=== PATIENT | female | born 1995 | race Caucasian/White ===

== ENCOUNTER 2023-04-27 21:26 | Emergency (ER) | payer SELFPAY ==
[2023-04-27] VITALS (17 sets, daily range): BP systolic 101–122; BP diastolic 47–63; PULSE 78–106; RESP 11–38; TEMP 36.4; O2SAT 96–100
--- NOTE | 2023-04-27 21:15 | RT.EKG_ITS ---
APPROVED REPORT Exam: Resting ECG Reason for Exam: dizziness Patient Location: E HR:94 bpm ECG Measurements Heart Rate 94 AXIS RI 171 P 71 QRSd 78 QRS 83 QT 354 T 69 QTc 443 Conclusion Sinus rhythm...normal P axis, V-rate 60- 99 NSR, normal axis, normal intervals, no STEMI. No previous available for comparison
[2023-04-27 22:00] LABS: Abs Immature Grans 0.08 10^3/uL (0.0-0.06); Absolute Basophil Count 0.03 10^3/uL (0.0-0.2); Absolute Eosinophil Count 0.07 10^3/uL (0.0-0.7); Absolute Lymphocyte Count 2.44 10^3/uL (1.2-3.4); Absolute Monocyte Count 1.08 10^3/uL (0.1-0.8); Absolute Neutrophil Count 7.24 10^3/uL (1.2-6.7); Basophils % 0.3; Eosinophils % 0.6; HCT 36.1 % (36.0-46.0); HGB 12.6 g/dL (11.2-15.7); Immature Grans % 0.7; Lymphocytes % 22.3; MCH 32.1 pg (27.0-33.0); MCHC 34.9 % (32.0-36.0); MCV 92 fL (80-95); MPV 10.3 fL (8.0-11.0); Monocytes % 9.9; Neutrophils % 66.2; Platelet Count 315 10^3/uL (130-400); RBC 3.93 10^6/uL (3.93-5.22); RDW 11.8 % (11.7-14.6); WBC 10.94 10^3/uL (4.4-10.8)
[2023-04-27] MEDS: Normal Saline 1,000 ML 1000 ML IV (22:05)
[2023-04-27 22:12] LABS: Bilirubin Negative (Negative); Blood Negative (Negative); Clarity Sl Cloudy (Clear); Glucose Negative (Negative); Ketones 15 mg/dL (Negative); Leukocyte Esterase Negative (Negative); Nitrite Negative (Negative); Urobilinogen 0.2 mg/dL (Up to 0.2); pH 7.5 (5-8)
[2023-04-27 22:20] LABS: ALT 13 U/L (14-59); AST 13 U/L (15-37); Albumin 4.3 g/dL (3.4-5.0); Alkaline Phosphatase 61 U/L (46-116); Anion Gap 14.2 mmol/L (3-11); BUN 11 mg/dL (7-18); Bilirubin, Total 0.4 mg/dL (0.2-1.0); CO2 23.8 mmol/L (21.0-32.0); CREATININE 0.8 mg/dL (0.55-1.02); Chloride 101 mmol/L (98-107); Glucose 132 mg/dL (74-106); Lipase 19 U/L (16-77); Magnesium 1.7 mg/dL (1.8-2.4); Sodium 139 mmol/L (136-145); Total Protein 7.5 g/dL (6.4-8.2)
[2023-04-27 22:22] LABS: Bacteria Rare HPF (Negative); C & S Indicated? No; Casts Negative LPF (Negative); Crystals Moderate Amorphous HPF (Negative); Epithelial Cells Rare HPF (Negative); Mucus Trace (Negative); RBC 0-2 HPF (0-2); WBC 0-2 HPF (0-5)
[2023-04-27 22:22] LABS: Potassium 2.7 mmol/L (3.5-5.1)
[2023-04-27] MEDS: POTASSIUM CHLORIDE 20 MEQ/100 ML BAG 50 MEQ IVPB (22:51)
[2023-04-27] MEDS: Potassium Chloride 20 MEQ TABCR 40 MEQ PO (22:52)
[2023-04-27] MEDS: Magnesium Oxide 400 MG TAB PO (22:52)
[2023-04-27] MEDS: Ondansetron 4 MG/2 ML VIAL IVP (22:52)
--- NOTE | 2023-04-27 23:06 | ED.GENADUL_ITS ---
Discharge Plan Disposition Patient Disposition: Home Discharge Details Clinical Impression: Panic attack, Anxiety about health, Acute hypokalemia, Nausea & vomiting ED Provider: Emir Zurita Home Meds and New Rx's Prescriptions: New potassium chloride 20 mEq tablet extended release 20 meq PO DAILY Qty: 3 0RF No Action uxaopeqc-vva-Qt-FA 1 mg Tablet 1 tab PO DAILY Discharge Instructions Instructions: Hypokalemia (ED), Acute Nausea and Vomiting (ED), Panic Attack (ED) Additional Instructions: Please return to the emergency department for any new or significant worsening of symptoms otherwise eat a balanced diet. You have been prescribed 3 days of additional potassium tablets given that you have low potassium here in the emergency department. Please just take 1 tablet daily. Follow-up with primary care provider if you are not seeing any signs of improvement or have any further concerns Referrals: Primary Care Provider [Outside] Discharge Data Discharge Date/Time-TO BE ENTERED AT DEPARTURE: 04/28/23 01:02 Medical Decision Making Patient presenting to the emergency department via EMS for chief complaint of vomiting with episode of syncope. Patient reports that she started feeling ill, and then vomited. When she vomited she started becoming severely anxious and concerned. Significant other states that she started breathing rapidly complaining of tingling to hands and around her mouth and then had syncopal episode. Due to this EMS was contacted and brought patient to emergency department. Patient denies fever chills, difficulty breathing swallowing, chest pain or respiratory symptoms, or focal neurological deficits. Patient denies any past medical history or allergies. Physical exam is unremarkable and I cannot appreciate any abdominal respiratory cardiac or focal neurological findi ngs. We will plan on checking patient's labs but I do not feel that CT imaging is needed at this time. Pending results we will give patient IV fluids. I have high suspicion of anxiety/panic reaction that caused syncopal episode with possible underlying medical condition. EKG performed by nursing staff. Please see physician interpretation for full interpretation of EKG but upon my review patient is in sinus rhythm with no worrisome acute findings noted. Labs reviewed and show just barely elevated WBC at 10.94 with neutrophils and monocytes also slightly elevated, CMP reviewed and shows hypokalemia with potassium of 2.7, anion gap of 14.2, glucose of 132, magnesium of 1.7 low AST ALT. Lipase is normal within range. Urinalysis does show protein and ketones but otherwise is negative. We will plan on giving patient IV 20 mEq of potassium and p.o. potassium along with p.o. magnesium. We will also further p.o. challenge patient with plan to discharge patient once infusions are complete with p.o. potassium for 2 additional days. After discussion of diagnosis and plan of care patient has no further needs, questions, or concerns and states clear understanding to return to the emergency department for any worsening symptoms. This documentation was generated using [employer] system, please disregard any oddities of phrase or misspellings. Lab Data Lab results reviewed: Yes I reviewed the patient's lab results. HPI General Mode of arrival: EMS . Date/Time Provider Initiated Documentation: 04/27/23 21:34 . Limitations to Documentation: no limitations . Information obtained by: patient, family, EMS and RN notes reviewed . History of Present Illness 28 year old F presents to the emergency department with the chief complaint of Nausea vomiting syncope, described as moderate, Patient started experiencing this hour(s) (2) and it has been constant. No relieving factors improve symptom(s), No exacerbating factors reported . Patient did receive the following treatments prior to arrival, other (Zofran per EMS) Related Data Home Medications Medication Instructions Recorded Confirmed potassium chloride 20 mEq 20 meq PO DAILY #3 tabs 04/28/23 tablet,extended release zxqkikvk-xuw-Ms-FA 1 mg 1 tab PO DAILY 05/01/23 05/01/23 tablet Previous Rx's Medication Instructions Recorded potassium chloride 20 mEq 20 meq PO DAILY #3 tabs 04/28/23 tablet,extended release Allergies Allergy/AdvReac Type Severity Reaction Status Date / Time No Known Allergies Allergy Unverified 05/01/23 19:41 General Stated Complaint: Abd Prob KAPIL: 3 Review of Systems Constitutional Constitutional: Denies chills, Denies fever(s) and Denies headache(s) ENT Ears, Nose, Mouth, and Throat: Denies dizziness and Denies headache(s) Cardiovascular Cardiovascular: Reports syncope, Denies irregular heart rhythm, Denies lightheadedness and Denies dyspnea Respiratory Respiratory: Denies cough and Denies dyspnea Gastrointestinal Gastrointestinal: Reports as per HPI, Reports diarrhea, Reports nausea and Reports vomiting Genitourinary Genitourinary: Denies hematuria, Denies dysuria and Denies pelvic pain Musculoskeletal Musculoskeletal: Reports myalgias, Reports numbness and Reports tingling Integumentary/Breasts Skin/Breast: Denies rash Neurologic Neurologic: Denies dizziness, Reports syncope, Denies headache(s), Reports numbness and Reports tingling Psychiatric Psychiatric: Reports anxiety PFSH All Active Problems (Updated 05/01/23 @ 21:38 by Johana Melton NP) Anxiety (Chronic) Hypokalemia (Acute) Social History Smoking/Tobacco Use Status: Never Smoking risk assessment performed?: Yes Alcohol Intake: never Substance use type: does not use Do you feel safe at home: Yes Do you feel safe in your relationship?: Yes Exam Const General: cooperative Orientation: alert, awake and oriented x3 Resp Effort & Inspection: normal respiratory effort and able to speak in complete sentences Auscultation: clear to auscultation bilaterally Cardio Rate: regular rate Rhythm: regular rhythm Heart Sounds: S1 normal and S2 normal GI Palpation: soft, not firm, no guarding, no masses, no pulsatile masses, not rigid, no splenomegaly and nontender Auscultation: normal bowel sounds Back/Spine/Pelvis Back: no CVA tenderness Neuro General: patient alert, patient awake, patient oriented x3, gait normal, moves all extremities, no meningeal signs, CN's II-XI intact bilaterally, not confused and not obtunded Course Vital Signs Vital signs: Vital Signs Temperature 36.4 C L 04/27/23 21:26 Pulse 97 H 04/27/23 21:26 Respiratory Rate 18 04/27/23 21:26 Blood Pressure 122/51 L 04/27/23 21:26 Pulse Oximetry 100 04/27/23 21:26 Temperature 36.4 C L 04/27/23 21:26 Pulse 97 H 04/27/23 21:26 Respiratory Rate 18 04/27/23 21:26 Respiratory Effort Normal, Non-Labored 04/27/23 21:35 Blood Pressure 122/51 L 04/27/23 21:26 Pulse Oximetry 100 04/27/23 21:26 Oxygen Delivery Method Room Air 04/27/23 21:26 Oxygen Flow Rate 0 04/27/23 21:26 Pain Level 2 04/27/23 21:26 Lab/Test Results Lab/Test Results: Laboratory Tests Range/Units 04/27/23 04/27/23 04/27/23 21:40 21:40 22:02 WBC (4.4-10.8) 10^3/uL 10.94 H RBC (3.93-5.22) 10^6/uL 3.93 Hgb (11.2-15.7) g/dL 12.6 Hct (36.0-46.0) % 36.1 MCV (80-95) fL 92 MCH (27.0-33.0) pg 32.1 MCHC (32.0-36.0) % 34.9 RDW (11.7-14.6) % 11.8 Plt Count (130-400) 10^3/uL 315 MPV (8.0-11.0) fL 10.3 Immature Gran % 0.7 Neutrophils % 66.2 Lymphocytes % 22.3 Monocytes % 9.9 Eosinophils % 0.6 Basophils % 0.3 Nucleated RBC % (0.0-0.3) % 0.0 Absolute Neutrophils (1.2-6.7) 10^3/uL 7.24 H Absolute Lymphocytes (1.2-3.4) 10^3/uL 2.44 Absolute Monocytes (0.1-0.8) 10^3/uL 1.08 H Absolute Eosinophils (0.0-0.7) 10^3/uL 0.07 Absolute Basophils (0.0-0.2) 10^3/uL 0.03 Sodium (136-145) mmol/L 139 Potassium (3.5-5.1) mmol/L 2.7 L* Chloride (98-107) mmol/L 101 Carbon Dioxide (21.0-32.0) mmol/L 23.8 Anion Gap (3-11) mmol/L 14.2 H BUN (7-18) mg/dL 11 Creatinine (0.55-1.02) mg/dL 0.8 Est GFR (CKD-EPI 2020) (mL/min/1.73m2) 103.50 Glucose (74-106) mg/dL 132 H Calcium (8.5-10.1) mg/dL 9.0 Magnesium (1.8-2.4) mg/dL 1.7 L Total Bilirubin (0.2-1.0) mg/dL 0.4 AST (15-37) U/L 13 L ALT (14-59) U/L 13 L Alkaline Phosphatase (46-116) U/L 61 Total Protein (6.4-8.2) g/dL 7.5 Albumin (3.4-5.0) g/dL 4.3 Lipase (16-77) U/L 19 Urine Color (Yellow) Yellow Urine Clarity (Clear) Sl Cloudy Urine pH (5-8) 7.5 Ur Specific [place] (1.005-1.025) 1.020 Urine Protein (Negative) mg/dL 30 H Urine Ketones (Negative) mg/dL 15 H Urine Blood (Negative) Negative Urine Nitrite (Negative) Negative Urine Bilirubin (Negative) Negative Urine Urobilinogen (Up to 0.2) mg/dL 0.2 Ur Leukocyte Esterase (Negative) Negative Urine RBC (0-2) HPF 0-2 Urine WBC (0-5) HPF 0-2 Ur Epithelial Cells (Negative) HPF Rare Urine Crystals (Negative) HPF Moderate Amorphous Urine Bacteria (Negative) HPF Rare Urine Casts (Negative) LPF Negative Urine Mucus (Negative) Trace Ur Culture Indicated? No Urine Glucose (Negative) mg/dL Negative POC- Test(urine) Negative
[2023-04-28] VITALS (7 sets, daily range): BP systolic 102–106; BP diastolic 50–64; PULSE 77–91; RESP 14–21; O2SAT 96–99
--- NOTE | 2023-04-29 13:29 | NUR.NOTE ---
Accessed chart to determine orders for EKG and to determine whether or not one needs to be cancelled. Nursing Note:
== END 2023-04-28 01:02 | disposition home or self-care (01) ==
LOC: ER 04-28 01:48
PROVIDERS: Emergency Provider Nurse Practitioner Family
DX: R55 Syncope and collapse (principal); F41.9 Anxiety disorder, unspecified; E87.6 Hypokalemia; R11.2 Nausea with vomiting, unspecified; R42 Dizziness and giddiness
CPT/HCPCS: 36415; 80053; 81025; 83690; 93005; 96361; 96365; 96366; 96375; 99284; 81003; 81015; 83735; 85025; 93010; J2405; J3480

== ENCOUNTER 2023-05-01 19:29 | Emergency (ER) | payer SELFPAY ==
[2023-05-01] VITALS (10 sets, daily range): BP systolic 139; BP diastolic 88; PULSE 87–127; RESP 19–20; TEMP 37.7; O2SAT 100
[2023-05-01] MEDS: Ondansetron 4 MG/2 ML VIAL IVP (20:32)
[2023-05-01] MEDS: Normal Saline 1,000 ML 1000 ML IV (20:32)
[2023-05-01 20:34] LABS: Abs Immature Grans 0.02 10^3/uL (0.0-0.06); Absolute Basophil Count 0.03 10^3/uL (0.0-0.2); Absolute Eosinophil Count 0.04 10^3/uL (0.0-0.7); Absolute Lymphocyte Count 2.28 10^3/uL (1.2-3.4); Absolute Monocyte Count 0.82 10^3/uL (0.1-0.8); Absolute Neutrophil Count 3.71 10^3/uL (1.2-6.7); Basophils % 0.4; Eosinophils % 0.6; HCT 41.9 % (36.0-46.0); HGB 14.5 g/dL (11.2-15.7); Immature Grans % 0.3; MCH 31.9 pg (27.0-33.0); MCHC 34.6 % (32.0-36.0); MCV 92 fL (80-95); MPV 9.6 fL (8.0-11.0); Monocytes % 11.9; Neutrophils % 53.8; Platelet Count 332 10^3/uL (130-400); RBC 4.54 10^6/uL (3.93-5.22); RDW 11.7 % (11.7-14.6); RDW-SD 39.7 fL
[2023-05-01 20:44] LABS: Anion Gap 11.6 mmol/L (3-11); BUN 11 mg/dL (7-18); CO2 27.4 mmol/L (21.0-32.0); CREATININE 0.7 mg/dL (0.55-1.02); Calcium 9.7 mg/dL (8.5-10.1); Chloride 102 mmol/L (98-107); Estimated GFR 121.49 (mL/min/1.73m2); Glucose 112 mg/dL (74-106); Potassium 3.4 mmol/L (3.5-5.1); Sodium 141 mmol/L (136-145)
--- NOTE | 2023-05-01 21:36 | ED.GENADUL_ITS ---
Discharge Plan Disposition Patient Disposition: Home Condition: Stable Discharge Details Clinical Impression: Anxiety, Hypokalemia Primary Care Provider: Michelle Clark ED Provider: Johana Melton Home Meds and New Rx's Prescriptions: Continued potassium chloride 20 mEq tablet extended release 20 meq PO DAILY Qty: 3 0RF gdfwrbmh-wvb-Nx-FA 1 mg Tablet 1 tab PO DAILY Discharge Instructions Instructions: Hypokalemia (ED), Anxiety (ED) Additional Instructions: your potassium was rechecked and is 3.4 which is just below normal, continue eating foods high in potassium and continue multivitamin. clear liquids advance as tolerated. use ondansetron if needed for nausea. Referrals: Michelle Clark [Primary Care Provider] - (follow up if needed.) Discharge Data Discharge Date/Time-TO BE ENTERED AT DEPARTURE: 05/01/23 22:23 Medical Decision Making given 1 liter of NS and zofran 4 mg IVP. labs check including bmp and cbc. patient is given ativan 0.5 mg and apap 1000 mg po for headache and persistent anxiety which she attributes to worrying about her low potassium and thinking she was dehydrated. reassurance given and she acknowledges improvement in her symptoms since receiving IV fluids. Hemodynamically she has remained stable and is agreeable to discharged home. Medical Records Medical records reviewed: Yes I reviewed the patient's medical records. Lab Data Lab results reviewed: Yes I reviewed the patient's lab results. Lab results narrative: Laboratory Tests Range/Units 05/01/23 05/01/23 20:27 20:27 WBC (4.4-10.8) 10^3/uL 6.90 RBC (3.93-5.22) 10^6/uL 4.54 Hgb (11.2-15.7) g/dL 14.5 Hct (36.0-46.0) % 41.9 MCV (80-95) fL 92 MCH (27.0-33.0) pg 31.9 MCHC (32.0-36.0) % 34.6 RDW (11.7-14.6) % 11.7 Plt Count (130-400) 10^3/uL 332 MPV (8.0-11.0) fL 9.6 Immature Gran % 0.3 Neutrophils % 53.8 Lymphocytes % 33.0 Monocytes % 11.9 Eosinophils % 0.6 Basophils % 0.4 Nucleated RBC % (0.0-0.3) % 0.0 Absolute Neutrophils (1.2-6.7) 10^3/uL 3.71 Absolute Lymphocytes (1.2-3.4) 10^3/uL 2.28 Absolute Monocytes (0.1-0.8) 10^3/uL 0.82 H Absolute Eosinophils (0.0-0.7) 10^3/uL 0.04 Absolute Basophils (0.0-0.2) 10^3/uL 0.03 Sodium (136-145) mmol/L 141 Potassium (3.5-5.1) mmol/L 3.4 L Chloride (98-107) mmol/L 102 Carbon Dioxide (21.0-32.0) mmol/L 27.4 Anion Gap (3-11) mmol/L 11.6 H BUN (7-18) mg/dL 11 Creatinine (0.55-1.02) mg/dL 0.7 Est GFR (CKD-EPI 2020) (mL/min/1.73m2) 121.49 Glucose (74-106) mg/dL 112 H Calcium (8.5-10.1) mg/dL 9.7 HPI General Mode of arrival: ambulatory . Date/Time Provider Initiated Documentation: 05/01/23 19:51 . Limitations to Documentation: other (behavioral) . Information obtained by: patient . HPI Narrative: presents for complaints of feeling dehydrated. She is worried about her potassium being low stating that she was seen for that and has not been able to take the potassium today. She states she was on a long car ride did not take much oral fluids presents very anxious about her potassium level possibly being low. Said no fever no chills no chest pain no dizziness no other complaints Related Data Home Medications Medication Instructions Recorded Confirmed potassium chloride 20 mEq 20 meq PO DAILY #3 tabs 04/28/23 tablet,extended release imqfuhhp-aec-Vn-FA 1 mg 1 tab PO DAILY 05/01/23 05/01/23 tablet Previous Rx's Medication Instructions Recorded potassium chloride 20 mEq 20 meq PO DAILY #3 tabs 04/28/23 tablet,extended release Allergies Allergy/AdvReac Type Severity Reaction Status Date / Time No Known Allergies Allergy Unverified 05/01/23 19:41 General Stated Complaint: GenMedical KAPIL: 4 Review of Systems All systems reviewed & are unremarkable except as noted in HPI and below PFSH All Active Problems (Updated 05/01/23 @ 21:38 by Johana Melton NP) Anxiety (Chronic) Hypokalemia (Acute) Social History Smoking/Tobacco Use Status: Never Smoking risk assessment performed?: Yes Alcohol Intake: never Substance use type: does not use Do you feel safe at home: Yes Do you feel safe in your relationship?: Yes Exam Const General: disheveled Nutritional Appearance: average body habitus Orientation: alert, awake, oriented to person, oriented to place and oriented to time Other: Extremely anxious HENMT Head: normal to inspection, normocephalic and atraumatic Mouth: oral mucosae normal Chest Chest: normal inspection of the chest Resp Effort & Inspection: normal respiratory effort Auscultation: clear to auscultation bilaterally Cardio Rate: regular rate Rhythm: regular rhythm GI Inspection: normal to inspection Palpation: soft and nontender Skin General skin exam: no rashes or lesions noted Neuro General: patient alert, patient awake and patient oriented x3 Extrem General: normal to inspection, full ROM and no pedal edema Psych Appearance: disheveled Mood: anxious mood Affect: anxious affect Attitude: cooperative Thought Process: perseverating Insight: limited Judgment: limited Course Vital Signs Vital signs: Vital Signs Temperature 37.7 C H 05/01/23 19:41 Pulse 107 H 05/01/23 19:41 Respiratory Rate 19 05/01/23 19:41 Blood Pressure 139/88 05/01/23 19:41 Pulse Oximetry 100 05/01/23 19:41 Temperature 37.7 C H 05/01/23 19:41 Temperature Source Temporal Artery Scan 05/01/23 19:41 Pulse 107 H 05/01/23 19:41 Respiratory Rate 19 05/01/23 19:41 Blood Pressure 139/88 05/01/23 19:41 Blood Pressure Position Sitting 05/01/23 19:41 Pulse Oximetry 100 05/01/23 19:41 Oxygen Delivery Method Room Air 05/01/23 19:41 Oxygen Flow Rate 0 05/01/23 19:41 Pain Level 3 05/01/23 19:41 Lab/Test Results Lab/Test Results: Laboratory Tests Range/Units 05/01/23 05/01/23 20:27 20:27 WBC (4.4-10.8) 10^3/uL 6.90 RBC (3.93-5.22) 10^6/uL 4.54 Hgb (11.2-15.7) g/dL 14.5 Hct (36.0-46.0) % 41.9 MCV (80-95) fL 92 MCH (27.0-33.0) pg 31.9 MCHC (32.0-36.0) % 34.6 RDW (11.7-14.6) % 11.7 Plt Count (130-400) 10^3/uL 332 MPV (8.0-11.0) fL 9.6 Immature Gran % 0.3 Neutrophils % 53.8 Lymphocytes % 33.0 Monocytes % 11.9 Eosinophils % 0.6 Basophils % 0.4 Nucleated RBC % (0.0-0.3) % 0.0 Absolute Neutrophils (1.2-6.7) 10^3/uL 3.71 Absolute Lymphocytes (1.2-3.4) 10^3/uL 2.28 Absolute Monocytes (0.1-0.8) 10^3/uL 0.82 H Absolute Eosinophils (0.0-0.7) 10^3/uL 0.04 Absolute Basophils (0.0-0.2) 10^3/uL 0.03 Sodium (136-145) mmol/L 141 Potassium (3.5-5.1) mmol/L 3.4 L Chloride (98-107) mmol/L 102 Carbon Dioxide (21.0-32.0) mmol/L 27.4 Anion Gap (3-11) mmol/L 11.6 H BUN (7-18) mg/dL 11 Creatinine (0.55-1.02) mg/dL 0.7 Est GFR (CKD-EPI 2020) (mL/min/1.73m2) 121.49 Glucose (74-106) mg/dL 112 H Calcium (8.5-10.1) mg/dL 9.7
[2023-05-01] MEDS: Acetaminophen 500 MG TAB 1000 MG PO (21:40)
[2023-05-01] MEDS: LORazepam 0.5 MG TAB PO (21:40)
== END 2023-05-01 22:23 | disposition home or self-care (01) ==
PROVIDERS: Emergency Provider Nurse Practitioner Acute Care
DX: F41.9 Anxiety disorder, unspecified (principal); E87.6 Hypokalemia
CPT/HCPCS: 80048; 96361; 96374; 99284; 85025; J2405

== ENCOUNTER 2023-05-27 18:56 | Emergency (ER) | payer OTHER, SELFPAY ==
[2023-05-27 19:03] VITALS: BP 122/77; PULSE 95; RESP 18; TEMP 37.1; O2SAT 100
[2023-05-27] MEDS: Acetaminophen 500 MG TAB PO (20:45)
[2023-05-27] MEDS: Ibuprofen 400 MG TAB PO (20:45)
[2023-05-27] MEDS: Benzocaine 20% Gel 30 GM JAR MM (20:45)
--- NOTE | 2023-05-27 21:21 | ED.GENADUL_ITS ---
Discharge Plan Disposition Patient Disposition: Home Condition: Stable Discharge Details Clinical Impression: Pain, dental, Fractured tooth Primary Care Provider: Unknown,Unknown ED Provider: Alejo Grace Home Meds and New Rx's Prescriptions: Continued progesterone 50 mg/mL Oil 100 mg IM 1XD amoxicillin 250 mg Capsule potassium chloride 20 mEq tablet extended release 20 meq PO DAILY Qty: 3 0RF Patient Comments: not taking dqhtcbka-uzg-Et-FA 1 mg Tablet 1 tab PO DAILY Discharge Instructions Instructions: Toothache (ED) Additional Instructions: Please follow-up with your dentist regarding dental extraction. Please continue antibiotic as prescribed. Please take ibuprofen over the counter. Take 400mg by mouth every 6 hours as needed for pain. Please contact your primary care physician to arrange follow-up. Return to the ER immediately for any worsening or new concerning symptoms. Medical Decision Making 28-year-old female here with dental decay left upper wisdom tooth with recent fracture during dental appointment 2 days ago, planning for dental extraction, having persistent pain in this tooth. No associated swelling or fluctuance. Patient is on amoxicillin and taking as prescribed. Patient was given ibuprofen and acetaminophen for discomfort. Patient provided informed consent verbally for periapical dental block which was performed without complication. Patient had significant reduction in pain. Plan for discharge with outpatient follow-up with her dentist. She was encouraged to continue antibiotic as prescribed. Usual customary discharge instructions were reviewed. HPI General Mode of arrival: ambulatory . Date/Time Provider Initiated Documentation: 05/27/23 20:17 . Limitations to Documentation: no limitations . Information obtained by: patient . HPI Narrative: 28-year-old female with chronic dental decay left upper wisdom tooth, seen by her dentist 2 days ago where she notes small fracture of the left upper wisdom tooth occurred during exam. Patient has had increased pain since the exam. Pain localized to the tooth. He has no associated fever. No associated swelling. She is taking amoxicillin as prescribed by dentist. There is plan for dental extraction. Related Data Home Medications Medication Instructions Recorded Confirmed potassium chloride 20 mEq 20 meq PO DAILY #3 tabs 04/28/23 tablet,extended release qnimpvkf-anj-Cn-FA 1 mg 1 tab PO DAILY 05/01/23 05/27/23 tablet amoxicillin 250 mg capsule mg 05/27/23 progesterone 50 mg/mL 100 mg IM 1XD 09/20/23 09/20/23 intramuscular oil Previous Rx's Medication Instructions Recorded potassium chloride 20 mEq 20 meq PO DAILY #3 tabs 04/28/23 tablet,extended release Allergies Allergy/AdvReac Type Severity Reaction Status Date / Time No Known Allergies Allergy Unverified 05/27/23 21:24 General Stated Complaint: DentalOral KAPIL: 3 Review of Systems Constitutional Constitutional: Denies fever(s) ENT Ears, Nose, Mouth, and Throat: Reports as per HPI PFSH All Active Problems Anxiety (Chronic) Hypokalemia (Acute) Pain, dental (Acute) Fractured tooth (Acute) Social History Smoking/Tobacco Use Status: Never Smoking risk assessment performed?: Yes Alcohol Intake: never Drug use: Occasionally Substance use type: marijuana Details: Not on in at the moment, trying to get Do you feel safe at home: Yes Do you feel safe in your relationship?: Yes Exam Const General: cooperative and anxious Orientation: alert and awake HENMT Face and sinus: normal facial exam, face symmetric, no edema and no fluctuance Mouth: oral mucosae normal and oropharynx normal Teeth and gingiva: other (Left upper wisdom tooth with decay and chronic appearing fracture) Throat: posterior oropharynx normal Other: No trismus Neck Neck: no lymphadenopathy Course Vital Signs Vital signs: Vital Signs Temperature 37.1 C 05/27/23 19:03 Pulse 95 H 05/27/23 19:03 Respiratory Rate 18 05/27/23 19:03 Blood Pressure 122/77 05/27/23 19:03 Pulse Oximetry 100 05/27/23 19:03 Temperature 37.1 C 05/27/23 19:03 Temperature Source Skin 05/27/23 19:03 Pulse 95 H 05/27/23 19:03 Respiratory Rate 18 05/27/23 19:03 Respiratory Effort Normal 05/27/23 19:07 Blood Pressure 122/77 05/27/23 19:03 Pulse Oximetry 100 05/27/23 19:03 Oxygen Delivery Method Room Air 05/27/23 19:03 Oxygen Flow Rate 0 05/27/23 19:03 Pain Level 10 05/27/23 19:03 Procedures Nerve Block Nerve Block 1: Time out performed: Yes Local Anesthetic: Bupivicaine 0.5% Amount of anesthesia used (mL): 1 Side: left Intraoral Nerve Block: other (Periapical) Procedure Successful: Yes Patient Tolerated Procedure: well Complications: none
== END 2023-05-27 21:58 | disposition home or self-care (01) ==
PROVIDERS: Emergency Provider Student in an Organized Health Care Education/Training Program
DX: K02.9 Dental caries, unspecified (principal); S02.5XXA Fracture of tooth (traumatic), initial encounter for closed fracture; X58.XXXA Exposure to other specified factors, initial encounter
CPT/HCPCS: 64400; 99283; 99282

== ENCOUNTER 2023-05-28 14:21 | Emergency (ER) | payer OTHER, SELFPAY ==
[2023-05-28 14:29] VITALS: BP 132/83; PULSE 64; RESP 20; TEMP 37; O2SAT 99
--- NOTE | 2023-05-28 15:49 | W.ED.GENAD ---
Discharge Plan Disposition Patient Disposition: Home Condition: Improving Discharge Details Clinical Impression: Fractured tooth Primary Care Provider: Unknown,Unknown ED Provider: Mercy Lewis Home Meds and New Rx's Prescriptions: New Relafen DS 1,000 mg tablet 1,000 mg PO BID PRN (Reason: pain) Qty: 14 0RF Continued progesterone 50 mg/mL Oil 100 mg IM 1XD amoxicillin 250 mg Capsule potassium chloride 20 mEq tablet extended release 20 meq PO DAILY Qty: 3 0RF Patient Comments: not taking xwtkalcr-bxj-Mi-FA 1 mg Tablet 1 tab PO DAILY Discharge Instructions Instructions: Toothache (ED) Additional Instructions: Call dentists and oral surgeons of your choice. You can google the [facility] as they may be able to see you as well. Stop the ibuprofen and try the Relafen for pain. Continue the amoxicillin. Return to ED for fever of 100.4 or above, swollen face, any other concerns. Medical Decision Making Patient was advised to call dentists and oral surgeons here and in [place]. She may also try the [facility] she should return for fever of 100.4 or above, swollen face, any other concerns. I will also try Relafen instead of ibuprofen. Medical Records Medical records reviewed: Yes I reviewed the patient's medical records. HPI General Date/Time Provider Initiated Documentation: 05/28/23 15:48. HPI Narrative: This 28-year-old female patient presents for the second day in a row with a chief complaint of left upper wisdom tooth pain due to a fractured tooth. The patient has been [place]rbg-dtw-wrxzi between [place] and [place] and now here and is having difficulty finding a dentist to pull her tooth. She does have an appointment in [place] to be evaluated for this. She was seen yesterday and given an apical dental block. She returns today requesting the same. She understands that she can keep coming here for dental blocks. There is no fever, gum redness, facial swelling. Related Data Home Medications Medication Instructions Recorded Confirmed potassium chloride 20 mEq 20 meq PO DAILY #3 tabs 04/28/23 tablet,extended release tjkjlqlx-lud-Ek-FA 1 mg 1 tab PO DAILY 05/01/23 05/27/23 tablet amoxicillin 250 mg capsule mg 05/27/23 progesterone 50 mg/mL 100 mg IM 1XD 05/27/23 05/27/23 intramuscular oil nabumetone 1,000 mg tablet 1,000 mg PO BID PRN pain #14 tabs 05/28/23 (Relafen DS) Previous Rx's Medication Instructions Recorded potassium chloride 20 mEq 20 meq PO DAILY #3 tabs 04/28/23 tablet,extended release nabumetone 1,000 mg tablet 1,000 mg PO BID PRN pain #14 tabs 05/28/23 (Relafen DS) Allergies Allergy/AdvReac Type Severity Reaction Status Date / Time No Known Allergies Allergy Unverified 05/28/23 14:32 General Stated Complaint: DentalOral KAPIL: 4 Review of Systems ENT Ears, Nose, Mouth, and Throat: Denies otalgia and Reports other (Has left upper dental pain) Integumentary/Breasts Skin/Breast: Reports other (No facial redness or swelling) PFSH All Active Problems (Updated 05/28/23 @ 16:15 by Mercy Lewis MD) Anxiety (Chronic) Hypokalemia (Acute) Pain, dental (Acute) Fractured tooth (Acute) Social History Smoking/Tobacco Use Status: Never Smoking risk assessment performed?: Yes Alcohol Intake: never Drug use: Occasionally Substance use type: marijuana Details: Not on in at the moment, trying to get Do you feel safe at home: Yes Do you feel safe in your relationship?: Yes Exam Const General: healthy appearing and no acute distress Nutritional Appearance: well nourished Orientation: alert, awake and oriented x3 HENMT Head: normocephalic and atraumatic Teeth and gingiva: gingiva normal, caries and other (Fractured posterior molar/wisdom tooth upper left side tender to percussion) Neck Neck: full ROM, lymphadenopathy noted and supple Resp Effort & Inspection: normal respiratory effort and able to speak in complete sentences Skin General skin exam: other (No facial redness, skin is pink warm dry) Course Vital Signs Vital signs: Vital Signs Temperature 37.0 C 05/28/23 14:29 Pulse 64 05/28/23 14:29 Respiratory Rate 20 05/28/23 14:29 Blood Pressure 132/83 05/28/23 14:29 Pulse Oximetry 99 05/28/23 14:29 Temperature 37.0 C 05/28/23 14:29 Temperature Source Oral 05/28/23 14:29 Pulse 64 05/28/23 14:29 Respiratory Rate 20 05/28/23 14:29 Respiratory Effort Normal 05/28/23 14:34 Blood Pressure 132/83 05/28/23 14:29 Blood Pressure Position Sitting 05/28/23 14:29 Pulse Oximetry 99 05/28/23 14:29 Oxygen Delivery Method Room Air 05/28/23 14:29 Oxygen Flow Rate 0 05/28/23 14:29 Pain Level 9 05/28/23 14:29 Procedures Nerve Block Nerve Block 1: Local Anesthetic: Lidocaine 1%, Bupivicaine 0.5% and with Epi Amount of anesthesia used (mL): 1 (ml) Side: left Nerve Blocks: other (Apical nerve block posterior molar/wisdom ) Procedure Successful: Yes Patient Tolerated Procedure: well Complications: none
[2023-05-28 16:03] VITALS: BP 124/76; PULSE 114; TEMP 37.1; O2SAT 98
== END 2023-05-28 16:29 | disposition home or self-care (01) ==
PROVIDERS: Emergency Provider Emergency Medicine
DX: S02.5XXD Fracture of tooth (traumatic), subsequent encounter for fracture with routine healing (principal); K08.89 Other specified disorders of teeth and supporting structures; X58.XXXD Exposure to other specified factors, subsequent encounter
CPT/HCPCS: 64400; 99283; 99282

== ENCOUNTER 2023-11-18 16:20 | Emergency (ER) | payer OTHER, SELFPAY ==
[2023-11-18 16:26] VITALS: BP 141/95; PULSE 110; RESP 18; TEMP 36.7; O2SAT 98
--- NOTE | 2023-11-18 17:02 | ED.GENADUL_ITS ---
Discharge Plan Disposition Patient Disposition: Home Condition: Stable Discharge Details Clinical Impression: Acute urinary retention Primary Care Provider: Unknown,Unknown ED Provider: Natalya Loco Home Meds and New Rx's Prescriptions: No Action progesterone 50 mg/mL Oil 100 mg IM 1XD amoxicillin 250 mg Capsule Relafen DS 1,000 mg tablet 1,000 mg PO BID PRN (Reason: pain) Qty: 14 0RF potassium chloride 20 mEq tablet extended release 20 meq PO DAILY Qty: 3 0RF Patient Comments: not taking bosfllqw-zpo-Ql-FA 1 mg Tablet 1 tab PO DAILY Discharge Instructions Instructions: Garcia Catheter Placement and Care (ED), Acute Urinary Retention in Women (ED) Additional Instructions: Keep the Garcia in place until you follow-up with your [facility] [employer]. Please discuss this with them. Follow up with primary care provider in 3-5 days. Return to ED sooner if any worsening or concerns. Increase oral fluids. Please take Tylenol or Ibuprofen with food every 4-6 hours as needed for pain and swelling. Discharge Data Discharge Date/Time-TO BE ENTERED AT DEPARTURE: 11/18/23 19:12 HPI General Mode of arrival: ambulatory . Date/Time Provider Initiated Documentation: 11/18/23 16:39 . Limitations to Documentation: no limitations . Information obtained by: patient, RN notes reviewed and old records reviewed . HPI Narrative: 28 year old female presents to the ED with a chief complaint of difficulty urinating. Recently had a right ovarian cyst surgery 2 days ago and reports the the Garcia catheter fell out at 0900 this am. Has not urinated since. Upon arrival 500 ml urine in bladder with bladder scan, patient unable to urinate here. Denies any N/V/D or fever or any other associated symptoms. Related Data Home Medications Medication Instructions Recorded Confirmed potassium chloride 20 mEq 20 meq PO DAILY #3 tabs 04/28/23 tablet,extended release zkvvdqjh-paz-Bc-FA 1 mg 1 tab PO DAILY 05/01/23 05/27/23 tablet amoxicillin 250 mg capsule mg 05/27/23 progesterone 50 mg/mL 100 mg IM 1XD 05/27/23 05/27/23 intramuscular oil nabumetone 1,000 mg tablet 1,000 mg PO BID PRN pain #14 tabs 05/28/23 (Relafen DS) Previous Rx's Medication Instructions Recorded potassium chloride 20 mEq 20 meq PO DAILY #3 tabs 04/28/23 tablet,extended release nabumetone 1,000 mg tablet 1,000 mg PO BID PRN pain #14 tabs 05/28/23 (Relafen DS) Allergies Allergy/AdvReac Type Severity Reaction Status Date / Time No Known Allergies Allergy Unverified 05/28/23 14:32 General Stated Complaint: Urinary KAPIL: 3 Review of Systems All systems reviewed & are unremarkable except as noted in HPI and below Genitourinary Genitourinary: Reports difficulty voiding Exam Narrative Exam Narrative: Constitutional: Alert and oriented x3. Appears stated age. Normal body habitus. Head: Normocephalic, no trauma. Eyes: Pupils PERRL, Red reflex noted, EOM's intact. Eyelids symmetrical without lesions, discharge, or swelling. ENT: Bilateral TM's WNL, External ear normal to inspection, no mastoid TTP, swelling, or erythema, Nasal turbinates WNL, no nasal discharge. Normal dentition, Posterior pharynx WNL, no exudate. Chest: RRR, Normal S1, S2, distal pulses intact. Resp: Lungs clear to auscultation bilaterally, no wheezes, rales, or rhonchi. Abdomen: Soft, non-distended, Normoactive bowel sounds all 4 quads. Musculoskeletal: Normal gait, 5/5 strength to all four extremities. Skin: No suspicious rashes or lesions. Capillary refill less than 2 sec. Neurologic: Cranial nerves II-XII intact. Alert and oriented x 3. Motor: No deficits noted. Sensory: Intact bilaterally all 4 extremities. Reflexes: DTR's intact bilaterally.. Hematologic/Lymphatic: No ecchymosis, no lymphadenopathy. Course Vital Signs Vital signs: Vital Signs Temperature 36.7 C 11/18/23 16:26 Pulse 110 H 11/18/23 16:26 Respiratory Rate 18 11/18/23 16:26 Blood Pressure 141/95 H 11/18/23 16:26 Pulse Oximetry 98 11/18/23 16:26 Temperature 36.7 C 11/18/23 16:26 Temperature Source Oral 11/18/23 16:26 Pulse 110 H 11/18/23 16:26 Respiratory Rate 18 11/18/23 16:26 Blood Pressure 141/95 H 11/18/23 16:26 Pulse Oximetry 98 11/18/23 16:26 Pain Level 8 11/18/23 16:26 Medical Decision Making 28 year old female presents to the ED with a chief complaint of difficulty urinating. Recently had a right ovarian cyst surgery 2 days ago and reports the the Garcia catheter fell out at 0900 this am. Has not urinated since. Upon arrival 500 ml urine in bladder with bladder scan, patient unable to urinate here. Denies any N/V/D or fever or any other associated symptoms. Urinalysis, bladder scan and garcia catheter ordered to see if this alleviates discomfort. Garcia catheter placed by staff development nurse, 1000ml urine output. UA sent and is pending, UA shows small blood and ketones, no evidence of UTI. Henrry send patient home with garcia in place and a leg bag. On re-evaluation, patient reports she feels better. This text was generated using [employer] system, please disregard any oddities of phrase or misspellings. Lab Data Lab results reviewed: Yes I reviewed the patient's lab results. Labs: Laboratory Tests Range/Units 11/18/23 18:12 Urine Color (Yellow) Yellow Urine Clarity (Clear) Clear Urine pH (5-8) 6.0 Ur Specific Benton (1.005-1.025) 1.015 Urine Protein (Neg-Trace) mg/dL Negative Urine Ketones (Negative) mg/dL 80 H Urine Blood (Negative) Small H Urine Nitrite (Negative) Negative Urine Bilirubin (Negative) Negative Urine Urobilinogen (Up to 0.2) mg/dL 0.2 Ur Leukocyte Esterase (Negative) Negative Urine RBC (0-2) HPF 5-10 H Urine WBC (0-5) HPF Negative Ur Epithelial Cells (Negative) HPF Negative Urine Crystals (Negative) HPF Negative Urine Bacteria (Negative) HPF Negative Urine Casts (Negative) LPF Negative Urine Mucus (Negative) Negative Ur Culture Indicated? No Urine Glucose (Negative) mg/dL Negative Quality:SDOH Health Related Social Needs: No Data to Display PFSH All Active Problems (Updated 11/18/23 @ 18:38 by Natalya Loco NP) Acute urinary retention (Acute) Social History Smoking/Tobacco Use Status: Never Smoking risk assessment performed?: Yes Alcohol Intake: never Drug use: Occasionally Substance use type: marijuana Details: Not on in at the moment, trying to get Housing: apartment Do you feel safe at home: Yes Do you feel safe in your relationship?: Yes
[2023-11-18 18:20] LABS: Bilirubin Negative (Negative); Blood Small (Negative); Clarity Clear (Clear); Glucose Negative (Negative); Ketones 80 mg/dL (Negative); Leukocyte Esterase Negative (Negative); Nitrite Negative (Negative); Specific Gravity 1.015 (1.005-1.025); Urobilinogen 0.2 mg/dL (Up to 0.2)
[2023-11-18 18:34] LABS: Bacteria Negative HPF (Negative); C & S Indicated? No; Casts Negative LPF (Negative); Crystals Negative HPF (Negative); Epithelial Cells Negative HPF (Negative); Mucus Negative (Negative); WBC Negative HPF (0-5)
[2023-11-18 19:03] VITALS: PULSE 74; RESP 16; TEMP 36.2; O2SAT 100
== END 2023-11-18 19:12 | disposition home or self-care (01) ==
PROVIDERS: Emergency Provider Registered Nurse Emergency
DX: R39.198 Other difficulties with micturition (principal); Z98.890 Other specified postprocedural states; R33.8 Other retention of urine
CPT/HCPCS: 51702; 51798; 99283; 81003; 81015

== ENCOUNTER → 2024-04-03 20:24 | Emergency (ER) | payer OTHER, SELFPAY ==
--- OUTSIDE RECORDS SUMMARY | 2024-04-03 20:35 | XMS_ITS | Continuity of Care Document ---
Author Organization [facility] Ambulatory Clinics Address [address] [place] [address] Encounter [facility] FIN NBR [id number] Date(s): 07/26/23 - 07/26/23 [facility] Ambulatory Clinics [address] [place] [address] [place] Encounter Diagnosis Bladder pain(Discharge Diagnosis) - 07/26/23 Pain, dental(Discharge Diagnosis) - 07/26/23 Pelvic pain(Discharge Diagnosis) - 07/26/23 Discharge Disposition: Home or Self Care Attending Physician: Margarita Cummings PA-C Admitting Physician: Margarita Cummings PA-C Allergies, Adverse Reactions, Alerts No Known Allergies Assessment and Plan Future Scheduled Tests Radiology* US Transvaginal Non-OB 07/26/23 Functional Status 07/26/23 Other exposure to Infectious Disease Non e Medications amoxicillin-clavulanate 875 mg-125 mg oral tablet 1 tab, Oral, every 12 hr, # 20 tab, 0 Refill(s), Pharmacy: [facility] #[id number] Start Date: 05/16/23 Stop Date: 05/26/23 Status: Ordered Classic oral tablet 0 Refill(s) Start Date: 03/07/23 Status: Ordered clindamycin 300 mg oral capsule 300 mg = 1 cap, Oral, every 8 hr, # 24 cap, 0 Refill(s), Pharmacy: [facility] #[id number], 154.94, cm, 05/28/23 20:02:00 EDT, Height/Length Dosing, 46.72, kg, 05/28/23 20:02:00 EDT, Weight Dosing Start Date: 07/26/23 Status: Ordered ondansetron 4 mg oral tablet, disintegrating 4 mg = 1 tab, Oral, every 8 hr, PRN as needed for nausea/vomiting, # 9 tab, 0 Refill(s), Pharmacy: [facility] #[id number] Start Date: 05/18/23 Stop Date: 05/21/23 Status: Ordered progesterone 100 mg oral capsule 400 mg = 4 cap, Oral, Daily, 0 Refill(s) Start Date: 05/28/23 Status: Ordered Results Laboratory List Name Date .Urinalysis POCT 07/26/23 Most recent to oldest [Reference Range]: 1 Method of Collect POC cc *NA* (07/26/23 1:45 PM) Specific Reading, Ur POC 1.015 *NA* (07/26/23 1:45 PM) Specimen Color POC [Yellow] Light Yellow (07/26/23 1:45 PM) Glucose, Urine POC Negative mg/dL *NA* (07/26/23 1:45 PM) Bilirubin, Urine POC [Negative] Negative (07/26/23 1:45 PM) Ketones, Urine POC [Negative mg/dL] Nega tive mg/dL (07/26/23 1:45 PM) Blood, Urine POC [Negative] Negative (07/26/23 1:45 PM) pH, Urine POC 7.00 *NA* (07/26/23 1:45 PM) Protein, Urine POC [Negative mg/dL] Nega tive mg/dL (07/26/23 1:45 PM) Urobilinogen, Urine POC [0.2] 0.2 (07/26/23 1:45 PM) Nitrite, Urine POC [Negative] Negative (07/26/23 1:45 PM) Leuk Esterase, Urine POC [Negative] Nega tive (07/26/23 1:45 PM) Clarity, Urine POC [Clear] Clear (07/26/23 1:45 PM) Vital Signs Most recent to oldest [Reference Range]: 1 Temperature Tympanic [36.6-38.1 Deg C] 3 6.4 Deg C *LOW* (07/26/23 1:20 PM) Peripheral Pulse Rate [60-100 bpm] 112 b pm *HI* (07/26/23 1:20 PM) Respiratory Rate [12-24 br/min] 18 br/mi n (07/26/23 1:20 PM) Blood Pressure [90-140/60-90 mmHg] 151/5 7mmHg *HI* (07/26/23 1:20 PM) Mean Arterial Pressure, Cuff [70-110 mmH g] 88 mmHg (07/26/23 1:20 PM) Social History Social History Type Response Tobacco Never tobacco user T obacco Use:. Sex Physician Outpatient Note * Margarita Cummings PA-C: PERFORM Event Display: Office Clinic Note Physician Authored Date: [id number] EUGENIO REGALADOEDWIN GALVIN :1995 Age:28 years Sex:Female Visit Date:07/26/2023 Chief Complaint Pt states needing ABX for broken wisdom teeth to bilateral sides of jaw History of Present Illness This is a 28-year-old female who presents for evaluation. ??Patient reports that she is currently experiencing??a dental infection on the right back molar and top upper molar.?? She has broken teeth in this area as well as incoming wisdom teeth.?? She is planning to see her dentist this week. ??Over the past couple of days she has developed severe pain in both of these areas.?? It is radiating int o her gums and jaw.?? She denies any difficulty opening her mouth. ??She is eating soft foods and tolerating water well.?? She also reports that??over the past year she has been struggling??with??intermittent pelvic pains in the sense that something is pulling within her pelvis.?? She does have a 2-year-old daughter. ??She is hoping to get again but has had difficulty doing so. ??She is set to have a transvaginal ultrasound in a couple weeks down in [place] but is wondering if shecan get one sooner.?? She denies any vaginal discharge or atypical bleeding. ??She is in a monogamous??relationship Physical Exam Vitals & Measurements T:??36.4?C ??(Tympanic)?? HR:??112??(Peripheral)?? RR:??18?? BP:??151/57?? SpO2:??97%?? Pain Score:??7?? General: Alert and oriented x3, no acute distress, well-nourished and hydrated Oral:??Tooth #32 and 16 are??broken with surrounding erythema, edema??and the gingiva. ??There is diffuse tenderness to palpation but no abscess or area of fluctuance appreciated. ??No trismus.?? Airway patent. Heart: S1-S2 normal, regular rate and rhythm, no murmurs, rubs, gallops Lungs: Clear to auscultation without wheezes, rales, rhonchi Abdomen: Soft, nondistended, bowel sounds normoactive, no tenderness, rebound, guarding, rigidity. ??No suprapubic tenderness Assessment/Plan 1.??Pain, dental??K08.89 Patient presenting with recurrent??dental infection. ??She is set to see the dentist this week. ??She has been on multiple rounds of amoxicillin over the past several months. ??We will send in a prescription for??clindamycin.?? Stressed the importance of good dental hygiene.?? Patient is to follow-up for any worsening pain, swelling, difficulty tolerating food or fluids by mouth Ordered: clindamycin 300 mg oral capsule, 300 mg = 1 cap, Oral, every 8 hr, # 24 cap, 0 Refill(s), Pharmacy:[facility] #[id number], 154.94, cm, 05/28/23 20:02:00 EDT, Height/Length Dosing, 46.72, kg, 05/28/23 20:02:00 EDT, Weight Dosing US Transvaginal Non-OB, 07/26/23, Routine, Reason: pelvic pain, ongoing, Transport Mode: Ambulatory, Pain, dental ?? 2.??Pelvic pain??R10.2 Ongoing for several months. ??Urine dip negative for UTI.?? Patient is not??currently .?? She is scheduled to have an ultrasound in a couple of weeks but??is hoping to avoid a trip down to [place]??and would like to reestablish her care here. ??I did agree to place an order for transvaginal ultrasound but explained that she needs to??establish with gynecology here to review??the results and discuss ongoing management of her symptoms.?? She understands to recheck for any severely??worsening pelvic pain??or symptoms of concern ?? Bladder pain??R39.89 ?? Future Orders US Transvaginal Non-OB, 07/26/23, Routine, Reason: pelvic pain, ongoing, Transport Mode: Ambulatory, Pain, dental Problem List/Past Medical History Ongoing No qualifying data Historical No qualifying data Medications amoxicillin-clavulanate 875 mg-125 mg oral tablet, 1 tab, Oral, every 12 hr Classic oral tablet clindamycin 300 mg oral capsule, 300 mg= 1 cap, Oral, every 8 hr ondansetron 4 mg oral tablet, disintegrating, 4 mg= 1 tab, Oral, every 8 hr, PRN progesterone 100 mg oral capsule, 400 mg= 4 cap, Oral, Daily Allergies No Known Allergies Social History Electronic Cigarette/Vaping Electronic Cigarette Use: Never. Substance Use Marijuana, Daily Tobacco Never tobacco user Tobacco Use:. Lab Results Test Name Test Result Date/Time Method of Collect POC cc 07/26/2023 13:45 EST Specimen Color POC Light Yellow 07/26/2023 13:45 EST Clarity, Urine POC Clear 07/26/2023 13:45 EST Glucose, Urine POC Negative 07/26/2023 13:45 EST Bilirubin, Urine POC Negative 07/26/2023 13:45 EST Ketones, Urine POC Negative 07/26/2023 13:45 EST Specific Reading, Ur POC 1.015 07/26/2023 13:45 EST pH, Urine POC 7.00 07/26/2023 13:45 EST Protein, Urine POC Negative 07/26/2023 13:45 EST Urobilinogen, Urine POC 0.2 07/26/2023 13:45 EST Nitrite, Urine POC Negative 07/26/2023 13:45 EST Blood, Urine POC Negative 07/26/2023 13:45 EST Leuk Esterase, Urine POC Negative 07/26/2023 13:45 EST Electronically Signed on 07/26/23 05:21 PM Margarita Cummings PA-C
--- OUTSIDE RECORDS SUMMARY | 2024-04-03 20:35 | XMS_ITS | Continuity of Care Document ---
Author Organization [facility] Ambulatory Clinics Address [address] [place] [address] Encounter [facility] NBR [id number] Date(s): 03/07/23 - 03/07/23 [facility] [address], [place] [address] Encounter Diagnosis Pain due to dental caries(Discharge Diagnosis) - 03/07/23 Discharge Disposition: Home or Self Care Attending Physician: Guille Monsivais. PA Functional Status 03/07/23 Recent Travel History No recent travel Other exposure to Infectious Disease Non e Medications ALPRAZolam 0.5 mg oral tablet 0 Refill(s) Start Date: 03/07/23 Status: Ordered amoxicillin 875 mg oral tablet 875 mg = 1 tab, Oral, BID, # 20 tab, 0 Refill(s) Start Date: 03/07/23 Stop Date: 03/17/23 Status: Ordered amoxicillin-clavulanate 875 mg-125 mg oral tablet 1 tab, Oral, every 12 hr, # 14 tab, 0 Refill(s) Start Date: 03/07/23 Stop Date: 03/14/23 Status: Ordered Classic oral tablet 0 Refill(s) Start Date: 03/07/23 Status: Ordered Vital Signs Most recent to oldest [Reference Range]: 1 Temperature Tympanic [36.6-37.9 Deg C] 3 6.7 Deg C (03/07/23 2:29 PM) Respiratory Rate [12-24 br/min] 20 br/mi n (03/07/23 2:29 PM) Blood Pressure [90-140/60-90 mmHg] 112/7 1mmHg (03/07/23 2:29 PM) Weight 47.63 kg (03/07/23 2:29 PM) Weight Measured (lbs) 105.006 lb (03/07/23 2:29 PM) Height 154.94 cm (03/07/23 2:29 PM) Height/Length Measured (inches) 61 inch (03/07/23 2:29 PM) BSA Measured 1.43 m2 (03/07/23 2:29 PM) Body Mass Index 19.84 kg/m2 (03/07/23 2:29 PM) Hospital Discharge Instructions Patient Education 03/07/2023 13:37:38 Dental Pain, Desq-mv-Mexa Dental Pain Dental pain is often a sign that something is wrong with your teeth or gums. You can also have painafter a dental treatment. If you have dental pain, it is important to contact your dentist, especially if the cause of the pain is not known. Dental pain may hurt a lot or a little and can be caused by many things, including: ??? Tooth decay (cavities or caries). ??? Infection. ??? The inner part of the tooth being filled with pus (an abscess). ??? Injury. ??? A crack in the tooth. ??? Gums that move back and expose the root of a tooth. ??? Gum disease. ??? Abnormal grinding or clenching of teeth. ??? Not taking good care of your teeth. Sometimes the cause of pain is not known. You may have pain all the time, or it may happen only when you are: ??? Chewing. ??? Exposed to hot or cold temperatures. ??? Eating or drinking foods or drinks that have a lot of sugar in them, such as soda or candy. Follow these instructions at home: Medicines ??? Take awss-pat-jfpdkvi and prescription medicines only as told by your dentist. ??? If you were prescribed an antibiotic medicine, take it as told by your dentist. Do not stop taking it even if you start to feel better. Eating and drinking Do not eat foods or drinks that cause you pain. These include: ??? Very hot or very cold foods or drinks. ??? Sweet or sugary foods or drinks. Managing pain and swelling ??? If told, put ice on the painful area of your face. To do this: ??? Put ice in a plastic bag. ??? Place a towel between your skin and the bag. ??? Leave the ice on for 20 minutes, 2???3 times a day. ??? Take off the ice if your skin turns bright red. This is very important. If you cannot feel pain, heat, or cold, you have a greater risk of damage to the area. Brushing your teeth ??? [place] your teeth twice a day using a fluoride toothpaste. ??? Use a toothpaste made for sensitive teeth as told by your dentist. ??? Use a soft toothbrush. General instructions ??? Floss your teeth at least once a day. ??? Do not put heat on the outside of your face. ??? Rinse your mouth often with salt water. To make salt water, dissolve ?1 tsp (3???6 g) of salt in 1 cup (237 mL) of warm water. ??? Watch your dental pain. Let your dentist know if there are any changes. ??? Keep all follow-up visits. Contact a dentist if: ??? You have dental pain and you do not know why. ??? Medicine does not help your pain. ??? Your symptoms get worse. ??? You have new symptoms. Get help right away if: ??? You cannot open your mouth. ??? You are having trouble breathing or swallowing. ??? You have a fever. ??? Your face, neck, or jaw is swollen. These symptoms may be an emergency. Get help right away. Call your local emergency services (911 int [place] ??? Do not wait to see if the symptoms will go away. ??? Do not drive yourself to the hospital. Summary ??? Dental pain may be caused by many things, including tooth decay, injury, or infection. In some cases, the cause is not known. ??? Dental pain may hurt a lot or very little. You may have pain all the time, or you may have it only when you eat or drink. ??? Take fnqd-ahq-lkdsaxg and prescription medicines only as told by your dentist. ??? Watch your dental pain for any changes. Let your dentist know if symptoms get worse. This information is not intended to replace advice given to you by your health care provider. Make sure you discuss any questions you have with your health care provider. Document Revised: 05/29/2021 Document Reviewed: 05/29/2021 [employer] Patient Education ?? 2021 [employer]. Physician Outpatient Note * Guille Monsivais. ISABELLA: PERFORM Event Display: Office Clinic Note Physician Authored Date: [id number] RIAZ REGALADO :1995 Age:27 years Sex:Female Visit Date:03/07/2023 Chief Complaint Right lower dental pain History of Present Illness Patient presents complaining of??left upper dental pain third molar. ??Has had issues before.?This tooth is fractured no other piece came off??several days ago.?? She denies any fever, chills. ??She is currently trying to become .?? Had a home test with??faint line and her period was due yesterday.?? She denies any abdominal pain, vaginal bleeding, discharge. ??Otherwise well. Physical Exam Vitals & Measurements T:??36.7?C ??(Tympanic)?? RR:??20?? BP:??112/71?? SpO2:??100%?? HT:??154.94??cm?? WT:??47.63??kg?? BMI:??19.84?? BSA:??1.43?? Left upper third molar fractured off with some gingival redness no abscess no drainage. ??Patient is well-appearing airway widely patent. Assessment/Plan 1.??Pain due to dental caries??K02.9 Urine here is negative.?? Recommend starting Augmentin. ??I reviewed up-to-date. ??Generally regarded is safe in .?? Follow-up as needed.?? Follow-up with dentistry next week. Ordered: amoxicillin 875 mg oral tablet, 875 mg = 1 tab, Oral, BID, # 20 tab, 0 Refill(s) amoxicillin-clavulanate 875 mg-125 mg oral tablet, 1 tab, Oral, every 12 hr, # 14 tab, 0 Refill(s) ?? Patient Instructions Finish all antibiotics. ??Recheck with dentistry. Patient Education Dental Pain, Vswa-xk-Gswl Problem List/Past Medical History Ongoing No qualifying data Historical No qualifying data Medications ALPRAZolam 0.5 mg oral tablet amoxicillin 875 mg oral tablet, 875 mg= 1 tab, Oral, BID amoxicillin-clavulanate 875 mg-125 mg oral tablet, 1 tab, Oral, every 12 hr Classic oral tablet Allergies No active allergies Electronically Signed on 03/07/23 02:41 PM Guille MASON Outpatient Summary note * Guille Monsivais. PA: PERFORM Event Display: Ambulatory Patient Summary Authored Date: [id number] MIGUEL REGALADOLLBrissa GALVIN :1995 Age:27 years Sex:Female Visit Date:03/07/2023 Ambulatory Visit Instructions We would like to thank you for allowing us to assist you with your healthcare needs. The following includes patient education materials and information regarding your injury/illness. Your Next Steps Instructions From Your Care Team Finish all antibiotics. ??Recheck with dentistry. Medications What How Much When Why Instructions New amoxicillin (amoxicillin 875 mg oral tablet) 1 tab Oral (given by mouth) 2 times a day Pain due to dental caries Duration: 10 Days Printed Prescription New amoxicillin-clavulanate (amoxicillin-clavulanate 875 mg-125 mg oral tablet) 1 tab Oral (given by mouth) Every 12 hours Pain due to dental caries Duration: 7 Days Printed Prescription Unchanged ALPRAZolam (ALPRAZolam 0.5 mg oral tablet) Unchanged multivitamin, (Classic oral tablet) Your Summary Your Diagnosis Pain due to dental caries Your Care Team Attending Physician - Guille Monsivais. ISABELLA Discharge Vitals Temperature??(Tympanic) 98.1 ??F (36.7 ??C) Respiratory Rate?? 20 Blood Pressure?? 112/71?? Height?? 61.00 in (154.94 cm) Weight?? 105.02 lb (47.63 kg) BMI?? 19.84 Allergies No active allergies Education Materials Dental Pain Dental pain is often a sign that something is wrong with your teeth or gums. You can also have painafter a dental treatment. If you have dental pain, it is important to contact your dentist, especially if the cause of the pain is not known. Dental pain may hurt a lot or a little and can be caused by many things, including: ? Tooth decay (cavities or caries). ? Infection. ? The inner part of the tooth being filled with pus (an abscess). ? Injury. ? A crack in the tooth. ? Gums that move back and expose the root of a tooth. ? Gum disease. ? Abnormal grinding or clenching of teeth. ? Not taking good care of your teeth. Sometimes the cause of pain is not known. You may have pain all the time, or it may happen only when you are: ? Chewing. ? Exposed to hot or cold temperatures. ? Eating or drinking foods or drinks that have a lot of sugar in them, such as soda or candy. Follow these instructions at home: Medicines ? Take zwga-njx-fqgiiaz and prescription medicines only as told by your dentist. ? If you were prescribed an antibiotic medicine, take it as told by your dentist. Do not stop taking it even if you start to feel better. Eating and drinking Do not eat foods or drinks that cause you pain. These include: ? Very hot or very cold foods or drinks. ? Sweet or sugary foods or drinks. Managing pain and swelling ? If told, put ice on the painful area of your face. To do this: ? Put ice in a plastic bag. ? Place a towel between your skin and the bag. ? Leave the ice on for 20 minutes, 2???3 times a day. ? Take off the ice if your skin turns bright red. This is very important. If you cannot feel pain, heat, or cold, you have a greater risk of damage to the area. Brushing your teeth ? [place] your teeth twice a day using a fluoride toothpaste. ? Use a toothpaste made for sensitive teeth as told by your dentist. ? Use a soft toothbrush. General instructions ? Floss your teeth at least once a day. ? Do not put heat on the outside of your face. ? Rinse your mouth often with salt water. To make salt water, dissolve ?1 tsp (3???6 g) of salt in 1 cup (237 mL) of warm water. ? Watch your dental pain. Let your dentist know if there are any changes. ? Keep all follow-up visits. Contact a dentist if: ? You have dental pain and you do not know why. ? Medicine does not help your pain. ? Your symptoms get worse. ? You have new symptoms. Get help right away if: ? You cannot open your mouth. ? You are having trouble breathing or swallowing. ? You have a fever. ? Your face, neck, or jaw is swollen. These symptoms may be an emergency. Get help right away. Call your local emergency services ([facility] [place] ? Do not wait to see if the symptoms will go away. ? Do not drive yourself to the hospital. Summary ? Dental pain may be caused by many things, including tooth decay, injury, or infection. In some cases, the cause is not known. ? Dental pain may hurt a lot or very little. You may have pain all the time, or you may have it only when you eat or drink. ? Take megh-pva-swpewax and prescription medicines only as told by your dentist. ? Watch your dental pain for any changes. Let your dentist know if symptoms get worse. This information is not intended to replace advice given to you by your health care provider. Make sure you discuss any questions you have with your health care provider. Document Revised: 05/29/2021 Document Reviewed: 05/29/2021 [employer] Patient Education ?? 2021 [employer] Electronically Signed on: 03/07/2023 14:40 EDTSigned by:[email or web address]
--- OUTSIDE RECORDS SUMMARY | 2024-04-03 20:35 | XMS_ITS | Continuity of Care Document ---
Author Organization [facility] Address [address] [place] [id number] Encounter [facility] NBR [id number] Date(s): 05/28/23 - 05/28/23 [facility] [address] [place] [address] us Encounter Diagnosis Dental caries extending into pulp(Discharge Diagnosis) - 05/28/23 TMJ syndrome(Discharge Diagnosis) - 05/28/23 Dental caries, unspecified(Final) - Arthralgia of temporomandibular joint, unspecified side(Final) - Discharge Disposition: Home f/u External Provider Attending Physician: Shay Holland MD Admitting Physician: Shay Holland MD Allergies, Adverse Reactions, Alerts No Known Allergies Medications amoxicillin-clavulanate 875 mg-125 mg oral tablet 1 tab, Oral, every 12 hr, # 20 tab, 0 Refill(s), Pharmacy: [facility] #[id number] Start Date: 05/16/23 Stop Date: 05/26/23 Status: Ordered Classic oral tablet 0 Refill(s) Start Date: 03/07/23 Status: Ordered ondansetron 4 mg oral tablet, disintegrating 4 mg = 1 tab, Oral, every 8 hr, PRN as needed for nausea/vomiting, # 9 tab, 0 Refill(s), Pharmacy: [facility] #[id number] Start Date: 05/18/23 Stop Date: 05/21/23 Status: Ordered progesterone 100 mg oral capsule 400 mg = 4 cap, Oral, Daily, 0 Refill(s) Start Date: 05/28/23 Status: Ordered Mental Status 05/28/23 Eye Opening Response Sydnee Spontaneous ly Best Verbal Response Sydnee Oriented Best Motor Response Sidney Obeys comman ds Sydnee Coma Score 15 Vital Signs Most recent to oldest [Reference Range]: 1 Temperature Temporal Artery [36-38 Deg C ] 36.8 Deg C (05/28/23 7:54 PM) Peripheral Pulse Rate [60-100 bpm] 102 b pm *HI* (05/28/23 7:54 PM) Respiratory Rate [12-24 br/min] 16 br/mi n (05/28/23 7:54 PM) Blood Pressure [90-140/60-90 mmHg] 135/7 7mmHg (05/28/23 7:54 PM) Weight Dosing 46.72 kg (05/28/23 8:02 PM) Weight Estimated 46.72 kg (05/28/23 7:54 PM) Height/Length Dosing 154.940 cm (05/28/23 8:02 PM) Height/Length Estimated 154.940 cm (05/28/23 7:54 PM) Social History Social History Type Response Tobacco Never tobacco user T obacco Use:. Sex Hospital Discharge Instructions Patient Education 05/28/2023 19:27:46 Temporomandibular Joint Syndrome Temporomandibular Joint Syndrome Temporomandibular joint syndrome (TMJ syndrome) is a condition that causes pain in the temporomandibular joints. These joints are located near your ears and allow your jaw to open and close. For people with TMJ syndrome, chewing, biting, or other movements of the jaw can be difficult or painful. TMJ syndrome is often mild and goes away within a few weeks. However, sometimes the condition becomes a long-term (chronic) problem. What are the causes? This condition may be caused by: ??? Grinding your teeth or clenching your jaw. Some people do this when they are stressed. ??? Arthritis. ??? An injury to the jaw. ??? A head or neck injury. ??? Teeth or dentures that are not aligned well. In some cases, the cause of TMJ syndrome may not be known. What are the signs or symptoms? The most common symptom of this condition is aching pain on the side of the head in the area of theTMJ. Other symptoms may include: ??? Pain when moving your jaw, such as when chewing or biting. ??? Not being able to open your jaw all the way. ??? Making a clicking sound when you open your mouth. ??? Headache. ??? Earache. ??? Neck or shoulder pain. How is this diagnosed? This condition may be diagnosed based on: ??? Your symptoms and medical history. ??? A physical exam. Your health care provider may check the range of motion of your jaw. ??? Imaging tests, such as X-rays or an MRI. You may also need to see your dentist, who will check if your teeth and jaw are lined up correctly. How is this treated? TMJ syndrome often goes away on its own. If treatment is needed, it may include: ??? Eating soft foods and applying ice or heat. ??? Medicines to relieve pain or inflammation. ??? Medicines or massage to relax the muscles. ??? A splint, bite plate, or mouthpiece to prevent teeth grinding or jaw clenching. ??? Relaxation techniques or counseling to help reduce stress. ??? A therapy for pain in which an electrical current is applied to the nerves through the skin (transcutaneous electrical nerve stimulation). ??? Acupuncture. This may help to relieve pain. ??? Jaw surgery. This is rarely needed. Follow these instructions at home: Eating and drinking ??? Eat a soft diet if you are having trouble chewing. ??? Avoid foods that require a lot of chewing. Do not chew gum. General instructions ??? Take zqvk-jzp-mvtwbhk and prescription medicines only as told by your health care provider. ??? If directed, put ice on the painful area. To do this: ??? Put ice in a plastic bag. ??? Place a towel between your skin and the bag. ??? Leave the ice on for 20 minutes, 2???3 times a day. ??? Remove the ice if your skin turns bright red. This is very important. If you cannot feel pain, heat, or cold, you have a greater risk of damage to the area. ??? Apply a warm, wet cloth (warm compress) to the painful area as told. ??? Massage your jaw area and do any jaw stretching exercises as told by your health care provider. ??? If you were given a splint, bite plate, or mouthpiece, wear it as told by your health care provider. ??? Keep all follow-up visits. This is important. Where to find more information ??? [employer] [place] [employer]io[employer] Research: www.nidcr.nih.gov Contact a health care provider if: ??? You have trouble eating. ??? You have new or worsening symptoms. Get help right away if: ??? Your jaw locks. Summary ??? Temporomandibular joint syndrome (TMJ syndrome) is a condition that causes pain in the temporomandibular joints. These joints are located near your ears and allow your jaw to open and close. ??? TMJ syndrome is often mild and goes away within a few weeks. However, sometimes the condition becomes a long-term (chronic) problem. ??? Symptoms include an aching pain on the side of the head in the area of the TMJ, pain when chewing or biting, and being unable to open your jaw all the way. You may also make a clicking sound whenyou open your mouth. ??? TMJ syndrome often goes away on its own. If treatment is needed, it may include medicines to relieve pain, reduce inflammation, or relax the muscles. A splint, bite plate, or mouthpiece may also be used to prevent teeth grinding or jaw clenching. This information is not intended to replace advice given to you by your health care provider. Make sure you discuss any questions you have with your health care provider. Document Revised: 04/06/2022 Document Reviewed: 04/06/2022 [employer] Patient Education ?? 2022 [employer]. 05/28/2023 19:27:43 Dental Pain Dental Pain Dental pain is often a sign that something is wrong with your teeth or gums. It is also something that can occur following dental treatment. If you have dental pain, it is important to contact your dental care provider, especially if the cause of the pain has not been determined. Dental pain may beof varying intensity and can be caused by many things, including: ??? Tooth decay (cavities or caries). Cavities are caused by bacteria that produce acids that irritate the nerve of your tooth, making it sensitive to air and hot or cold temperatures. This eventually causes discomfort or pain. ??? Abscess or infection. Once the bacteria reach the inner part of the tooth (pulp), a bacterial infection (dental abscess) can occur. Pus typically collects at the end of the root of a tooth. ??? Injury. ??? A crack in the tooth. ??? Gum recession exposing the root, and possibly the nerves, of a tooth. ??? Gum (periodontal)disease. ??? Abnormal grinding or clenching. ??? Poor or improper home care. ??? An unknown reason (idiopathic). Your pain may be mild or severe. It may occur when you are: ??? Chewing. ??? Exposed to hot or cold temperatures. ??? Eating or drinking sugary foods or beverages, such as soda or candy. Your pain may be constant, or it may come and go without cause. Follow these instructions at home: The following actions may help to lessen any discomfort that you are feeling before or after getting dental care. Medicines ??? Take lplz-iyb-vgodhdo and prescription medicines only as told by your dental care provider. ??? If you were prescribed an antibiotic medicine, take it as told by your dental care provider. Donot stop taking the antibiotic even if you start to feel better. Eating and drinking Avoid foods or drinks that cause you pain, such as: ??? Very hot or very cold foods or drinks. ??? Sweet or sugary foods or drinks. Managing pain and swelling ??? Ice can sometimes be used to reduce pain and swelling, especially if the pain is following dental treatment. ??? If directed, put ice on the painful area of your face. To do this: ??? Put ice in a plastic bag. ??? Place a towel between your skin and the bag. ??? Leave the ice on for 20 minutes, 2???3 times a day. ??? Remove the ice if your skin turns bright red. This is very important. If you cannot feel pain, heat, or cold, you have a greater risk of damage to the area. Brushing your teeth ??? To keep your mouth and gums healthy, brush your teeth twice a day using a fluoride toothpaste. ??? Use a toothpaste made for sensitive teeth as directed by your dental care provider, especially if the root is exposed. ??? Always brush your teeth with a soft-bristled toothbrush. This will help prevent irritation to your gums. General instructions ??? Floss at least once a day. ??? Do not apply heat to the outside of the face. ??? Gargle with a mixture of salt and water 3???4 times a day or as needed. To make salt water, completely dissolve ?1 tsp (3???6 g) of salt in 1 cup (237 mL) of warm water. ??? Keep all follow-up visits. This is important. Contact a dental care provider if: ??? You have any unexplained dental pain. ??? Your pain is not controlled with medicines. ??? Your symptoms get worse. ??? You have new symptoms. Get help right away if: ??? You are unable to open your mouth. ??? You are having trouble breathing or swallowing. ??? You have a fever. ??? You notice that your face, neck, or jaw is swollen. These symptoms may represent a serious problem that is an emergency. Do not wait to see if the symptoms will go away. Get medical help right away. Call your local emergency services (911 in the [place] Do not drive yourself to the hospital. Summary ??? Dental pain may be caused by many things, including tooth decay and infection. ??? Your pain may be mild or severe. ??? Take mdcq-fmq-afgvbcg and prescription medicines only as told by your dental care provider. ??? Watch your dental pain for any changes. Let your dental care provider know if your symptoms getworse. This information is not intended to replace advice given to you by your health care provider. Make sure you discuss any questions you have with your health care provider. Document Revised: 05/29/2021 Document Reviewed: 05/29/2021 [employer] Patient Education ?? 2022 [employer]. 05/28/2023 19:27:41 Dental Caries, Adult Dental Caries, Adult Dental caries or cavities are areas of decay in the outer layers (enamel and dentin) of your tooth.When you eat or drink sugary foods and liquids, the natural bacteria in your mouth break down thosesugars and produce a lot of acids. The acids destroy the protective layer of your tooth, leading totooth decay. It is important to treat your tooth decay as soon as possible. Untreated dental caries can spread decay and may lead to a painful infection. Keeping your mouth clean (good oral hygiene) by brushing regularly with fluoride toothpaste, flossing, and getting regular dental checkups can help reduce thebacteria and prevent dental caries. What are the causes? Dental caries are caused by the acid that is produced when bacteria in your mouth break down sugaryfoods and liquids. What increases the risk? This condition is more likely to develop in people who: ??? Drink a lot of sugary liquids, including alcoholic drinks, such as champagne. ??? Eat a lot of sweets and carbohydrates. ??? Drink water that is not treated with fluoride. ??? Have poor oral hygiene. ??? Have deep grooves in their teeth. ??? Take certain medicines that decrease saliva. What are the signs or symptoms? Symptoms of dental caries include: ??? White, brown, or black spots on the teeth. ??? Pain as the decay progresses. ??? Swelling or bleeding in the gums. How is this diagnosed? This condition may be diagnosed based on: ??? Your signs and symptoms. ??? Oral exams. This includes probing the hardness of the tooth with an instrument called a dental explorer. ??? Dental X-rays to look for dental caries between teeth. This is also used to confirm the diagnosis. Sometimes special lights, dyes, or probes, which use electrical conductivity or laser reflection, can assist in finding dental caries. How is this treated? Treatment for dental caries usually involves a procedure to remove the decay and restore the tooth.Restoring the tooth using a filling can be done in the dentist's office. More complex restorations can be created in a lab. Follow these instructions at home: ??? Practice good oral hygiene. This keeps your mouth and gums healthy. ??? Use a fluoride-containing toothpaste to brush your teeth twice a day. Floss once a day. ??? If your dental caries have caused an infection, you may be given an antibiotic medicine. Take it as told by your dentist. Do not stop taking the antibiotic even if you start to feel better. ??? Keep all follow-up visits as told by your dentist. This is important. ??? Follow-up visits include regular cleanings. You will be told how often this needs to be done. How is this prevented? To prevent dental caries: ??? [place] your teeth every morning and night with fluoride toothpaste. ??? Floss your teeth once a day. ??? Get regular dental cleanings. ??? If told by your dentist, wash your mouth with prescription mouthwash (chlorhexidine) and apply topical fluoride to your teeth. ??? Drink water that has fluoride added to it. ??? Drink water instead of sugary drinks. ??? Eat healthy meals and snacks. ??? If prescribed by your dentist, have additional in-office fluoride treatments and sealants placed on your teeth. Contact a health care provider if: ??? You have symptoms of tooth decay. Summary ??? Dental caries or cavities are areas of decay in the outer layers of your tooth. It is importantto treat your tooth decay as soon as possible. ??? This condition is caused by the acid that is produced when bacteria in your mouth break down sugary foods and liquids. ??? To prevent this condition, practice good oral hygiene. This keeps your mouth and gums healthy by brushing and flossing. Use fluoride toothpaste. ??? Take an antibiotic to treat an infection, if told by your dentist. Do not stop taking the antibiotic even if your condition gets better. ??? Have regular dental cleanings and keep all follow-up visits. This information is not intended to replace advice given to you by your health care provider. Make sure you discuss any questions you have with your health care provider. Document Revised: 08/10/2020 Document Reviewed: 08/10/2020 [employer] Patient Education ?? 2022 [employer] Discharge instructions * Event Display: Discharge Instructions Physician Emergency department Note * Shay Holland MD: PERFORM Event Display: ED Note Physician Authored Date: [id number] RIAZ REGALADO :1995 Age:28 years Sex:Female Visit Date:05/28/2023 Basic Information Time Seen: Shay Holland MD / 05/28/2023 20:07 Chief Complaint Patient reports a cracked upper left wisdom tooth with pain x 1 week. Patient was seen by a dentist, was rx Amoxicillin History Of Present Illness: 28-year-old female with dental caries in her left??posterior molar??tooth #16??presents with dentalpain and TMJ. 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 ??The pain in her tooth is overwhelming. ??She had a prior injection by the dentist which helped??reset and did have it controlled for a whileand acetaminophen. ??She is also on amoxicillin's. ??She has had no fever, discharge or signs of abscess.?? She has follow-up with her dentist next week. Review of Systems: No fever, no discharge,??no trauma. History of??breaking her tooth from grinding. Trying to get . Physical Exam Vitals & Measurements T:??36.8?C ??(Temporal Artery)?? HR:??102??(Peripheral)?? RR:??16?? BP:??135/77?? SpO2:??100%?? HT:??154.940??cm?? WT:??46.72??kg??(Estimated)?? Pain Score:??9?? O2 Therapy:??Room air?? Physical exam reveals a thin alert interactive female who is uncomfortable. ??Her vital signs are unremarkable.?? Her heart rate is 102. Examination of her TMs reveals clicking and pain at the temporomandibular joints left over right. ??The left tooth #16??is??necrotic with caries??and markedly tender to manipulation. ??The other teeth are in relatively good condition.?? She has full mouth opening. ??There is no signs of any swelling, discharge, or erythema. Medical Decision Making: This patient has dental caries with dental pain??and possible infection already on amoxicillin per her dentist.?? She has dental follow-up next week. ??She is here just because of the severity of pain. ??She wishes an injection. ?? After informed consent??and cleaning and numbing of the area with topical??Q- tip,??a total of??2.5 cc of bupivacaine was??injected??around the tooth with??marked improvement in pain. Procedure No Qualifying Data Assessment/Plan 1.??Dental caries extending into pulp??K02.9 Continue amoxicillin. ??Follow-up with dentist. 2.??TMJ syndrome??M26.718 We discussed this in some depth. ??Recommended a mouthguard??custom made by the dentist.?? Recommended follow-up with primary care as well. Orders: Discharge Patient, 05/28/23 20:30:00 EDT Patient Education Temporomandibular Joint Syndrome Dental Pain Dental Caries, Adult Medication Reconciliation Unchanged amoxicillin-clavulanate (amoxicillin-clavulanate 875 mg-125 mg oral tablet)1 tab Oral (given by mouth) every 12 hours for 10 Days. Refills: 0. ?? multivitamin, (Classic oral tablet) ?? ondansetron (ondansetron 4 mg oral tablet, disintegrating)1 tab Oral (given by mouth) every 8 hoursas needed as needed for nausea/vomiting for 3 Days. Refills: 0. ?? progesterone (progesterone 100 mg oral capsule)4 Capsules Oral (given by mouth) every day. Problem List/Past Medical History Ongoing No qualifying data Historical No qualifying data Allergies No Known Allergies Social History Electronic Cigarette/Vaping Electronic Cigarette Use: Never. Substance Use Marijuana, Daily Tobacco Never tobacco user Tobacco Use:. Electronically Signed on 05/28/23 08:33 PM Shay Holland MD Emergency department Discharge instructions * Shay Holland MD: PERFORM Event Display: ED Discharge Information Authored Date: [id number] RIAZ REGALADO :1995 Age:28 years Sex:Female Visit Date:05/28/2023 Discharge Instructions We would like to thank you for allowing us to assist you with your healthcare needs. The following includes patient education materials and information regarding your injury/illness. Diagnosis from Today's Visit Dental caries extending into pulp TMJ syndrome Discharge Vitals Temperature??(Temporal Artery) 98.2 ??F (36.8 ??C) Heart Rate??(Peripheral) 102 Respiratory Rate?? 16 Blood Pressure?? 135/77?? Height?? 61.00 in (154.940 cm) Weight??(Estimated) 103.02 lb (46.72 kg) Allergies No Known Allergies What to Do Next Instructions from Your Care Team Riaz:??You have both temporomandibular joint??pain as well as tooth pain. ??We have injected the tooth to give you about 6 to 8 hours of relief. ??It make sense to take??2-3 ibuprofen or 2 Aleve??within the next 6 hours/before bed.?? It is okay to use acetaminophen??as needed.?? You should likely not take??the Aleve or ibuprofen if there is a chance you are .?? Follow-up with your dentist as planned and finish the antibiotic.?? Follow-up in the emergency department for progressive swelling or signs of abscess. You were treated today on an emergency basis; it may be scales to contact your primary care provider to notify them of your visit today. You may have been referred to your regular doctor or a specialist, please follow up as instructed. If your condition worsens or you can't get in to see the doctor, contact the Emergency Department. Medications What How Much When Why Instructions Next Dose Unchanged amoxicillin-clavulanate (amoxicillin-clavulanate 875 mg-125 mg oral tablet) 1 tab Oral (given by mouth) Every 12 hours Pain due to dental caries Duration: 10 Days Unchanged multivitamin, (Classic oral tablet) Unchanged ondansetron (ondansetron 4 mg oral tablet, disintegrating) 1 tab Oral (given by mouth) Every 8 hours as needed for as needed for nausea/vomiting Pain due to dental caries Duration: 3 Days Unchanged progesterone (progesterone 100 mg oral capsule) 4 Capsules Oral (given by mouth) Every day Education Materials Temporomandibular Joint Syndrome Temporomandibular joint syndrome (TMJ syndrome) is a condition that causes pain in the temporomandibular joints. These joints are located near your ears and allow your jaw to open and close. For people with TMJ syndrome, chewing, biting, or other movements of the jaw can be difficult or painful. TMJ syndrome is often mild and goes away within a few weeks. However, sometimes the condition becomes a long-term (chronic) problem. What are the causes? This condition may be caused by: ? Grinding your teeth or clenching your jaw. Some people do this when they are stressed. ? Arthritis. ? An injury to the jaw. ? A head or neck injury. ? Teeth or dentures that are not aligned well. In some cases, the cause of TMJ syndrome may not be known. What are the signs or symptoms? The most common symptom of this condition is aching pain on the side of the head in the area of theTMJ. Other symptoms may include: ? Pain when moving your jaw, such as when chewing or biting. ? Not being able to open your jaw all the way. ? Making a clicking sound when you open your mouth. ? Headache. ? Earache. ? Neck or shoulder pain. How is this diagnosed? This condition may be diagnosed based on: ? Your symptoms and medical history. ? A physical exam. Your health care provider may check the range of motion of your jaw. ? Imaging tests, such as X-rays or an MRI. You may also need to see your dentist, who will check if your teeth and jaw are lined up correctly. How is this treated? TMJ syndrome often goes away on its own. If treatment is needed, it may include: ? Eating soft foods and applying ice or heat. ? Medicines to relieve pain or inflammation. ? Medicines or massage to relax the muscles. ? A splint, bite plate, or mouthpiece to prevent teeth grinding or jaw clenching. ? Relaxation techniques or counseling to help reduce stress. ? A therapy for pain in which an electrical current is applied to the nerves through the skin (transcutaneous electrical nerve stimulation). ? Acupuncture. This may help to relieve pain. ? Jaw surgery. This is rarely needed. Follow these instructions at home: Eating and drinking ? Eat a soft diet if you are having trouble chewing. ? Avoid foods that require a lot of chewing. Do not chew gum. General instructions ? Take aehn-ict-cfkxine and prescription medicines only as told by your health care provider. ? If directed, put ice on the painful area. To do this: ? Put ice in a plastic bag. ? Place a towel between your skin and the bag. ? Leave the ice on for 20 minutes, 2???3 times a day. ? Remove the ice if your skin turns bright red. This is very important. If you cannot feel pain, heat, or cold, you have a greater risk of damage to the area. ? Apply a warm, wet cloth (warm compress) to the painful area as told. ? Massage your jaw area and do any jaw stretching exercises as told by your health care provider. ? If you were given a splint, bite plate, or mouthpiece, wear it as told by your health care provider. ? Keep all follow-up visits. This is important. Where to find more information ? National [place] [employer]io[employer] Research: www.nidcr.nih.gov Contact a health care provider if: ? You have trouble eating. ? You have new or worsening symptoms. Get help right away if: ? Your jaw locks. Summary ? Temporomandibular joint syndrome (TMJ syndrome) is a condition that causes pain in the temporomandibular joints. These joints are located near your ears and allow your jaw to open and close. ? TMJ syndrome is often mild and goes away within a few weeks. However, sometimes the condition becomes a long-term (chronic) problem. ? Symptoms include an aching pain on the side of the head in the area of the TMJ, pain when chewing or biting, and being unable to open your jaw all the way. You may also make a clicking sound when youopen your mouth. ? TMJ syndrome often goes away on its own. If treatment is needed, it may include medicines to relieve pain, reduce inflammation, or relax the muscles. A splint, bite plate, or mouthpiece may also be used to prevent teeth grinding or jaw clenching. This information is not intended to replace advice given to you by your health care provider. Make sure you discuss any questions you have with your health care provider. Document Revised: 04/06/2022 Document Reviewed: 04/06/2022 [employer] Patient Education ?? 2022 [employer] Dental Pain Dental pain is often a sign that something is wrong with your teeth or gums. It is also something that can occur following dental treatment. If you have dental pain, it is important to contact your dental care provider, especially if the cause of the pain has not been determined. Dental pain may beof varying intensity and can be caused by many things, including: ? Tooth decay (cavities or caries). Cavities are caused by bacteria that produce acids that irritate the nerve of your tooth, making it sensitive to air and hot or cold temperatures. This eventually causes discomfort or pain. ? Abscess or infection. Once the bacteria reach the inner part of the tooth (pulp), a bacterial infection (dental abscess) can occur. Pus typically collects at the end of the root of a tooth. ? Injury. ? A crack in the tooth. ? Gum recession exposing the root, and possibly the nerves, of a tooth. ? Gum (periodontal)disease. ? Abnormal grinding or clenching. ? Poor or improper home care. ? An unknown reason (idiopathic). Your pain may be mild or severe. It may occur when you are: ? Chewing. ? Exposed to hot or cold temperatures. ? Eating or drinking sugary foods or beverages, such as soda or candy. Your pain may be constant, or it may come and go without cause. Follow these instructions at home: The following actions may help to lessen any discomfort that you are feeling before or after getting dental care. Medicines ? Take lccq-xwd-tepfice and prescription medicines only as told by your dental care provider. ? If you were prescribed an antibiotic medicine, take it as told by your dental care provider. Do notstop taking the antibiotic even if you start to feel better. Eating and drinking Avoid foods or drinks that cause you pain, such as: ? Very hot or very cold foods or drinks. ? Sweet or sugary foods or drinks. Managing pain and swelling ? Ice can sometimes be used to reduce pain and swelling, especially if the pain is following dental treatment. ? If directed, put ice on the painful area of your face. To do this: ? Put ice in a plastic bag. ? Place a towel between your skin and the bag. ? Leave the ice on for 20 minutes, 2???3 times a day. ? Remove the ice if your skin turns bright red. This is very important. If you cannot feel pain, heat, or cold, you have a greater risk of damage to the area. Brushing your teeth ? To keep your mouth and gums healthy, brush your teeth twice a day using a fluoride toothpaste. ? Use a toothpaste made for sensitive teeth as directed by your dental care provider, especially if the root is exposed. ? Always brush your teeth with a soft-bristled toothbrush. This will help prevent irritation to your gums. General instructions ? Floss at least once a day. ? Do not apply heat to the outside of the face. ? Gargle with a mixture of salt and water 3???4 times a day or as needed. To make salt water, completely dissolve ?1 tsp (3???6 g) of salt in 1 cup (237 mL) of warm water. ? Keep all follow-up visits. This is important. Contact a dental care provider if: ? You have any unexplained dental pain. ? Your pain is not controlled with medicines. ? Your symptoms get worse. ? You have new symptoms. Get help right away if: ? You are unable to open your mouth. ? You are having trouble breathing or swallowing. ? You have a fever. ? You notice that your face, neck, or jaw is swollen. These symptoms may represent a serious problem that is an emergency. Do not wait to see if the symptoms will go away. Get medical help right away. Call your local emergency services (911 in the [place] Do not drive yourself to the hospital. Summary ? Dental pain may be caused by many things, including tooth decay and infection. ? Your pain may be mild or severe. ? Take qpwx-hil-fbzwvcz and prescription medicines only as told by your dental care provider. ? Watch your dental pain for any changes. Let your dental care provider know if your symptoms get worse. This information is not intended to replace advice given to you by your health care provider. Make sure you discuss any questions you have with your health care provider. Document Revised: 05/29/2021 Document Reviewed: 05/29/2021 [employer] Patient Education ?? 2022 [employer] Dental Caries, Adult Dental caries or cavities are areas of decay in the outer layers (enamel and dentin) of your tooth.When you eat or drink sugary foods and liquids, the natural bacteria in your mouth break down thosesugars and produce a lot of acids. The acids destroy the protective layer of your tooth, leading totooth decay. It is important to treat your tooth decay as soon as possible. Untreated dental caries can spread decay and may lead to a painful infection. Keeping your mouth clean (good oral hygiene) by brushing regularly with fluoride toothpaste, flossing, and getting regular dental checkups can help reduce thebacteria and prevent dental caries. What are the causes? Dental caries are caused by the acid that is produced when bacteria in your mouth break down sugaryfoods and liquids. What increases the risk? This condition is more likely to develop in people who: ? Drink a lot of sugary liquids, including alcoholic drinks, such as champagne. ? Eat a lot of sweets and carbohydrates. ? Drink water that is not treated with fluoride. ? Have poor oral hygiene. ? Have deep grooves in their teeth. ? Take certain medicines that decrease saliva. What are the signs or symptoms? Symptoms of dental caries include: ? White, brown, or black spots on the teeth. ? Pain as the decay progresses. ? Swelling or bleeding in the gums. How is this diagnosed? This condition may be diagnosed based on: ? Your signs and symptoms. ? Oral exams. This includes probing the hardness of the tooth with an instrument called a dental explorer. ? Dental X-rays to look for dental caries between teeth. This is also used to confirm the diagnosis. Sometimes special lights, dyes, or probes, which use electrical conductivity or laser reflection, can assist in finding dental caries. How is this treated? Treatment for dental caries usually involves a procedure to remove the decay and restore the tooth.Restoring the tooth using a filling can be done in the dentist's office. More complex restorations can be created in a lab. Follow these instructions at home: ? Practice good oral hygiene. This keeps your mouth and gums healthy. ? Use a fluoride-containing toothpaste to brush your teeth twice a day. Floss once a day. ? If your dental caries have caused an infection, you may be given an antibiotic medicine. Take it astold by your dentist. Do not stop taking the antibiotic even if you start to feel better. ? Keep all follow-up visits as told by your dentist. This is important. ? Follow-up visits include regular cleanings. You will be told how often this needs to be done. How is this prevented? To prevent dental caries: ? [place] your teeth every morning and night with fluoride toothpaste. ? Floss your teeth once a day. ? Get regular dental cleanings. ? If told by your dentist, wash your mouth with prescription mouthwash (chlorhexidine) and apply topical fluoride to your teeth. ? Drink water that has fluoride added to it. ? Drink water instead of sugary drinks. ? Eat healthy meals and snacks. ? If prescribed by your dentist, have additional in-office fluoride treatments and sealants placed onyour teeth. Contact a health care provider if: ? You have symptoms of tooth decay. Summary ? Dental caries or cavities are areas of decay in the outer layers of your tooth. It is important to treat your tooth decay as soon as possible. ? This condition is caused by the acid that is produced when bacteria in your mouth break down sugaryfoods and liquids. ? To prevent this condition, practice good oral hygiene. This keeps your mouth and gums healthy by brushing and flossing. Use fluoride toothpaste. ? Take an antibiotic to treat an infection, if told by your dentist. Do not stop taking the antibiotic even if your condition gets better. ? Have regular dental cleanings and keep all follow-up visits. This information is not intended to replace advice given to you by your health care provider. Make sure you discuss any questions you have with your health care provider. Document Revised: 08/10/2020 Document Reviewed: 08/10/2020 Elsevier Patient Education ?? 2022 [employer] Patient/Forming Machine Operator Signature Patient Name:RIAZ REGALADO I have received this information and my questions have been answered. Patient/Forming Machine Operator Name: Patient/Forming Machine Operator Signature: Relationship to Patient: Witness Name/Signature: Date: Electronically Signed on: 05/28/2023 20:30 EDTSigned by:JACQUI Patient Care team information Care Team Personnel Name: Jake Alonso Position: Nurse Member Role: ED Nurse Name: Shay Holland MD Position: Physician Member Role: ED Physician Address: Address: [address] [place] [phone]
--- OUTSIDE RECORDS SUMMARY | 2024-04-03 20:35 | XMS_ITS | Continuity of Care Document ---
Author Organization [facility] Address [address] [place] [id number] Encounter LTTL_KS FIN NBR [id number] Date(s): 07/29/23 - 07/30/[address] [id number]- [id number] Encounter Diagnosis Pain, dental(Discharge Diagnosis) - 07/29/23 Nonspecific abdominal pain(Discharge Diagnosis) - 07/29/23 Urinary retention(Discharge Diagnosis) - 07/29/23 Discharge Disposition: Home or Self Care Attending Physician: Donald Chery MD Admitting Physician: Donald Chery MD Allergies, Adverse Reactions, Alerts No Known Allergies Assessment and Plan Extracted from: Title:Clinical Document Author:Donald Chery MD Date:07/30/23 Patient originally seen by Mor Carranza. The blood work comes back unrevealing for any acute process. Urinalysis also negative and negative. Patient had a bladder scan that showed greater than 600 cc of urine. A Leger catheter was inserted and the patient felt less pressure afterwards. CT abdomen pelvis according to radiology is negative for any acute process other than what looks like small possible cysts in the adnexa. Patient be discharged with nonspecific abdominal pain urinary retention and also dental infection. Patient will continue antibiotics that she is already taking she will return Thursday to have the Leger catheter removed and this way she will have several days of bladder rest which she appreciates. She does state that for months she has been having chronic difficulty with urination. She already has a outpatient ultrasound scheduled for this coming Thursday. She will return sooner for other problems. She was prescribed Pyridium for the urinary/bladder discomfort Future Appointments Future Scheduled Tests Radiology* US Transvaginal Non-OB 08/03/23 Medications amoxicillin-clavulanate 875 mg-125 mg oral tablet 1 tab, Oral, every 12 hr, # 20 tab, 0 Refill(s), Pharmacy: [facility][id number] Start Date: 05/16/23 Stop Date: 05/26/23 Status: Ordered Classic oral tablet 0 Refill(s) Start Date: 03/07/23 Status: Ordered clindamycin 300 mg oral capsule 300 mg = 1 cap, Oral, every 8 hr, # 24 cap, 0 Refill(s), Pharmacy: [facility] #[id number], 154.94, cm, 05/28/23 20:02:00 EDT, Height/Length Dosing, 46.72, kg, 05/28/23 20:02:00 EDT, Weight Dosing Start Date: 07/26/23 Status: Ordered ondansetron 4 mg oral tablet, disintegrating 4 mg = 1 tab, Oral, every 8 hr, PRN as needed for nausea/vomiting, # 9 tab, 0 Refill(s), Pharmacy: [facility] #[id number] Start Date: 05/18/23 Stop Date: 05/21/23 Status: Ordered progesterone 100 mg oral capsule 400 mg = 4 cap, Oral, Daily, 0 Refill(s) Start Date: 05/28/23 Status: Ordered Pyridium 200 mg oral tablet 200 mg = 1 tab, Oral, TID(PC), PRN pain, # 16 tab, 0 Refill(s), Pharmacy: [facility] #[id number], 154.94, cm, 07/29/23 20:53:00 EST, Height, 46.72, kg, 07/29/23 20:53:00 EST, Weight Dosing Start Date: 07/30/23 Status: Ordered Results Laboratory List Name Date Test Urine Qual 07/29/23 Urinalysis Microscopic 07/29/23 Urinalysis with Micro if Indicated and C ulture if Indicated 07/29/23 CBC w/ Diff 07/29/23 Comprehensive Metabolic Panel (CMP) 07/09 10/30 Automated Diff 07/29/23 Most recent to oldest [Reference Range]: 1 WBC [4.8-10.8 K/mcL] 7.1 K/mcL (07/29/23 9:24 PM) RBC [4.20-5.40 Million/mcL] 3.76 Million /mcL *LOW* (07/29/23:24 PM) Neutro Auto [42.2-75.2 %] 52.6 % (07/29/23:24 PM) Lymph Auto [20.5-51.1 %] 33.6 % (07/29/23: PM) Lee Auto [1.7-9.3 %] 11.8 % *HI* (07/29/23: PM) Basophil Auto [0.0-0.8 %] 0.6 % (07/29/23:24 PM) BUN [8-26 mg/dL] 14 mg/dL (07/29/23:24 PM) UA Color [Yellow] Yellow (07/29/23: PM) UA WBC [0-3] 0-3 (07/29/23: PM) Glucose Level [74-106 mg/dL] 104 mg/dL (07/29/23: PM) Potassium Level [3.5-5.1 mmol/L] 3.3 mmo l/L *LOW* (07/29/23: PM) Baso Absolute [0.0-0.2 K/mcL] 0.0 K/mcL (07/29/23: PM) MCV [81.0-99.0 fL] 96.0 fL (07/29/23: PM) UA Urobilinogen [0.2] 0.2 (07/29/23 11:40 PM) UA Bili [Negative] Negative (07/29/23 11:40 PM) UA Ketones [Negative] Negative (07/29/23 11:40 PM) AST [15-41 IntlUnit/L] 18 IntlUnit/L (07/29/23 9:24 PM) ALT [14-54 IntlUnit/L] 10 IntlUnit/L *LOW* (07/29/23 PM) MCHC [32.0-37.0 g/dL] 33.5 g/dL (07/29/23:24 PM) Osmolality [275-295 mOsm/kg] 273 mOsm/kg *LOW* (07/29/23 PM) Sodium Level [134-143 mmol/L] 136 mmol/L (07/29/23 9:24 PM) UA RBC [0-3] 0-3 (07/29/23 11:40 PM) UA Leuk Est [Negative] Negative (07/29/23 11:40 PM) Lymph Absolute [1.2-3.4 K/mcL] 2.4 K/mcL (07/29/23 9:24 PM) UA Nitrite [Negative] Negative (07/29/23 11:40 PM) UA Glucose [Negative] Negative (07/29/23 11:40 PM) Hct [37.0-47.0 %] 36.1 % *LOW* (07/29/23:24 PM) Calcium Level [8.9-10.3 mg/dL] 8.9 mg/dL (07/29/23 9:24 PM) Lee Absolute [0.1-0.6 K/mcL] 0.8 K/mcL *HI* (07/29/23:24 PM) Albumin Level [3.5-5.0 g/dL] 4.5 g/dL (07/29/23 9:24 PM) Protein Total [6.5-8.1 g/dL] 7.8 g/dL (07/29/23 9:24 PM) UA Protein [Negative] Negative (07/29/23 11:40 PM) MCH [27.0-31.0 pg] 32.2 pg *HI* (07/29/23 9:24 PM) Neutro Absolute [1.4-6.5 K/mcL] 3.7 K/mc L (07/29/23:24 PM) Bilirubin Total [0.2-1.2 mg/dL] 0.7 mg/d L (07/29/23 9:24 PM) Hgb [12.0-16.0 g/dL] 12.1 g/dL (07/29/23 9:24 PM) Alk Phos [38-130 IntlUnit/L] 50 IntlUnit /L (07/29/23 9:24 PM) UA Blood [Negative] Trace *ABN* (07/29/23 11:40 PM) MPV [7.4-10.4 fL] 9.9 fL (07/29/23 9:24 PM) UA Spec Grav [1.001-1.030] <=1.005 *NA* (07/29/23 11:40 PM) Platelets [130-400 K/mcL] 321 K/mcL (07/29/23 9:24 PM) CO2 [22-32 mmol/L] 26 mmol/L (07/29/23 9:24 PM) Eos Absolute [0.0-0.2 K/mcL] 0.1 K/mcL (07/29/23 9:24 PM) UA Squam Epithelial [0-3] 0-3 (07/29/23 11:40 PM) UA pH [5.00-9.00] 7.00 (07/29/23 11:40 PM) UA Appear [Clear] Clear (07/29/23 11:40 PM) Chloride Level [98-111 mmol/L] 105 mmol/ L (07/29/23 9:24 PM) RDW-CV [11.5-14.5 %] 12.0 % (07/29/23 9:24 PM) A/G Ratio [1.0-2.5 g/dL] 1.4 g/dL (07/29/23 9:24 PM) BUN/Creat Ratio [8.0-20.0] 21.5 *HI* (07/29/23 9:24 PM) Globulin [2.3-3.5 g/dL] 3.3 g/dL (07/29/23 9:24 PM) Imm Gran Absolute [0.00-0.02 K/mcL] 0.02 K/mcL (07/29/23 9:24 PM) Imm Gran Auto [0.0-0.5 %] 0.3 % (07/29/23 9:24 PM) UA Culture Ind?. [No] No (07/29/23 11:40 PM) Urine Srce Clean Catch (07/29/23 11:40 PM) Creatinine Level [0.44-1.00 mg/dL] 0.65 mg/dL (07/29/23 9:24 PM) Anion Gap [3.0-12.0] 5.0 (07/29/23 9:24 PM) Eos, Auto [0.00-3.00 %] 1.10 % (07/29/23 9:24 PM) U hCG Ql [Negative] Negative (07/29/23 11:40 PM) eGFR CKD-EPI [>=60 mL/min/1.73 m2] 124 m L/min/1.73 m2 (07/29/23 9:24 PM) Radiology Reports * Exam Date Time Procedure Performing Provider Status 07/29/23 10:[address] Abdomen and Pelvi s w/ Contrast Carlos Rodriguez (Verified) Notes: (CT Abdomen and Pelvis w/ Contrast) Reason For Exam: abd pain CT Abdomen and Pelvis w/ Contrast PROCEDURE INFORMATION: Exam: CT Abdomen And Pelvis With Contrast Exam date and time: 07/29/2023 10:09 PM Age: 28 years old Clinical indication: Abdominal pain; Additional info: Abd pain TECHNIQUE: Imaging protocol: Computed tomography of the abdomen and pelvis with contrast. Radiation optimization: All CT scans at this facility use at least one of these dose optimization techniques: automated exposure control; mA and/or kV adjustment per patient size (includes targeted exams where dose is matched to clinical indication); or iterative reconstruction. Contrast material: ISOVUE 300; Contrast volume: 100 ml; Contrast route: INTRAVENOUS (IV); REPORTING DATA: Count of CT and Cardiac NM exams in prior 12 months: This patient has received 0 known CTs and 0 known cardiac nuclear medicine studies in the 12 months prior to the current study. COMPARISON: No relevant prior studies available. FINDINGS: Lungs: No consolidation, lung nodules, or pleural effusions. Liver: No mass. No evidence of fat deposition. No surrounding fluid. Gallbladder and bile ducts: No calcified stones or wall thickening. No ductal dilation. Pancreas: No masses. No ductal dilation. Spleen: No splenomegaly. No masses or surrounding fluid. Adrenal glands: No mass. Kidneys and ureters: No hydronephrosis, calcified stones, or masses. Stomach and bowel: No intestinal masses, bowel wall thickening, or abnormal dilatation. Appendix: No evidence of appendicitis. Intraperitoneal space: No free air. No masses or significant fluid collection. Vasculature: No abdominal aortic aneurysm. No other significant abnormalities. Lymph nodes: No enlarged lymph nodes. Urinary bladder: No masses or asymmetric wall thickening. Reproductive: No abnormalities as visualized. Both ovaries have low-density follicles and right ovary has a 2 cm cyst. Bones/joints: No acute fracture or bone lesions. Bilateral spondylolysis at L5 and Grade 2 anterolisthesis at L5-S1 measures 8 mm and has moderate disc space narrowing. Soft tissues: No masses or other abnormalities. IMPRESSION: No acute findings in the abdomen and pelvis. No evidence of appendicitis. THIS DOCUMENT HAS BEEN ELECTRONICALLY SIGNED BY VONNIE BERNABE MD on 07/29/2023 11:04 PM Final Signed by: Vonnie Bernabe MD Signed (Electronic Signature): 07/29/2023 11:04 pm Vital Signs Most recent to oldest [Reference Range]: 1 2 Temperature Temporal Artery [36-38 Deg C ] 36.9 Deg C (07/29/23 8:40 PM) Peripheral Pulse Rate [60-100 bpm] 122 b pm *HI* (07/29/23 8:40 PM) Respiratory Rate [12-24 br/min] 16 br/mi n (07/29/23 8:40 PM) Blood Pressure [90-140/60-90 mmHg] 139/9 1mmHg (07/29/23 8:40 PM) Mean Arterial Pressure, Cuff [70-110 mmH g] 107 mmHg (07/29/23 8:40 PM) Weight 46.72 kg (07/29/23 8:40 PM) Weight Dosing 46.72 kg (07/29/23 8:53 PM) Height 154.940 cm (07/29/23 8:53 PM) 154.940 cm (07/29/23 8:40 PM) Body Mass Index 19.000 kg/m2 (07/29/23 8:40 PM) Social History Social History Type Response Tobacco Never tobacco user T obacco Use:. Sex Hospital Discharge Instructions Patient Education 07/29/2023 23:26:48 Dental Pain Dental Pain Dental pain is [...] after getting dental care. Medicines ??? Take tnjj-tjn-adrvoas and prescription medicines only as told by [...] may be mild or severe. ??? Take qmsw-trx-pqemfvb and prescription medicines only as told by [...] provider. Document Revised: 05/29/2021 Document Reviewed: 05/29/2021 [employer] Patient Education ?? 2022 [employer]. 07/29/2023 23:26:42 Acute Urinary Retention, Female Acute Urinary Retention, Female Acute urinary retention is a condition in which a person is unable to pass urine or can only pass alittle urine. This condition can happen suddenly and last for a short time. If left untreated, it can become long-term (chronic) and result in kidney damage or other serious complications. What are the causes? This condition may be caused by: ??? Obstruction or narrowing of the tube that drains the bladder (urethra). This may be caused by surgery, problems with nearby organs, or injury to the bladder or urethra. ??? Problems with the nerves in the bladder. ??? Pelvic organ prolapse. ??? Tumors in the area of the pelvis, bladder, or urethra. ??? Vaginal childbirth. ??? Bladder or urinary tract infection. ??? Constipation. ??? Certain medicines. What increases the risk? This condition is more likely to develop in women over age 50. Other chronic health conditions can increase the risk of acute urinary retention. These include: ??? Diseases such as multiple sclerosis. ??? Spinal cord injuries. ??? Diabetes. ??? Degenerative cognitive conditions, such as delirium or dementia. ??? Psychological conditions. A woman may hold her urine due to trauma or because she does not wantto use the bathroom. ??? History of preexisting urinary retention. ??? History of prior pelvic surgery, incontinence surgery, or radical pelvic surgery. What are the signs or symptoms? Symptoms of this condition include: ??? Trouble urinating. ??? Pain in the lower abdomen. How is this diagnosed? This condition is diagnosed based on a physical exam and your medical history. You may also have other tests, including: ??? An ultrasound of the bladder or kidneys or both. ??? Blood tests. ??? A urine analysis. ??? Additional tests may be needed, such as a CT scan, MRI, and kidney or bladder function tests. How is this treated? Treatment for this condition may include: ??? Medicines. ??? Placing a thin, sterile tube (catheter) into the bladder to drain urine out of the body. This is called an indwelling urinary catheter. After it is inserted, the catheter is held in place with a small balloon that is filled with sterile water. Urine drains from the catheter into a collection bag outside of the body. ??? Behavioral therapy. ??? Treatment for other conditions. If needed, you may be treated in the hospital for kidney function problems or to manage other complications. Follow these instructions at home: Medicines ??? Take xpxc-xlt-hmogzjk and prescription medicines only as told by your health care provider. Avoid certain medicines, such as decongestants, antihistamines, and some prescription medicines. Do nottake any medicine unless your health care provider approves. ??? If you were prescribed an antibiotic medicine, take it as told by your health care provider. Donot stop using the antibiotic even if you start to feel better. General instructions ??? Do not use any products that contain nicotine or tobacco. These products include cigarettes, chewing tobacco, and vaping devices, such as e-cigarettes. If you need help quitting, ask your health care provider. ??? Drink enough fluid to keep your urine pale yellow. ??? If you have an indwelling urinary catheter, follow the instructions from your health care provider. ??? Monitor any changes in your symptoms. Tell your health care provider about any changes. ??? If instructed, monitor your blood pressure at home. Report changes as told by your health care provider. ??? Keep all follow-up visits. This is important. Contact a health care provider if: ??? You have uncomfortable bladder contractions that you cannot control (spasms). ??? You leak urine with the spasms. Get help right away if: ??? You have chills or a fever. ??? You have blood in your urine. ??? You have a catheter and the following happens: ??? Your catheter stops draining urine. ??? Your catheter falls out. Summary ??? Acute urinary retention is a condition in which a person is unable to pass urine or can only pass a little urine. If left untreated, this can result in kidney damage or other serious complications. ??? One cause of this condition may be obstruction or narrowing of the tube that drains the bladder(urethra). This may be caused by surgery, problems with nearby organs, or injury to the bladder or urethra. ??? Treatment may include medicines and placement of an indwelling urinary catheter. ??? Monitor any changes in your symptoms. Tell your health care provider about any changes. This information is not intended to replace advice given to you by your health care provider. Make sure you discuss any questions you have with your health care provider. Document Revised: 05/15/2021 Document Reviewed: 05/15/2021 [employer] Patient Education ?? 2022 [employer]. 07/29/2023 23:26:36 Abdominal Pain, Adult Abdominal Pain, Adult Pain in the abdomen (abdominal pain) can be caused by many things. Often, abdominal pain is not serious and it gets better with no treatment or by being treated at home. However, sometimes abdominal pain is serious. Your health care provider will ask questions about your medical history and do a physical exam to try to determine the cause of your abdominal pain. Follow these instructions at home: Medicines ??? Take rjib-evx-fwwwxtn and prescription medicines only as told by your health care provider. ??? Do not take a laxative unless told by your health care provider. General instructions ??? Watch your condition for any changes. ??? Drink enough fluid to keep your urine pale yellow. ??? Keep all follow-up visits as told by your health care provider. This is important. Contact a health care provider if: ??? Your abdominal pain changes or gets worse. ??? You are not hungry or you lose weight without trying. ??? You are constipated or have diarrhea for more than 2???3 days. ??? You have pain when you urinate or have a bowel movement. ??? Your abdominal pain wakes you up at night. ??? Your pain gets worse with meals, after eating, or with certain foods. ??? You are vomiting and cannot keep anything down. ??? You have a fever. ??? You have blood in your urine. Get help right away if: ??? Your pain does not go away as soon as your health care provider told you to expect. ??? You cannot stop vomiting. ??? Your pain is only in areas of the abdomen, such as the right side or the left lower portion of the abdomen. Pain on the right side could be caused by appendicitis. ??? You have bloody or black stools, or stools that look like tar. ??? You have severe pain, cramping, or bloating in your abdomen. ??? You have signs of dehydration, such as: ??? Dark urine, very little urine, or no urine. ??? Cracked lips. ??? Dry mouth. ??? Sunken eyes. ??? Sleepiness. ??? Weakness. ??? You have trouble breathing or chest pain. Summary ??? Often, abdominal pain is not serious and it gets better with no treatment or by being treated at home. However, sometimes abdominal pain is serious. ??? Watch your condition for any changes. ??? Take qgif-fzt-vfhohuh and prescription medicines only as told by your health care provider. ??? Contact a health care provider if your abdominal pain changes or gets worse. ??? Get help right away if you have severe pain, cramping, or bloating in your abdomen. This information is not intended to replace advice given to you by your health care provider. Make sure you discuss any questions you have with your health care provider. Document Revised: 10/12/2020 Document Reviewed: 01/02/2020 [employer] Patient Education ?? 2022 [employer]. Follow Up Care 07/29/2023 20:40:03 With:Follow up with primary care provider Address:Unknown When:1 month Physician Emergency department Note * Donald Chery MD: PERFORM Event Display: ED Note Physician Authored Date: [id number] Patient originally seen by Dakotah Carranza. The blood work comes back unrevealing for any acute process. Urinalysis also negative and negative. Patient had a bladder scan that showed greater than 600 cc of urine. A Leger catheter was inserted and the patient felt less pressure afterwards. CT abdomen pelvis according to radiology is negative for any acute process other than what looks likesmall possible cysts in the adnexa. Patient be discharged with nonspecific abdominal pain urinary retention and also dental infection. Patient will continue antibiotics that she is already taking shewill return Thursday to have the Leger catheter removed and this way she will have several days of bladder rest which she appreciates. She does state that for months she has been having chronic difficulty with urination. She already has a outpatient ultrasound scheduled for this coming Thursday. She will return sooner for other problems. She was prescribed Pyridium for the urinary/bladder discomfort Electronically Signed on 07/30/23 07:21 AM Donald Chery MD * ISABELLA Pillai: PERFORM Event Display: ED Note Physician Authored Date: [id number] RIAZ REGALADO :1995 Age:28 years Sex:Female Visit Date:07/29/2023 Basic Information Time Seen: ISABELLA Pillai / 07/29/2023 20:44 Chief Complaint reports known dental infection on clinda for 3 days still having pain requesting dental block, alsoreports pelvic pain lower abd pain, sent by [facility] for ultrasound History Of Present Illness: Is a 28-year-old??female here for 2 concerns. ??First is a dental infection??has been treated by [facility] with clindamycin she is on the second day of??clindamycin??however she is still experiencing pain in the??left upper molar where it was fractured.?? She explains that she has had??dental blocks in the past with significant relief of the pain and??would like 1 today as well.?? She has been afebrile without chest pain. The other concern she is having is lower abdominal pain. ??She describes it as a??pulling sensationin the??pelvic region and has also been experiencing spotting for the past month. ??She has been experiencing some on and off spotting as well and??1 day did produce a clot the size of a quarter. ??She did talk to her air analysis engineering technician??who??recommended an ultrasound done??however??her office is??in [place] and the patient is not able to??go there. ??Explains that the pain is worse when standing or walking as a pulling worsens.?? She denies any urinary symptoms changes in bowel movements nauseaor vomiting.?? She has had 2??pregnancies with vaginal deliveries and??multiple miscarriages.?? States that her menstrual cycle began yesterday. Review of Systems: See HPI Physical Exam Vitals & Measurements T:??36.9?C ??(Temporal Artery)?? HR:??122??(Peripheral)?? RR:??16?? BP:??139/91?? SpO2:??100%?? HT:??154.940??cm?? WT:??46.72??kg?? BMI:??19.000?? O2 Therapy:??Room air?? General: Patient is alert and engaging, appears well. Is in no acute distress. Speaking comfortablyin full sentences.?? Constitutional: No fevers, chills or diaphoresis.?? HEENT: Head normocephalic and atraumatic. Neck supple with FROM w/o lymphadenopathy or JVD.?? Multiple dental caries. ??Fracture of tooth #17 with localized tenderness. Respiratory: ??No obvious work of breathing, regular rate. BS equal b/l, clear to auscultation. Cardiovascular: Heart regular rate and rhythm w/o murmurs, rubs or gallops. No peripheral edema present.?? GI: normoactive BS. Abdomen soft, nondistended without guarding, rebound or rigidity. TTP over RLQ and suprapubic region.??No HSM Extremities: No obvious deformities. FROM.?? Integumentary: Skin warm and pink. No rashes or ecchymosis present.?? Neuro: CN III-XII grossly intact.?? Psychiatric: acting appropriate for age and circumstance. Normal mood without obvious ??affect.?? Medical Decision Making: Is a pleasant 28-year-old female here for 2 concerns??1 of dental pain??in the left lower abdominalpain.?? She??appears anxious and uncomfortable however no acute distress.?? Vitals obtained and reviewed she is tachycardic at 122 bmp. On dental exam there is poor dentition multiple caries and a fracture of tooth??#17.?? She is already being treated with an antibiotic however is requesting a dental block as this is been??helpful for pain relief in the past.?? This was performed and patient tolerated well.? On abdominal exam she is experiencing tenderness in the suprapubic and right lower quadrant.?? CBC and CMP obtained along with CT??of the abdomen with contrast. ??She does have an ultrasound??orderedand scheduled for this Thursday at 7 AM. ??Unfortunately there is no ultrasound available??today??until then due to the . Procedure After cleaning the area numbing with??bupivacaine,??2 cc of??Marcaine??was injected in??into the gumline after aspiration. ??Patient tolerated procedure well. No Qualifying Data Assessment/Plan Ordered: Sodium Chloride 0.9% 1,000 mL, Total Volume (mL): 1,000, 1,000 mL, Soln-IV, Hydration Bolus, 999 mL/hr, Order Duration: 1 times, Start Date: 07/29/23 21:14:00 EST, Stop Date: 07/29/23 22:13:00 EST, 46.72 kg, Populate Charting Weight From Order, 1.42, m2 CT Abdomen and Pelvis w/ Contrast, 07/29/23 21:11:00 EST, Stat, Reason: abd pain, Transport Mode: Stretcher Test Urine Qual, Urine, Stat Collect, 07/29/23 20:56:00 EST, Once, Nurse collect, Print Label Urinalysis with Micro if Indicated and Culture if Indicated, Urine, Stat Collect, 07/29/23 20:56:00EST, Once, Nurse collect, Print Label Patient care was transferred to ??Miri at the end of shift. Follow Up With When Contact Information Follow up with primary care provider Within 1 month Additional Instructions: Medication Reconciliation Unchanged amoxicillin-clavulanate (amoxicillin-clavulanate 875 mg-125 mg oral tablet)1 tab Oral (given by mouth) every 12 hours for 10 Days. Refills: 0. ?? clindamycin (clindamycin 300 mg oral capsule)1 Capsules Oral (given by mouth) every 8 hours. Refills: 0. ?? multivitamin, (Classic oral tablet) ?? ondansetron (ondansetron 4 mg oral tablet, disintegrating)1 tab Oral (given by mouth) every 8 hoursas needed as needed for nausea/vomiting for 3 Days. Refills: 0. ?? progesterone (progesterone 100 mg oral capsule)4 Capsules Oral (given by mouth) every day. Problem List/Past Medical History Ongoing No qualifying data Historical No qualifying data Medication Administration Given Sodium Chloride 0.9%, 1000 mL, Hydration Bolus acetaminophen, 500 mg, IV Piggyback Allergies No Known Allergies Social History Electronic Cigarette/Vaping Electronic Cigarette Use: Never. Substance Use Marijuana, Daily Tobacco Never tobacco user Tobacco Use:. Lab Results CBC and Differential?? LATEST RESULTS?? WBC?? 07/29/23 21:24?? 7.1?? RBC?? 07/29/23 21:24?? 3.76 ??Low?? Hgb?? 07/29/23 21:24?? 12.1?? Hct?? 07/29/23 21:24?? 36.1 ??Low?? MCV?? 07/29/23 21:24?? 96.0?? MCH?? 07/29/23 21:24?? 32.2 ??High?? MCHC?? 07/29/23 21:24?? 33.5?? RDW-CV?? 07/29/23 21:24?? 12.0?? Platelets?? 07/29/23 21:24?? 321?? MPV?? 07/29/23 21:24?? 9.9?? Neutro Auto?? 07/29/23 21:24?? 52.6?? Lymph Auto?? 07/29/23 21:24?? 33.6?? Lee Auto?? 07/29/23 21:24?? 11.8 ??High?? Eos, Auto?? 07/29/23 21:24?? 1.10?? Basophil Auto?? 07/29/23 21:24?? 0.6?? Imm Gran Auto?? 07/29/23 21:24?? 0.3?? Neutro Absolute?? 07/29/23 21:24?? 3.7?? Lymph Absolute?? 07/29/23 21:24?? 2.4?? Lee Absolute?? 07/29/23 21:24?? 0.8 ??High?? Eos Absolute?? 07/29/23 21:24?? 0.1?? Baso Absolute?? 07/29/23 21:24?? 0.0?? Imm Gran Absolute?? 07/29/23 21:24?? 0.02? Routine Chemistry?? LATEST RESULTS?? Sodium Level?? 07/29/23 21:24?? 136?? Potassium Level?? 07/29/23 21:24?? 3.3 ??Low?? Chloride Level?? 07/29/23 21:24?? 105?? CO2?? 07/29/23 21:24?? 26?? Alk Phos?? 07/29/23 21:24?? 50?? AST?? 07/29/23 21:24?? 18?? ALT?? 07/29/23 21:24?? 10 ??Low?? BUN?? 07/29/23 21:24?? 14?? Glucose Level?? 07/29/23 21:24?? 104?? Creatinine Level?? 07/29/23 21:24?? 0.65?? BUN/Creat Ratio?? 07/29/23 21:24?? 21.5 ??High?? eGFR CKD-EPI?? 07/29/23 21:24?? 124?? Calcium Level?? 07/29/23 21:24?? 8.9?? Protein Total?? 07/29/23 21:24?? 7.8?? Albumin Level?? 07/29/23 21:24?? 4.5?? Globulin?? 07/29/23 21:24?? 3.3?? A/G Ratio?? 07/29/23 21:24?? 1.4?? Bilirubin Total?? 07/29/23 21:24?? 0.7?? Anion Gap?? 07/29/23 21:24?? 5.0?? Osmolality?? 07/29/23 21:24?? 273 ??Low? Electronically Signed on 07/29/23 10:15 PM ISABELLA Pillai Emergency department Discharge instructions * Donald Chery MD: PERFORM Event Display: ED Discharge Information Authored Date: [id number] RIAZ REGALADO :1995 Age:28 years Sex:Female Visit Date:07/29/2023 Discharge Instructions We would like to thank you for allowing us to assist you with your healthcare needs. The following includes patient education materials and information regarding your injury/illness. Diagnosis from Today's Visit Pain, dental Nonspecific abdominal pain Urinary retention Discharge Vitals Temperature??(Temporal Artery) 98.4 ??F (36.9 ??C) Heart Rate??(Peripheral) 122 Respiratory Rate?? 16 Blood Pressure?? 139/91?? Height?? 61.00 in (154.940 cm) Weight?? 103.02 lb (46.72 kg) BMI?? 19.000 Allergies No Known Allergies What to Do Next Instructions from Your Care Team Pyridium for??bladder/urinary discomfort.?? Return to ED Thursday for??catheter removal.?? Continue antibiotics??for dental pain as previously prescribed.?? Follow-up with ultrasound as previously arranged for Thursday. ??Return to ED sooner for worsening symptoms You Need to Schedule the Following Appointments Follow Up with??Follow up with primary care provider When:??Within 1 month Upcoming Scheduled Appointments Thursday 7:00 AM EST ?? Where: [facility] Diagnostic Imaging Status: Confirmed You were treated today on an emergency [...] How Much When Why Instructions Next Dose New phenazopyridine (Pyridium 200 mg oral tablet) 1 tab Oral (given by mouth) 3 times a day after meals as needed for pain [id number] Unchanged amoxicillin-clavulanate (amoxicillin-clavulanate 875 mg-125 mg oral tablet) 1 tab Oral (given by mouth) Every 12 hours Pain due to dental caries Duration: 10 Days Unchanged clindamycin (clindamycin 300 mg oral capsule) 1 Capsules Oral (given by mouth) Every 8 hours Pain, dental Unchanged multivitamin, (Classic oral tablet) Unchanged ondansetron (ondansetron 4 mg oral tablet, disintegrating) 1 tab Oral (given by mouth) Every 8 hours as needed for as needed for nausea/vomiting Pain due to dental caries Duration: 3 Days Unchanged progesterone (progesterone 100 mg oral capsule) 4 Capsules Oral (given by mouth) Every day Pharmacy Information [facility] #[id number]: [address] [place], [place] [phone] Education Materials Dental Pain Dental pain is [...] after getting dental care. Medicines ? Take iusu-prw-clxfzim and prescription medicines only as told by [...] may be mild or severe. ? Take bgon-ayb-ckxcvzw and prescription medicines only as told by [...] provider. Document Revised: 05/29/2021 Document Reviewed: 05/29/2021 ElseACE Portal Patient Education ?? 2022 [employer] Acute Urinary Retention, Female Acute urinary retention is a condition in which a person is unable to pass urine or can only pass alittle urine. This condition can happen suddenly and last for a short time. If left untreated, it can become long-term (chronic) and result in kidney damage or other serious complications. What are the causes? This condition may be caused by: ? Obstruction or narrowing of the tube that drains the bladder (urethra). This may be caused by surgery, problems with nearby organs, or injury to the bladder or urethra. ? Problems with the nerves in the bladder. ? Pelvic organ prolapse. ? Tumors in the area of the pelvis, bladder, or urethra. ? Vaginal childbirth. ? Bladder or urinary tract infection. ? Constipation. ? Certain medicines. What increases the risk? This condition is more likely to develop in women over age 50. Other chronic health conditions can increase the risk of acute urinary retention. These include: ? Diseases such as multiple sclerosis. ? Spinal cord injuries. ? Diabetes. ? Degenerative cognitive conditions, such as delirium or dementia. ? Psychological conditions. A woman may hold her urine due to trauma or because she does not want to use the bathroom. ? History of preexisting urinary retention. ? History of prior pelvic surgery, incontinence surgery, or radical pelvic surgery. What are the signs or symptoms? Symptoms of this condition include: ? Trouble urinating. ? Pain in the lower abdomen. How is this diagnosed? This condition is diagnosed based on a physical exam and your medical history. You may also have other tests, including: ? An ultrasound of the bladder or kidneys or both. ? Blood tests. ? A urine analysis. ? Additional tests may be needed, such as a CT scan, MRI, and kidney or bladder function tests. How is this treated? Treatment for this condition may include: ? Medicines. ? Placing a thin, sterile tube (catheter) into the bladder to drain urine out of the body. This is called an indwelling urinary catheter. After it is inserted, the catheter is held in place with a small balloon that is filled with sterile water. Urine drains from the catheter into a collection bag outside of the body. ? Behavioral therapy. ? Treatment for other conditions. If needed, you may be treated in the hospital for kidney function problems or to manage other complications. Follow these instructions at home: Medicines ? Take tulh-ptt-zxfdhef and prescription medicines only as told by your health care provider. Avoid certain medicines, such as decongestants, antihistamines, and some prescription medicines. Do not take any medicine unless your health care provider approves. ? If you were prescribed an antibiotic medicine, take it as told by your health care provider. Do notstop using the antibiotic even if you start to feel better. General instructions ? Do not use any products that contain nicotine or tobacco. These products include cigarettes, chewing tobacco, and vaping devices, such as e-cigarettes. If you need help quitting, ask your health careprovider. ? Drink enough fluid to keep your urine pale yellow. ? If you have an indwelling urinary catheter, follow the instructions from your health care provider. ? Monitor any changes in your symptoms. Tell your health care provider about any changes. ? If instructed, monitor your blood pressure at home. Report changes as told by your health care provider. ? Keep all follow-up visits. This is important. Contact a health care provider if: ? You have uncomfortable bladder contractions that you cannot control (spasms). ? You leak urine with the spasms. Get help right away if: ? You have chills or a fever. ? You have blood in your urine. ? You have a catheter and the following happens: ? Your catheter stops draining urine. ? Your catheter falls out. Summary ? Acute urinary retention is a condition in which a person is unable to pass urine or can only pass alittle urine. If left untreated, this can result in kidney damage or other serious complications. ? One cause of this condition may be obstruction or narrowing of the tube that drains the bladder (urethra). This may be caused by surgery, problems with nearby organs, or injury to the bladder or urethra. ? Treatment may include medicines and placement of an indwelling urinary catheter. ? Monitor any changes in your symptoms. Tell your health care provider about any changes. This information is not intended to replace advice given to you by your health care provider. Make sure you discuss any questions you have with your health care provider. Document Revised: 05/15/2021 Document Reviewed: 05/15/2021 ElseACE Portal Patient Education ?? 2022 [employer] Abdominal Pain, Adult Pain in the abdomen (abdominal pain) can be caused by many things. Often, abdominal pain is not serious and it gets better with no treatment or by being treated at home. However, sometimes abdominal pain is serious. Your health care provider will ask questions about your medical history and do a physical exam to try to determine the cause of your abdominal pain. Follow these instructions at home: Medicines ? Take iaqa-ncm-erxrcqk and prescription medicines only as told by your health care provider. ? Do not take a laxative unless told by your health care provider. General instructions ? Watch your condition for any changes. ? Drink enough fluid to keep your urine pale yellow. ? Keep all follow-up visits as told by your health care provider. This is important. Contact a health care provider if: ? Your abdominal pain changes or gets worse. ? You are not hungry or you lose weight without trying. ? You are constipated or have diarrhea for more than 2???3 days. ? You have pain when you urinate or have a bowel movement. ? Your abdominal pain wakes you up at night. ? Your pain gets worse with meals, after eating, or with certain foods. ? You are vomiting and cannot keep anything down. ? You have a fever. ? You have blood in your urine. Get help right away if: ? Your pain does not go away as soon as your health care provider told you to expect. ? You cannot stop vomiting. ? Your pain is only in areas of the abdomen, such as the right side or the left lower portion of the abdomen. Pain on the right side could be caused by appendicitis. ? You have bloody or black stools, or stools that look like tar. ? You have severe pain, cramping, or bloating in your abdomen. ? You have signs of dehydration, such as: ? Dark urine, very little urine, or no urine. ? Cracked lips. ? Dry mouth. ? Sunken eyes. ? Sleepiness. ? Weakness. ? You have trouble breathing or chest pain. Summary ? Often, abdominal pain is not serious and it gets better with no treatment or by being treated at home. However, sometimes abdominal pain is serious. ? Watch your condition for any changes. ? Take kagr-tzy-sqxoigd and prescription medicines only as told by your health care provider. ? Contact a health care provider if your abdominal pain changes or gets worse. ? Get help right away if you have severe pain, cramping, or bloating in your abdomen. This information is not intended to replace advice given to you by your health care provider. Make sure you discuss any questions you have with your health care provider. Document Revised: 10/12/2020 Document Reviewed: 01/02/2020 MedPageToday Patient Education ?? 2022 [employer]. Tests Performed Radiology CT Abdomen and Pelvis w/ Contrast 07/29/2023 23:04 EST Medications and Immunizations Administered Given Sodium Chloride 0.9%, 1000 mL, Hydration Bolus acetaminophen, 500 mg, IV Piggyback Lab Test Name Test Result Date/Time WBC 7.1 K/mcL 07/29/2023 21:24 EST RBC 3.76 Million/mcL 07/29/2023 21:24 EST Hgb 12.1 g/dL 07/29/2023 21:24 EST Hct 36.1 % 07/29/2023 21:24 EST MCV 96.0 fL 07/29/2023 21:24 EST MCH 32.2 pg 07/29/2023 21:24 EST MCHC 33.5 g/dL 07/29/2023 21:24 EST RDW-CV 12.0 % 07/29/2023 21:24 EST Platelets 321 K/mcL 07/29/2023 21:24 EST MPV 9.9 fL 07/29/2023 21:24 EST Neutro Auto 52.6 % 07/29/2023 21:24 EST Lymph Auto 33.6 % 07/29/2023 21:24 EST Lee Auto 11.8 % 07/29/2023 21:24 EST Eos, Auto 1.10 % 07/29/2023 21:24 EST Basophil Auto 0.6 % 07/29/2023 21:24 EST Imm Gran Auto 0.3 % 07/29/2023 21:24 EST Neutro Absolute 3.7 K/mcL 07/29/2023 21:24 EST Lymph Absolute 2.4 K/mcL 07/29/2023 21:24 EST Lee Absolute 0.8 K/mcL 07/29/2023 21:24 EST Eos Absolute 0.1 K/mcL 07/29/2023 21:24 EST Baso Absolute 0.0 K/mcL 07/29/2023 21:24 EST Imm Gran Absolute 0.02 K/mcL 07/29/2023 21:24 EST Sodium Level 136 mmol/L 07/29/2023 21:24 EST Potassium Level 3.3 mmol/L 07/29/2023 21:24 EST Chloride Level 105 mmol/L 07/29/2023 21:24 EST CO2 26 mmol/L 07/29/2023 21:24 EST Alk Phos 50 IntlUnit/L 07/29/2023 21:24 EST AST 18 IntlUnit/L 07/29/2023 21:24 EST ALT 10 IntlUnit/L 07/29/2023 21:24 EST BUN 14 mg/dL 07/29/2023 21:24 EST Glucose Level 104 mg/dL 07/29/2023 21:24 EST Creatinine Level 0.65 mg/dL 07/29/2023 21:24 EST BUN/Creat Ratio 21.5 07/29/2023 21:24 EST eGFR CKD-EPI 124 mL/min/1.73 m2 07/29/2023 21:24 EST Calcium Level 8.9 mg/dL 07/29/2023 21:24 EST Protein Total 7.8 g/dL 07/29/2023 21:24 EST Albumin Level 4.5 g/dL 07/29/2023 21:24 EST Globulin 3.3 g/dL 07/29/2023 21:24 EST A/G Ratio 1.4 g/dL 07/29/2023 21:24 EST Bilirubin Total 0.7 mg/dL 07/29/2023 21:24 EST Anion Gap 5.0 07/29/2023 21:24 EST Osmolality 273 mOsm/kg 07/29/2023 21:24 EST U hCG Ql Negative 07/29/2023 23:40 EST Urine Srce Clean Catch 07/29/2023 23:40 EST UA Color YELLOW. 07/29/2023 23:40 EST UA Appear CLEAR. 07/29/2023 23:40 EST UA Glucose NEGATIVE 07/29/2023 23:40 EST UA Bili NEGATIVE 07/29/2023 23:40 EST UA Ketones NEGATIVE 07/29/2023 23:40 EST UA Spec Grav <=1.005 07/29/2023 23:40 EST UA Blood TRACE 07/29/2023 23:40 EST UA pH 7.00 07/29/2023 23:40 EST UA Protein NEGATIVE 07/29/2023 23:40 EST UA Urobilinogen 0.2 07/29/2023 23:40 EST UA Nitrite NEGATIVE 07/29/2023 23:40 EST UA Leuk Est NEGATIVE 07/29/2023 23:40 EST UA Culture Ind?. No 07/29/2023 23:40 EST UA WBC 0-3 07/29/2023 23:40 EST UA RBC 0-3 07/29/2023 23:40 EST UA Squam Epithelial 0-3 07/29/2023 23:40 EST Patient/Chipper Feeder Signature Patient Name:RIAZ REGALADO I have received this information and my questions have been answered. Patient/Chipper Feeder Name: Patient/Chipper Feeder Signature: Relationship to Patient: Witness Name/Signature: Date: Electronically Signed on: 07/30/2023 00:27 ESTSigned by:SERGE Patient Care team information Care Team Personnel Name: Denton Morales RN Position: Nurse Member Role: Registered Nurse Name: ISABELLA Pillai Position: Physician Member Role: Physician Address: Address: [address] [place] [address] [place] Name: Liv Chopra Position: Nurse Member Role: ED Nurse
--- OUTSIDE RECORDS SUMMARY | 2024-04-03 20:35 | XMS_ITS | Continuity of Care Document ---
Author Organization [facility] Ambulatory Clinics Address [address] [place] [address] Encounter [facility] NBR [id number] Date(s): 05/16/23 - 05/16/23 [facility] Ambulatory Clinics [address] [place] [address]- Encounter Diagnosis Pain due to dental caries(Discharge Diagnosis) - 05/16/23 Discharge Disposition: Home or Self Care Attending Physician: Guille Monsivais. ISABELLA Admitting Physician: Guille Monsivais. PA Allergies, Adverse Reactions, Alerts No Known Allergies Medications amoxicillin-clavulanate 875 mg-125 mg oral tablet 1 tab, Oral, every 12 hr, # 20 tab, 0 Refill(s) Start Date: 04/16/23 Stop Date: 04/26/23 Status: Ordered amoxicillin-clavulanate 875 mg-125 mg oral tablet 1 tab, Oral, every 12 hr, # 20 tab, 0 Refill(s), Pharmacy: [facility] #[id number] Start Date: 05/16/23 Stop Date: 05/26/23 Status: Ordered Classic oral tablet 0 Refill(s) Start Date: 03/07/23 Status: Ordered Vital Signs Most recent to oldest [Reference Range]: 1 Peripheral Pulse Rate [60-100 bpm] 111 b pm *HI* (05/16/23 7:18 PM) Respiratory Rate [12-24 br/min] 20 br/mi n (05/16/23 7:18 PM) Blood Pressure [90-140/60-90 mmHg] 105/7 3mmHg (05/16/23 7:18 PM) Weight 46.72 kg (05/16/23 7:18 PM) Weight Measured (lbs) 103 lb (05/16/23 7:18 PM) Height 154.94 cm (05/16/23 7:18 PM) Height/Length Measured (inches) 61 inch (05/16/23 7:18 PM) BSA Measured 1.42 m2 (05/16/23 7:18 PM) Body Mass Index 19.46 kg/m2 (05/16/23 7:18 PM) Social History Social History Type Response Tobacco Never tobacco user T obacco Use:. Sex Hospital Discharge Instructions Patient Education 05/16/2023 18:21:44 Dental Pain, Tgft-ov-Chry Dental Pain Dental pain is often a [...] these instructions at home: Medicines ??? Take yiqm-sci-decqmkf and prescription medicines only as told by [...] to the area. Brushing your teeth ??? Zearing your teeth twice a day using a [...] away. Call your local emergency services ([address] [facility] [place] ??? Do not wait to see [...] when you eat or drink. ??? Take bpsp-hfj-rwqzhei and prescription medicines only as told by your dentist. ??? Watch your dental pain for any changes. Let your dentist know if symptoms get worse. This information is not intended to replace advice given to you by your health care provider. Make sure you discuss any questions you have with your health care provider. Document Revised: 05/29/2021 Document Reviewed: 05/29/2021 ElseTVSmiles Patient Education ?? 2022 [employer]. Physician Outpatient Note * Guille Monsivais. ISABELLA: PERFORM Event Display: Office Clinic Note Physician Authored Date: [id number] RIAZ REGALADO :1995 Age:28 years Sex:Female Visit Date:05/16/2023 Chief Complaint Cracked wisdom teeth - requesting ABX History of Present Illness Patient presents complaining of return of her dental pain. ??This is left lower third molar.?This is her third visit in the past 6 months for similar problem.?? She has been trying to get in with a local dentist. ??She denies any fever, chills. ??No difficulty swallowing.?? No submandibular tenderness. ??No neck tenderness. Physical Exam Vitals & Measurements HR:??111??(Peripheral)?? RR:??20?? BP:??105/73?? SpO2:??95%?? HT:??154.94??cm?? WT:??46.72??kg?? BMI:??19.46?? Pain Score:??6?? BSA:??1.42?? Well-appearing no acute distress examination the oral cavity shows pain??left lower molar. ??This reproduces her symptoms.?? There is no abscess. ??No drainage. ??Airway widely patent. ??No submandibular or anterior neck tenderness. Assessment/Plan 1.??Pain due to dental caries??K02.9 Recommend patient follow-up with dentistry. ??She is working on getting into [facility]. 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 Ordered: amoxicillin-clavulanate 875 mg-125 mg oral tablet, 1 tab, Oral, every 12 hr, # 20 tab, 0 Refill(s),Pharmacy: [facility] #[id number] ?? Patient Instructions Would recommend you have dental appointment in the next 2 to 3 weeks. ??Contact [facility]. Patient Education Dental Pain, Rhjq-jm-Khzi Problem List/Past Medical History Ongoing No qualifying data Historical No qualifying data Medications amoxicillin-clavulanate 875 mg-125 mg oral tablet, 1 tab, Oral, every 12 hr amoxicillin-clavulanate 875 mg-125 mg oral tablet, 1 tab, Oral, every 12 hr Classic oral tablet Allergies No Known Allergies Social History Electronic Cigarette/Vaping Electronic Cigarette Use: Never. Substance Use Marijuana, Daily Tobacco Never tobacco user Tobacco Use:. Electronically Signed on 05/16/23 07:24 PM Guille MASON Outpatient Summary note * Guille Monsivais. ISABELLA: PERFORM Event Display: Ambulatory Patient Summary Authored Date: [id number] MIGUEL REGALADOLLBrissa GALVIN :1995 Age:28 years Sex:Female Visit Date:05/16/2023 Ambulatory Visit Instructions We would like to thank you for allowing us to assist you with your healthcare needs. The following includes patient education materials and information regarding your injury/illness. Your Next Steps Instructions From Your Care Team Would recommend you have dental appointment in the next 2 to 3 weeks. ??Contact [facility]. Medications What How Much When Why Instructions Changed amoxicillin-clavulanate (amoxicillin-clavulanate 875 mg-125 mg oral tablet) 1 tab Oral (given by mouth) Every 12 hours Pain due to dental caries Duration: 10 Days Pickup at [facility] #[id number] Changed amoxicillin-clavulanate (amoxicillin-clavulanate 875 mg-125 mg oral tablet) 1 tab Oral (given by mouth) Every 12 hours Pain due to dental caries Duration: 10 Days Unchanged multivitamin, (Classic oral tablet) Pharmacy Information [facility] #[id number]: [address] [place] [phone] Your Summary Your Diagnosis Pain due to dental caries Your Care Team Admitting Physician - Guille Monsivais. PA Attending Physician - Guille Monsivais. PA Discharge Vitals Heart Rate??(Peripheral) 111 Respiratory Rate?? 20 Blood Pressure?? 105/73?? Height?? 61.00 in (154.94 cm) Weight?? 103.02 lb (46.72 kg) BMI?? 19.46 Allergies No Known Allergies Education Materials Dental Pain Dental pain is [...] these instructions at home: Medicines ? Take bgag-lhf-sewoxae and prescription medicines only as told by [...] to the area. Brushing your teeth ? Zearing your teeth twice a day using a [...] your local emergency services ([address] [place] ? Do not wait to see [...] when you eat or drink. ? Take fcdb-xjj-sfohkoa and prescription medicines only as told by [...] Document Reviewed: 05/29/2021 Elsevier Patient Education ?? 2022 [employer] Inc. Electronically Signed on: 05/16/2023 19:23 EDTSigned by:JAYE
--- OUTSIDE RECORDS SUMMARY | 2024-04-03 20:35 | XMS_ITS | Continuity of Care Document ---
Author Organization [facility] Address [address] [place] [id number] Encounter [facility] NBR [id number] Date(s): 03/04/24 - 03/04/[address] [address]- Discharge Disposition: Home or Self Care Attending Physician: Unavailable, Physician Admitting Physician: Unavailable, Physician Referring Physician: Unavailable, Physician Allergies, Adverse Reactions, Alerts Substance Reaction Severity Status clindamycin Rash Moderate Active Medications amoxicillin-clavulanate 875 mg-125 mg oral tablet 1 tab, Oral, every 12 hr, # 14 tab, 0 Refill(s), Pharmacy: [facility] #[id number], 154, cm, 08/02/23 22:36:00 EST, Height, 46, kg, 08/02/23 22:36:00 EST, Weight Dosing Start Date: 08/07/23 Stop Date: 08/14/23 Status: Ordered amoxicillin-clavulanate 875 mg-125 mg oral tablet 1 tab, Oral, every 12 hr, # 20 tab, 0 Refill(s), Pharmacy: [facility] #[id number] Start Date: 05/16/23 Stop Date: 05/26/23 Status: Ordered chlorhexidine 0.12% mucous membrane liquid 0.018 g 15 mL, Oral, BID, # 473 mL, 0 Refill(s), Pharmacy: [facility] #[id number], 154, cm, 08/02/23 22:36:00 EST, Height, 46, kg, 08/02/23 22:36:00 EST, Weight Dosing Start Date: 08/09/23 Status: Ordered Classic oral tablet 0 Refill(s) Start Date: 03/07/23 Status: Ordered clindamycin 300 mg oral capsule 300 mg = 1 cap, Oral, every 8 hr, # 24 cap, 0 Refill(s), Pharmacy: [facility] #[id number], 154.94, cm, 05/28/23 20:02:00 EDT, Height/Length Dosing, 46.72, kg, 05/28/23 20:02:00 EDT, Weight Dosing Start Date: 07/26/23 Status: Ordered ondansetron 4 mg oral tablet, disintegrating 4 mg = 1 tab, Oral, every 8 hr, PRN as needed for nausea/vomiting, # 9 tab, 0 Refill(s), Pharmacy: [facility] #[id number] Start Date: 05/18/23 Stop Date: 05/21/23 Status: Ordered progesterone 100 mg oral capsule 400 mg = 4 cap, Oral, Daily, 0 Refill(s) Start Date: 05/28/23 Status: Ordered Pyridium 200 mg oral tablet 200 mg = 1 tab, Oral, TID(PC), PRN pain, # 16 tab, 0 Refill(s), Pharmacy: [facility] #[id number], 154.94, cm, 07/29/23 20:53:00 EST, Height, 46.72, kg, 07/29/23 20:53:00 EST, Weight Dosing Start Date: 07/30/23 Status: Ordered Problem List Condition Confirmation Course Effective Dates Status Health St [facility] Informant Urinary retention Confirmed Active Results Laboratory List Name Date Beta hCG Quantitative 03/04/24 Most recent to oldest [Reference Range]: 1 Beta hCG Qnt [<=5.0 mIntlUnit/mL] <0.6 m IntlUnit/mL 1 (03/04/24 5:54 PM) 1Interpretive Data: WEEKS POST LMP: APPROXIMATE HCG (mIU/mL) 3-4 Weeks 9-130 4-5 Weeks 75-2600 5-6 Weeks 850-20,800 6-7 Weeks 4,000-100,200 7-12 Weeks 11,500-289,000 12-16 Weeks 18,300-137,000 16-29 Weeks 1,400-53,000 29-41 Weeks 940-60,000 Social History Social History Type Response Tobacco Never tobacco user T obacco Use:. Sex Patient Care team information Care Team Related Persons Name: CRISTIANA KEARNS
--- OUTSIDE RECORDS SUMMARY | 2024-04-03 20:35 | XMS_ITS | Continuity of Care Document ---
Author Organization [facility] Address [address] [place] [id number] Encounter LTTL_PA FIN NBR [id number] Date(s): 03/21/24 - 03/22/[address] [phone] [id number] Encounter Diagnosis Urinary tract infection(Discharge Diagnosis) - 03/21/24 Leger catheter problem(Discharge Diagnosis) - 03/21/24 Discharge Disposition: Home f/u Internal Provider Attending Physician: Donovan Matamoros MD Admitting Physician: Donovan Matamoros MD Allergies, Adverse Reactions, Alerts Substance Reaction Severity Status clindamycin Rash Moderate Active Assessment and Plan Extracted from: Title:ED Provider Note Author:Donovan Matamoros MD D ate:03/21/24 Assessment/Plan 1.??Urinary tract infection??N39.0 2.??Leger catheter problem??T83.198A Orders: Cipro, 500 mg = 1 tab, Oral, Tab, Once, Antibiotic Indication Urinary Tract Infection, First Dose: 03/22/24 1:00:00 EDT, Stop Date: 03/22/24 1:00:00 EDT, Physician Stop, Routine Cipro 500 mg oral tablet, 500 mg = 1 tab, Oral, every 12 hr, X 10 days, # 20 tab, 0 Refill(s), 04/01/24 0:44:00 EDT, Pharmacy: [facility] #[id number], 154.94, cm, 03/21/24 23:29:00 EDT, Height, 44.45, kg, 03/21/24 23:41:00 EDT, Weight Dosing ibuprofen, 600 mg = 1 tab, Oral, Tab, Once, First Dose: 03/22/24 1:00:00 EDT, Stop Date: 03/22/24 1:00:00 EDT, Physician Stop, Routine Ativan, 1 mg = 1 tab, Oral, Tab, Once, First Dose: 03/22/24 1:00:00 EDT, Stop Date: 03/22/24 1:00:00 EDT, Physician Stop, Routine Pyridium, 200 mg = 2 tab, Oral, Tab, Once, First Dose: 03/22/24 1:00:00 EDT, Stop Date: 03/22/24 1:00:00 EDT, Physician Stop, Routine Pyridium 100 mg oral tablet, 100 mg = 1 tab, Oral, TID(PC), # 12 tab, 0 Refill(s), Pharmacy: [facility] #[id number], 154.94, cm, 03/21/24 23:29:00 EDT, Height, 44.45, kg, 03/21/24 23:41:00 EDT, Weight Dosing Discharge Patient, 03/22/24 0:47:00 EDT, Home Independently Urinalysis with Micro if Indicated and Culture if Indicated, Urine, Stat Collect, 03/22/24 0:41:00 EDT, Once, Nurse collect, Print Label Patient Education Indwelling Urinary Catheter Care, Adult Urinary Tract Infection, Adult Follow Up With When Contact Information Your urologist Within 1 week Additional Instructions: Yessi Farah MD Within [address] [place] [phone] ?? Additional Instructions: Diagnostic Tests Pending * Urine Culture 03/22/24 Medications Cipro 500 mg oral tablet 500 mg = 1 tab, Oral, every 12 hr, X 10 days, # 20 tab, 0 Refill(s), 03/31/24 11:44:00 PM CDT, Pharmacy: [facility] #[id number], 154.94, cm, 03/21/24 23:29:00 EDT, Height, 44.45, kg, 03/21/24 23:41:00 EDT, Weight Dosing Start Date: 03/22/24 Stop Date: 04/01/24 Status: Ordered Pyridium 100 mg oral tablet 100 mg = 1 tab, Oral, TID(PC), # 12 tab, 0 Refill(s), Pharmacy: [facility] #[id number], 154.94, cm, 03/21/24 23:29:00 EDT, Height, 44.45, kg, 03/21/24 23:41:00 EDT, Weight Dosing Start Date: 03/22/24 Status: Ordered Mental Status 03/21/24 Eye Opening Response [place] Spontaneous ly Best Verbal Response Sydnee Oriented Best Motor Response Sydnee Obeys comman ds Sydnee Coma Score 15 Problem List Condition Confirmation Course Effective Dates Status Health St atus Informant Urinary retention Confirmed Active Results Laboratory List Name Date Urinalysis Microscopic 03/22/24 Urinalysis with Micro if Indicated and C ulture if Indicated 03/22/24 Most recent to oldest [Reference Range]: 1 UA Color [Yellow] Yellow (03/22/24 1:01 AM) UA WBC [0-3] 6-10 (03/22/24 1:01 AM) UA Urobilinogen [0.2] 0.2 *NA* (03/22/24 1:01 AM) UA Bili [Negative] Negative *NA* (03/22/24 1:01 AM) UA Ketones [Negative] Negative *NA* (03/22/24 1:01 AM) UA RBC [0-3] 4-6 (03/22/24 1:01 AM) UA Leuk Est [Negative] Negative (03/22/24 1:01 AM) UA Nitrite [Negative] Negative *NA* (03/22/24 1:01 AM) UA Glucose [Negative] Negative *NA* (03/22/24 1:01 AM) UA Bacteria [None Seen] None Seen (03/22/24 1:01 AM) UA Protein [Negative] Trace *NA* (03/22/24 1:01 AM) UA Blood [Negative] Large *ABN* (03/22/24 1:01 AM) UA Spec Grav [1.001-1.030] >=1.030 *NA* (03/22/24 1:01 AM) UA pH [5.00-9.00] 5.50 (03/22/24 1:01 AM) UA Renal Epithelial [None Seen] 0-3 (03/22/24 1:01 AM) UA Appear [Clear] Clear (03/22/24 1:01 AM) UA Culture Ind?. [No] Yes (03/22/24 1:01 AM) Urine Srce Clean Catch (03/22/24 1:01 AM) Vital Signs Most recent to oldest [Reference Range]: 1 Temperature Temporal Artery [36-38 Deg C ] 36.8 Deg C (03/21/24 11:29 PM) Peripheral Pulse Rate [60-100 bpm] 97 bp m (03/21/24 11:29 PM) Respiratory Rate [12-24 br/min] 16 br/mi n (03/21/24: PM) Blood Pressure [90-140/60-90 mmHg] 130/7 9mmHg (03/21/24 11:29 PM) Mean Arterial Pressure, Cuff [65-140 mmH g] 96 mmHg (03/21/24: PM) Weight 44.45 kg (03/21/24: PM) Weight Dosing 44.450 kg (03/21/24: PM) Height 154.94 cm (03/21/24 11: PM) Body Mass Index 18.52 kg/m2 (03/21/24 11: PM) Social History Social History Type Response Tobacco Never tobacco user T obacco Use:. Sex Hospital Discharge Instructions Patient Education 03/21/2024 23:47:19 Indwelling Urinary Catheter Care, Adult Indwelling Urinary Catheter Care, Adult An indwelling urinary catheter is a thin, flexible tube that is placed into the bladder to help drain urine out of the body. The catheter is inserted into the urethra. The urethra is the part of the body that drains urine from the bladder. Urine drains from the catheter into a drainage bag outside of the body. Taking good care of your catheter will keep it working properly and help to prevent problems from developing. What are the risks? Bacteria may get into your bladder and cause a urinary tract infection. ??? Urine flow can become blocked. This can happen if the catheter is not working correctly, or if you have sediment or a blood clot in your bladder or catheter. ??? Tissue near the catheter may become irritated and may bleed. How to wear your catheter and your drainage bag Supplies needed ??? Adhesive tape or a leg strap. ??? Alcohol wipe or soap and water (if you use tape). ??? A clean towel (if you use tape). ??? Overnight drainage bag. ??? Smaller drainage bag (leg bag). Wearing your catheter and bag Use adhesive tape or a leg strap to attach your catheter to your leg. ??? Make sure the catheter is not pulled tight. ??? If a leg strap gets wet, replace it with a dry one. ??? If you use adhesive tape: 1. Use an alcohol wipe or soap and water to wash off any stickiness on your skin where you had tapebefore. 2. Use a clean towel to pat-dry the area. 3. Apply the new tape. You should have received a large overnight drainage bag and a smaller leg bag that fits underneath clothing. ??? You may wear the overnight bag at any time, but you should not wear the leg bag at night. ??? Make sure the overnight drainage bag is always lower than the level of your bladder, but do notlet it touch the floor. Before you go to sleep, hang the bag inside a wastebasket that is covered by a clean plastic bag. ??? Secure the leg bag according to post acute care registered nurse's instructions. This may be above or below the knee, depending on the length of the tubing. Make sure that: ??? The leg bag is below the bladder. ??? The tubing does not have loops or too much tension. How to care for the skin around the catheter Supplies needed ??? A clean washcloth. ??? Water and mild soap. ??? A clean towel. Caring for your skin and catheter ??? Every day, use a clean washcloth and soapy water to clean the skin around your catheter. 1. Wash your hands with soap and water. 2. Wet a washcloth in warm water and mild soap. 3. Clean the skin around your urethra. ??? If you are female: ??? Use one hand to gently spread the folds of skin around your vagina (labia). ??? With the washcloth in your other hand, wipe the inner side of your labia on each side. Do this in a cwnrm-yn-rvqd direction. ??? If you are male: ??? Use one hand to pull back any skin that covers the end of your penis (foreskin). ??? With the washcloth in your other hand, wipe your penis in small circles. Start wiping at the tip of your penis, then move outward from the catheter. ??? Move the foreskin back in place, if needed. 4. With your free hand, hold the catheter close to where it enters your body. Keep holding the catheter during cleaning so it does not get pulled out. 5. Use your other hand to clean the catheter with the washcloth. ??? Only wipe downward on the catheter, toward the bag. ??? Do not wipe upward toward your body, because that may push bacteria into your urethra and causeinfection. 6. Use a clean towel to pat-dry the catheter and the skin around it. Make sure to wipe off all soap. 7. Wash your hands with soap and water. ??? Shower every day. Do not take baths. ??? Do not use cream, ointment, or lotion on the area where the catheter enters your body, unless your health care provider tells you to do that. ??? Do not use powders, sprays, or lotions on your genital area. ??? Check your skin around the catheter every day for signs of infection. Check for: ??? Redness, swelling, or pain. ??? Fluid or blood. ??? Warmth. ??? Pus or a bad smell. How to empty the drainage bag Supplies needed ??? Rubbing alcohol. ??? Gauze pad or cotton ball. ??? Adhesive tape or a leg strap. Emptying the bag Empty your drainage bag (your overnight drainage bag or your leg bag) when it is ? full, or at least 2???3 times a day. Clean the drainage bag according to the post acute care registered nurse's instructions or as told by your health care provider. 1. Wash your hands with soap and water. 2. Detach the drainage bag from your leg. 3. Hold the drainage bag over the toilet or a clean container. Make sure the drainage bag is lower than your hips and bladder. This stops urine from going back into the tubing and into your bladder. 4. Open the pour spout at the bottom of the bag. 5. Empty the urine into the toilet or container. Do not let the pour spout touch any surface. This precaution is important to prevent bacteria from getting in the bag and causing infection. 6. Apply rubbing alcohol to a gauze pad or cotton ball. 7. Use the gauze pad or cotton ball to clean the pour spout. 8. Close the pour spout. 9. Attach the bag to your leg with adhesive tape or a leg strap. 10. Wash your hands with soap and water. How to change the drainage bag Supplies needed: ??? Alcohol wipes. ??? A clean drainage bag. ??? Adhesive tape or a leg strap. Changing the bag Replace your drainage bag with a clean bag if it leaks, starts to smell bad, or looks dirty. 1. Wash your hands with soap and water. 2. Detach the dirty drainage bag from your leg. 3. Pinch the catheter with your fingers so that urine does not spill out. 4. Disconnect the catheter tube from the drainage tube at the connection valve. Do not let the tubes touch any surface. 5. Clean the end of the catheter tube with an alcohol wipe. Use a different alcohol wipe to clean the end of the drainage tube. 6. Connect the catheter tube to the drainage tube of the clean bag. 7. Attach the clean bag to your leg with adhesive tape or a leg strap. Avoid attaching the new bag too tightly. 8. Wash your hands with soap and water. General instructions ??? Never pull on your catheter or try to remove it. Pulling can damage your internal tissues. ??? Always wash your hands before and after you handle your catheter or drainage bag. Use a mild, fragrance-free soap. If soap and water are not available, use hand sewer line repairer. ??? Always make sure there are no twists, bends, or kinks in the catheter tube. ??? Always make sure there are no leaks in the catheter or drainage bag. ??? Drink enough fluid to keep your urine pale yellow. ??? Do not take baths, swim, or use a hot tub. ??? If you are female, wipe from front to back after having a bowel movement. Contact a health care provider if: ??? Your catheter gets clogged. ??? Your catheter starts to leak. ??? You have signs of infection at the catheter site, such as: ??? Redness, swelling, or pain where the catheter enters your body. ??? Fluid, blood, pus, or a bad smell coming from the area where the catheter enters your body. ??? The area where the catheter enters your body feels warm to the touch. ??? You have signs of a urinary tract infection, such as: ??? Fever or chills. ??? Urine smells unusually bad. ??? Cloudy urine. ??? Pain in your abdomen, legs, lower back, or bladder. ??? Nausea or vomiting. Get help right away if: ??? You see blood in the catheter. ??? Your urine is pink or red. ??? Your bladder feels full. ??? Your urine is not draining into the bag. ??? Your catheter gets pulled out. Summary ??? An indwelling urinary catheter is a thin, flexible tube that is placed into the bladder to helpdrain urine out of the body. ??? The catheter is inserted into the part of the body that drains urine from the bladder (urethra). ??? Take good care of your catheter to keep it working properly and help prevent problems from developing. ??? Always wash your hands before and after you handle your catheter or drainage bag. ??? Never pull on your catheter or try to remove it. This information is not intended to replace advice given to you by your health care provider. Make sure you discuss any questions you have with your health care provider. Document Revised: 04/24/2022 Document Reviewed: 04/24/2022 [employer] Patient Education ?? 2022 [employer]. 03/21/2024 23:47:08 Urinary Tract Infection, Adult Urinary Tract Infection, Adult A urinary tract infection (UTI) is an infection of any part of the urinary tract. The urinary tractincludes the kidneys, ureters, bladder, and urethra. These organs make, store, and get rid of urinein the body. An upper UTI affects the ureters and kidneys. A lower UTI affects the bladder and urethra. What are the causes? Most urinary tract infections are caused by bacteria in your genital area around your urethra, where urine leaves your body. These bacteria grow and cause inflammation of your urinary tract. What increases the risk? You are more likely to develop this condition if: ??? You have a urinary catheter that stays in place. ??? You are not able to control when you urinate or have a bowel movement (incontinence). ??? You are female and you: ??? Use a spermicide or diaphragm for control. ??? Have low estrogen levels. ??? Are . ??? You have certain genes that increase your risk. ??? You are sexually active. ??? You take antibiotic medicines. ??? You have a condition that causes your flow of urine to slow down, such as: ??? An enlarged prostate, if you are male. ??? Blockage in your urethra. ??? A kidney stone. ??? A nerve condition that affects your bladder control (neurogenic bladder). ??? Not getting enough to drink, or not urinating often. ??? You have certain medical conditions, such as: ??? Diabetes. ??? A weak disease-fighting system (immunesystem). ??? Sickle cell disease. ??? Gout. ??? Spinal cord injury. What are the signs or symptoms? Symptoms of this condition include: ??? Needing to urinate right away (urgency). ??? Frequent urination. This may include small amounts of urine each time you urinate. ??? Pain or burning with urination. ??? Blood in the urine. ??? Urine that smells bad or unusual. ??? Trouble urinating. ??? Cloudy urine. ??? Vaginal discharge, if you are female. ??? Pain in the abdomen or the lower back. You may also have: ??? Vomiting or a decreased appetite. ??? Confusion. ??? Irritability or tiredness. ??? A fever or chills. ??? Diarrhea. The first symptom in older adults may be confusion. In some cases, they may not have any symptoms until the infection has worsened. How is this diagnosed? This condition is diagnosed based on your medical history and a physical exam. You may also have other tests, including: ??? Urine tests. ??? Blood tests. ??? Tests for STIs (sexually transmitted infections). If you have had more than one UTI, a cystoscopy or imaging studies may be done to determine the cause of the infections. How is this treated? Treatment for this condition includes: ??? Antibiotic medicine. ??? Fukw-xwo-spgkzxa medicines to treat discomfort. ??? Drinking enough water to stay hydrated. If you have frequent infections or have other conditions such as a kidney stone, you may need to see a health care provider who specializes in the urinary tract (urologist). In rare cases, urinary tract infections can cause sepsis. Sepsis is a life- threatening condition that occurs when the body responds to an infection. Sepsis is treated in the hospital with IV antibiotics, fluids, and other medicines. Follow these instructions at home: Medicines ??? Take yrja-pzt-enfbqqt and prescription medicines only as told by your health care provider. ??? If you were prescribed an antibiotic medicine, take it as told by your health care provider. Donot stop using the antibiotic even if you start to feel better. General instructions ??? Make sure you: ??? Empty your bladder often and completely. Do not hold urine for long periods of time. ??? Empty your bladder after sex. ??? Wipe from front to back after urinating or having a bowel movement if you are female. Use each tissue only one time when you wipe. ??? Drink enough fluid to keep your urine pale yellow. ??? Keep all follow-up visits. This is important. Contact a health care provider if: ??? Your symptoms do not get better after 1???2 days. ??? Your symptoms go away and then return. Get help right away if: ??? You have severe pain in your back or your lower abdomen. ??? You have a fever or chills. ??? You have nausea or vomiting. Summary ??? A urinary tract infection (UTI) is an infection of any part of the urinary tract, which includes the kidneys, ureters, bladder, and urethra. ??? Most urinary tract infections are caused by bacteria in your genital area. ??? Treatment for this condition often includes antibiotic medicines. ??? If you were prescribed an antibiotic medicine, take it as told by your health care provider. Donot stop using the antibiotic even if you start to feel better. ??? Keep all follow-up visits. This is important. This information is not intended to replace advice given to you by your health care provider. Make sure you discuss any questions you have with your health care provider. Document Revised: 04/05/2021 Document Reviewed: 04/05/2021 [employer] Link Patient Education ?? 2022 [employer]. Follow Up Care 03/21/2024 23:11:52 With:Your urologist Address: When:1 week With:Yessi Farah MD Address: [address] [place] [address] When:1 week Physician Emergency department Note * Donovan Matamoros MD: PERFORM Event Display: ED Note Physician Authored Date: [id number] RIAZ REGALADO :1995 Age:28 years Sex:Female Visit Date:03/21/2024 Basic Information Time Seen: Donovan Matamoros MD / 03/22/2024 00:14 Chief Complaint Patient thinks her catheter is not in quite right due discomfort. Having difficulty walking. History Of Present Illness: 28-year-old female presents the ER complaining of bladder pain and??Leger catheter problem. ??The patient states she had a recent miscarriage and a Leger catheter was placed??for her bladder not working correctly which sounds like urinary retention. ??This was all done in [place].?? She saysshe was started on antibiotic but then??it was recommended that??her antibiotic be changed. ??She has not picked this up. ??She is now traveling in [place] with her .?? She says the catheter feels uncomfortable and she has pain over her bladder.?? She is not sure if the catheter is draining correctly or if there is??kink in it. ??It hurts her when she is walking and she feels uncomfor table where is inserted. ??Denies any fevers or chills. ??No nausea or vomiting.?? She is not goingback to [place] for 9 days. Review of Systems: CONSTITUTIONAL:??No fevers or chills. EYES:??No change in vision. ENT:??No sore throat. ??No headache. ??No neck pain. CARDIOVASCULAR:??No chest pain, palpitations or passing out episodes. RESPIRATORY:??No cough, shortness of breath or hemoptysis. GI:?No nausea, vomiting or diarrhea. SKIN:??No rash. NEUROLOGIC:??No focal numbness or weakness. PSYCHIATRIC:??No suicidal ideation. LYMPH:??No swelling. ?? Review of systems otherwise as stated in HPI Physical Exam Vitals & Measurements T:??36.8?C ??(Temporal Artery)?? HR:??97??(Peripheral)?? RR:??16?? BP:??130/79?? SpO2:??100%?? HT:??154.94??cm?? WT:??44.45??kg?? BMI:??18.52?? Pain Score:??6?? O2 Therapy:??Room air?? GENERAL:??Awake and alert. ??No acute distress. HEENT:??Normocephalic, atraumatic. ??Mucous membranes are moist. HEART:??Regular rate and rhythm. ??S1 and S2. LUNGS:??Clear to auscultation bilaterally. ??No respiratory distress. ABDOMEN:??Soft, mild suprapubic tenderness. ??No guarding or rebound. BACK:??No CVA tenderness. EXTREMITIES:??Nontender and without edema. NEUROLOGIC:??Awake, alert, and oriented x3. ??Motor and sensory grossly intact. SKIN:??Warm and dry. Medical Decision Making: Dysuria with Leger catheter??discomfort.?? The catheter was flushed and adjusted by the RN and appears to be draining properly. ??No evidence for obstruction??or malfunction.?? She says she was recently??changed to a new antibiotic which she does not know the name of but has not started it or picked it up.?? Here she is afebrile nontoxic-appearing.?? No clinical evidence of pyelonephritis.?? Will initiate Cipro for antibiotic coverage for??possible urinary tract infection.?? I will also treat her with Pyridium and ibuprofen for symptomatic treatment.?? Urine culture has been sent and is pending.?? 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 If for some reason she is not??able to go back I have given her follow-up with urology here locally??if needed. ??She should keep hydrated,??take??medications as prescribed, return for new or worsening symptoms that were discussed with her. Procedure No Qualifying Data Assessment/Plan 1.??Urinary tract infection??N39.0 2.??Leger catheter problem??T83.198A Orders: Cipro, 500 mg = 1 tab, Oral, Tab, Once, Antibiotic Indication Urinary Tract Infection, First Dose: 03/22/24 1:00:00 EDT, Stop Date: 03/22/24 1:00:00 EDT, Physician Stop, Routine Cipro 500 mg oral tablet, 500 mg = 1 tab, Oral, every 12 hr, X 10 days, # 20 tab, 0 Refill(s), 04/01/24 0:44:00 EDT, Pharmacy: [facility] #[id number], 154.94, cm, 03/21/24 23:29:00 EDT, Height, 44.45, kg, 03/21/24 23:41:00 EDT, Weight Dosing ibuprofen, 600 mg = 1 tab, Oral, Tab, Once, First Dose: 03/22/24 1:00:00 EDT, Stop Date: 03/22/24 1:00:00 EDT, Physician Stop, Routine Ativan, 1 mg = 1 tab, Oral, Tab, Once, First Dose: 03/22/24 1:00:00 EDT, Stop Date: 03/22/24 1:00:00 EDT, Physician Stop, Routine Pyridium, 200 mg = 2 tab, Oral, Tab, Once, First Dose: 03/22/24 1:00:00 EDT, Stop Date: 03/22/24 1:00:00 EDT, Physician Stop, Routine Pyridium 100 mg oral tablet, 100 mg = 1 tab, Oral, TID(PC), # 12 tab, 0 Refill(s), Pharmacy: [facility] #[id number], 154.94, cm, 03/21/24 23:29:00 EDT, Height, 44.45, kg, 03/21/24 23:41:00 EDT, Weight Dosing Discharge Patient, 03/22/24 0:47:00 EDT, Home Independently Urinalysis with Micro if Indicated and Culture if Indicated, Urine, Stat Collect, 03/22/24 0:41:00 EDT, Once, Nurse collect, Print Label Patient Education Indwelling Urinary Catheter Care, Adult Urinary Tract Infection, Adult Follow Up With When Contact Information Your urologist Within 1 week Additional Instructions: Yessi Farah MD Within 1 week [address] [place] [address] Additional Instructions: Medication Reconciliation New Prescription ciprofloxacin (Cipro 500 mg oral tablet)1 tab Oral (given by mouth) every 12 hours for 10 Days. Refills: 0. ?? phenazopyridine (Pyridium 100 mg oral tablet)1 tab Oral (given by mouth) 3 times a day after meals.Refills: 0. Problem List/Past Medical History Ongoing Urinary retention Historical No qualifying data Allergies clindamycin??(Rash) Social History Electronic Cigarette/Vaping Electronic Cigarette Use: Never. Substance Use Marijuana, Daily Tobacco Never tobacco user Tobacco Use:. Electronically Signed on 03/22/2024 00:51 EDT Donovan Matamoros MD Emergency department Discharge instructions * Donovan Matamoros MD: PERFORM Event Display: ED Discharge Information Authored Date: [id number] RIAZ REGALADO :1995 Age:28 years Sex:Female Visit Date:03/21/2024 Discharge Instructions We would like to thank you for allowing us to assist you with your healthcare needs. The following includes patient education materials and information regarding your injury/illness. Diagnosis from Today's Visit Urinary tract infection Leger catheter problem Discharge Vitals Temperature??(Temporal Artery) 98.2 ??F (36.8 ??C) Heart Rate??(Peripheral) 97 Respiratory Rate?? 16 Blood Pressure?? 130/79?? SpO2?? 100% Height?? 61.00 in (154.94 cm) Weight?? 98.01 lb (44.45 kg) BMI?? 18.52 Allergies clindamycin??(Rash) What to Do Next You Need to Schedule the Following Appointments Follow Up with??Your urologist When:??Within 1 week Follow Up with??Yessi Farah MD When:??Within 1 week Where: [address] [place] [address] You were treated today on an emergency [...] Emergency Department. Medications What How Much When Instructions Next Dose New ciprofloxacin (Cipro 500 mg oral tablet) 1 tab Oral (given by mouth) Every 12 hours Duration: 10 Days Pickup at [facility] #[id number] New phenazopyridine (Pyridium 100 mg oral tablet) 1 tab Oral (given by mouth) 3 times a day after meals Pickup at [facility] #86577 Pharmacy Information [facility] #[id number]: [address] [place], [place] [id number] [phone] Education [employer] Indwelling Urinary Catheter Care, Adult An indwelling urinary catheter is a thin, flexible tube that is placed into the bladder to help drain urine out of the body. The catheter is inserted into the urethra. The urethra is the part of the body that drains urine from the bladder. Urine drains from the catheter into a drainage bag outside of the body. Taking good care of your catheter will keep it working properly and help to prevent problems from developing. What are the risks? Bacteria may get into your bladder and cause a urinary tract infection. ? Urine flow can become blocked. This can happen if the catheter is not working correctly, or if you have sediment or a blood clot in your bladder or catheter. ? Tissue near the catheter may become irritated and may bleed. How to wear your catheter and your drainage bag Supplies needed ? Adhesive tape or a leg strap. ? Alcohol wipe or soap and water (if you use tape). ? A clean towel (if you use tape). ? Overnight drainage bag. ? Smaller drainage bag (leg bag). Wearing your catheter and bag Use adhesive tape or a leg strap to attach your catheter to your leg. ? Make sure the catheter is not pulled tight. ? If a leg strap gets wet, replace it with a dry one. ? If you use adhesive tape: 1.?? Use an alcohol wipe or soap and water to wash off any stickiness on your skin where you had tape before. 2.?? Use a clean towel to pat-dry the area. 3.?? Apply the new tape. You should have received a large overnight drainage bag and a smaller leg bag that fits underneath clothing. ? You may wear the overnight bag at any time, but you should not wear the leg bag at night. ? Make sure the overnight drainage bag is always lower than the level of your bladder, but do not letit touch the floor. Before you go to sleep, hang the bag inside a wastebasket that is covered by a clean plastic bag. ? Secure the leg bag according to post acute care registered nurse's instructions. This may be above or below the knee, depending on the length of the tubing. Make sure that: ? The leg bag is below the bladder. ? The tubing does not have loops or too much tension. How to care for the skin around the catheter Supplies needed ? A clean washcloth. ? Water and mild soap. ? A clean towel. Caring for your skin and catheter ? Every day, use a clean washcloth and soapy water to clean the skin around your catheter. 1.?? Wash your hands with soap and water. 2.?? Wet a washcloth in warm water and mild soap. 3.?? Clean the skin around your urethra. ? If you are female: ? Use one hand to gently spread the folds of skin around your vagina (labia). ? With the washcloth in your other hand, wipe the inner side of your labia on each side. Do this in [id number] direction. ? If you are male: ? Use one hand to pull back any skin that covers the end of your penis (foreskin). ? With the washcloth in your other hand, wipe your penis in small circles. Start wiping at the tip ofyour penis, then move outward from the catheter. ? Move the foreskin back in place, if needed. 4.?? With your free hand, hold the catheter close to where it enters your body. Keep holding the catheter during cleaning so it does not get pulled out. 5.?? Use your other hand to clean the catheter with the washcloth. ? Only wipe downward on the catheter, toward the bag. ? Do not wipe upward toward your body, because that may push bacteria into your urethra and cause infection. 6.?? Use a clean towel to pat-dry the catheter and the skin around it. Make sure to wipe off all soap. 7.?? Wash your hands with soap and water. ? Shower every day. Do not take baths. ? Do not use cream, ointment, or lotion on the area where the catheter enters your body, unless your health care provider tells you to do that. ? Do not use powders, sprays, or lotions on your genital area. ? Check your skin around the catheter every day for signs of infection. Check for: ? Redness, swelling, or pain. ? Fluid or blood. ? Warmth. ? Pus or a bad smell. How to empty the drainage bag Supplies needed ? Rubbing alcohol. ? Gauze pad or cotton ball. ? Adhesive tape or a leg strap. Emptying the bag Empty your drainage bag (your overnight drainage bag or your leg bag) when it is ? full, or at least 2???3 times a day. Clean the drainage bag according to the post acute care registered nurse's instructions or as told by your health care provider. 1.?? Wash your hands with soap and water. 2.?? Detach the drainage bag from your leg. 3.?? Hold the drainage bag over the toilet or a clean container. Make sure the drainage bag is lower than your hips and bladder. This stops urine from going back into the tubing and into your bladder. 4.?? Open the pour spout at the bottom of the bag. 5.?? Empty the urine into the toilet or container. Do not let the pour spout touch any surface. This precaution is important to prevent bacteria from getting in the bag and causing infection. 6.?? Apply rubbing alcohol to a gauze pad or cotton ball. 7.?? Use the gauze pad or cotton ball to clean the pour spout. 8.?? Close the pour spout. 9.?? Attach the bag to your leg with adhesive tape or a leg strap. 10.?? Wash your hands with soap and water. How to change the drainage bag Supplies needed: ? Alcohol wipes. ? A clean drainage bag. ? Adhesive tape or a leg strap. Changing the bag Replace your drainage bag with a clean bag if it leaks, starts to smell bad, or looks dirty. 1.?? Wash your hands with soap and water. 2.?? Detach the dirty drainage bag from your leg. 3.?? Pinch the catheter with your fingers so that urine does not spill out. 4.?? Disconnect the catheter tube from the drainage tube at the connection valve. Do not let the tubes touch any surface. 5.?? Clean the end of the catheter tube with an alcohol wipe. Use a different alcohol wipe to clean the end of the drainage tube. 6.?? Connect the catheter tube to the drainage tube of the clean bag. 7.?? Attach the clean bag to your leg with adhesive tape or a leg strap. Avoid attaching the new bag tootightly. 8.?? Wash your hands with soap and water. General instructions ? Never pull on your catheter or try to remove it. Pulling can damage your internal tissues. ? Always wash your hands before and after you handle your catheter or drainage bag. Use a mild, fragrance-free soap. If soap and water are not available, use hand sewer line repairer. ? Always make sure there are no twists, bends, or kinks in the catheter tube. ? Always make sure there are no leaks in the catheter or drainage bag. ? Drink enough fluid to keep your urine pale yellow. ? Do not take baths, swim, or use a hot tub. ? If you are female, wipe from front to back after having a bowel movement. Contact a health care provider if: ? Your catheter gets clogged. ? Your catheter starts to leak. ? You have signs of infection at the catheter site, such as: ? Redness, swelling, or pain where the catheter enters your body. ? Fluid, blood, pus, or a bad smell coming from the area where the catheter enters your body. ? The area where the catheter enters your body feels warm to the touch. ? You have signs of a urinary tract infection, such as: ? Fever or chills. ? Urine smells unusually bad. ? Cloudy urine. ? Pain in your abdomen, legs, lower back, or bladder. ? Nausea or vomiting. Get help right away if: ? You see blood in the catheter. ? Your urine is pink or red. ? Your bladder feels full. ? Your urine is not draining into the bag. ? Your catheter gets pulled out. Summary ? An indwelling urinary catheter is a thin, flexible tube that is placed into the bladder to help drain urine out of the body. ? The catheter is inserted into the part of the body that drains urine from the bladder (urethra). ? Take good care of your catheter to keep it working properly and help prevent problems from developing. ? Always wash your hands before and after you handle your catheter or drainage bag. ? Never pull on your catheter or try to remove it. This information is not intended to replace advice given to you by your health care provider. Make sure you discuss any questions you have with your health care provider. Document Revised: 04/24/2022 Document Reviewed: 04/24/2022 [employer] Patient Education ?? 2022 [employer] Urinary Tract Infection, Adult A urinary tract infection (UTI) is an infection of any part of the urinary tract. The urinary tractincludes the kidneys, ureters, bladder, and urethra. These organs make, store, and get rid of urinein the body. An upper UTI affects the ureters and kidneys. A lower UTI affects the bladder and urethra. What are the causes? Most urinary tract infections are caused by bacteria in your genital area around your urethra, where urine leaves your body. These bacteria grow and cause inflammation of your urinary tract. What increases the risk? You are more likely to develop this condition if: ? You have a urinary catheter that stays in place. ? You are not able to control when you urinate or have a bowel movement (incontinence). ? You are female and you: ? Use a spermicide or diaphragm for control. ? Have low estrogen levels. ? Are . ? You have certain genes that increase your risk. ? You are sexually active. ? You take antibiotic medicines. ? You have a condition that causes your flow of urine to slow down, such as: ? An enlarged prostate, if you are male. ? Blockage in your urethra. ? A kidney stone. ? A nerve condition that affects your bladder control (neurogenic bladder). ? Not getting enough to drink, or not urinating often. ? You have certain medical conditions, such as: ? Diabetes. ? A weak disease-fighting system (immunesystem). ? Sickle cell disease. ? Gout. ? Spinal cord injury. What are the signs or symptoms? Symptoms of this condition include: ? Needing to urinate right away (urgency). ? Frequent urination. This may include small amounts of urine each time you urinate. ? Pain or burning with urination. ? Blood in the urine. ? Urine that smells bad or unusual. ? Trouble urinating. ? Cloudy urine. ? Vaginal discharge, if you are female. ? Pain in the abdomen or the lower back. You may also have: ? Vomiting or a decreased appetite. ? Confusion. ? Irritability or tiredness. ? A fever or chills. ? Diarrhea. The first symptom in older adults may be confusion. In some cases, they may not have any symptoms until the infection has worsened. How is this diagnosed? This condition is diagnosed based on your medical history and a physical exam. You may also have other tests, including: ? Urine tests. ? Blood tests. ? Tests for STIs (sexually transmitted infections). If you have had more than one UTI, a cystoscopy or imaging studies may be done to determine the cause of the infections. How is this treated? Treatment for this condition includes: ? Antibiotic medicine. ? Ciol-bvo-vndyjks medicines to treat discomfort. ? Drinking enough water to stay hydrated. If you have frequent infections or have other conditions such as a kidney stone, you may need to see a health care provider who specializes in the urinary tract (urologist). In rare cases, urinary tract infections can cause sepsis. Sepsis is a life- threatening condition that occurs when the body responds to an infection. Sepsis is treated in the hospital with IV antibiotics, fluids, and other medicines. Follow these instructions at home: Medicines ? Take wwft-gnv-ildasll and prescription medicines only as told by your health care provider. ? If you were prescribed an antibiotic medicine, take it as told by your health care provider. Do notstop using the antibiotic even if you start to feel better. General instructions ? Make sure you: ? Empty your bladder often and completely. Do not hold urine for long periods of time. ? Empty your bladder after sex. ? Wipe from front to back after urinating or having a bowel movement if you are female. Use each tissue only one time when you wipe. ? Drink enough fluid to keep your urine pale yellow. ? Keep all follow-up visits. This is important. Contact a health care provider if: ? Your symptoms do not get better after 1???2 days. ? Your symptoms go away and then return. Get help right away if: ? You have severe pain in your back or your lower abdomen. ? You have a fever or chills. ? You have nausea or vomiting. Summary ? A urinary tract infection (UTI) is an infection of any part of the urinary tract, which includes the kidneys, ureters, bladder, and urethra. ? Most urinary tract infections are caused by bacteria in your genital area. ? Treatment for this condition often includes antibiotic medicines. ? If you were prescribed an antibiotic medicine, take it as told by your health care provider. Do notstop using the antibiotic even if you start to feel better. ? Keep all follow-up visits. This is important. This information is not intended to replace advice given to you by your health care provider. Make sure you discuss any questions you have with your health care provider. Document Revised: 04/05/2021 Document Reviewed: 04/05/2021 [employer] Patient Education ?? 2022 [employer] Patient/Yacht Master Signature Patient Name:EUGENIO REGALADOEDWIN GALVIN I have received this information and my questions have been answered. 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
--- OUTSIDE RECORDS SUMMARY | 2024-04-03 20:35 | XMS_ITS | Continuity of Care Document ---
Author Organization [facility] Address [address] [place] [id number] Encounter [facility] FIN NBR [id number] Date(s): 03/25/24 - 03/25/[address] [id number] Encounter Diagnosis Encounter for removal of urinary catheter(Discharge Diagnosis) - 03/25/24 Discharge Disposition: Home or Self Care Attending Physician: Reese Goldman DO Admitting Physician: Reese Goldman DO Allergies, Adverse Reactions, Alerts Substance Reaction Severity Status clindamycin Rash Moderate Active Assessment and Plan Extracted from: Title:ED Provider Note Author:ISABELLA Pillai Date:03/25/24 1.??Encounter for removal of urinary catheter??Z46.6 ??Patient discharged home. ??Plans to follow-up with urology and??be seen at her??nearest ED??with any??concerns for obstruction as we discussed. Ordered: Discharge Patient, 03/25/24 20:55:00 EDT, Home Independently ?? Orders: Urinalysis Microscopic, Urine, Stat Collect, Collected, 03/25/24 21:11:00 EDT, Once, Nurse collect Urinalysis with Micro if Indicated and Culture if Indicated, Urine, Stat Collect, 03/25/24 20:20:00 EDT, Once, Nurse collect, Print Label Medications amoxicillin-clavulanate 875 mg-125 mg oral tablet 0 Refill(s) Start Date: 03/25/24 Status: Ordered Cipro 500 mg oral tablet 500 mg = 1 tab, Oral, every 12 hr, X 10 days, # 20 tab, 0 Refill(s), 03/31/24 11:44:00 PM CDT, Pharmacy: [facility] #[id number], 154.94, cm, 03/21/24 23:29:00 EDT, Height, 44.45, kg, 03/21/24 23:41:00 EDT, Weight Dosing Start Date: 03/22/24 Stop Date: 04/01/24 Status: Ordered LORazepam 0.5 mg oral tablet 0.5 mg = 1 tab, Oral, BID, PRN as needed for anxiety, 0 Refill(s) Start Date: 03/25/24 Status: Ordered ondansetron 8 mg oral tablet TAKE 1 TABLET BY MOUTH EVERY 8 HOURS NEEDED FOR NAUSEA OR VOMITING FOR UP TO 10 DAYS Start Date: 03/25/24 Status: Ordered Pyridium 100 mg oral tablet 100 mg = 1 tab, Oral, TID(PC), # 12 tab, 0 Refill(s), Pharmacy: [facility] #[id number], 154.94, cm, 03/21/24 23:29:00 EDT, Height, 44.45, kg, 03/21/24 23:41:00 EDT, Weight Dosing Start Date: 03/22/24 Status: Ordered sulfamethoxazole-trimethoprim 800 mg-160 mg oral tablet TAKE 1 TABLET BY MOUTH TWICE A DAY FOR 7 DAYS Start Date: 03/25/24 Status: Ordered Mental Status 03/25/24 Eye Opening Response [place] Spontaneous ly Best Verbal Response [place] Oriented Best Motor Response Sydnee Obeys comman ds [place] Coma Score 15 Problem List Condition Confirmation Course Effective Dates Status [facility] Urinary retention Confirmed Active Results Laboratory List Name Date Urinalysis Microscopic 03/25/24 Urinalysis with Micro if Indicated and C ulture if Indicated 03/25/24 Most recent to oldest [Reference Range]: 1 UA Color [Yellow] Yellow (03/25/24 9:11 PM) UA WBC [0-3] 4-6 (03/25/24 9:11 PM) UA Urobilinogen [0.2] 0.2 *NA* (03/25/24 9:11 PM) UA Bili [Negative] Negative *NA* (03/25/24 9:11 PM) UA Ketones [Negative] Negative *NA* (03/25/24 9:11 PM) UA Ca Ox Crystal [None Seen] Few *ABN* (03/25/24 9:11 PM) UA RBC [0-3] 6-10 (03/25/24 9:11 PM) UA Leuk Est [Negative] Negative (03/25/24 9:11 PM) UA Nitrite [Negative] Negative *NA* (03/25/24 9:11 PM) UA Glucose [Negative] Negative *NA* (03/25/24 9:11 PM) UA Bacteria [None Seen] None Seen (03/25/24 9:11 PM) UA Protein [Negative] Negative *NA* (03/25/24 9:11 PM) UA Blood [Negative] Large *ABN* (03/25/24 9:11 PM) UA Spec Grav [1.001-1.030] <=1.005 *NA* (03/25/24 9:11 PM) UA pH [5.00-9.00] 7.00 (03/25/24 9:11 PM) UA Appear [Clear] Clear (03/25/24 9:11 PM) UA Culture Ind?. [No] No (03/25/24 9:11 PM) Vital Signs Most recent to oldest [Reference Range]: 1 Temperature Temporal Artery [36-38 Deg C ] 36.9 Deg C (03/25/24 7:59 PM) Heart Rate Monitored [60-100 bpm] 111 bp m *HI* (03/25/24 7:59 PM) Respiratory Rate [12-24 br/min] 22 br/mi n (03/25/24 7:59 PM) Blood Pressure [90-140/60-90 mmHg] 139/8 2mmHg (03/25/24 7:59 PM) Mean Arterial Pressure, Cuff [65-140 mmH g] 101 mmHg (03/25/24 7:59 PM) Weight 44 kg (03/25/24 7:59 PM) Weight Dosing 44.000 kg (03/25/24 7:59 PM) Height 154 cm (03/25/24 7:59 PM) Body Mass Index 18.55 kg/m2 (03/25/24 7:59 PM) Social History Social History Type Response Tobacco Never tobacco user T obacco Use:. Sex Physician Emergency department Note * ISABELLA Pillai: PERFORM Event Display: ED Note Physician Authored Date: [id number] RIAZ REGALADO :1995 Age:28 years Sex:Female Visit Date:03/25/2024 Basic Information Time Seen: ISABELLA Pillai / 03/25/2024 19:53 Chief Complaint UTI issues x 1 week, patient states various ABX tried, but has difficulty taking them due to pill form, Primary care was supposed to put in for liquid abx. Pt. also requests catheter removal, but hasfailed removal recently History Of Present Illness: This is a 28-year-old female here for concerns of pain??due to a Leger catheter. ??She states that this catheter was placed 6 days ago??at an??ED in [place] for??obstruction secondary to a urinary tract infection.?? She??has been started on 3 different antibiotics since that time however??states that she has only taken a few doses that she has trouble taking pills and is waiting for her prima care to send her in a liquid form of Augmentin.?? She explains that the tape has come off the Leger catheter and it is pulling causing her pain and discomfort. ??Otherwise is not experiencing any abdominal pain.?? She is also concerned because she is seeing some blood flakes in the??urine.?? She was seen at this ED 2 days ago??and had a UA obtained with a urine culture which did not show??bacterial??growth??distant with an infection.?? At that time she explained that the catheter was in place secondary to a miscarriage.?? Is also had Leger catheters in place??for urinary obstruction??postsurgical. Review of Systems: See HPI Physical Exam Vitals & Measurements T:??36.9?C ??(Temporal Artery)?? HR:??111??(Monitored)?? RR:??22?? BP:??139/82?? SpO2:??100%?? HT:??154??cm?? WT:??44??kg?? BMI:??18.55?? O2 Therapy:??Room air?? General: Patient is alert and engaging, appears well. Is in no acute distress. Speaking comfortablyin full sentences.?? Constitutional: No fevers, chills or diaphoresis.?? HEENT: Head normocephalic and atraumatic. Neck supple. Respiratory: ??No obvious work of breathing, regular rate. BS equal b/l, clear to auscultation.?? Cardiovascular: Heart regular rate and rhythm w/o murmurs, rubs or gallops. No peripheral edema present.?? GI: normoactive BS. Abdomen soft non tender, nondistended without guarding, rebound or rigidity. NoHSM Extremities: No obvious deformities. FROM.?? Integumentary: Skin warm and pink. No rashes or ecchymosis present.?? Neuro: CN III-XII grossly intact.?? Psychiatric: acting appropriate for age and circumstance. Normal mood without obvious ??affect.?? Medical Decision Making: This is a 28-year-old female here??asking to have a Leger catheter removed as it is uncomfortable.?? She is in no acute distress. ??Vitals obtained and reviewed.?? Discussed the concerns with removing the Leger catheter??however patient is adamant that she would like it removed. ??As there is no evidence of infection on the??most recent cultures and??the catheter was placed??because of a UTI I dofeel that it would be appropriate to remove it at this time. ??She does have a urologist but this is down [place] and she has an appointment with them this coming week??but does not want to waitthat long to have it removed due to this discomfort.?? UA was obtained. ??Nursing staff did remove c atheter??however apparently patient was not ready to have it removed and did not feel fully supported??during the removal.?? She??tells me afterwards that the catheter was removed too quickly and??she was expecting??me to be in the room before the removal of the Leger catheter and I apologize that I was not??there to provide??support for her during this time.?? The catheter??was removed so successfully without any??complications. Procedure No Qualifying Data Assessment/Plan 1.??Encounter for removal of urinary catheter??Z46.6 ??Patient discharged home. ??Plans to follow-up with urology and??be seen at her??nearest ED??with any??concerns for obstruction as we discussed. Ordered: Discharge Patient, 03/25/24 20:55:00 EDT, Home Independently ?? Orders: Urinalysis Microscopic, Urine, Stat Collect, Collected, 03/25/24 21:11:00 EDT, Once, Nurse collect Urinalysis with Micro if Indicated and Culture if Indicated, Urine, Stat Collect, 03/25/24 20:20:00EDT, Once, Nurse collect, Print Label Medication Reconciliation Unchanged amoxicillin-clavulanate (amoxicillin-clavulanate 875 mg-125 mg oral tablet) ?? ciprofloxacin (Cipro 500 mg oral tablet)1 tab Oral (given by mouth) every 12 hours for 10 Days. Refills: 0. ?? LORazepam (LORazepam 0.5 mg oral tablet)1 tab Oral (given by mouth) 2 times a day as needed as needed for anxiety. ?? ondansetron (ondansetron 8 mg oral tablet)TAKE 1 TABLET BY MOUTH EVERY 8 HOURS NEEDED FOR NAUSEAOR VOMITING FOR UP TO 10 DAYS. ?? phenazopyridine (Pyridium 100 mg oral tablet)1 tab Oral (given by mouth) 3 times a day after meals.Refills: 0. ?? sulfamethoxazole-trimethoprim (sulfamethoxazole-trimethoprim 800 mg-160 mg oral tablet)TAKE 1 TABLET BY MOUTH TWICE A DAY FOR 7 DAYS. Problem List/Past Medical History Ongoing Urinary retention Historical No qualifying data Allergies clindamycin??(Rash) Social History Electronic Cigarette/Vaping Electronic Cigarette Use: Never. Substance Use Marijuana, Daily Tobacco Never tobacco user Tobacco Use:. Lab Results UA Macroscopic?? LATEST RESULTS?? HISTORICAL RESULTS?? UA Color?? 03/25/24 21:11?? Yellow?? 03/22/24?? Yellow?? UA Appear?? 03/25/24 21:11?? Clear?? 03/22/24?? Clear?? UA Glucose?? 03/25/24 21:11?? Negative?? 03/22/24?? Negative?? UA Bili?? 03/25/24 21:11?? Negative?? 03/22/24?? Negative?? UA Ketones?? 03/25/24 21:11?? Negative?? 03/22/24?? Negative?? UA Spec Grav?? 03/25/24 21:11?? <=1.005?? 03/22/24?? >=1.030?? UA Blood?? 03/25/24 21:11?? Large Abnormal?? 03/22/24?? Large Abnormal?? UA pH?? 03/25/24 21:11?? 7.00?? 03/22/24?? 5.50?? UA Protein?? 03/25/24 21:11?? Negative?? 03/22/24?? Trace?? UA Urobilinogen?? 03/25/24 21:11?? 0.2?? 03/22/24?? 0.2?? UA Nitrite?? 03/25/24 21:11?? Negative?? 03/22/24?? Negative?? UA Leuk Est?? 03/25/24 21:11?? Negative?? 03/22/24?? Negative?? UA Culture Ind?.?? 03/25/24 21:11?? No?? 03/22/24?? Yes? UA Microscopic?? LATEST RESULTS?? HISTORICAL RESULTS?? UA WBC?? 03/25/24 21:11?? 4-6?? 03/22/24?? 6-10?? UA RBC?? 03/25/24 21:11?? 6-10?? 03/22/24?? 4-6?? UA Bacteria?? 03/25/24 21:11?? None Seen?? 03/22/24?? None Seen?? UA Ca Ox Crystal?? 03/25/24 21:11?? Few Abnormal? Electronically Signed on 03/25/2024 21:33 EDT ISABELLA Pillai Emergency department Discharge instructions * ISABELLA Pillai: PERFORM Event Display: ED Discharge Information Authored Date: [id number] RIAZ REGALADO :1995 Age:28 years Sex:Female Visit Date:03/25/2024 Discharge Instructions We would like to thank you for allowing us to assist you with your healthcare needs. The following includes patient education materials and information regarding your injury/illness. Diagnosis from Today's Visit Encounter for removal of urinary catheter Discharge Vitals Temperature??(Temporal Artery) 98.4 ??F (36.9 ??C) Heart Rate??(Monitored) 111 Respiratory Rate?? 22 Blood Pressure?? 139/82?? SpO2?? 100% Height?? 60.63 in (154 cm) Weight?? 97.02 lb (44 kg) BMI?? 18.55 Allergies clindamycin??(Rash) What to Do Next Instructions from Your Care Team Continue with??antibiotic prescribed by primary care. ??Will repeat urinalysis and Leger catheter was removed today.?? Be seen at your nearest emergency department or by your urologist with any concerns for obstruction in the future including??distended and painful abdomen??and??inability to urinate. You were treated today on an emergency [...] What How Much When Instructions Next Dose Unchanged amoxicillin-clavulanate (amoxicillin-clavulanate 875 mg-125 mg oral tablet) Unchanged ciprofloxacin (Cipro 500 mg oral tablet) 1 tab Oral (given by mouth) Every 12 hours Duration: 10 Days Unchanged LORazepam (LORazepam 0.5 mg oral tablet) 1 tab Oral (given by mouth) 2 times a day as needed for as needed for anxiety Unchanged ondansetron (ondansetron 8 mg oral tablet) TAKE 1 TABLET BY MOUTH EVERY 8 HOURS NEEDED FOR NAUSEA OR VOMITING FOR UP TO 10 DAYS ?? Unchanged phenazopyridine (Pyridium 100 mg oral tablet) 1 tab Oral (given by mouth) 3 times a day after meals Unchanged sulfamethoxazole-trimethoprim (sulfamethoxazole-trimethoprim 800 mg- 160 mg oral tablet) TAKE 1 TABLET BY MOUTH TWICE A DAY FOR 7 DAYS ?? Patient/[employer]ather [employer] Supervisor Signature Patient Name:MIGUEL REGALADOLLA GLENIS I have received this information and my questions have been answered. Patient/[employer] Supervisor Name: Patient/[employer] Supervisor Signature: Relationship to Patient: Witness Name/Signature: Date: Electronically Signed on: 03/25/2024 20:56 EDTSigned by:DILSHAD Patient Care team information Care Team Related Persons Name: CRISTIANA KEARNS
--- OUTSIDE RECORDS SUMMARY | 2024-04-03 20:35 | XMS_ITS | Continuity of Care Document ---
Author Organization [facility] Address [address] [place] [address] Encounter [facility] FIN NBR [id number] Date(s): 04/16/23 - 04/16/23 [facility] [address] [place], [place] [address] Encounter Diagnosis Pain due to dental caries(Discharge Diagnosis) - 04/16/23 Discharge Disposition: Home or Self Care Attending Physician: Guille Monsivais. ISABELLA Admitting Physician: Guille Monsivais. ISABELLA Allergies, Adverse Reactions, Alerts No Known Allergies Functional Status 04/16/23 Family Member Travel History No recent t ravel Recent Travel History No recent travel Other exposure to Infectious Disease Non e Medications amoxicillin-clavulanate 875 mg-125 mg oral tablet 1 tab, Oral, every 12 hr, # 20 tab, 0 Refill(s) Start Date: 04/16/23 Stop Date: 04/26/23 Status: Ordered Classic oral tablet 0 Refill(s) Start Date: 03/07/23 Status: Ordered Vital Signs Most recent to oldest [Reference Range]: 1 Temperature Tympanic [36.6-37.9 Deg C] 3 7.4 Deg C (04/16/23 6:24 PM) Peripheral Pulse Rate [60-100 bpm] 70 bp m (04/16/23 6:24 PM) Respiratory Rate [12-24 br/min] 16 br/mi n (04/16/23 6:24 PM) Blood Pressure [90-140/60-90 mmHg] 118/5 3mmHg (04/16/23 6:24 PM) Weight 48.44 kg (04/16/23 6:24 PM) Weight Measured (lbs) 106.792 lb (04/16/23 6:24 PM) Hospital Discharge Instructions Patient Education 04/16/2023 17:37:14 Dental Pain, Ntcg-[id number]-Zkej Dental Pain Dental pain is often a [...] these instructions at home: Medicines ??? Take dalv-bnm-sfznpnf and prescription medicines only as told by [...] to the area. Brushing your teeth ??? [place] your teeth twice a day using a [...] when you eat or drink. ??? Take zjzl-nfs-gdluqvl and prescription medicines only as told by [...] Reviewed: 05/29/2021 Else[employer] Patient Education ?? 2022 [employer] Physician Outpatient Note * Guille Monsivais. ISABELLA: PERFORM Event Display: Office Clinic Note Physician Authored Date: [id number] RIAZ REGALADO :1995 Age:28 years Sex:Female Visit Date:04/16/2023 Chief Complaint Two broken teeth and states that her gums burn and she thinks she needs Amoxicillan. History of Present Illness This is a 28-year-old female who presents for evaluation of dental pain. ??Patient has had recurrent trouble with broken teeth in the past. ??She currently has 2 teeth that have been causing issue for her.?? She??is experiencing pain and burning gums on the bilateral sides of her mouth. ??No oozingor drainage. ??No fevers or chills.?? In the past??the symptoms have responded to antibiotics.?? She is trying to establish with a dentist. Physical Exam Vitals & Measurements T:??37.4?C ??(Tympanic)?? HR:??70??(Peripheral)?? RR:??16?? BP:??118/53?? SpO2:??100%?? WT:??48.44??kg?? Pain Score:??6?? General: Alert and oriented, well-nourished and hydrated, no acute distress Oral: Right and left lower??back molars with evidence of fracture, no fluctuance or evidence of abcess Neck: no submandibular swelling or crepitus Assessment/Plan 1.??Pain due to dental caries??K02.9 Patient with evidence of??fractured??molars bilaterally. ??No evidence of abscess. she will be treated with Augmentin today as she was recently on amoxicillin.?? I encouraged that she follow-up with a dentist for definitive treatment.?? She will follow-up with us sooner for any acute concerns or wor sening symptoms Ordered: amoxicillin-clavulanate 875 mg-125 mg oral tablet, 1 tab, Oral, every 12 hr, # 20 tab, 0 Refill(s) ?? Patient Instructions Take entire course of antibiotics as prescribed.?? I encourage you follow-up with a dentist for definitive treatment??to prevent recurrence in the future Patient Education Dental Pain, Gspl-ud-Bvqd Problem List/Past Medical History Ongoing No qualifying data Historical No qualifying data Medications amoxicillin-clavulanate 875 mg-125 mg oral tablet, 1 tab, Oral, every 12 hr Classic oral tablet Allergies No Known Allergies Electronically Signed on 04/16/23 06:54 PM Guille MASON Outpatient Summary note * Guille MASON: PERFORM Event Display: Ambulatory Patient Summary Authored Date: [id number] RIAZ REGALADO :1995 Age:28 years Sex:Female Visit Date:04/16/2023 Ambulatory Visit Instructions We would like to thank you for allowing us to assist you with your healthcare needs. The following includes patient education materials and information regarding your injury/illness. Your Next Steps Instructions From Your Care Team Take entire course of antibiotics as prescribed.?? I encourage you follow-up with a dentist for definitive treatment??to prevent recurrence in the future Medications What When Instructions Unchanged multivitamin, (Classic oral tablet) Your Summary Your Diagnosis Pain due to dental caries Your Care Team Admitting Physician - Guille Monsivais. ISABELLA Attending Physician - Guille MASON Discharge Vitals Temperature??(Tympanic) 99.3 ??F (37.4 ??C) Heart Rate??(Peripheral) 70 Respiratory Rate?? 16 Blood Pressure?? 118/53?? Weight?? 106.81 lb (48.44 kg) Allergies No Known Allergies Education Materials Dental [...] these instructions at home: Medicines ? Take gnhw-ojh-lnwdrko and prescription medicines only as told by [...] to the area. Brushing your teeth ? [place] your teeth twice a day using a [...] when you eat or drink. ? Take hgyr-dvv-stqynby and prescription medicines only as told by [...] ?? 2022 [employer] Electronically Signed on: 04/16/2023 18:37 EDTSigned by:JAYE
--- OUTSIDE RECORDS SUMMARY | 2024-04-03 20:35 | XMS_ITS | Continuity of Care Document ---
Author Organization [facility] Address [address] [place] [address] Encounter [facility] NBR [id number] Date(s): 08/07/23 - 08/07/23 [facility] [address] [place] [address]- Encounter Diagnosis Drug reaction(Discharge Diagnosis) - 08/07/23 Discharge Disposition: Home or Self Care Attending Physician: ISABELLA Miner Allergies, Adverse Reactions, Alerts Substance Reaction Severity Status clindamycin Rash Moderate Active Assessment and Plan Future Appointments Medications amoxicillin-clavulanate 875 mg-125 mg oral tablet 1 tab, Oral, every 12 hr, # 14 tab, 0 Refill(s), Pharmacy: [facility] #[id number], 154, cm, 08/02/23 22:36:00 EST, Height, 46, kg, 08/02/23 22:36:00 EST, Weight Dosing Start Date: 08/07/23 Stop Date: 08/14/23 Status: Ordered amoxicillin-clavulanate 875 mg-125 mg oral tablet 1 tab, Oral, every 12 hr, # 20 tab, 0 Refill(s), Pharmacy: [facility] #[id number] Start Date: 05/16/23 Stop Date: 05/26/23 Status: Ordered Classic oral tablet 0 Refill(s) Start Date: 03/07/23 Status: Ordered clindamycin 300 mg oral capsule 300 mg = 1 cap, Oral, every 8 hr, # 24 cap, 0 Refill(s), Pharmacy: [facility] #[id number], 154.94, cm, 05/28/23 20:02:00 EDT, Height/Length Dosing, 46.72, kg, 05/28/23 20:02:00 EDT, Weight Dosing Start Date: 07/26/23 Status: Ordered ondansetron 4 mg oral tablet, disintegrating 4 mg = 1 tab, Oral, every 8 hr, PRN as needed for nausea/vomiting, # 9 tab, 0 Refill(s), [id number] Start Date: 05/18/23 Stop Date: 05/21/23 Status: Ordered progesterone 100 mg oral capsule 400 mg = 4 cap, Oral, Daily, 0 Refill(s) Start Date: 05/28/23 Status: Ordered Pyridium 200 mg oral tablet 200 mg = 1 tab, Oral, TID(PC), PRN pain, # 16 tab, 0 Refill(s), Pharmacy: [facility] #[id number], 154.94, cm, 07/29/23 20:53:00 EST, Height, 46.72, kg, 07/29/23 20:53:00 EST, Weight Dosing Start Date: 07/30/23 Status: Ordered Vital Signs Most recent to oldest [Reference Range]: 1 Temperature Tympanic [36.6-38.1 Deg C] 3 7.2 Deg C (08/07/23 3:35 PM) Peripheral Pulse Rate [60-100 bpm] 100 b pm (08/07/23 3:35 PM) Blood Pressure [90-140/60-90 mmHg] 125/6 6mmHg (08/07/23 3:35 PM) Mean Arterial Pressure, Cuff [70-110 mmH g] 86 mmHg (08/07/23 3:35 PM) Social History Social History Type Response Tobacco Never tobacco user T obacco Use:. Sex Hospital Discharge Instructions Patient Education 08/07/2023 14:59:49 Drug Allergy, Krxf-jc-Sfkl Drug Allergy A drug allergy is when your body reacts in a bad way to a medicine. The reaction may be mild or very bad. In some cases, it can be life-threatening. If you have an allergic reaction, get help right away. You should get help even if the reaction seems mild. What are the causes? This condition is caused by a reaction in your body's defense system. The system sees a medicine asbeing harmful when it is not. What are the signs or symptoms? Symptoms of a mild reaction ??? A stuffy nose. ??? Tingling in your mouth. ??? An itchy, red rash. Symptoms of a very bad reaction ??? Swelling of your eyes, lips, face, tongue, mouth or back of your throat. ??? Itchy, red, swollen areas of skin. ??? Feeling dizzy or light-headed. ??? Feeling mixed up. ??? Pain in your belly. ??? Trouble with breathing, talking, or swallowing. ??? A tight feeling in your chest. ??? Fast heartbeat. ??? Vomiting or watery poop (diarrhea). How is this treated? There is no cure for allergies. An allergic reaction can be treated with: ??? Medicines to help your symptoms. ??? Medicines that you breathe into your lungs (respiratory inhalers). ??? A shot for a very bad allergic reaction (epinephrine). For a very bad reaction, you may need to stay in the hospital. Your doctor may teach you how to usean allergy kit and how to give yourself an allergy shot. You can give yourself an allergy shot withwhat is called an auto-injector pen. Follow these instructions at home: If you have a very bad allergy: ??? Always keep an allergy pen or your kit with you. This could save your life. Use it as told by your doctor. ??? Make sure that you, the people who live with you, and your employer know how to use your allergy pen or kit. ??? If you used your allergy pen or kit: ??? Get more medicine for it right away. This is important in case you have another reaction. ??? Get help right away. ??? Wear a medical alert bracelet or necklace that says you have an allergy, if your doctor tells you to do this. General instructions ??? Avoid medicines that you are allergic to. ??? Take ovyk-fou-lqitqgo and prescription medicines only as told by your doctor. ??? If you were given allergy medicines, do not drive until your health care provider tells you it is safe. ??? If you have hives or a rash: ??? Use dujb-wio-eykxmyf medicines as told by your doctor. ??? Put cold, wet cloths on your skin. ??? Take baths or showers in cool water. Avoid hot water. ??? It is up to you to get your test results. Ask how to get your results when they are ready. ??? Tell all your doctors that you have a medicine allergy. ??? Keep all follow-up visits. Contact a doctor if: ??? You think that you are having a mild allergic reaction. ??? You have symptoms that last more than 2 days after your reaction. ??? You get new symptoms. Get help right away if: ??? You had to use your allergy pen or kit. You must go to the emergency room, even if the medicineseems to be working. ??? Your symptoms get worse. ??? You have symptoms of a very bad allergic reaction. These symptoms may be an emergency. Use your allergy pen or kit as you have been told. Get medical help right away. Call your local emergency services (911 in the [place] ??? Do not wait to see if the symptoms will go away. ??? Do not drive yourself to the hospital. Summary ??? A drug allergy is when your body reacts in a bad way to a medicine. ??? Take medicines only as told by your doctor. ??? Tell all your doctors that you have a medicine allergy. ??? Always keep an allergy pen or kit with you if you have a very bad allergy. This information is not intended to replace advice given to you by your health care provider. Make sure you discuss any questions you have with your health care provider. Document Revised: 02/03/2022 Document Reviewed: 02/03/2022 [employer] Patient Education ?? 2022 [employer] Physician Outpatient Note * ISABELLA Miner: PERFORM Event Display: Office Clinic Note Physician Authored Date: [id number] FABRICIO RIAZTARYN GALVIN :1995 Age:28 years Sex:Female Visit Date:08/07/2023 Chief Complaint Patient started clindamycin for wisdom teeth (about 10 days ago). Has not taken benadryl History of Present Illness Patient has been on multiple rounds of antibiotics over the past several months for dental abscess.??Recently started on clindamycin??1 week ago. ??She notes rash started yesterday red itchy rash throughout her body. ??She has been on clindamycin in the past without reactions.?? She continues to complain of right upper dental pain. ??Has pending appointment with dentistry next week.?? No fever, chills. ??No difficulty swallowing. ??No lip swelling or facial swelling. Physical Exam Vitals & Measurements T:??37.2?C ??(Tympanic)?? HR:??100??(Peripheral)?? BP:??125/66?? SpO2:??96%?? Pain Score:??7?? Well-appearing no acute distress there is a diffuse red rash throughout the upper and lower extremities and face. ??There is no lip swelling no respiratory complaints no wheezing.?? Unlabored respirations. ??This is consistent with a drug reaction. ??Teeth in disrepair. ??Tender right upper molar. Assessment/Plan 1.??Drug reaction??T50.905A Suspect drug reaction to clindamycin. ??This been marked as an allergy in her chart. ??Recommend she change to Augmentin??as she feels she still needs antibiotics for her tooth. ??She is aware of theneed for follow-up next week with dentistry to have this tooth extracted to prevent recurrence and further need for antibiotics.?? Follow-up with OB and other providers as scheduled. ??Recheck sooneras needed. Ordered: amoxicillin-clavulanate 875 mg-125 mg oral tablet, 1 tab, Oral, every 12 hr, # 14 tab, 0 Refill(s),[id number], 154, cm, 08/02/23 22:36:00 EST, Height, 46, kg, 08/02/23 22:36:00 EST, Weight Dosing ?? Patient Instructions Stop taking the clindamycin and start on the Augmentin for your tooth infection. ??Be sure to follow-up with dentistry next week.?? Would recommend you take Zyrtec or Annie??for itching and rash.??Emergency department for any breathing difficulty, shortness of breath, worsening symptoms. Patient Education Drug Allergy, Qkjx-qw-Zpmm Problem List/Past Medical History Ongoing No qualifying [...] capsule, 400 mg= 4 cap, Oral, Daily Pyridium 200 mg oral tablet, 200 mg= 1 tab, Oral, TID(PC), PRN Allergies clindamycin??(Rash) Social History Electronic Cigarette/Vaping Electronic Cigarette Use: Never. Substance Use Marijuana, Daily Tobacco Never tobacco user Tobacco Use:. Electronically Signed on 08/07/23 04:02 PM ISABELLA Miner * ISABELLA Miner: PERFORM Event Display: Office Clinic Note Physician Authored Date: [id number] Prior to discharge patient also stated to me that her doctor whom she is no longer seeing in [place] also wanted to have a breast ultrasound of her left side. ??She does not have local primary care. ??I have assisted her with established with local primary care which can help??coordinate her multiple complaints at this time she is set up her appointment next week August 13 to establish withher primary care office to discuss her breast concern only. ??She will need to establish further with primary care after that. ??Patient was agreeable with this treatment plan. ??She is aware she hasan appointment next week August 13 2??start the process of establishing primary care. Electronically Signed on 08/07/23 04:22 PM ISABELLA Miner Outpatient Summary note * ISABELLA Miner: PERFORM Event Display: Ambulatory Patient Summary Authored Date: [id number] RIAZ REGALADO :1995 Age:28 years Sex:Female Visit Date:08/07/2023 Ambulatory Visit Instructions We would like to thank you for allowing us to assist you with your healthcare needs. The following includes patient education materials and information regarding your injury/illness. Your Next Steps Instructions From Your Care Team Stop taking the clindamycin and start on the Augmentin for your tooth infection. ??Be sure to follow-up with dentistry next week.?? Would recommend you take Zyrtec or Annie??for itching and rash.??Emergency department for any breathing difficulty, shortness of breath, worsening symptoms. Medications What How Much When Why Instructions Changed amoxicillin-clavulanate (amoxicillin-clavulanate 875 mg-125 mg oral tablet) 1 tab Oral (given by mouth) Every 12 hours Pain due to dental caries Duration: 10 Days Changed amoxicillin-clavulanate (amoxicillin-clavulanate 875 mg-125 mg oral tablet) 1 tab Oral (given by mouth) Every 12 hours Drug reaction Duration: 7 Days Pickup at [facility] #[id number] Unchanged clindamycin (clindamycin 300 mg oral capsule) 1 Capsules Oral (given by mouth) Every 8 hours Pain, dental Unchanged multivitamin, (Classic oral tablet) Unchanged ondansetron (ondansetron 4 mg oral tablet, disintegrating) 1 tab Oral (given by mouth) Every 8 hours as needed for as needed for nausea/vomiting Pain due to dental caries Duration: 3 Days Unchanged phenazopyridine (Pyridium 200 mg oral tablet) 1 tab Oral (given by mouth) 3 times a day after meals as needed for pain Unchanged progesterone (progesterone 100 mg oral capsule) 4 Capsules Oral (given by mouth) Every day Pharmacy Information [facility] #[id number]: [address], [place] [id number] [phone] Your Summary Your Diagnosis Drug reaction Your Care Team Attending Physician - ISABELLA Miner Discharge Vitals Temperature??(Tympanic) 99.0 ??F (37.2 ??C) Heart Rate??(Peripheral) 100 Blood Pressure?? 125/66?? Allergies clindamycin??(Rash) Education Materials Drug Allergy A drug allergy is when your body reacts in a bad way to a medicine. The reaction may be mild or very bad. In some cases, it can be life-threatening. If you have an allergic reaction, get help right away. You should get help even if the reaction seems mild. What are the causes? This condition is caused by a reaction in your body's defense system. The system sees a medicine asbeing harmful when it is not. What are the signs or symptoms? Symptoms of a mild reaction ? A stuffy nose. ? Tingling in your mouth. ? An itchy, red rash. Symptoms of a very bad reaction ? Swelling of your eyes, lips, face, tongue, mouth or back of your throat. ? Itchy, red, swollen areas of skin. ? Feeling dizzy or light-headed. ? Feeling mixed up. ? Pain in your belly. ? Trouble with breathing, talking, or swallowing. ? A tight feeling in your chest. ? Fast heartbeat. ? Vomiting or watery poop (diarrhea). How is this treated? There is no cure for allergies. An allergic reaction can be treated with: ? Medicines to help your symptoms. ? Medicines that you breathe into your lungs (respiratory inhalers). ? A shot for a very bad allergic reaction (epinephrine). For a very bad reaction, you may need to stay in the hospital. Your doctor may teach you how to usean allergy kit and how to give yourself an allergy shot. You can give yourself an allergy shot withwhat is called an auto-injector pen. Follow these instructions at home: If you have a very bad allergy: ? Always keep an allergy pen or your kit with you. This could save your life. Use it as told by your doctor. ? Make sure that you, the people who live with you, and your employer know how to use your allergy pen or kit. ? If you used your allergy pen or kit: ? Get more medicine for it right away. This is important in case you have another reaction. ? Get help right away. ? Wear a medical alert bracelet or necklace that says you have an allergy, if your doctor tells you to do this. General instructions ? Avoid medicines that you are allergic to. ? Take xsmu-hrm-trtaanr and prescription medicines only as told by your doctor. ? If you were given allergy medicines, do not drive until your health care provider tells you it is safe. ? If you have hives or a rash: ? Use ahez-psj-apocujm medicines as told by your doctor. ? Put cold, wet cloths on your skin. ? Take baths or showers in cool water. Avoid hot water. ? It is up to you to get your test results. Ask how to get your results when they are ready. ? Tell all your doctors that you have a medicine allergy. ? Keep all follow-up visits. Contact a doctor if: ? You think that you are having a mild allergic reaction. ? You have symptoms that last more than 2 days after your reaction. ? You get new symptoms. Get help right away if: ? You had to use your allergy pen or kit. You must go to the emergency room, even if the medicine seems to be working. ? Your symptoms get worse. ? You have symptoms of a very bad allergic reaction. These symptoms may be an emergency. Use your allergy pen or kit as you have been told. Get medical help right away. Call your local emergency services (911 in the [place] ? Do not wait to see if the symptoms will go away. ? Do not drive yourself to the hospital. Summary ? A drug allergy is when your body reacts in a bad way to a medicine. ? Take medicines only as told by your doctor. ? Tell all your doctors that you have a medicine allergy. ? Always keep an allergy pen or kit with you if you have a very bad allergy. This information is not intended to replace advice given to you by your health care provider. Make sure you discuss any questions you have with your health care provider. Document Revised: 02/03/2022 Document Reviewed: 02/03/2022 [employer] Patient Education ?? 2022 [employer] Electronically Signed on: 08/07/2023 16:01 ESTSigned by:JAYE Patient Care team information Care Team Related Persons Name: CRISTIANA KEARNS
--- OUTSIDE RECORDS SUMMARY | 2024-04-03 20:35 | XMS_ITS | Continuity of Care Document ---
Author Organization [facility] Address [address] [place] [id number] Encounter [facility]_AR FIN NBR [id number] Date(s): 08/02/23 - 08/02/[address] [id number] Encounter Diagnosis Urinary catheter insertion/adjustment/removal(Discharge Diagnosis) - 08/02/23 Discharge Disposition: Home f/u Internal Provider Attending Physician: Donovan Matamoros MD Admitting Physician: Donovan Matamoros MD Allergies, Adverse Reactions, Alerts No Known Allergies Assessment and Plan Future Appointments Diagnostic Tests Pending * Urine Culture 08/02/23 Future Scheduled Tests Radiology* US Transvaginal Non-OB 08/03/23 Medications amoxicillin-clavulanate 875 mg-125 mg oral tablet 1 tab, Oral, every 12 hr, # 20 tab, 0 Refill(s), Pharmacy: [facility] #[id number] Start Date: 05/16/23 Stop Date: 05/26/23 Status: Ordered Classic oral tablet 0 Refill(s) Start Date: 03/07/23 Status: Ordered clindamycin 300 mg oral capsule 300 mg = 1 cap, Oral, every 8 hr, # 24 cap, 0 Refill(s), Pharmacy: [facility] #[id number], 154.94, cm, 05/28/23 20:02:00 EDT, Height/Length Dosing, 46.72, kg, 05/28/23 20:02:00 EDT, Weight Dosing Start Date: 07/26/23 Status: Ordered ondansetron 4 mg oral tablet, disintegrating 4 mg = 1 tab, Oral, every 8 hr, PRN as needed for nausea/vomiting, # 9 tab, 0 Refill(s), Pharmacy: [facility] #[id number] Start Date: 05/18/23 Stop Date: 05/21/23 Status: Ordered progesterone 100 mg oral capsule 400 mg = 4 cap, Oral, Daily, 0 Refill(s) Start Date: 05/28/23 Status: Ordered Pyridium 200 mg oral tablet 200 mg = 1 tab, Oral, TID(PC), PRN pain, # 16 tab, 0 Refill(s), Pharmacy: [facility] #[id number], 154.94, cm, 07/29/23 20:53:00 EST, Height, 46.72, kg, 07/29/23 20:53:00 EST, Weight Dosing Start Date: 07/30/23 Status: Ordered Mental Status 08/02/23 Eye Opening Response Sydnee Spontaneous ly Best Verbal Response Sydnee Oriented Best Motor Response Sydnee Obeys comman ds Sydnee Coma Score 15 Results Laboratory List Name Date Test Urine Qual 08/02/23 Urinalysis Microscopic 08/02/23 Urinalysis with Micro if Indicated and C ulture if Indicated 08/02/23 Most recent to oldest [Reference Range]: 1 UA Color [Yellow] [employer] *ABN* (08/02/23 10:59 PM) UA WBC [0-3] 4-6 *ABN* (08/02/23 10:59 PM) UA Urobilinogen [0.2] >=8.0 *ABN* (08/02/23 10:59 PM) UA Bili [Negative] Negative (08/02/23 10:59 PM) UA Ketones [Negative] Trace *ABN* (08/02/23 10:59 PM) UA RBC [0-3] None Seen (08/02/23 10:59 PM) UA Leuk Est [Negative] Trace *ABN* (08/02/23 10:59 PM) UA Nitrite [Negative] Positive *ABN* (08/02/23 10:59 PM) UA Glucose [Negative] 250 *ABN* (08/02/23 10:59 PM) UA Bacteria [None Seen] 1+ *ABN* (08/02/23 10:59 PM) UA Protein [Negative] 100 *ABN* (08/02/23 10:59 PM) UA Blood [Negative] Negative (08/02/23 10:59 PM) UA Spec Grav [1.001-1.030] <=1.005 *NA* (08/02/23 10:59 PM) UA pH [5.00-9.00] 6.50 (08/02/23 10:59 PM) UA Appear [Clear] Clear (08/02/23 10:59 PM) UA Culture Ind?. [No] Yes (08/02/23 10:59 PM) U hCG Ql [Negative] Negative (08/02/23 10:59 PM) Vital Signs Most recent to oldest [Reference Range]: 1 2 Temperature Temporal Artery [36-38 Deg C ] 36.6 Deg C (08/02/23 10:23 PM) Peripheral Pulse Rate [60-100 bpm] 125 b pm *HI* (08/02/23 10:23 PM) Respiratory Rate [12-24 br/min] 20 br/mi n (08/02/23 10:23 PM) Blood Pressure [90-140/60-90 mmHg] 148/6 5mmHg *HI* (08/02/23 10:23 PM) Mean Arterial Pressure, Cuff [70-110 mmHg] 93 mmHg (08/02/23 10:23 PM) Weight 46.00 kg (08/02/23 10:23 PM) Weight Dosing 46.00 kg (08/02/23 10:36 PM) Height 154.000 cm (08/02/23 10:36 PM) 154.000 cm (08/02/23 10:23 PM) Body Mass Index 19.000 kg/m2 (08/02/23 10:23 PM) Social History Social History Type Response Tobacco Never tobacco user T obacco Use:. Sex Hospital Discharge Instructions Patient Education 08/02/2023 21:47:53 Indwelling Urinary Catheter Care, Adult Indwelling Urinary [...] ??? Secure the leg bag according to hitcher's instructions. This may be above or below [...] on each side. Do this in a [id number] direction. ??? If you are male: ??? [...] Clean the drainage bag according to the hitcher's instructions or as told by your health [...] and water are not available, use hand mandate retail service merchandiser. ??? Always make sure there are no [...] provider. Document Revised: 04/24/2022 Document Reviewed: 04/24/2022 [employer] Patient Education ?? 2022 charity: water. 08/02/2023 21:47:46 Acute Urinary Retention, Female Acute Urinary Retention, [...] these instructions at home: Medicines ??? Take [id number] and prescription medicines only as told by [...] provider. Document Revised: 05/15/2021 Document Reviewed: 05/15/2021 [employer] Patient Education ?? 2022 charity: water. Follow Up Care 08/02/2023 22:22:59 With:Your veterinary milk specialist Address: When:1 to 2 days Physician Emergency department Note * Donovan Matamoros MD: PERFORM Event Display: ED Note Physician Authored Date: [id number] RIAZ REGALADO :1995 Age:28 years Sex:Female Visit Date:08/02/2023 Basic Information Time Seen: Donovan Matamoros MD / 08/02/2023 22:23 Chief Complaint Pt. states was told to return to ED to remove catheter before U/S appointment tomorrow morning History Of Present Illness: 28-year-old female returns the ER requesting Leger catheter removal??for planned ultrasound tomorrow.?? Apparently the patient has had several months of pelvic pain. ??She is being followed by an INSTRUMENT CHECKER in [place]. ??She had a scheduled ultrasound??pending for tomorrow morning.?? She has had several visits for dental pain in the interim and was found to have acute urinary retention in the ER3 days ago. ??Leger catheter was placed for 600 mL??postvoid residual. ??She was told to return here today to have the??catheter removed prior to her ultrasound tomorrow. ?? The patient says she has been feeling fairly well. ??She has some??pain in her bladder??she thinks??is due to the catheter.?? No fevers or chills. ??No nausea or vomiting.?? Urinalysis was??negative several days ago. Review of Systems: CONSTITUTIONAL:??No fevers or chills. EYES:??No change in vision. ENT:??No sore throat. ??No headache. ??No neck pain. CARDIOVASCULAR:??No chest pain, palpitations or passing out episodes. RESPIRATORY:??No cough, shortness of breath or hemoptysis. GI:??No nausea, vomiting or diarrhea. SKIN:??No rash. NEUROLOGIC:??No focal numbness or weakness. LYMPH:??No swelling. ?? Review of systems otherwise as stated in HPI Physical Exam Vitals & Measurements T:??36.6?C ??(Temporal Artery)?? HR:??125??(Peripheral)?? RR:??20?? BP:??148/65?? SpO2:??97%?? HT:??154.000??cm?? WT:??46.00??kg?? BMI:??19.000?? Pain Score:??3?? O2 Therapy:??Room air?? GENERAL:??Awake and alert. ??No acute distress. HEENT:??Normocephalic, atraumatic. ??Mucous membranes are moist. HEART:??Regular rate and rhythm. ??S1 and S2. LUNGS:??Clear to auscultation bilaterally. ??No respiratory distress. ABDOMEN:??Soft, moderate suprapubic tenderness. ??No guarding or rebound.?? Leger catheter drainingorange urine. BACK:??Mild left CVA tenderness. EXTREMITIES:??Nontender and without edema. NEUROLOGIC:??Awake, alert, and oriented x3. ??Motor and sensory grossly intact. SKIN:??Warm and dry. Medical Decision Making: Leger catheter removal.?? Patient??has been given a plan of coming in for Leger catheter removal prior to??ultrasound tomorrow.?? She has some bladder discomfort presumably from the catheter.?? Catheter was removed as planned. ??Otherwise she is afebrile nontoxic-appearing.?? She has some??mild lowback pain??and urinalysis does have??positive nitrites??although only 1+ bacteria and 4-6 white cells.?? She is currently on clindamycin for a dental infection.?? I believe we can wait for urine culture to be obtained which has been sent and is pending??before adding additional antibiotics??given that she had multiple rounds recently??for multiple??presentations for dental pain.?? Otherwise follow -up with her ultrasound in the morning??and then plans for seeing her INSTRUMENT CHECKER in [place] on Thursday.?? Return if worse. Procedure No Qualifying Data Assessment/Plan 1.??Urinary catheter insertion/adjustment/removal??Z46.6 Orders: Discharge Patient, 08/02/23 22:49:00 EST Urine Culture, Urine, Stat collect, ST - Stat, 08/02/23 22:59:00 EST, Once, Nurse collect, Collected, 08/02/23 22:59:00 EST, Print Label, [id number] Patient Education Indwelling Urinary Catheter Care, Adult Acute Urinary Retention, Female Follow Up With When Contact Information Your veterinary milk specialist Within 1 to 2 days Additional Instructions: Medication Reconciliation Unchanged amoxicillin-clavulanate (amoxicillin-clavulanate [...] nausea/vomiting for 3 Days. Refills: 0. ?? phenazopyridine (Pyridium 200 mg oral tablet)1 tab Oral (given by mouth) 3 times a day after meals as needed pain. Refills: 0. ?? progesterone (progesterone 100 mg oral capsule)4 Capsules Oral (given by mouth) every day. Problem List/Past Medical History Ongoing No qualifying data Historical No qualifying data Allergies No Known Allergies Social History Electronic Cigarette/Vaping Electronic Cigarette Use: Never. Substance Use Marijuana, Daily Tobacco Never tobacco user Tobacco Use:. Electronically Signed on 08/02/23 11:34 PM Donovan Matamoros MD Emergency department Discharge instructions * Donovan Matamoros MD: PERFORM Event Display: ED Discharge Information Authored Date: [id number] RIAZ REGALADO :1995 Age:28 years Sex:Female Visit Date:08/02/2023 Discharge Instructions We would like to thank you for allowing us to assist you with your healthcare needs. The following includes patient education materials and information regarding your injury/illness. Diagnosis from Today's Visit Urinary catheter insertion/adjustment/removal Discharge Vitals Temperature??(Temporal Artery) 97.9 ??F (36.6 ??C) Heart Rate??(Peripheral) 125 Respiratory Rate?? 20 Blood Pressure?? 148/65?? Height?? 60.63 in (154.000 cm) Weight?? 101.43 lb (46.00 kg) BMI?? 19.000 Allergies No Known Allergies What to Do Next You Need to Schedule the Following Appointments Follow Up with??Your veterinary milk specialist When:??Within 1 to 2 days Upcoming Scheduled Appointments Thursday 7:00 AM EST ?? You were treated today on an emergency [...] (given by mouth) Every day Education Materials Indwelling Urinary Catheter Care, Adult [...] ? Secure the leg bag according to hitcher's instructions. This may be above or below [...] labia on each side. Do this in mqzmcx-kf-rgvs direction. ? If you are male: ? [...] Clean the drainage bag according to the hitcher's instructions or as told by your health [...] and water are not available, use hand mandate retail service merchandiser. ? Always make sure there are no [...] provider. Document Revised: 04/24/2022 Document Reviewed: 04/24/2022 [employer] Patient Education ?? 2022 charity: water. Acute Urinary Retention, Female Acute urinary retention [...] these instructions at home: Medicines ? Take [id number]-dle-rgwserz and prescription medicines only as told by [...] provider. Document Revised: 05/15/2021 Document Reviewed: 05/15/2021 [employer] Patient Education ?? 2022 [employer] Patient/Tie Fastener Signature Patient Name:EUGENIO REGALADOEDWIN GALVIN I have received this information and my questions have been answered. Patient/Tie Fastener Name: Patient/Tie Fastener Signature: Relationship to Patient: Witness Name/Signature: Date: Electronically Signed on: 08/02/2023 22:48 ESTSigned by:MONICO Patient Care team information Care Team Personnel Name: Megan Porter Position: Nurse Member Role: ED Nurse Name: Donovan Matamoros MD Position: Physician Member Role: Admitting Physician Address: Address: [address] [place] [address]
--- OUTSIDE RECORDS SUMMARY | 2024-04-03 20:35 | XMS_ITS | Continuity of Care Document ---
Author Organization [facility] Address [address] [place] [id number] Encounter LTTL_MD FIN NBR [id number] Date(s): 08/09/23 - 08/09/[address] [phone] [place] Encounter Diagnosis Urticaria(Discharge Diagnosis) - 08/09/23 Dental infection(Discharge Diagnosis) - 08/09/23 Medication reaction(Discharge Diagnosis) - 08/09/23 Discharge Disposition: Home or Self Care Attending Physician: Shay Holland MD Admitting Physician: Shay Holland MD Allergies, Adverse Reactions, Alerts Substance Reaction Severity Status clindamycin Rash Moderate Active Assessment and Plan Future Appointments Medications amoxicillin-clavulanate 875 mg-125 mg oral tablet 1 tab, Oral, every 12 hr, # 14 tab, 0 Refill(s), Pharmacy: [facility] #[id number], 154, cm, 08/02/23 22:36:00 EST, Height, 46, kg, 08/02/23 22:36:00 EST, Weight Dosing Start Date: 08/07/23 Stop Date: 08/14/23 Status: Ordered amoxicillin-clavulanate 875 mg-125 mg oral tablet 1 tab, Oral, every 12 hr, # 20 tab, 0 Refill(s), Pharmacy: [facility] #[id number] Start Date: 05/16/23 Stop Date: 05/26/23 Status: Ordered chlorhexidine 0.12% mucous membrane liquid 0.018 g 15 mL, Oral, BID, # 473 mL, 0 Refill(s), Pharmacy: [facility] #[id number], 154, cm, 08/02/23 22:36:00 EST, Height, 46, kg, 08/02/23 22:36:00 EST, Weight Dosing Start Date: 08/09/23 Status: Ordered Classic oral tablet 0 Refill(s) Start Date: 03/07/23 Status: Ordered clindamycin 300 mg oral capsule 300 mg = 1 cap, Oral, every 8 hr, # 24 cap, 0 Refill(s), Pharmacy: [facility] #[id number], 154.94, cm, 05/28/23 20:02:00 EDT, Height/Length Dosing, 46.72, kg, 05/28/23 20:02:00 EDT, Weight Dosing Start Date: 07/26/23 Status: Ordered levoFLOXacin 750 mg oral tablet 750 mg = 1 tab, Oral, every 24 hr, X 10 days, # 10 tab, 0 Refill(s), 08/19/23 12:52:00 PM [employer]I M[employer]UAL [employer]ICKET [employer]ER, Pharmacy: [facility] #[id number], 154, cm, 08/02/23 22:36:00 EST, Height, 46, kg, 08/02/23 22:36:00EST, Weight Dosing Start Date: 08/09/23 Stop Date: 08/19/23 Status: Ordered metroNIDAZOLE 500 mg oral tablet 500 mg = 1 tab, Oral, TID, X 10 days, # 30 tab, 0 Refill(s), 08/19/23 12:53:00 PM [employer], Pharmacy: [facility] #[id number], 154, cm, 08/02/23 22:36:00 EST, Height, 46, kg, 08/02/23 22:36:00 EST, Weight Dosing Start Date: 08/09/23 Stop Date: 08/19/23 Status: Ordered ondansetron 4 mg oral tablet, disintegrating 4 mg = 1 tab, Oral, every 8 hr, PRN as needed for nausea/vomiting, # 9 tab, 0 Refill(s), Pharmacy: [facility] #[id number] Start Date: 05/18/23 Stop Date: 05/21/23 Status: Ordered predniSONE 10 mg oral tablet See Instructions, 4 tabs x3 days, 3 tabs x3 days, 2 tabs x3 days, 1 tab x3 days then stop, # 30 tab, 0 Refill(s), 09/01/23 12:54:00 PM [employer], Pharmacy: [facility] #[id number], 154, cm, 08/02/23 22:36:00 EST, Height, 46, kg, 08/02/23 22:36:00 EST, Weight Dosing Start Date: 08/09/23 Stop Date: 09/01/23 Status: Ordered progesterone 100 mg oral capsule 400 mg = 4 cap, Oral, Daily, 0 Refill(s) Start Date: 05/28/23 Status: Ordered Pyridium 200 mg oral tablet 200 mg = 1 tab, Oral, TID(PC), PRN pain, # 16 tab, 0 Refill(s), Pharmacy: [facility] #[id number], 154.94, cm, 07/29/23 20:53:00 EST, Height, 46.72, kg, 07/29/23 20:53:00 EST, Weight Dosing Start Date: 07/30/23 Status: Ordered Mental Status 08/09/23 Eye Opening Response [place] Spontaneous ly Best Verbal Response [place] Oriented Best Motor Response Sydnee Obeys comman ds [place] Coma Score 15 Results Laboratory List Name Date CBC w/ Diff 08/09/23 Comprehensive Metabolic Panel (CMP) 08/09 Automated Diff 08/09/23 Most recent to oldest [Reference Range]: 1 WBC [4.8-10.8 K/mcL] 6.7 K/mcL (08/09/23 11:49 AM) RBC [4.20-5.40 Million/mcL] 3.95 Million /mcL *LOW* (08/09/23 11:49 AM) Neutro Auto [42.2-75.2 %] 67.5 % (08/09/23 11:49 AM) Lymph Auto [20.5-51.1 %] 19.5 % *LOW* (08/09/23 11:49 AM) [place] Auto [1.7-9.3 %] 8.9 % (08/09/23 11:49 AM) Basophil Auto [0.0-0.8 %] 0.3 % (08/09/23 11:49 AM) BUN [7-25 mg/dL] 14 mg/dL (08/09/23 11:49 AM) Glucose Level [70-109 mg/dL] 98 mg/dL (08/09/23 11:49 AM) Potassium Level [3.5-5.1 mmol/L] 4.0 mmo l/L (08/09/23 11:49 AM) Baso Absolute [0.0-0.2 K/mcL] 0.0 K/mcL (08/09/23 11:49 AM) MCV [81.0-99.0 fL] 97.3 fL (08/09/23 11:49 AM) AST [13-39 IntlUnit/L] 13 IntlUnit/L (08/09/23 11:49 AM) ALT [7-52 IntlUnit/L] 9 IntlUnit/L (08/09/23 11:49 AM) MCHC [32.0-37.0 g/dL] 33.5 g/dL (08/09/23 11:49 AM) Osmolality [275-295 mOsm/kg] 278 mOsm/kg (08/09/23 11:49 AM) Sodium Level [136-145 mmol/L] 139 mmol/L (08/09/23 11:49 AM) Lymph Absolute [1.2-3.4 K/mcL] 1.3 K/mcL (08/09/23 11:49 AM) Hct [37.0-47.0 %] 38.4 % (08/09/23 11:49 AM) Calcium Level [8.6-10.3 mg/dL] 9.6 mg/dL (08/09/23 11:49 AM) [place] Absolute [0.1-0.6 K/mcL] 0.6 K/mcL (08/09/23 11:49 AM) Albumin Level [3.5-5.7 g/dL] 5.0 g/dL (08/09/23 11:49 AM) Protein Total [6.4-8.9 g/dL] 7.9 g/dL (08/09/23 11:49 AM) MCH [27.0-31.0 pg] 32.6 pg *HI* (08/09/23 11:49 AM) Neutro Absolute [1.4-6.5 K/mcL] 4.5 K/mc L (08/09/23 11:49 AM) Bilirubin Total [0.3-1.0 mg/dL] 0.6 mg/d L (08/09/23 11:49 AM) Hgb [12.0-16.0 g/dL] 12.9 g/dL (08/09/23 11:49 AM) Alk Phos [34-104 IntlUnit/L] 52 IntlUnit /L (08/09/23 11:49 AM) MPV [7.4-10.4 fL] 8.2 fL (08/09/23 11:49 AM) Platelets [130-400 K/mcL] 328 K/mcL (08/09/23 11:49 AM) CO2 [21-31 mmol/L] 29 mmol/L (08/09/23 11:49 AM) Eos Absolute [0.0-0.2 K/mcL] 0.3 K/mcL *HI* (08/09/23 11:49 AM) Chloride Level [98-107 mmol/L] 105 mmol/ L (08/09/23 11:49 AM) RDW-CV [11.5-14.5 %] 13.2 % (08/09/23 11:49 AM) A/G Ratio [1.0-2.5 g/dL] 1.7 g/dL (08/09/23 11:49 AM) BUN/Creat Ratio [8.0-20.0] 20.0 (08/09/23 11:49 AM) Globulin [2.3-3.5 g/dL] 2.9 g/dL (08/09/23 11:49 AM) Slide Review Not Indicated (08/09/23 11:49 AM) Creatinine Level [0.60-1.20 mg/dL] 0.70 mg/dL (08/09/23 11:49 AM) Anion Gap [3.0-12.0] 5.0 (08/09/23 11:49 AM) Eos, Auto [0.00-3.00 %] 3.80 % *HI* (08/09/23 11:49 AM) eGFR CKD-EPI [>=60 mL/min/1.73 m2] 121 m L/min/1.73 m2 (08/09/23 11:49 AM) Vital Signs Most recent to oldest [Reference Range]: 1 2 Temperature Temporal Artery [36-38 Deg C ] 37.5 Deg C (08/09/23 11:30 AM) Peripheral Pulse Rate [60-100 bpm] 77 bp m (08/09/23 1:00 PM) 112 bpm *HI* (08/09/23 11:30 AM) Respiratory Rate [12-24 br/min] 18 br/mi n (08/09/23 11:30 AM) Blood Pressure [90-140/60-90 mmHg] 105/4 8mmHg (08/09/23 1:00 PM) 119/86mmHg (08/09/23 11:30 AM) Mean Arterial Pressure, Cuff [70-110 mmH g] 67 mmHg *LOW* (08/09/23 1:00 PM) 97 mmHg (08/09/23 11:30 AM) Mean Arterial Pressure Cuff 66 mmHg (08/09/23 1:00 PM) Weight Estimated 47 kg (08/09/23 11:30 AM) Body Mass Index Estimated 19.56 kg/m2 (08/09/23 11:30 AM) Height/Length Estimated 155 cm (08/09/23 11:30 AM) Social History Social History Type Response Tobacco Never tobacco user T obacco Use:. Sex Hospital Discharge Instructions Patient Education 08/09/2023 12:57:30 Anaphylactic Reaction, Adult Anaphylactic Reaction, Adult An anaphylactic reaction (anaphylaxis) is a sudden, severe allergic reaction by the body's disease-fighting system (immune system). Anaphylaxis can be life- threatening. This condition must be treatedright away. Sometimes a person may need to be treated in the hospital. What are the causes? This condition is caused by exposure to a substance that you are allergic to (allergen). In response to this exposure, the body releases proteins (antibodies) and other compounds, such as histamine, into the bloodstream. This causes swelling in certain tissues and loss of blood pressure to important areas, such as the heart and lungs. Common allergens that can cause anaphylaxis include: ??? Foods, especially peanuts, wheat, shellfish, milk, and eggs. ??? Medicines. ??? Insect bites or stings. ??? Blood or parts of blood received for treatment (transfusions). ??? Chemicals, such as dyes, latex, and contrast material that is used for medical tests. What increases the risk? This condition is more likely to occur in people who: ??? Have allergies. ??? Have had anaphylaxis before. ??? Have a family history of anaphylaxis. ??? Have certain medical conditions, including asthma and eczema. What are the signs or symptoms? Symptoms of anaphylaxis may include: ??? Feeling personal financial planner the face (flushed). This may include redness. ??? Itchy, red, swollen areas of skin (hives). ??? Swelling of the eyes, lips, face, mouth, tongue, or throat. ??? Difficulty breathing, speaking, or swallowing. ??? Dizziness, light-headedness, or fainting. ??? Pain or cramping in the abdomen. ??? Vomiting or diarrhea. How is this diagnosed? This condition is diagnosed based on: ??? Your symptoms. ??? A physical exam. ??? Blood tests. ??? Recent history of exposure to allergens. How is this treated? If you think you are having an anaphylactic reaction, you should do the following right away: ??? Give yourself an epinephrine injection using what is commonly called an auto-injector pen (pre-filled automatic epinephrine injection device). Your health care provider will teach you how to use an auto-injector pen. ??? Call for emergency help. If you use a pen, you must still get emergency medical treatment in the hospital. Treatment in the hospital may include: ??? Medicines to help: ??? Tighten your blood vessels (epinephrine). ??? Relieve itching and hives (antihistamines). ??? Reduce swelling (corticosteroids). ??? Oxygen therapy to help you breathe. ??? IV fluids to keep you hydrated. Follow these instructions at home: Safety ??? Always keep an auto-injector pen near you. This can be lifesaving if you have a severe anaphylactic reaction. Use your auto-injector pen as told by your health care provider. ??? Do not drive after an anaphylactic reaction until your health care provider approves. ??? Make sure that you, the members of your household, and your employer know: ??? What you are allergic to, so it can be avoided. ??? How to use an auto-injector pen to give you an epinephrine injection. ??? Replace your epinephrine immediately after you use your auto-injector pen. This is important ifyou have another reaction. If possible, carry two epinephrine auto-injector pens. ??? If told by your health care provider, wear a medical alert bracelet or necklace that states your allergy. ??? Learn the signs of anaphylaxis so that you can recognize and treat it right away. ??? Work with your health care providers to make an anaphylaxis plan. Preparation is important. General instructions ??? Tell all your health care providers that you have an allergy. ??? If you have hives or rash: ??? Use an rbul-gzq-angmdkh antihistamine as told by your health care provider. ??? Apply cold, wet cloths (cold compresses) to your skin or take baths or showers in cool water. Avoid hot water. ??? Take ipoq-qsg-jtcrffj and prescription medicines only as told by your health care provider. ??? Keep all follow-up visits as told by your health care provider. This is important. How is this prevented? Avoid allergens that have caused an anaphylactic reaction in the past. ??? When you are at a restaurant, tell your subpoena server that you have an allergy. If you are not sure whether a menu item contains an ingredient that you are allergic to, ask your subpoena server. Where to find more information ??? [employer]: aaaai.org ??? [employer]: healthychildren.org Get help right away if: ??? You develop symptoms of an allergic reaction. You may notice them soon after you are exposed toa substance. ??? You used epinephrine. You need more medical care even if the medicine seems to be working. Thisis important because anaphylaxis may happen again within 72 hours (rebound anaphylaxis). You also may need more doses of epinephrine. These symptoms may represent a serious problem that is an emergency. Do not wait to see if the symptoms will go away. Do the following right away: ??? Use the auto-injector pen as you have been instructed. ??? Get medical help. Call your local emergency services (911 in the [place] Do not drive yourself to the hospital. Summary ??? An anaphylactic reaction (anaphylaxis) is a sudden, severe allergic reaction by the body's disease-fighting system (immune system). ??? This condition can be life-threatening. If you have an anaphylactic reaction, get medical help right away. ??? Your health care provider may teach you how to use an auto-injector pen (pre-filled automaticepinephrine injection device) to give yourself a shot. ??? Always keep an auto-injector pen with you. This could save your life. Use it as told by your health care provider. ??? If you use epinephrine, you must still get emergency medical treatment, even if the medicine seems to be working. This information is not intended to replace advice given to you by your health care provider. Make sure you discuss any questions you have with your health care provider. Document Revised: 10/10/2021 Document Reviewed: 10/10/2021 [employer] Patient Education ?? 2022 [employer]. 08/09/2023 12:57:13 Rash, Adult Rash, Adult A rash is a change in the color of your skin. A rash can also change the way your skin feels. Thereare many different conditions and factors that can cause a rash. Some rashes may disappear after a few days, but some may last for a few weeks. Common causes of rashes include: ??? Viral infections, such as: ??? Colds. ??? Measles. ??? Hand, foot, and mouth disease. ??? Bacterial infections, such as: ??? Scarlet fever. ??? Impetigo. ??? Fungal infections, such as Kassandra. ??? Allergic reactions to food, medicines, or skin care products. Follow these instructions at home: The goal of treatment is to stop the itching and keep the rash from spreading. Pay attention to anychanges in your symptoms. Follow these instructions to help with your condition: Medicine Take or apply azja-ent-diqgwqe and prescription medicines only as told by your health care provider. These may include: ??? Corticosteroid creams to treat red or swollen skin. ??? Anti-itch lotions. ??? Oral allergy medicines (antihistamines). ??? Oral corticosteroids for severe symptoms. Skin care ??? Apply cool compresses to the affected areas. ??? Do not scratch or rub your skin. ??? Avoid covering the rash. Make sure the rash is exposed to air as much as possible. Managing itching and discomfort ??? Avoid hot showers or baths, which can make itching worse. A cold shower may help. ??? Try taking a bath with: ??? Epsom salts. Follow lockstitch sleeve maker instructions on the packaging. You can get these at your localpharmacy or grocery store. ??? Baking soda. Pour a small amount into the bath as told by your health care provider. ??? Colloidal oatmeal. Follow lockstitch sleeve maker instructions on the packaging. You can get this at your local pharmacy or grocery store. ??? Try applying baking soda paste to your skin. Stir water into baking soda until it reaches a paste-like consistency. ??? Try applying calamine lotion. This is an kkun-avi-tiutuft lotion that helps to relieve itchiness. ??? Keep cool and out of the sun. Sweating and being hot can make itching worse. General instructions ??? Rest as needed. ??? Drink enough fluid to keep your urine pale yellow. ??? Wear loose-fitting clothing. ??? Avoid scented soaps, detergents, and perfumes. Use gentle soaps, detergents, perfumes, and other cosmetic products. ??? Avoid any substance that causes your rash. Keep a journal to help track what causes your rash. Write down: ??? What you eat. ??? What cosmetic products you use. ??? What you drink. ??? What you wear. This includes jewelry. ??? Keep all follow-up visits as told by your health care provider. This is important. Contact a health care provider if: ??? You sweat at night. ??? You lose weight. ??? You urinate more than normal. ??? You urinate less than normal, or you notice that your urine is a darker color than usual. ??? You feel weak. ??? You vomit. ??? Your skin or the whites of your eyes look yellow (jaundice). ??? Your skin: ??? Tingles. ??? Is numb. ??? Your rash: ??? Does not go away after several days. ??? Gets worse. ??? You are: ??? Unusually thirsty. ??? More tired than normal. ??? You have: ??? New symptoms. ??? Pain in your abdomen. ??? A fever. ??? Diarrhea. Get help right away if you: ??? Have a fever and your symptoms suddenly get worse. ??? Develop confusion. ??? Have a severe headache or a stiff neck. ??? Have severe joint pains or stiffness. ??? Have a seizure. ??? Develop a rash that covers all or most of your body. The rash may or may not be painful. ??? Develop blisters that: ??? Are on top of the rash. ??? Grow larger or grow together. ??? Are painful. ??? Are inside your nose or mouth. ??? Develop a rash that: ??? Looks like purple pinprick-sized spots all over your body. ??? Has a bull's eye or looks like a target. ??? Is not related to sun exposure, is red and painful, and causes your skin to peel. Summary ??? A rash is a change in the color of your skin. Some rashes disappear after a few days, but some may last for a few weeks. ??? The goal of treatment is to stop the itching and keep the rash from spreading. ??? Take or apply byuz-qly-wvobmeb and prescription medicines only as told by your health care provider. ??? Contact a health care provider if you have new or worsening symptoms. ??? Keep all follow-up visits as told by your health care provider. This is important. This information is not intended to replace advice given to you by your health care provider. Make sure you discuss any questions you have with your health care provider. Document Revised: 06/05/2022 Document Reviewed: 06/05/2022 [employer] Patient Education ?? 2022 [employer]. 08/09/2023 12:57:04 Dental Pain Dental Pain Dental pain is [...] after getting dental care. Medicines ??? Take dwjr-ixc-srukety and prescription medicines only as told by [...] may be mild or severe. ??? Take uuur-ume-aowxkbt and prescription medicines only as told by [...] provider. Document Revised: 05/29/2021 Document Reviewed: 05/29/2021 [employer] Patient Education ?? 2022 [employer]. Follow Up Care 08/09/2023 11:30:52 With:Tylenol/Motrin for Pain/Fever Relief Address: When: Unknown Comments:Utilize Motrin 400-600 mg??every 6-8 hours as needed discomfort, Tylenol 1000 mg every 8 hours??as needed With:Follow-up with dental provider Address: When:2 to 4 days Comments:Contact local dental provider for further evaluation??over the next several days. ??Return to emergency department for any worsening symptoms With:Follow-up with your primary care Address: When:1 week Comments:Follow-up with your primary care as needed, they will be able to reevaluate if necessaryReturn to ED if concerns Physician Emergency department Note * ISABELLA Lang: PERFORM Event Display: ED Note Physician Authored Date: [id number] MIGUEL REGALADOLLBrissa GALVIN :1995 Age:28 years Sex:Female Visit Date:08/09/2023 Basic Information Time Seen: ISABELLA Lang / 08/09/2023 11:37 Chief Complaint Pt arrives with severe rash over entire body after taking clindamycin for broken wisdom tooth. History Of Present Illness: Patient is a 28-year-old female presents emergency department having??been??diagnosed with a dentalinfection requiring wisdom tooth extraction??of tooth #32??and started on clindamycin as she statesthat penicillin does not??give her any relief with infection.?? She??took her??third dose??on??Thursday morning??and has not taken any since. ??She developed a rash??almost immediately after taking this dose??which has progressed to a full body urticaria.?? She feels as though there is some lesions within her mouth however she is not having any cracked or sloughing within her??mucosa. Patient did take Benadryl yesterday at the recommendation of??urgent care however??this caused her to be severely tired and she did not take it??for second dose nor any today.?? She has been mildly nauseous but has not vomited. ??She has had no difficulty breathing over the last 48 hours. Review of Systems: See HPI Physical Exam Vitals & Measurements T:??37.5?C ??(Temporal Artery)?? HR:??77??(Peripheral)?? RR:??18?? BP:??105/48?? SpO2:??100%?? HT:??155??cm?? WT:??47??kg??(Estimated)?? BMI:??19.56?? Pain Score:??5?? O2 Therapy:??Room air?? Patient alert oriented age-appropriate well-nourished nontoxic Normocephalic atraumatic Neck supple nontender EOM intact, PERRLA, sclera nonicteric Posterior pharynx nonerythematous uvula midline??tonsils not enlarged, no??mucosal lesions appreciated Clear to auscultation bilaterally Regular rate and rhythm no murmurs Normal gait and station, normal strength all extremities Diffuse urticaria throughout to include??chest head neck lower extremities??excluding palms and??soles of feet Appropriate mood and affect Medical Decision Making: Patient is arrived to the emergency department and having direct from outside her oxygenation via finger probe was??90.?? As she warmed it??esteban to??98% and stayed there consistently and do not feel that there is any??compromised airway at this time. Patient was given IV steroids,??Benadryl??and fluids. ??Laboratory evaluation reveals no acute findings.?? I do not feel that there is any need for??further evaluation or further management I had a long standing conversation with the patient??in regards to the fact that??she will need further antibiotics for her??dental issues??however she should no longer take??clindamycin.?? She will be on steroids??in the outpatient setting will be discharged as below Procedure No Qualifying Data Assessment/Plan 1.??Urticaria??L50.9 Patient be discharged on steroid she will be on a 12-day taper??and understands the purpose of this. ??If she has any new or worsening symptoms she will follow- up with primary care or return to the emergency department 2.??Dental infection??K04.7 In regards to this she will follow-up with her dental provider for removal??and at this time??will be placed on??Flagyl and levofloxacin per guidelines??as she is unable to take penicillin or clindamycin. Patient??will follow-up with dental provider and agrees with discharge plan. 3.??Medication reaction??T50.900C Orders: chlorhexidine 0.12% mucous membrane liquid, 0.018 g 15 mL, Oral, BID, # 473 mL, 0 Refill(s), Pharmacy: [facility] #[id number], 154, cm, 08/02/23 22:36:00 EST, Height, 46, kg, 08/02/23 22:36:00 EST, Weight Dosing levoFLOXacin 750 mg oral tablet, 750 mg = 1 tab, Oral, every 24 hr, X 10 days, # 10 tab, 0 Refill(s), 08/19/23 13:52:00 EST, Pharmacy: [facility][id number], 154, cm, 08/02/23 22:36:00 EST, Height, 46, kg, 08/02/23 22:36:00 EST, Weight Dosing metroNIDAZOLE 500 mg oral tablet, 500 mg = 1 tab, Oral, TID, X 10 days, # 30 tab, 0 Refill(s), 08/19/23 13:53:00 EST, Pharmacy: [facility][id number], 154, cm, 08/02/23 22:36:00 EST, Height, 46, kg, 08/02/23 22:36:00 EST, Weight Dosing predniSONE 10 mg oral tablet, See Instructions, 4 tabs x3 days, 3 tabs x3 days, 2 tabs x3 days, 1 tab x3 days then stop, # 30 tab, 0 Refill(s), 09/01/23 13:54:00 EST, Pharmacy: [facility] #[id number], 154, cm, 08/02/23 22:36:00 EST, Height, 46, kg, 08/02/23 22:36:00 EST, Ross... Discharge Patient, 08/09/23 13:51:00 EST Patient Education Anaphylactic Reaction, Adult Rash, Adult Dental Pain Follow Up With When Contact Information Tylenol/Motrin for Pain/Fever Relief Additional Instructions: Utilize Motrin 400-600 mg??every 6-8 hours as needed discomfort, Tylenol 1000 mg every 8 hours??as needed Follow-up with dental provider Within 2 to 4 days Additional Instructions: Contact local dental provider for further evaluation??over the next several days. ??Return to emergency department for any worsening symptoms Follow-up with your primary care Within 1 week Additional Instructions: Follow-up with your primary care as needed, they will be able to reevaluate if necessary Return to ED if concerns Medication Reconciliation New Prescription chlorhexidine topical (chlorhexidine 0.12% mucous membrane liquid)15 [place] Oral (given by mouth) 2 times a day. Refills: 0. ?? levoFLOXacin (levoFLOXacin 750 mg oral tablet)1 tab Oral (given by mouth) every 24 hours for 10 Days. Refills: 0. ?? metroNIDAZOLE (metroNIDAZOLE 500 mg oral tablet)1 tab Oral (given by mouth) 3 times a day for 10 Days. Refills: 0. ?? predniSONE (predniSONE 10 mg oral tablet)4 tabs x3 days, 3 tabs x3 days, 2 tabs x3 days, 1 tab x3 days then stop. Refills: 0. ?? Unchanged amoxicillin-clavulanate (amoxicillin-clavulanate 875 mg-125 mg oral tablet)1 tab Oral (given by mouth) every 12 hours for 10 Days. Refills: 0. ?? amoxicillin-clavulanate (amoxicillin-clavulanate 875 mg-125 mg oral tablet)1 tab Oral (given by mouth) every 12 hours for 7 Days. Refills: 0. ?? clindamycin (clindamycin 300 [...] Administration Given Sodium Chloride 0.9%, 1000 mL, Medication Bolus Benadryl, 25 mg, IV Push methylPREDNISolone, 125 mg, IV Allergies clindamycin??(Rash) Social History Electronic Cigarette/Vaping Electronic Cigarette Use: Never. Substance Use Marijuana, Daily Tobacco Never tobacco user Tobacco Use:. Lab Results CBC and Differential?? LATEST RESULTS?? HISTORICAL RESULTS?? WBC?? 08/09/23 11:49?? 6.7?? 07/29/23?? 7.1?? RBC?? 08/09/23 11:49?? 3.95 ??Low?? 07/29/23?? 3.76 ??Low?? Hgb?? 08/09/23 11:49?? 12.9?? 07/29/23?? 12.1?? Hct?? 08/09/23 11:49?? 38.4?? 07/29/23?? 36.1 ??Low?? MCV?? 08/09/23 11:49?? 97.3?? 07/29/23?? 96.0?? MCH?? 08/09/23 11:49?? 32.6 ??High?? 07/29/23?? 32.2 ??High?? MCHC?? 08/09/23 11:49?? 33.5?? 07/29/23?? 33.5?? RDW-CV?? 08/09/23 11:49?? 13.2?? 07/29/23?? 12.0?? Platelets?? 08/09/23 11:49?? 328?? 07/29/23?? 321?? MPV?? 08/09/23 11:49?? 8.2?? 07/29/23?? 9.9?? Neutro Auto?? 08/09/23 11:49?? 67.5?? 07/29/23?? 52.6?? Lymph Auto?? 08/09/23 11:49?? 19.5 ??Low?? 07/29/23?? 33.6?? [place] Auto?? 08/09/23 11:49?? 8.9?? 07/29/23?? 11.8 ??High?? Eos, Auto?? 08/09/23 11:49?? 3.80 ??High?? 07/29/23?? 1.10?? Basophil Auto?? 08/09/23 11:49?? 0.3?? 07/29/23?? 0.6?? Neutro Absolute?? 08/09/23 11:49?? 4.5?? 07/29/23?? 3.7?? Lymph Absolute?? 08/09/23 11:49?? 1.3?? 07/29/23?? 2.4?? [place] Absolute?? 08/09/23 11:49?? 0.6?? 07/29/23?? 0.8 ??High?? Eos Absolute?? 08/09/23 11:49?? 0.3 ??High?? 07/29/23?? 0.1?? Baso Absolute?? 08/09/23 11:49?? 0.0?? 07/29/23?? 0.0?? Slide Review?? 08/09/23 11:49?? Not Indicated? Routine Chemistry?? LATEST RESULTS?? HISTORICAL RESULTS?? Sodium Level?? 08/09/23 11:49?? 139?? 07/29/23?? 136?? Potassium Level?? 08/09/23 11:49?? 4.0?? 07/29/23?? 3.3 ??Low?? Chloride Level?? 08/09/23 11:49?? 105?? 07/29/23?? 105?? CO2?? 08/09/23 11:49?? 29?? 07/29/23?? 26?? Alk Phos?? 08/09/23 11:49?? 52?? 07/29/23?? 50?? AST?? 08/09/23 11:49?? 13?? 07/29/23?? 18?? ALT?? 08/09/23 11:49?? 9?? 07/29/23?? 10 ??Low?? BUN?? 08/09/23 11:49?? 14?? 07/29/23?? 14?? Glucose Level?? 08/09/23 11:49?? 98?? 07/29/23?? 104?? Creatinine Level?? 08/09/23 11:49?? 0.70?? 07/29/23?? 0.65?? BUN/Creat Ratio?? 08/09/23 11:49?? 20.0?? 07/29/23?? 21.5 ??High?? eGFR CKD-EPI?? 08/09/23 11:49?? 121?? 07/29/23?? 124?? Calcium Level?? 08/09/23 11:49?? 9.6?? 07/29/23?? 8.9?? Protein Total?? 08/09/23 11:49?? 7.9?? 07/29/23?? 7.8?? Albumin Level?? 08/09/23 11:49?? 5.0?? 07/29/23?? 4.5?? Globulin?? 08/09/23 11:49?? 2.9?? 07/29/23?? 3.3?? A/G Ratio?? 08/09/23 11:49?? 1.7?? 07/29/23?? 1.4?? Bilirubin Total?? 08/09/23 11:49?? 0.6?? 07/29/23?? 0.7?? Anion Gap?? 08/09/23 11:49?? 5.0?? 07/29/23?? 5.0?? Osmolality?? 08/09/23 11:49?? 278?? 07/29/23?? 273 ??Low? Electronically Signed on 08/09/23 04:17 PM ISABELLA Lang Emergency department Discharge instructions * ISABELLA Lang: PERFORM Event Display: ED Discharge Information Authored Date: [id number] RIAZ REGALADO :1995 Age:28 years Sex:Female Visit Date:08/09/2023 Discharge Instructions We would like to thank you for allowing us to assist you with your healthcare needs. The following includes patient education materials and information regarding your injury/illness. Diagnosis from Today's Visit Urticaria Dental infection Medication reaction Discharge Vitals Temperature??(Temporal Artery) 99.5 ??F (37.5 ??C) Heart Rate??(Peripheral) 77 Respiratory Rate?? 18 Blood Pressure?? 105/48?? Height?? 61.02 in (155 cm) Weight??(Estimated) 103.64 lb (47 kg) BMI?? 19.56 Allergies clindamycin??(Rash) What to Do Next Instructions from Your Care Team At this point this is a medication reaction with urticaria (rash) I do not feel that there is any involvement??concerning for anaphylaxis as it has been going on . We did provide you a information packet on anaphylaxis for your evaluation??but I do not feel that this requires you to have an EpiPen or other??interventions He will be started on antibiotics for your dental concerns??and be placed on steroids??for your rash. ??Follow-up with primary care, urgent care, or emergency department if there is any new or worsening symptoms You Need to Schedule the Following Appointments Follow Up with??Tylenol/Motrin for Pain/Fever Relief Why: Utilize Motrin 400-600 mg??every 6-8 hours as needed discomfort, Tylenol 1000 mg every 8 hours??as needed Follow Up with??Follow-up with dental provider When:??Within 2 to 4 days Why: Contact local dental provider for further evaluation??over the next several days. ??Return to emergency department for any worsening symptoms Follow Up with??Follow-up with your primary care When:??Within 1 week Why: Follow-up with your primary care as needed, they will be able to reevaluate if necessary Return to ED if concerns Upcoming Scheduled Appointments 2022 3:00 PM EST ?? With: Carli Villegas PA-C Where: [facility] Primary Care [address] [address]- Status: Confirmed You were treated today on [...] Much When Why Instructions Next Dose New chlorhexidine topical (chlorhexidine 0.12% mucousmembrane liquid) 15 Milliliters Oral (given by mouth) 2 times a day Pickup at [facility] #[id number] New levoFLOXacin (levoFLOXacin 750 mg oral tablet) 1 tab Oral (given by mouth) Every 24 hours Duration: 10 Days Pickup at [facility] #[id number] New metroNIDAZOLE (metroNIDAZOLE 500 mg oral tablet) 1 tab Oral (given by mouth) 3 times a day Duration: 10 Days Pickup at [facility] #[id number] New predniSONE (predniSONE 10 mg oral tablet) See instructions 4 tabs x3 days, 3 tabs x3 days, 2 tabs x3 days, ??1 tab x3 days then stop ?? Pickup at [facility] #[id number] Unchanged amoxicillin-clavulanate (amoxicillin-clavulanate 875 mg-125 mg oral tablet) 1 tab Oral (given by mouth) Every 12 hours Pain due to dental caries Duration: 10 Days Unchanged amoxicillin-clavulanate (amoxicillin-clavulanate 875 mg-125 mg oral tablet) 1 tab Oral (given by mouth) Every 12 hours Drug reaction Duration: 7 Days Unchanged clindamycin (clindamycin 300 mg oral [...] (given by mouth) Every day Pharmacy Information [facility] #[id number]: [address] [place], [place] [id number] [phone] Education Materials Anaphylactic Reaction, Adult An anaphylactic reaction (anaphylaxis) is a sudden, severe allergic reaction by the body's disease-fighting system (immune system). Anaphylaxis can be life- threatening. This condition must be treatedright away. Sometimes a person may need to be treated in the hospital. What are the causes? This condition is caused by exposure to a substance that you are allergic to (allergen). In response to this exposure, the body releases proteins (antibodies) and other compounds, such as histamine, into the bloodstream. This causes swelling in certain tissues and loss of blood pressure to important areas, such as the heart and lungs. Common allergens that can cause anaphylaxis include: ? Foods, especially peanuts, wheat, shellfish, milk, and eggs. ? Medicines. ? Insect bites or stings. ? Blood or parts of blood received for treatment (transfusions). ? Chemicals, such as dyes, latex, and contrast material that is used for medical tests. What increases the risk? This condition is more likely to occur in people who: ? Have allergies. ? Have had anaphylaxis before. ? Have a family history of anaphylaxis. ? Have certain medical conditions, including asthma and eczema. What are the signs or symptoms? Symptoms of anaphylaxis may include: ? Feeling personal financial planner the face (flushed). This may include redness. ? Itchy, red, swollen areas of skin (hives). ? Swelling of the eyes, lips, face, mouth, tongue, or throat. ? Difficulty breathing, speaking, or swallowing. ? Dizziness, light-headedness, or fainting. ? Pain or cramping in the abdomen. ? Vomiting or diarrhea. How is this diagnosed? This condition is diagnosed based on: ? Your symptoms. ? A physical exam. ? Blood tests. ? Recent history of exposure to allergens. How is this treated? If you think you are having an anaphylactic reaction, you should do the following right away: ? Give yourself an epinephrine injection using what is commonly called an auto- injector pen (pre-filled automatic epinephrine injection device). Your health care provider will teach you how to use anauto-injector pen. ? Call for emergency help. If you use a pen, you must still get emergency medical treatment in the hospital. Treatment in the hospital may include: ? Medicines to help: ? Tighten your blood vessels (epinephrine). ? Relieve itching and hives (antihistamines). ? Reduce swelling (corticosteroids). ? Oxygen therapy to help you breathe. ? IV fluids to keep you hydrated. Follow these instructions at home: Safety ? Always keep an auto-injector pen near you. This can be lifesaving if you have a severe anaphylacticreaction. Use your auto-injector pen as told by your health care provider. ? Do not drive after an anaphylactic reaction until your health care provider approves. ? Make sure that you, the members of your household, and your employer know: ? What you are allergic to, so it can be avoided. ? How to use an auto-injector pen to give you an epinephrine injection. ? Replace your epinephrine immediately after you use your auto-injector pen. This is important if youhave another reaction. If possible, carry two epinephrine auto-injector pens. ? If told by your health care provider, wear a medical alert bracelet or necklace that states your allergy. ? Learn the signs of anaphylaxis so that you can recognize and treat it right away. ? Work with your health care providers to make an anaphylaxis plan. Preparation is important. General instructions ? Tell all your health care providers that you have an allergy. ? If you have hives or rash: ? Use an rywh-nqk-ugrmptb antihistamine as told by your health care provider. ? Apply cold, wet cloths (cold compresses) to your skin or take baths or showers in cool water. Avoidhot water. ? Take reiq-yha-zofrovi and prescription medicines only as told by your health care provider. ? Keep all follow-up visits as told by your health care provider. This is important. How is this prevented? Avoid allergens that have caused an anaphylactic reaction in the past. ? When you are at a restaurant, tell your subpoena server that you have an allergy. If you are not sure whether a menu item contains an ingredient that you are allergic to, ask your subpoena server. Where to find more information ? [employer]: aaaai.org ? [employer]: healthychildren.org Get help right away if: ? You develop symptoms of an allergic reaction. You may notice them soon after you are exposed to a substance. ? You used epinephrine. You need more medical care even if the medicine seems to be working. This is important because anaphylaxis may happen again within 72 hours (rebound anaphylaxis). You also may need more doses of epinephrine. These symptoms may represent a serious problem that is an emergency. Do not wait to see if the symptoms will go away. Do the following right away: ? Use the auto-injector pen as you have been instructed. ? Get medical help. Call your local emergency services (911 in the [place] Do not drive yourself to the hospital. Summary ? An anaphylactic reaction (anaphylaxis) is a sudden, severe allergic reaction by the body's disease-fighting system (immune system). ? This condition can be life-threatening. If you have an anaphylactic reaction, get medical help right away. ? Your health care provider may teach you how to use an auto-injector pen (pre- filled automatic epinephrine injection device) to give yourself a shot. ? Always keep an auto-injector pen with you. This could save your life. Use it as told by your healthcare provider. ? If you use epinephrine, you must still get emergency medical treatment, even if the medicine seems to be working. This information is not intended to replace advice given to you by your health care provider. Make sure you discuss any questions you have with your health care provider. Document Revised: 10/10/2021 Document Reviewed: 10/10/2021 [employer] Patient Education ?? 2022 [employer] Rash, Adult A rash is a change in the color of your skin. A rash can also change the way your skin feels. Thereare many different conditions and factors that can cause a rash. Some rashes may disappear after a few days, but some may last for a few weeks. Common causes of rashes include: ? Viral infections, such as: ? Colds. ? Measles. ? Hand, foot, and mouth disease. ? Bacterial infections, such as: ? Scarlet fever. ? Impetigo. ? Fungal infections, such as Kassandra. ? Allergic reactions to food, medicines, or skin care products. Follow these instructions at home: The goal of treatment is to stop the itching and keep the rash from spreading. Pay attention to anychanges in your symptoms. Follow these instructions to help with your condition: Medicine Take or apply nkmq-pnw-imlwgyb and prescription medicines only as told by your health care provider. These may include: ? Corticosteroid creams to treat red or swollen skin. ? Anti-itch lotions. ? Oral allergy medicines (antihistamines). ? Oral corticosteroids for severe symptoms. Skin care ? Apply cool compresses to the affected areas. ? Do not scratch or rub your skin. ? Avoid covering the rash. Make sure the rash is exposed to air as much as possible. Managing itching and discomfort ? Avoid hot showers or baths, which can make itching worse. A cold shower may help. ? Try taking a bath with: ? Epsom salts. Follow lockstitch sleeve maker instructions on the packaging. You can get these at your local pharmacy or grocery store. ? Baking soda. Pour a small amount into the bath as told by your health care provider. ? Colloidal oatmeal. Follow lockstitch sleeve maker instructions on the packaging. You can get this at your local pharmacy or grocery store. ? Try applying baking soda paste to your skin. Stir water into baking soda until it reaches a paste-like consistency. ? Try applying calamine lotion. This is an hrsh-iqy-cwtljlj lotion that helps to relieve itchiness. ? Keep cool and out of the sun. Sweating and being hot can make itching worse. General instructions ? Rest as needed. ? Drink enough fluid to keep your urine pale yellow. ? Wear loose-fitting clothing. ? Avoid scented soaps, detergents, and perfumes. Use gentle soaps, detergents, perfumes, and other cosmetic products. ? Avoid any substance that causes your rash. Keep a journal to help track what causes your rash. Write down: ? What you eat. ? What cosmetic products you use. ? What you drink. ? What you wear. This includes jewelry. ? Keep all follow-up visits as told by your health care provider. This is important. Contact a health care provider if: ? You sweat at night. ? You lose weight. ? You urinate more than normal. ? You urinate less than normal, or you notice that your urine is a darker color than usual. ? You feel weak. ? You vomit. ? Your skin or the whites of your eyes look yellow (jaundice). ? Your skin: ? Tingles. ? Is numb. ? Your rash: ? Does not go away after several days. ? Gets worse. ? You are: ? Unusually thirsty. ? More tired than normal. ? You have: ? New symptoms. ? Pain in your abdomen. ? A fever. ? Diarrhea. Get help right away if you: ? Have a fever and your symptoms suddenly get worse. ? Develop confusion. ? Have a severe headache or a stiff neck. ? Have severe joint pains or stiffness. ? Have a seizure. ? Develop a rash that covers all or most of your body. The rash may or may not be painful. ? Develop blisters that: ? Are on top of the rash. ? Grow larger or grow together. ? Are painful. ? Are inside your nose or mouth. ? Develop a rash that: ? Looks like purple pinprick-sized spots all over your body. ? Has a bull's eye or looks like a target. ? Is not related to sun exposure, is red and painful, and causes your skin to peel. Summary ? A rash is a change in the color of your skin. Some rashes disappear after a few days, but some may last for a few weeks. ? The goal of treatment is to stop the itching and keep the rash from spreading. ? Take or apply xckb-yyp-wsdwxkv and prescription medicines only as told by your health care provider. ? Contact a health care provider if you have new or worsening symptoms. ? Keep all follow-up visits as told by your health care provider. This is important. This information is not intended to replace advice given to you by your health care provider. Make sure you discuss any questions you have with your health care provider. Document Revised: 06/05/2022 Document Reviewed: 06/05/2022 [employer] Patient Education ?? 2022 [employer] Dental Pain Dental pain is often [...] after getting dental care. Medicines ? Take vdfc-dfo-fzfvcjn and prescription medicines only as told by [...] may be mild or severe. ? Take jouq-jqt-kcruinn and prescription medicines only as told by [...] provider. Document Revised: 05/29/2021 Document Reviewed: 05/29/2021 [employer] Patient Education ?? 2022 [employer] Tests Performed Medications and Immunizations Administered Given Sodium Chloride 0.9%, 1000 mL, Medication Bolus Benadryl, 25 mg, IV Push methylPREDNISolone, 125 mg, IV Lab Test Name Test Result Date/Time WBC 6.7 K/mcL 08/09/2023 11:49 EST RBC 3.95 Million/mcL 08/09/2023 11:49 EST Hgb 12.9 g/dL 08/09/2023 11:49 EST Hct 38.4 % 08/09/2023 11:49 EST MCV 97.3 fL 08/09/2023 11:49 EST MCH 32.6 pg 08/09/2023 11:49 EST MCHC 33.5 g/dL 08/09/2023 11:49 EST RDW-CV 13.2 % 08/09/2023 11:49 EST Platelets 328 K/mcL 08/09/2023 11:49 EST MPV 8.2 fL 08/09/2023 11:49 EST Neutro Auto 67.5 % 08/09/2023 11:49 EST Lymph Auto 19.5 % 08/09/2023 11:49 EST [place]y Auto 8.9 % 08/09/2023 11:49 EST Eos, Auto 3.80 % 08/09/2023 11:49 EST Basophil Auto 0.3 % 08/09/2023 11:49 EST Neutro Absolute 4.5 K/mcL 08/09/2023 11:49 EST Lymph Absolute 1.3 K/mcL 08/09/2023 11:49 EST [place] Absolute 0.6 K/mcL 08/09/2023 11:49 EST Eos Absolute 0.3 K/mcL 08/09/2023 11:49 EST Baso Absolute 0.0 K/mcL 08/09/2023 11:49 EST Slide Review Not Indicated 08/09/2023 11:49 EST Sodium Level 139 mmol/L 08/09/2023 11:49 EST Potassium Level 4.0 mmol/L 08/09/2023 11:49 EST Chloride Level 105 mmol/L 08/09/2023 11:49 EST CO2 29 mmol/L 08/09/2023 11:49 EST Alk Phos 52 IntlUnit/L 08/09/2023 11:49 EST AST 13 IntlUnit/L 08/09/2023 11:49 EST ALT 9 IntlUnit/L 08/09/2023 11:49 EST BUN 14 mg/dL 08/09/2023 11:49 EST Glucose Level 98 mg/dL 08/09/2023 11:49 EST Creatinine Level 0.70 mg/dL 08/09/2023 11:49 EST BUN/Creat Ratio 20.0 08/09/2023 11:49 EST eGFR CKD-EPI 121 mL/min/1.73 m2 08/09/2023 11:49 EST Calcium Level 9.6 mg/dL 08/09/2023 11:49 EST Protein Total 7.9 g/dL 08/09/2023 11:49 EST Albumin Level 5.0 g/dL 08/09/2023 11:49 EST Globulin 2.9 g/dL 08/09/2023 11:49 EST A/G Ratio 1.7 g/dL 08/09/2023 11:49 EST Bilirubin Total 0.6 mg/dL 08/09/2023 11:49 EST Anion Gap 5.0 08/09/2023 11:49 EST Osmolality 278 mOsm/kg 08/09/2023 11:49 EST Patient/Business Architect Signature Patient Name:EUGENIO REGALADOEWDIN GALVIN I have received this information and my questions have been answered. Patient/Business Architect Name: Patient/Business Architect Signature: Relationship to Patient: Witness Name/Signature: Date: Electronically Signed on: 08/09/2023 14:01 ESTSigned by: Patient Care team information Care Team Personnel Name: ISABELLA Lang Position: Physician Member Role: Physician Auto Porter Address: Address: [address] [place] [id number] [place] Name: Nicholas Castillo Position: Nurse Member Role: Registered Nurse Care Team Related Persons Name: CRISTIANA KEARNS
--- OUTSIDE RECORDS SUMMARY | 2024-04-03 20:35 | XMS_ITS | Continuity of Care Document ---
Author Organization [facility] Address [address] [place] [id number] Encounter LTTL_GA FIN NBR [id number] Date(s): 10/10/23 - 10/10/[address] [phone] Encounter Diagnosis Garcia catheter problem(Discharge Diagnosis) - 10/10/23 Discharge Disposition: Home f/u External Provider Attending Physician: Donald Chery MD Admitting Physician: Donald Chery MD Allergies, Adverse Reactions, Alerts Substance Reaction Severity Status clindamycin Rash Moderate Active Assessment and Plan Extracted from: Title:ED Provider Note Author:ISABELLA Pillai Date:10/10/23 Assessment/Plan 1.??Garcia catheter problem??T83.9XXA Garcia catheter was removed.?? Plans to follow-up with her lactation specialist on Thursday. ??Will return to her nearest ED??with any lower abdominal pains or if she is not able to produce urine independently??within 12 hours. Ordered: Discharge Patient, 10/10/23 12:39:00 EST, Home Independently ?? Follow Up With When Contact Information Follow up with primary care provider Within 1 month Additional Instructions: Medications amoxicillin-clavulanate 875 mg-125 mg oral tablet 1 tab, Oral, every 12 hr, # 14 tab, 0 Refill(s), Pharmacy: [facility] #[id number], 154, cm, 08/02/23 22:36:00 EST, Height, 46, kg, 08/02/23 22:36:00 EST, Weight Dosing Start Date: 08/07/23 Stop Date: 08/14/23 Status: Ordered amoxicillin-clavulanate 875 mg-125 mg oral tablet 1 tab, Oral, every 12 hr, # 20 tab, 0 Refill(s), Pharmacy: [facility] #[id number] Start Date: 05/16/23 Stop Date: 05/26/23 Status: Ordered chlorhexidine 0.12% mucous membrane liquid 0.018 g 15 mL, Oral, BID, # 473 mL, 0 Refill(s), Pharmacy: [facility] #[id number], 154, cm, 08/02/23 22:36:00 EST, Height, 46, kg, 08/02/23 22:36:00 EST, Weight Dosing Start Date: 08/09/23 Status: Ordered Classic oral tablet 0 Refill(s) Start Date: 03/07/23 Status: Ordered clindamycin 300 mg oral capsule 300 mg = 1 cap, Oral, every 8 hr, # 24 cap, 0 Refill(s), Pharmacy: [facility] #[id number], 154.94, cm, 05/28/23 20:02:00 EDT, Height/Length Dosing, 46.72, kg, 05/28/23 20:02:00 EDT, Weight Dosing Start Date: 07/26/23 Status: Ordered ondansetron 4 mg oral tablet, disintegrating 4 mg = 1 tab, Oral, every 8 hr, PRN as needed for nausea/vomiting, # 9 tab, 0 Refill(s), Pharmacy: [facility] #[id number] Start Date: 05/18/23 Stop Date: 05/21/23 Status: Ordered progesterone 100 mg oral capsule 400 mg = 4 cap, Oral, Daily, 0 Refill(s) Start Date: 05/28/23 Status: Ordered Pyridium 200 mg oral tablet 200 mg = 1 tab, Oral, TID(PC), PRN pain, # 16 tab, 0 Refill(s), Pharmacy: [facility] #[id number], 154.94, cm, 07/29/23 20:53:00 EST, Height, 46.72, kg, 07/29/23 20:53:00 EST, Weight Dosing Start Date: 07/30/23 Status: Ordered Mental Status 10/10/23 Eye Opening Response Sydnee Spontaneous ly Best Verbal Response [place] Oriented Best Motor Response [place] Obeys comman ds Sydnee Coma Score 15 Problem List Condition Confirmation Course Effective Dates Status Health St atus Informant Urinary retention Confirmed Active Vital Signs Most recent to oldest [Reference Range]: 1 Temperature Temporal Artery [36-38 Deg C ] 37.0 Deg C (10/10/23 12:03 PM) Peripheral Pulse Rate [60-100 bpm] 116 b pm *HI* (10/10/23 12:03 PM) Respiratory Rate [12-24 br/min] 20 br/mi n (10/10/23 12:03 PM) Blood Pressure [90-140/60-90 mmHg] 101/7 6mmHg (10/10/23 12:03 PM) Mean Arterial Pressure, Cuff [70-110 mmH g] 84 mmHg (10/10/23 12:03 PM) Weight 46 kg (10/10/23 12: PM) Weight Dosing 46.000 kg (10/10/23 12:03 PM) Social History Social History Type Response Tobacco Never tobacco user T obacco Use:. Sex Hospital Discharge Instructions Follow Up Care 10/10/2023 12:02:59 With:Follow up with primary care provider Address:Unknown When:1 month Physician Emergency department Note * ISABLELA Pillai: PERFORM Event Display: ED Note Physician Authored Date: [id number] MIGUEL REGALADOLLBrissa GALVIN :1995 Age:28 years Sex:Female Visit Date:10/10/2023 Basic Information Time Seen: ISABELLA Pillai / 10/10/2023 12:11 Chief Complaint pt with mult visits regarding bladder pelvic issues follow by her own [facility] CLERK in [place]. ??pt comes in with indwelling catheter that she is requesting to be removed due to discomfort. ??pt garcia placed inED 10/06 with urology followup advised for garcia removal History Of Present Illness: Patient is a 28-year-old female with extensive??gynecological history??and history of??urinary retention??here today wanting her Garcia catheter removed. ??She is followed by lactation specialist down in [place] for IVF??and has also been followed by urology??in [place] for??urinary retention.?? She was most recently seen in this ED on October 06 for urinary retention.?? At that??time a Garcia was placed. ??She states that she feels like too much of the tubing is inside the bladder causing irritation and she feels embarrassed by the outside bag.?? Explains that last time she had this done shehad the??Garcia placed for 3 days??before it was removed and was able to urinate independently.?? She was referred to urology on the however??was lost to follow-up as her phone car and stopped working.?? She is not experiencing any abdominal pains or fevers. Review of Systems: See HPI Physical Exam Vitals & Measurements T:??37.0?C ??(Temporal Artery)?? HR:??116??(Peripheral)?? RR:??20?? BP:??101/76?? SpO2:??98%?? WT:??46??kg?? General: Patient is alert and engaging, appears well. Is in no acute distress. Speaking comfortablyin full sentences.?? Constitutional: No fevers, chills or diaphoresis.?? HEENT: Head normocephalic and atraumatic. Respiratory: ??No obvious work of breathing, regular rate. Cardiovascular: Heart regular rate. GI:?? Abdomen soft non tender, nondistended Extremities: No obvious deformities. FROM.?? Integumentary: Skin warm and pink. No rashes or ecchymosis present.?? Neuro: CN III-XII grossly intact.?? Psychiatric: acting appropriate for age and circumstance. Normal mood without obvious ??affect.?? Medical Decision Making: Patient is a well-appearing 28-year-old female here wanting??her Garcia catheter removed. ??It was placed on October 06 for??urinary retention.?? Vitals obtained and reviewed. ??I discussed with patient??the complication of having the Garcia catheter removed??as she may not be able to produce urine independently. ??She says that she is aware of this and agrees to return to her nearest emergency department if she is unable to improve or produce urine in the next??12 hours??or develops lower abdominal pain at any time.?? Urine is??clear and she is not experiencing any abdominal pain or fever currently so did not feel??a UA was necessary at this time.?? She has plans to follow-up with her lactation specialist on Thursday and will keep that appointment??as discussed. Procedure No Qualifying Data Assessment/Plan 1.??Garcia catheter problem??T83.9XXA Garcia catheter was removed.?? Plans to follow-up with her lactation specialist on Thursday. ??Will return to her nearest ED??with any lower abdominal pains or if she is not able to produce urine independently??within 12 hours. Ordered: Discharge Patient, 10/10/23 12:39:00 EST, Home Independently ?? Follow Up With When Contact Information Follow up with primary care provider Within 1 month Additional Instructions: Medication Reconciliation Unchanged amoxicillin-clavulanate (amoxicillin-clavulanate 875 mg-125 mg oral tablet)1 tab Oral (given by mouth) every 12 hours for 10 Days. Refills: 0. ?? amoxicillin-clavulanate (amoxicillin-clavulanate 875 mg-125 mg oral tablet)1 tab Oral (given by mouth) every 12 hours for 7 Days. Refills: 0. ?? chlorhexidine topical (chlorhexidine 0.12% mucous membrane liquid)15 Milliliters Oral (given by mouth) 2 times a day. Refills: 0. ?? clindamycin (clindamycin 300 mg [...] every day. Problem List/Past Medical History Ongoing Urinary retention Historical No qualifying data Allergies clindamycin??(Rash) Social History Electronic Cigarette/Vaping Electronic Cigarette Use: Never. Substance Use Marijuana, Daily Tobacco Never tobacco user Tobacco Use:. Electronically Signed on 10/10/23 04:36 PM ISABELLA Pillai Emergency department Discharge instructions * ISABELLA Pillai: PERFORM Event Display: ED Discharge Information Authored Date: [id number] RIAZ REGALADO :1995 Age:28 years Sex:Female Visit Date:10/10/2023 Discharge Instructions We would like to thank you for allowing us to assist you with your healthcare needs. The following includes patient education materials and information regarding your injury/illness. Diagnosis from Today's Visit Garcia catheter problem Discharge Vitals Temperature??(Temporal Artery) 98.6 ??F (37.0 ??C) Heart Rate??(Peripheral) 116 Respiratory Rate?? 20 Blood Pressure?? 101/76?? Weight?? 101.43 lb (46 kg) Allergies clindamycin??(Rash) What to Do Next Instructions from Your Care Team Your Garcia catheter was removed today. ??Please follow-up with your lactation specialist on Thursday as??planned and return to the emergency department if you are not??producing??any urine in the next 12 hoursor if you start to experience any??abdominal??pains. You Need to Schedule the Following Appointments Follow Up with??Follow up with primary care provider When:??Within 1 month You were treated today on an emergency [...] hours Drug reaction Duration: 7 Days Unchanged chlorhexidine topical (chlorhexidine 0.12% mucous membrane liquid) 15 Milliliters Oral (given by mouth) 2 times a day Unchanged clindamycin (clindamycin 300 mg oral capsule) [...] Capsules Oral (given by mouth) Every day Patient/Sisal Operator Signature Patient Name:EUGENIO REGALADOEDWIN GALVIN I have received this information and my questions have been answered. Patient/Sisal Operator Name: Patient/Sisal Operator Signature: Relationship to Patient: Witness Name/Signature: Date: Electronically Signed on: 10/10/2023 12:39 ESTSigned by:DILSHAD Patient Care team information Care Team Related Persons Name: CRISTIANA KEARNS
--- OUTSIDE RECORDS SUMMARY | 2024-04-03 20:35 | XMS_ITS | Continuity of Care Document ---
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 2.??Urinary retention Dukes catheter placed, plan for outpatient urology follow-up in [place] and she has??MANAGER ENROLLMENT/urology she can see within the week??for a voiding trial, Dukes catheter instructions given ?? Orders: Discharge Patient, 03/07/24 17:09:00 EDT Diagnostic Tests Pending * C. trachomatis/N. gonorrhoeae, Vaginal 03/07/24 Procedures Procedure Date Related Diagnosis Body Site Status COLLECTION VENOUS BLOOD VENIPUNCTURE 03/07/24 Completed Results Laboratory List Name Date Urinalysis, Complete, with Culture Refle x, if Indicated 03/07/24 Urine Reflexed Microscopic 03/07/24 .Estimated Glomerular Filtration Rate 03/07/24 ABO/Rh 03/07/24 Complete Blood Count with Differential ( CBC w/ Differential) 03/07/24 Comprehensive Metabolic Panel (CMP) Differential, Auto 03/07/24 HCG, Beta Qualitative, Serum 03/07/24 Most recent to oldest [Reference Range]: 1 Culture Indicated? No 1 *NA* (03/07/24 5:27 PM) WBC [3.98-10.04 x10^3/mcL] 12.81 x10^3/m cL *HI* (03/07/24 3:46 PM) RBC [3.93-5.22 x10^6/mcL] 4.21 x10^6/mcL (03/07/24 3:46 PM) Neutro Auto 87.4 % *NA* (03/07/24 3:46 PM) Lymph Auto 5.6 % *NA* (03/07/24 3:46 PM) Quay Auto 6.2 % *NA* (03/07/24 3:46 PM) Eos Auto 0.0 % *NA* (03/07/24 3:46 PM) Basophil Auto 0.3 % *NA* (03/07/24 3:46 PM) BUN [6-26 mg/dL] 8 mg/dL (03/07/24 3:46 PM) Color Yellow (03/07/24 5:27 PM) WBCs [0-5] 0-5 (03/07/24 5:27 PM) ABORh O POS *Unknown* (03/07/24 3:46 PM) Glucose Level [70-99 mg/dL] 94 mg/dL 2 (03/07/24 3:46 PM) Potassium Level [3.5-5.1 mmol/L] 3.6 mmo l/L (03/07/24 3:46 PM) Absolute Basophil Count [<=0.08 x10^3/mc L] 0.04 x10^3/mcL (03/07/24 3:46 PM) MCV [82.0-100.8 fL] 95.2 fL (03/07/24 3:46 PM) Urobilinogen [0.2 EU/dL] 0.2 EU/dL (03/07/24 5:27 PM) Bilirubin [Negative] Negative 3 (03/07/24 5:27 PM) Ketones [Negative mg/dL] 15 mg/dL *ABN* (03/07/24 5:27 PM) AST [5-32 unit/L] 13 unit/L (03/07/24 3:46 PM) ALT [12-78 unit/L] 13 unit/L (03/07/24 3:46 PM) MCHC [31.0-34.6 g/dL] 33.9 g/dL (03/07/24 3:46 PM) Sodium Level [136-143 mmol/L] 139 mmol/L (03/07/24 3:46 PM) RBCs [0-2 /mcL] 6-10 /mcL *ABN* (03/07/24 5:27 PM) Leukocyte Esterase [Negative] Small *ABN* (03/07/24 5:27 PM) Absolute Lymphocyte Count [1.18-3.74 x10 ^3/mcL] 0.72 x10^3/mcL *LOW* (03/07/24 3:46 PM) Nitrite [Negative] Negative (03/07/24 5:27 PM) Glucose [Negative] Negative (03/07/24 5:27 PM) Hct [34.1-44.9 %] 40.1 % (03/07/24 3:46 PM) Bacteria [Negative /mcL] Few /mcL *ABN* (03/07/24 5:27 PM) Calcium Level [8.3-10.1 mg/dL] 9.4 mg/dL (03/07/24 3:46 PM) Absolute Monocyte Count [0.20-0.76 x10^3 /mcL] 0.80 x10^3/mcL *HI* (03/07/24 3:46 PM) Albumin Level [3.4-4.9 g/dL] 4.5 g/dL (03/07/24 3:46 PM) Protein Total [6.5-8.4 g/dL] 8.2 g/dL (03/07/24 3:46 PM) Protein [Negative] Negative (03/07/24 5:27 PM) MCH [25.6-32.2 pg] 32.3 pg *HI* (03/07/24 3:46 PM) Bilirubin, Total [0.2-1.0 mg/dL] 0.6 mg/ dL (03/07/24 3:46 PM) Hgb [11.2-15.7 g/dL] 13.6 g/dL (03/07/24 3:46 PM) Alk Phos [45-117 unit/L] 65 unit/L (03/07/24 3:46 PM) Occult Blood [Negative] Moderate *ABN* (03/07/24 5:27 PM) MPV [8.97-11.96 fL] 9.20 fL (03/07/24 3:46 PM) Specific [place] [1.003-1.030] 1.020 (03/07/24 5:27 PM) Platelets [139-379 x10^3/mcL] 314 x10^3/ mcL (03/07/24 3:46 PM) CO2 [21-32 mmol/L] 27 mmol/L (03/07/24 3:46 PM) Absolute Eosinophil Count [0.04-0.36 x10 ^3/mcL] <0.03 x10^3/mcL *LOW* (03/07/24 3:46 PM) Squamous Epithelial Cells [None Seen /mc L] Few /mcL *ABN* (03/07/24 5:27 PM) RDW [11.7-14.4 %] 11.9 % (03/07/24 3:46 PM) UA pH 6.5 (03/07/24 5:27 PM) Chloride Level [101-111 mmol/L] 108 mmol /L (03/07/24 3:46 PM) Creatinine, Enzymatic [0.50-1.07 mg/dL] 0.52 mg/dL (03/07/24 3:46 PM) Absolute Neutrophil Count [1.56-6.13 x10 ^3/mcL] 11.18 x10^3/mcL *HI* (03/07/24 3:46 PM) NRBCs 0.0 /100(WBCs) *NA* (03/07/24 3:46 PM) Globulin [2.7-4.7 g/dL] 3.7 g/dL (03/07/24 3:46 PM) IG Auto 0.5 % *NA* (03/07/24 3:46 PM) Absolute NRBCs [<=0.01 x10^3/mcL] 0.00 x 10^3/mcL (03/07/24 3:46 PM) A/G Ratio [0.9-2.3] 1.2 (03/07/24 3:46 PM) BUN/Creat Ratio 15.4 *NA* (03/07/24 3:46 PM) Absolute Immature Granulocyte Count [<=0 .05 x10^3/mcL] 0.07 x10^3/mcL *HI* (03/07/24 3:46 PM) Clarity [Clear] Clear (03/07/24 5:27 PM) , Serum Negative 4 *NA* (03/07/24 3:46 PM) HCG, Beta Qual [<=9 milliIntlUnit/mL] <1 milliIntlUnit/mL (03/07/24 3:46 PM) eGFR CKD-EPI [>=60 mL/min/1.73m2] >60 mL /min/1.73m2 (03/07/24 3:46 PM) Anion Gap [2.0-11.0] 4.0 (03/07/24 3:46 PM) 1Result Comment: Urine does not meet criteria for culture 2Interpretive Data: Impairment: Fasting glucose 100-125 mg/dL Diabetes Mellitus: Fasting glucose >=126 mg/dL Random glucose >=200 mg/dL 3Interpretive Data: Positive UA bilirubin results should be confirmed with serum bilirubin result. 4Interpretive Data: Method sensitivity is 10 mIU/mL. Negative results may represent HCG levels below 10 mIU/mL. Vital Signs Most recent to oldest [Reference Range]: 1 Temperature Temporal Artery [36-38 DegC] 37.3 DegC (03/07/24 1:24 PM) Peripheral Pulse Rate [50-100 bpm] 98 bp m (03/07/24 1:24 PM) Blood Pressure [90-140/60-90 mmHg] 138/8 3mmHg (03/07/24 1:24 PM) Blood Pressure Location Left arm (03/07/24 1:24 PM) Blood Pressure Method Automatic (03/07/24 1:24 PM) Respiratory Rate [8-20 br/min] 20 br/min (03/07/24 1:24 PM) Hospital Discharge Instructions Patient Education 03/07/2024 17:54:33 DUKES CATHETER CARE Dukes Catheter Care A Dukes catheter is a rubber tube that is placed through the urethra (opening where urine comes out) and into the bladder. This helps drain urine from the bladder. There is a small balloon on the endof the tube that is inflated after insertion. This keeps the catheter from sliding out of the bladder. A Dukes catheter is used to treat urinary retention (unable to pass urine). It is also used when there is incontinence (loss of bladder control). Home care ??? Finish taking any prescribed antibiotic even if you are feeling better before then. ??? It is important to keep bacteria from getting into the collection bag. Do not disconnect the catheter from the collection bag. ??? Use a leg band to secure the drainage tube, so it does not pull on the catheter. Drain the collection bag when it becomes full using the drain spout at the bottom of the bag. ??? Do not try to pull or remove your catheter. This will injure your urethra. It must be removed by your healthcare provider or nurse. Follow-up care Follow up with your healthcare provider as advised for repeat urine testing and catheter removal orreplacement. When to seek medical advice Call your healthcare provider right away if any of these occur: ??? Fever of 100.4??F (38??C) or higher, or as directed by your healthcare provider ??? Bladder pain or fullness ??? Abdominal swelling, nausea or vomiting, or back pain ??? Blood or urine leakage around the catheter ??? Bloody urine coming from the catheter (if a new symptom) ??? Catheter falls out ??? Catheter stops draining for 6 hours ??? Weakness, dizziness, or fainting ?? [id number] [employer]. [address] [place] [address]. All rights reserved. This information is not intended as a substitute for professional medical care. Always follow your healthcare professional's instructions. 03/07/2024 17:07:49 URINARY RETENTION, Female Urinary Retention (Female) Urinary retention is the medical term for difficulty or inability to pass urine, even though your bladder is full. Causes For girls and women, the most common cause of urinary retention is a bladder infection. Certain medicines and changes in the body, such as uterine prolapse, can also cause this problem. Symptoms Some people have no symptoms. For others, common symptoms include: ??? Bladder or lower-abdominal pain or fullness ??? Abdominal swelling ??? Nausea or vomiting ??? Back pain ??? Frequent urination ??? Feeling that the bladder is still full after urinating ??? Incontinence (not being able to control the release of urine) Treatment This condition is treated by inserting a tube (catheter) into the bladder to drain the urine. This provides immediate relief. The catheter may need to stay in place for a few days. The catheter has aballoon on the tip, which is inflated after insertion. This prevents the catheter from falling out. Home care ??? If you were given antibiotics to treat a bladder infection, take them until they are used up, or your healthcare provider tells you to stop. It is important to finish the antibiotics even though you feel better. This is to make sure your infection has cleared. ??? If a catheter was left in place, it is important to keep bacteria from getting into the collection bag. Do not disconnect the catheter from the collection bag. ??? Use a leg band to secure the drainage tube, so it does not pull on the catheter. Drain the collection bag when it becomes full using the drain spout at the bottom of the bag. ??? Do not pull on or try to remove your catheter. This will injure your urethra. The catheter mustbe removed by a healthcare provider. Follow-up care Follow up with your healthcare provider, or as advised. If a catheter was left in place, it can usually be removed within 3 to 7 days. Some conditions require that the catheter stays in longer. Your healthcare provider will tell you when to return to havethe catheter removed. When to seek medical advice Call your healthcare provider right away if any of these occur: ??? Fever of 100.4??F (38??C) or higher, or as directed by your healthcare provider ??? Bladder or lower-abdominal pain or fullness ??? Abdominal swelling, nausea, vomiting, or back pain ??? Blood or urine leakage around the catheter ??? Bloody urine coming from the catheter (if a new symptom) ??? Weakness, dizziness, or fainting ??? Confusion or change in usual level of alertness ??? If a catheter was left in place, return if: ??? Catheter falls out ??? Catheter stops draining for 6 hours ?? [id number] [employer]. [address] [place] [address], [place] [address]. All rights reserved. This information is not intended as a substitute for professional medical care. Always follow your healthcare professional's instructions. 03/07/2024 16:25:11 PELVIC PAIN, Unknown Cause Pelvic Pain, Uncertain Cause Pelvic pain is pain felt in the lowest part of the belly (abdomen) and between the hipbones. The pain may be acute. This means it occurred suddenly and recently. Or the pain may be chronic. This means it has occurred for 6 months or longer. There are many possible causes of pelvic pain. The pain may be due to a problem in the female reproductive system (pictured here). Or, it may be due to a problem in the digestive, urinary, or musculoskeletal systems. Based on your visit today, the exact cause of your pelvic pain is not certain. Your condition does not appear to be serious at this time. But it is important for you to keep watching for any new symptoms or worsening of your condition. General care Your healthcare provider may advise a number of ways to help manage your pain. These can include: ??? Taking htyd-kir-ohhnzxp pain medicine. Stronger pain medicine may also be prescribed, if needed. ??? Applying heat to the pelvic area. Use a heating pad or a hot pack. Taking a hot bath may also help. ??? Getting plenty of rest. ??? Making certain lifestyle changes. These can include practicing good posture and getting regularexercise. (Studies have shown that these changes help reduce pelvic pain in some women.) ??? Seeing a physical therapist or pain specialist. These healthcare providers can discuss other ways to manage pain with you. Follow-up care Follow up with your healthcare provider, or as advised. When to seek medical advice Call your healthcare provider right away if any of the following occur: ??? Fever of 100.4??F or higher, or as directed by your healthcare provider ??? Pain worsens or you have sudden, severe pain or new pain ??? Nausea, vomiting, sweating, or restlessness ??? Dizziness or fainting ??? Unusual vaginal discharge ??? Abnormal vaginal bleeding (especially bleeding after menopause) ?? [phone] [employer]. [address] [place] [address], [place] [address]. All rights reserved. This information is not intended as a substitute for professional medical care. Always follow your healthcare professional's instructions. Follow Up Care 03/07/2024 13:14:28 With:Follow up with PCP as needed Address: When:2 to 3 days Comments:You were??seen in the emergency room for vaginal bleeding as well as pelvic pain. ??Your test was negative. ??Your ultrasound showed no acute abnormality.?? It is important you follow-up with your MANAGER ENROLLMENT within the next 2 days for reevaluation.?? You were found to be in urinary retention and a Dukes catheter was placed. ??You will need to be seen by urologist for a voiding trial within the next week. ??Dukes catheter instructions were discussed. ??Please return the emergency room at any point if you are having trouble with your Dukes, abdominal pain or worsening symptoms. Patient Care team information Care Team Personnel Name: Unavailable, Physician Position: View Only Member Role: Primary Care Provider Care Team Related Persons Name: DERRELL KEARNS Address: [place] [address] [facility] [address], [phone]
--- OUTSIDE RECORDS SUMMARY | 2024-04-03 20:36 | XMS_ITS | Encounter Summary ---
Author Organization [facility] Address [address] [place] [address] Care Team Providers Care Vp Patient Name Role Phone Unavailable Primary Care Provider Unavailabl e Reason for Visit * Reason Comments Medical Clearance Encounter Details Date Type Department Care Team (Late st Contact Info) Description 07/16/2017 9:02 PM EST - 07/16/2017 10:30 PM EST Emergency [facility] Emergency Department [address] [place] [address] Jana Pugh MD [address] [place] [address] Nonintractable headache, unspecified chronicity pattern, unspecified headache type (Primary Dx) Discharge Disposition: Home or Self Care Social History Tobacco Use Types Packs/Day Years Used Date Smoking Tobacco: Never Alcohol Use Standard Drinks/Week Comments No 0 (1 standard drink = 0.6 oz pur e alcohol) Sex and Gender Information Value Date Recorded Sex Assigned at Not on file Gender Identity Not on file Sexual Orientation Not on file Job Start Date Occupation Industry Not on file Not on file Not on file documented as of this encounter Last Filed Vital Signs Vital Sign Reading Time Taken Comments Blood Pressure 118/62 07/16/2017 9:38 PM EST Pulse 97 07/16/2017 9:38 PM EST Temperature 36.6 ??C (97.8 ??F) 07/16/2017 9:38 PM ES T Respiratory Rate 16 07/16/2017 9:38 PM EST Oxygen Saturation 100% 07/16/2017 9:38 PM EST Inhaled Oxygen Concentration - - Weight - - Height - - Body Mass Index - - documented in this encounter Discharge Instructions * Discharge Instructions* Jana Pugh MD - 07/16/2017 10:19 PM EST Call your doctor for follow up documented in this encounter Medications at Time of Discharge Medication Sig Dispensed Refills Start Date End Date wheelchair Device 1 Device by Miscellaneous route as needed (use until cleared by homecare PT). 1 Device 11/06/2016 ALPRAZolam (XANAX) 0.5 MG tablet Take 0.5 mg by mouth 2 (two) times a day. 03/04/2021 hydrOXYzine HCl (ATARAX) 25 MG tablet Take 1 tablet (25 mg total) by mouth 4 (four) times a day as needed (anxiety). 60 tablet 11/06/2016 03/04/2021 documented as of this encounter ED Notes Only the most recent of 2 notes is shown. 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 Medical Clearance Patient is a 22 y.o. 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 Patient reports two nights ago she did not sleep because she was studying for an exam and last night se developed a migraine that she attributes to lack of sleep. She did not go to clinicals today because she was not feeling her best and was told she requires a medical clearance note to return. She has no complaints at this time and is feeling much better. She is a nonsmoker. The patient is allergic to propranolol; benicar [olmesartan]; ciprofloxacin; haldol [haloperidol]; and risperidone. PCP: Ed Delacruz DO [phone] History reviewed. No pertinent past medical history. History reviewed. No pertinent surgical history. Patient's Medications New Prescriptions No medications on file Previous Medications ALPRAZOLAM (XANAX) 0.5 MG TABLET Take 0.5 mg by mouth 2 (two) times a day. HYDROXYZINE HCL (ATARAX) 25 MG TABLET Take 1 tablet (25 mg total) by mouth 4 (four) times a day as needed (anxiety). WHEELCHAIR DEVICE 1 Device by Miscellaneous route as needed (use until cleared by homecare PT). Modified Medications No medications on file Discontinued Medications No medications on file The patient's family history is not on file. Social History Substance Use Topics ??? Smoking status: Never Smoker ??? Smokeless tobacco: None ??? Alcohol use No History Drug Use ??? Yes ??? Special: Marijuana Review of Systems Constitutional: Negative for fever. HENT: Negative for congestion. Respiratory: Negative for cough. Gastrointestinal: Negative for abdominal pain, nausea and vomiting. Neurological: Negative for dizziness and headaches. Physical Exam BP 118/62 (BP Location: Right upper arm, Patient Position: Sitting) Pulse 97 Temp 97.8 ??F (36.6 ??C) (Temporal) Resp 16 SpO2 100% Physical Exam Constitutional: She is oriented to person, place, and time. She appears well- developed. No distress. HENT: Head: Normocephalic and atraumatic. Mouth/Throat: Oropharynx is clear and moist. Cardiovascular: Normal rate, regular rhythm and normal heart sounds. Pulmonary/Chest: Effort normal and breath sounds normal. No respiratory distress. Abdominal: Soft. There is no tenderness. Musculoskeletal: Normal range of motion. She exhibits no tenderness. Neurological: She is alert and oriented to person, place, and time. Skin: Skin is warm and dry. Psychiatric: She has a normal mood and affect. Her behavior is normal. Nursing note and vitals reviewed. 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 I have reviewed the record and confirm that the documentation recorded accurately reflects my words, actions and decisions. Jana Pugh MD 10/03/17 1015 Jana Pugh MD 10/03/17 1203 documented in this encounter Plan of Treatment Not on file documented as of this encounter Visit Diagnoses Diagnosis Nonintractable headache, unspecified chronicity pattern, unspecified headache type- Primary documented in this encounter
--- OUTSIDE RECORDS SUMMARY | 2024-04-03 20:36 | XMS_ITS | Encounter Summary ---
Author Organization [facility] Address [address] [place] [address] Care Team Providers Care Diving Board Assembler Name Role Phone Unavailable Primary Care Provider Unavailabl e Encounter Details Date Type Department Care Team (Late st Contact Info) Description 10/29/2018 1:50 PM EST - 10/29/2018 11:59 PM EST Hospital Encounter [facility] [address] [phone] Mariajose Ozuna CNM [address] [facility], [address] [place] [address] Breast lump on left side at 3 o'clock position; Other signs and symptoms in breast Discharge Disposition: Home or Self Care Social History Tobacco Use Types Packs/Day Years Used Date Smoking Tobacco: Never Smokeless Tobacco: Never Alcohol Use Standard Drinks/Week Comments No 0 (1 standard drink = 0.6 oz pur e alcohol) Comments Yes Sex and Gender Information Value Date Recorded Sex Assigned at Not on file Gender Identity Not on file Sexual Orientation Not on file Job Start Date Occupation Industry Not on file Not on file Not on file documented as of this encounter Medications at Time of Discharge [...] 11/06/2016 03/04/2021 documented as of this encounter Plan of Treatment Not on file documented as of this encounter Procedures Procedure Name Priority Date/Time Associated Diagnosis Comments US BREAST LIMITED LEFT Routine 10/29/2018 2:26 PM EST Breast lump on left side at 3 o'clock position Other signs and symptoms in breast documented in this encounter Results * US Breast Limited Left (10/29/2018 2:26 PM EST) Anatomical Region Laterality Modality Left Ultrasound 10/29/2018 2:26 PM EST Narrative 10/29/2018 3:01 PM EST ULTRASOUND OF LEFT BREAST: 10/29/2018 CLINICAL: Unspecified Lump In The Left Breast, Unspecified Quadrant; Nodule Left Breast. ?? No prior exams were available for comparison. ?? Color flow and real-time ultrasound of the left breast were performed. ?? There are no discrete cystic or solid masses present to correspond to the palpable area, the outer aspect of the left breast. The left breast implant was visualized. ?? IMPRESSION: BENIGN The area of palpable concern should be managed according to clinical findings. ?? There is no sonographic evidence of malignancy. ?? Follow-up with ACR/ACS guidelines. ?? Signed By: Aj ha/eleanor:10/29/2018 15:01:11 ? Senior Telecommunications Technician: Shirlene Hankins [facility] letter sent: Category 1-2 ?? Ultrasound BI-RADS: 2 Benign Procedure Note Aj Hugo MD - 10/29/2018 ULTRASOUND OF LEFT BREAST: 10/29/2018 CLINICAL: Unspecified Lump In The Left Breast, Unspecified Quadrant;Nodule Left Breast. No prior exams were available for comparison. Color flow and real-time ultrasound of the left breast were performed. There are no discrete cystic or solid masses present to correspond to thepalpable area, the outer aspect of the left breast. The left breast implant was visualized. IMPRESSION: BENIGN The area of palpable concern should be managed according to clinicalfindings. There is no sonographic evidence of malignancy. Follow-up with ACR/ACS guidelines. Signed By: Aj ha/eleanor:10/29/2018 15:01:11 Senior Telecommunications Technician: Shirlene Hankins [facility] letter sent: Category 1-2 Ultrasound BI-RADS: 2 Benign Mariajose Ozuna CNM IMG US ORDERABLES documented in this encounter Visit Diagnoses Diagnosis Breast lump on left side at 3 o'clock position Lump or mass in breast Other signs and symptoms in breast documented in this encounter
--- OUTSIDE RECORDS SUMMARY | 2024-04-03 20:36 | XMS_ITS | Encounter Summary ---
Author Organization [facility] Address [address] [place] [address] Care Team Providers Care Data Management Associate Name Role Phone Unavailable Primary Care Provider Unavailabl e Encounter Details Date Type Department Care Team (Late st Contact Info) Description 09/24/2018 10:11 AM EST - 09/24/2018 11:59 PM [facility] Hospital Encounter [facility] [address] [place] [address] Mariajose Ozuna CNM [address] [facility], [address] [place] [address] Encounter for supervision of normal first in first trimester; Date of last menstrual period (LMP) unknown Discharge Disposition: Home or Self Care Social [...] Name Priority Date/Time Associated Diagnosis Comments US OB MIN 14 WEEKS SINGLE OR FIRST GESTATION Routine 09/24/2018 10:45 AM EST Encounter for supervision of normal first in first trimester Date of last menstrual period (LMP) unknown documented in this encounter Results * US OB Minimum 14 Weeks Single 1st Gestation (09/24/2018 10:45 AM EST) Anatomical Region Laterality Modality Ultrasound Impressions 09/24/2018 2:21 PM EST IMPRESSION: Single live intrauterine gestation with sonographic gestational age of 13 weeks and 3 days. RADCAT Grade: RADCAT2: Routine result. Signing Doctor: Malachi Huber MD ?Date Signed:09/24/2018 2:21 PM Patient ? DOS:09/24/2018 10:11 AM ?Exam:[id number] US OB MIN 14 WEEKS SINGLE OR FIRST GESTATION Narrative 09/24/2018 2:21 PM EST HISTORY: ??Dating Encounter for supervision of normal first , first trimester; size and dating Patient is 23 years of age. TECHNIQUE: Transabdominal and endovaginal sonography of the pelvis was performed. ??Endovaginal ultrasound was performed for better evaluation of the gestational sac and adnexa. ??M-mode evaluation was performed to measure heart rate. COMPARISON: ??There is no prior study for comparison. FINDINGS: There is a single ??intrauterine gestational sac containing a single yolk sac and pole. ??The CRL of the pole measures 71 mm consistent with an estimated gestational age of 13 weeks and 3 days with an VIOLETTE of 03/29/2019. ?? M-Mode demonstrates cardiac activity at a rate of 160 bpm. Right ovary: Not visualized Left ovary: Left ovary measures 2.4 x 2.5 x 1.8 cm. Normal in appearance. Adnexa: No adnexal masses. Free fluid: There is physiological free fluid in the pelvis. ? Procedure Note Malachi Huber MD - 09/24/2018 HISTORY: Dating Encounter for supervision of normal first ,first trimester; size and dating Patient is 23 years of age. TECHNIQUE: Transabdominal and endovaginal sonography of the pelvis wasperformed. Endovaginal ultrasound was performed for better evaluation ofthe gestational sac and adnexa. M-mode evaluation was performed tomeasure heart rate. COMPARISON: There is no prior study for comparison. FINDINGS: There is a single intrauterine gestational sac containing a single yolksac and pole. The CRL of the pole measures 71 mm consistentwith an estimated gestational age of 13 weeks and 3 days with an VIOLETTE of03/29/2019. M-Mode demonstrates cardiac activity at a rate of 160 bpm. Right ovary: Not visualized Left ovary: Left ovary measures 2.4 x 2.5 x 1.8 cm. Normal in appearance. Adnexa: No adnexal masses. Free fluid: There is physiological free fluid in the pelvis. IMPRESSION: Single live intrauterine gestation with sonographic gestational age of 13weeks and 3 days. RADCAT Grade: RADCAT2: Routine result. Signing Doctor: Malachi Huber MD Date Signed:09/24/2018 2:21 PM Patient DOS:09/24/2018 10:11 AM Exam:[id number] US OB MIN 14 WEEKS SINGLE ORFIRST GESTATION Mariajose Ozuna CNM IMG US ORDERABLES documented in this encounter Visit Diagnoses Diagnosis Encounter for supervision of normal first in first trimester Date of last menstrual period (LMP) unknown documented in this encounter
--- OUTSIDE RECORDS SUMMARY | 2024-04-03 20:36 | XMS_ITS | Encounter Summary ---
Author Organization [facility] Address [address] [place] [address] Care Team Providers Care Personal Insurance Advisor Name Role Phone Unavailable Primary Care Provider Unavailabl e Reason for Visit * Reason Comments Ankle Pain Encounter Details Date Type Department Care Team (Late st Contact Info) Description 09/21/2017 7:56 PM EST - 09/21/2017 9:09 PM EST Emergency [facility] Emergency Department [address] [id number] Donna Bean MD [address] [place], [place] [id number] Sprain of right ankle, unspecified ligament, initial encounter (Primary Dx) Discharge Disposition: Home or Self [...] Sign Reading Time Taken Comments Blood Pressure 135/74 09/21/2017 7:00 PM EST Pulse 92 09/21/2017 7:00 PM EST Temperature 36.6 ??C (97.8 ??F) 09/21/2017 7:00 PM ES T Respiratory Rate 18 09/21/2017 7:00 PM EST Oxygen Saturation 99% 09/21/2017 7:00 PM EST Inhaled Oxygen Concentration - - Weight - - Height - - Body Mass Index - - documented in this encounter Discharge Instructions * Discharge Instructions* Rashad Tafoya MD - 09/21/2017 8:53 PM EST You were seen in the ER today for an ankle sprain. You Xray showed no fracture, but you do have a sprain of the ankle. Please use crutches and follow the instructions for keeping the ankle elevated and iced. Use motrin for pain. Please stay off the ankle for the next few days to allow healing. * Attachments The following attachments cannot be sent through Care Everywhere. * ANKLE SPRAIN (IRISH) * ELASTIC BANDAGE AND RICE (IRISH) documented in this encounter Medications at Time [...] recent of 2 notes is shown. 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 Ankle Pain Patient is a 22 y.o. female who presents to the ED with R ankle pain that began after internally rotating the R ankle when walking outside in the dark. Patient has R ankle pain and swelling but is able to ambulate. She is a nonsmoker. The patient is allergic to propranolol; benicar [olmesartan]; ciprofloxacin; haldol [haloperidol]; and risperidone. PCP: Ed Delacruz DO [phone] History reviewed. No pertinent past medical history. [...] Smoking status: Never Smoker ??? Smokeless tobacco: Not on file ??? Alcohol use No History Drug Use ??? Types: Marijuana Review of Systems Constitutional: Negative for fever. Respiratory: Negative for cough. Cardiovascular: Negative for chest pain. Musculoskeletal: Positive for arthralgias (R ankle) and joint swelling (R ankle ). Physical Exam BP 135/74 (BP Location: Right upper arm, Patient Position: Sitting) Pulse 92 Temp 97.8 ??F (36.6 ??C) (Temporal) Resp 18 SpO2 99% Physical Exam Constitutional: She is oriented to person, place, and time. She appears well- developed and well-nourished. No distress. HENT: Head: Normocephalic and atraumatic. Cardiovascular: Intact distal pulses. Pulmonary/Chest: Effort normal. No respiratory distress. Musculoskeletal: She exhibits tenderness. Swelling over R ankle with ecchymosis over R lateral malleolus and midfoot, no tenderness to base of 5th metatarsal but tenderness posterior to R lateral malleolus. No tenderness to R proximal tibia Neurological: She is alert and oriented to person, place, and time. Sensory motor intact Skin: Skin is warm and dry. Psychiatric: She has a normal mood and affect. Her behavior is normal. Nursing note and vitals reviewed. ED Course Procedures MDM 22-year-old otherwise healthy female presenting after right ankle injury this evening. Patient had a fall an inversion injury of her ankle she presents with swelling and ecchymoses over the lateral malleolus and lateral midfoot. She is tenderness area. She is able to ambulate, has intact pulses, sensation, motor. No previous ankle injury. Think it is unlikely that she has sustained a fracture however we will image the ankle and foot to rule this out. Is likely a lateral ankle sprain, should these films be negative we will discharge her with ice and elevation instructions, crutches, pain control. She will follow-up with her PCP as needed and was given strict return criteria. 9:44 PM No fx on films, dx with lateral ankle sprain, dc as above Coding ED Course I, Norma Wallace, scribed for Rashad Tafoya MD SCRIBE ATTESTATION: I was present when the encounter was recorded by the scribe. I have reviewed the record and confirm that the documentation recorded accurately reflects my words, actions and decisions. Rashad Tafoya MD Resident 09/21/17 2144 Associated attestation - Donna Bean MD - 09/22/2017 12:18 AM EST RESIDENT/MLP ATTESTATION: I have seen and evaluated the patient, discussed with the MLP/Resident and agree with the MLP/Resident findings and plan as documented in the MLP/Resident note. documented in this encounter Plan of Treatment Not on file documented as of this encounter Procedures Procedure Name Priority Date/Time Associated Diagnosis Comments X-RAY FOOT RIGHT 3 VIEWS STAT 09/21/2017 8:30 PM EST X-RAY ANKLE RIGHT 3 VIEWS STAT 09/21/2017 8:30 PM EST documented in this encounter Results * XR Foot [Right] (09/21/2017 8:30 PM EST) Anatomical Region Laterality Modality Radiographic Luci ging Impressions 09/21/2017 11:07 PM EST IMPRESSION: Right lateral malleolar soft tissue swelling without fracture or ankle mortise disruption. RADCAT Grade:RADCAT4: Priority result. Report created by Stuart Mulligan ?? Date Read:09/21/2017 8:50 PM Justin Haines MD has reviewed the report and all the images related to this patient encounter. Signing Doctor: Justin Haines MD ?Date Signed:09/21/2017 11:07 PM Patient ? [id number] DOS:09/21/2017 8:20 PM ?Exam:[id number], [id number] X-RAY ANKLE RIGHT 3 VIEWS, X-RAY FOOT RIGHT 3 VIEWS Narrative 09/21/2017 11:07 PM EST HISTORY: Status post fall with right foot and right ankle pain. TECHNIQUE: 3 views of the right ankle were acquired. 3 views of the right foot were obtained. COMPARISON: There is no prior study available for comparison. FINDINGS: There is normal mineralization and alignment. No fracture or osseous lesion is identified. The ankle mortise and hindfoot joint spaces are maintained. There is no joint effusion. Right lateral malleolus soft tissue swelling. Procedure Note Justin Haines MD - 09/21/2017 HISTORY: Status post fall with right foot and right ankle pain. TECHNIQUE: 3 views of the right ankle were acquired. 3 views of the rightfoot were obtained. COMPARISON: There is no prior study available for comparison. FINDINGS: There is normal mineralization and alignment. No fracture or osseouslesion is identified. The ankle mortise and hindfoot joint spaces aremaintained. There is no joint effusion. Right lateral malleolus softtissue swelling. IMPRESSION: Right lateral malleolar soft tissue swelling without fracture or anklemortise disruption. RADCAT Grade:RADCAT4: Priority result. Report created by Stuart Mulligan Date Read:09/21/2017 8:50 PM Justin Haines MD has reviewed the report and all the images related to thispatient encounter. Signing Doctor: Jutsin Haines MD Date Signed:09/21/2017 11:07 PM Patient [id number] DOS:09/21/2017 8:20 PM Exam:[id number], [id number] X-RAY ANKLE RIGHT 3VIEWS, X-RAY FOOT RIGHT 3 VIEWS Donna [facility] MAGING ORDERABLES * XR Ankle [Right] (09/21/2017 8:30 PM EST) Anatomical Region Laterality Modality Radiographic Luci ging Impressions 09/21/2017 11:07 PM EST IMPRESSION: Right lateral malleolar soft tissue swelling without fracture or ankle mortise disruption. RADCAT Grade:RADCAT4: Priority result. Report created by Stuart Mulligan ?? Date Read:09/21/2017 8:50 PM Justin Haines MD has reviewed the report and all the images related to this patient encounter. Signing Doctor: Justin Haines MD ?Date Signed:09/21/2017 11:07 PM Patient ? [id number] DOS:09/21/2017 8:20 PM ?Exam:[id number], [id number] X-RAY ANKLE RIGHT 3 VIEWS, X-RAY FOOT RIGHT 3 VIEWS Narrative 09/21/2017 11:07 PM EST HISTORY: Status post fall with right foot and right ankle pain. TECHNIQUE: 3 views of the right ankle were acquired. 3 views of the right foot were obtained. COMPARISON: There is no prior study available for comparison. FINDINGS: There is normal mineralization and alignment. No fracture or osseous lesion is identified. The ankle mortise and hindfoot joint spaces are maintained. There is no joint effusion. Right lateral malleolus soft tissue swelling. Procedure Note Justin Haines MD - 09/21/2017 HISTORY: Status post fall with right foot and right ankle pain. TECHNIQUE: 3 views of the right ankle were acquired. 3 views of the rightfoot were obtained. COMPARISON: There is no prior study available for comparison. FINDINGS: There is normal mineralization and alignment. No fracture or osseouslesion is identified. The ankle mortise and hindfoot joint spaces aremaintained. There is no joint effusion. Right lateral malleolus softtissue swelling. IMPRESSION: Right lateral malleolar soft tissue swelling without fracture or anklemortise disruption. RADCAT Grade:RADCAT4: Priority result. Report created by Stuart Mulligan Date Read:09/21/2017 8:50 PM Justin Haines MD has reviewed the report and all the images related to thispatient encounter. Signing Doctor: Justin Haines MD Date Signed:09/21/2017 11:07 PM Patient [id number] DOS:09/21/2017 8:20 PM Exam:[id number], [id number] X-RAY ANKLE RIGHT 3VIEWS, X-RAY FOOT RIGHT 3 VIEWS Donna Bean MD [facility] ORDERABLES documented in this encounter Visit Diagnoses Diagnosis Sprain of right ankle, unspecified ligament, initial encounter- Primary documented in this encounter Active and Recently Administered Medications Times are shown in EST. Scheduled Medication Order 09/19/2017 09/20/2017 09/21/2017 ibuprofen (ADVIL,MOTRIN) tablet 800 mg 800 mg, Oral, Once, On 09/21/17 at 2030, 1 dose 2036 (Not Given - Pr ovider: Remington Alexis RN - Reason: Patient/family refused) documented in this encounter
--- OUTSIDE RECORDS SUMMARY | 2024-04-03 20:36 | XMS_ITS | Encounter Summary ---
Author Organization [facility] Address [address] [place] [address] Care Team Providers Care Data Collection Interviewer Name Role Phone Jose Arenas Primary Care Provider [phone] Encounter Details Date Type Department Care Team (Latest Contact Info) Description 12/15/2016 10:34 AM EDT - 12/15/2016 11:59 PM EDT Hospital Encounter [facility] [address] [place] [address] Jose Arenas PA 2 [facility] [address] [place] [address] Unspecified vitamin D deficiency (Primary Dx); Routine general medical examination at a health care facility; Somatosensory attacks (CMS/HCC); Concussion, without loss of consciousness, initial encounter; Tachycardia, unspecified; Tourette's disorder Discharge Disposition: Home or Self Care Social [...] Procedure Name Priority Date/Time Associated Diagnosis Comments LYME REFLEX Routine 12/15/2016 10:37 AM EDT Unspecified vitamin D deficiency Routine general medical examination at a health care facility Somatosensory attacks (CMS/HCC) Concussion, without loss of consciousness, initial encounter Tachycardia, unspecified Tourette's disorder CHOLESTEROL FRACTIONATION Routine 12/15/2016 10:37 AM EDT Unspecified vitamin D deficiency Routine general medical examination at a health care facility Somatosensory attacks (CMS/HCC) Concussion, without loss of consciousness, initial encounter Tachycardia, unspecified Tourette's disorder VENIPUNCTURE ONLY Routine 12/15/2016 10: 37 AM EDT Unspecified vitamin D deficiency Routine general medical examination at a health care facility Somatosensory attacks (CMS/HCC) Concussion, without loss of consciousness, initial encounter Tachycardia, unspecified Tourette's disorder LYME DISEASE, WESTERN BLOT Routine 12/15/2016 10:37 AM EDT Unspecified vitamin D deficiency Routine general medical examination at a health care facility Somatosensory attacks ([facility]) Concussion, without loss of consciousness, initial encounter Tachycardia, unspecified Tourette's disorder VITAMIN D 25 HYDROXY TOTAL D Routine 12/15/2016 10:37 AM EDT Unspecified vitamin D deficiency Routine general medical examination at a health care facility Somatosensory attacks (CMS/HCC) Concussion, without loss of consciousness, initial encounter Tachycardia, unspecified Tourette's disorder SED RATE Routine 12/15/2016 10:37 AM EDT Unspecified vitamin D deficiency Routine general medical examination at a health care facility Somatosensory attacks (CMS/HCC) Concussion, without loss of consciousness, initial encounter Tachycardia, unspecified Tourette's disorder CBC NO DIFF WITH PLATELET Routine 12/15/2016 10:37 AM EDT Unspecified vitamin D deficiency Routine general medical examination at a health care facility Somatosensory attacks (CMS/HCC) Concussion, without loss of consciousness, initial encounter Tachycardia, unspecified Tourette's disorder TSH Routine 12/15/2016 10:37 AM EDT Unspecified vitamin D deficiency Routine general medical examination at a health care facility Somatosensory attacks (CMS/HCC) Concussion, without loss of consciousness, initial encounter Tachycardia, unspecified Tourette's disorder HEMOGLOBIN, A1C Routine 12/15/2016 10:37 AM EDT Unspecified vitamin D deficiency Routine general medical examination at a health care facility Somatosensory attacks (CMS/HCC) Concussion, without loss of consciousness, initial encounter Tachycardia, unspecified Tourette's disorder COMPREHENSIVE METABOLIC PANEL Routine 12/15/2016 10:37 AM EDT Unspecified vitamin D deficiency Routine general medical examination at a health care facility Somatosensory attacks (CMS/HCC) Concussion, without loss of consciousness, initial encounter Tachycardia, unspecified Tourette's disorder documented in this encounter Results * TSH (12/15/2016 10:37 AM EDT) TSH, High Sensitivity 0.618 0.350 - 5.500 uIU/ML 12/15/2016 4:27 PM EDT [facility] Blood 12/15/2016 10:3 7 AM EDT 12/15/2016 1:52 PM EDT Jose MASON LAB BLOOD ORDERABLES [facility] [address] [place] [address] * (ABNORMAL) Cholesterol Fractionation (12/15/2016 10:37 AM EDT) Cholesterol 136 110 - 199 MG/DL 12/15/2016 5:09 PM EDT [facility] Comment: Adult Cholesterol Interpretation: Desirable: <200 ??Borderline:200-239 ??High >239 Triglycerides 42 40 - 150 MG/DL 12/15/2016 5:09 PM EDT [facility] Comment: Adult Triglyceride Interpretation: Desirable <150 ??Borderline 150-199 ??High >199 HDL 37(L) 40 - 70 MG/DL 12/15/2016 5:09 PM EDT [facility] Comment: HDL Interpretation: Low Less than 40 ??Desirable greater than 40 LDL Calculated 91 70 - 129 MG/DL 12/15/2016 5:09 PM EDT [facility] Comment: Adult LDL Interpretation: Desirable <130 ??Borderline 130-159 ??High >159 An Accurate calculated LDL is obtained when the patient is fasting 12 hours. Cholesterol Total/HDL Ratio 3.7 2.0 - 5.0 12/15/2016 5:09 PM EDT [facility] Hours Fasting 0 Hours 12/15/2016 2:07 PM EDT [facility] Blood 12/15/2016 10:3 7 AM EDT 12/15/2016 1:52 PM EDT Jose MASON LAB BLOOD ORDERABLES Performing Organization Address City/State/[facility] Co de Phone Number [facility] [address] [place] [address] * Comprehensive Metabolic Panel (12/15/2016 10:37 AM EDT) Glucose 88 67 - 99 MG/DL 12/15/2016 5:09 PM EDT [facility] BUN 10 6 - 24 MG/DL 12/15/2016 5:09 PM EDT [facility] Creatinine 0.61 0.44 - 1.03 MG/DL 12/15/2016 5:09 PM EDT [facility] Sodium 138 135 - 145 MEQ/L 12/15/2016 5:09 PM EDT [facility] Potassium 3.9 3.6 - 5.1 MEQ/L 12/15/2016 5:09 PM EDT [facility] Chloride 106 98 - 110 MEQ/L 12/15/2016 5:09 PM EDT [facility] CO2 26 22 - 32 MEQ/L 12/15/2016 5:09 PM EDT [facility] Anion Gap 6 3 - 13 12/15/2016 5:09 PM EDT [facility] Albumin 4.5 3.5 - 5.0 G/DL 12/15/2016 5:09 PM EDT [facility] Alkaline Phosphatase 62 34 - 104 IU/L 12/15/2016 5:09 PM EDT [facility] ALT 8 6 - 45 IU/L 12/15/2016 5:09 PM EDT [facility] AST (SGOT) 17 10 - 42 IU/L 12/15/2016 5:09 PM EDT [facility] Bilirubin, Total 0.5 0.2 - 1.3 MG/DL 12/15/2016 5:09 PM EDT [facility] Calcium 9.4 8.5 - 10.5 MG/DL 12/15/2016 5:09 PM EDT [facility] Protein, Total 7.3 6.0 - 8.0 G/DL 12/15/2016 5:09 PM EDT [facility] eGFR >60 Abnormal <60 ML/MIN/1.73M 12/15/2016 5:09 PM EDT [facility] Comment:If multiply by 1.21 Blood 12/15/2016 10:3 7 AM EDT 12/15/2016 1:52 PM EDT Jose MASON LAB BLOOD ORDERABLES [facility] [address] [place] [address] * CBC No Diff (12/15/2016 10:37 AM EDT) WBC 7.4 3.5 - 11.0 [id number] 12/15/2016 2:25 PM EDT [facility] RBC 3.90 3.70 - 5.00 [id number]/L 12/15/2016 2:25 PM EDT [facility] Hemoglobin 12.6 11.0 - 15.0 G/DL 12/15/2016 2:25 PM EDT [facility] Hematocrit 37.0 32.0 - 45.0 % 12/15/2016 2:25 PM EDT [facility] MCV 94.7 80.0 - 98.0 fL 12/15/2016 2:25 PM EDT [facility] MCH 32.3 26.0 - 34.0 PG 12/15/2016 2:25 PM EDT [facility] MCHC 34.1 32.0 - 36.0 G/DL 12/15/2016 2:25 PM EDT [facility] RDW 13.0 11.5 - 14.5 % 12/15/2016 2:25 PM EDT [facility] Platelets 278 150 - 400 [id number] 12/15/2016 2:25 PM EDT [facility] MPV 8.6 7.4 - 10.4 fL 12/15/2016 2:25 PM EDT [facility] Blood 12/15/2016 10:3 7 AM EDT 12/15/2016 1:52 PM EDT Jose Deepa SC LAB BLOOD ORDERABLES Performing Organization Address [facility] Co de Phone Number [facility] [address] [place] [address] * Lyme Reflex (12/15/2016 10:37 AM EDT) Pathologist [facility] Lyme Reflex 0.56 0.00 - 0.91 INDEX 12/16/2016 2:08 PM EDT [facility] Comment: Reference Range ?(INDEX or OD Ratio) Negative: ??< or = to 0.90 Equivocal: 0.91 - 1.09 Positive: ??1.10 or greater Blood 12/15/2016 10:3 7 AM EDT 12/15/2016 1:52 PM EDT [facility] Deepa SC LAB BLOOD ORDERABLES Performing Organization Address [facility] Co de Phone Number [facility] [address] [place] [address] * (ABNORMAL) Lyme Disease, Western Blot (12/15/2016 10:37 AM EDT) Pathologist [facility] Lyme IgG WB Negative Negative 12/18/2016 12:04 PM EDT [facility] Comment: Negative: ??IgG antibodies to less than 5 of the 10 significant ? B. burgdorferi proteins detected. ??Additional ? specimen should be submitted in 2-4 weeks if ? B. burgdorferi has not been ruled out. Lyme 93 kD IgG Non Reac 12/18/2016 12:04 PM EDT [facility] Lyme 66 kD IgG Non Reac 12/18/2016 12:04 PM EDT [facility] Lyme 58 kD IgG REACTIVE(A) 7 12:04 PM EDT [facility] Lyme 45 kD IgG Non Reac 12/18/2016 12:04 PM EDT [facility] Lyme 41 kD IgG Non Reac 12/18/2016 12:04 PM EDT [facility] Lyme 39 kD IgG Non Reac 12/18/2016 12:04 PM EDT [facility] Lyme 30 kD IgG Non Reac 12/18/2016 12:04 PM EDT [facility] Lyme 28 kD IgG Non Reac 12/18/2016 12:04 PM EDT [facility] Lyme 23 kD IgG Non Reac 12/18/2016 12:04 PM EDT [facility] Lyme 18 kD IgG Non Reac 12/18/2016 12:04 PM EDT [facility] Lyme IgM WB Negative Negative 12/18/2016 1:46 PM EDT [facility] Comment: Negative: ??IgM antibodies to less than 2 of the 3 significant ? B. burgdorferi proteins detected. ??Additional ? specimen should be submitted in 2-4 weeks if ? B. burgdorferi has not been ruled out. Lyme 41 kD IgM Non Reac 12/18/2016 1:46 PM EDT [facility] Lyme 39 kD IgM Non Reac 12/18/2016 1:46 PM EDT [facility] Lyme 23 kD IgM REACTIVE(A) 7 1:46 PM EDT [facility] Blood 12/15/2016 10:3 7 AM EDT 12/15/2016 1:52 PM EDT Jose Arenas PA LAB BLOOD ORDERABLES Performing Organization Address City/[facility] Co de Phone Number [facility] [address] [place] [address] * Erythrocyte Sedimentation Rate (ESR) (12/15/2016 10:37 AM EDT) Sed Rate 3 0 - 20 mm/h 12/15/2016 2:40 PM EDT [facility] Blood 12/15/2016 10:3 7 AM EDT 12/15/2016 1:52 PM EDT Jose Arenas PA LAB BLOOD ORDERABLES Performing Organization Address [facility] de Phone Number [facility] [address] [place] [address] * (ABNORMAL) Vitamin D 25 Hydroxy Total D (12/15/2016 10:37 AM EDT) Vitamin D, 25-Hydroxy 14.2(L) 30.0 - 100.0 NG/ML 12/15/2016 4:27 PM EDT [facility] Total 25 OH Vitamin D Interp Footnote 12/15/2016 4:27 PM EDT [facility] Comment: Reference Ranges: Deficiency <21.0 ng/mL Insufficiency 21.0-29.9 ng/mL Sufficiency 30.0-100.0 ng/mL Toxicity >100.0 ng/mL Blood 12/15/2016 10:3 7 AM EDT 12/15/2016 1:52 PM EDT Jose Roach Deepa PA LAB BLOOD ORDERABLES Performing Organization Address [facility] Co de Phone Number [facility] [address] [place] [address] * Hemoglobin, A1c (12/15/2016 10:37 AM EDT) Hemoglobin A1C 5.1 4.3 - 5.8 % 12/15/2016 6:45 PM EDT [facility] Blood 12/15/2016 10:3 7 AM EDT 12/15/2016 1:53 PM EDT Jose MASON LAB BLOOD ORDERABLES Performing Organization Address City/[facility] Co de Phone Number [facility] [address] [place] [address] * Venipuncture Only (12/15/2016 10:37 AM EDT) Venipuncture Done 12/15/2016 10:37 AM EDT [facility] Blood 12/15/2016 10:3 7 AM EDT 12/15/2016 10:37 AM EDT Jose MASON LAB BLOOD ORDERABLES Performing Organization Address [facility] Co de Phone Number [facility] [address] [place] [address] documented in this encounter Visit Diagnoses Diagnosis Unspecified vitamin D deficiency- Primary Routine general medical examination at a health care facility Somatosensory attacks (CMS/HCC) Other convulsions Concussion, without loss of consciousness, initial encounter Tachycardia, unspecified Tourette's disorder documented in this encounter Care Teams Data Collection Interviewer Relationship Specialty Start Date End Date Jose Arenas PA [address] [address] PCP - General Internal Medicine 12/15/16 07/15/17 documented as of this encounter
--- OUTSIDE RECORDS SUMMARY | 2024-04-03 20:36 | XMS_ITS | Encounter Summary ---
Author Organization [facility] Address [address] [place] [address] Care Team Providers Care Airline Managerial Supervisor Name Role Phone Unavailable Primary Care Provider Unavailabl e Encounter Details Date Type Department Care Team (Late st Contact Info) Description 09/16/2018 12:47 PM EST - 09/16/2018 11:59 PM EST Hospital Encounter [address] [phone] Mariajose Ozuna CNM [address] [facility], [address] [place] [address] Discharge Disposition: Home or Self Care Social [...] documented as of this encounter Visit Diagnoses Not on filedocumented in this encounter
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
--- OUTSIDE RECORDS SUMMARY | 2024-04-03 20:36 | XMS_ITS | Encounter Summary ---
Author Organization [facility] Address [address] [place] [address] Care Team Providers Care Physician Scribe Name Role Phone Jose Arenas Primary Care Provider [phone] Encounter Details Date Type Department Care Team (Latest Contact Info) Description 12/31/2016 9:55 PM EDT - 12/31/2016 11:59 PM EDT Hospital Encounter [facility] [address] [place] [address] Jose Arenas PA [address] [id number] Anxiety (Primary Dx) Discharge Disposition: Home or Self [...] Procedure Name Priority Date/Time Associated Diagnosis Comments URINE DRUG SCREEN Routine 12/31/2016 3:5 9 PM EDT Anxiety documented in this encounter Results * (ABNORMAL) Drugs of Abuse Screen, Urine, Random (12/31/2016 3:59 PM EDT) Amphetamine Scrn, Ur None Detected 12/31/2016 11:37 PM EDT [facility] Barbiturate Screen, Urine None Detected 12/31/2016 11:37 PM EDT [facility] Benzodiazepine Screen, Urine POS NOT CONFIRM(A) 12/31/2016 11:37 PM EDT [facility] Cannabinoid Screen, Urine POS NOT CONFIRM(A) 12/31/2016 11:37 PM EDT [facility] Cocaine Screen, Ur None Detected 12/31/2016 11:37 PM EDT [facility] Fentanyl Screen, Urine None Detected 12/31/2016 11:37 PM EDT [facility] Comment: This test was developed and its performance characteristics determined by the [facility] Lab. ??It has not been cleared ??by the FDA. ??The laboratory is regulated under CLIA as qualified to perform high-complexity testing. ??This test is used for clinical purposes and is described in the lab guide. It should not be regarded as investigational or for research. Methadone Screen, Urine None Detected 12/31/2016 11:37 PM EDT [facility] Opiate Screen, Urine None Detected 12/31/2016 11:37 PM EDT [facility] Comment: Note: ??Drug of abuse immunoassay results are from screening methods. ??Positive screening results that are not confirmed are reported as POS NOT CONFIRM (positive not confirmed). Drugs of abuse confirmed as present are reported as POSITIVE. ??If confirmatory testing is desired, it must be requested as a separate order to the Toxicology Lab WITHIN 5 DAYS of sample collection. ??Unconfirmed screening results should only be used for medical purposes. Phencyclidine Scrn, Ur None Detected 12/31/2016 11:37 PM EDT [facility] Toxicology Drug Specimen Rec'd 01/01/2017 10:29 PM EDT [facility] Oxycodone Scrn, Ur None Detected 12/31/2016 11:37 PM EDT [facility] Urine 12/31/2016 3:59 PM EDT 12/31/2016 10:11 PM EDT Jose MASON URINE ORDERABLES [facility] [address] [place] [address] documented in this encounter Visit Diagnoses Diagnosis Anxiety- Primary Anxiety state, unspecified documented in this encounter Care Teams Physician Scribe Relationship Specialty Start Date End Date Jose Arenas PA [address] [address] PCP - General Internal Medicine 12/15/16 07/15/17 documented as of this encounter
--- OUTSIDE RECORDS SUMMARY | 2024-04-03 20:36 | XMS_ITS | Encounter Summary ---
Author Organization [facility] Address [address] [place] [address] Care Team Providers Care Timber Selector Name Role Phone Roderick Mckeznie MD Primary Care Provider + [phone] Encounter Details Date Type Department Care Team (Late st Contact Info) Description 03/13/2021 2:30 PM EDT Initial [address] [address] Arleen Brunner, [facility] [address] [place], [place] [id number] GA: [id number] Social History Tobacco Use Types Packs/Day Years Used Date Smoking Tobacco: Never Smokeless Tobacco: Never Alcohol Use Standard Drinks/Week Comments Not Currently 0 (1 standard drink = 0.6 oz pur e alcohol) Comments Yes Sex and Gender Information Value Date Recorded Sex Assigned at Not on file Gender Identity Not on file Sexual Orientation Not on file Job Start Date Occupation Industry Not on file Not on file Not on file COVID-19 Exposure Response Date Recorded In the last month, have you been in contact with someone who was confirmed or suspected to have Coronavirus / COVID-19? No / Unsure 03/08/2021 8:56 AM EDT documented as of this encounter Last Filed Vital Signs Vital Sign Reading Time Taken Comments Blood Pressure 126/68 03/13/2021 2:33 PM EDT Pulse - - Temperature - - Respiratory Rate - - Oxygen Saturation - - Inhaled Oxygen Concentration - - Weight 46.6 kg (102 lb 12.8 oz) 03/13/2021 2:33 PM EDT Height - - Body Mass Index 19.42 03/04/2021 11:13 AM EDT documented in this encounter Progress Notes * Anabel Steiner - 03/13/2021 2:30 PM EDT Pt presents for initial Ob visit. Pt offers no concerns. * Arleen Brunner CNM - 03/13/2021 2:30 PM EDT Sleeping well, and eating well. Urinating frequently. No dysuria. She would like to do the panoramaafter 11 weeks. RTC in 4 wks documented in this encounter Plan of Treatment Not on file documented as of this encounter Visit Diagnoses Diagnosis Encounter for supervision of other normal in first trimester- Primary documented in this encounter Care Teams Timber Selector Relationship Specialty Start Date End Date Roderick Mckenzie MD PCP - General Family Medicine 03/07/21 documented as of this encounter
--- OUTSIDE RECORDS SUMMARY | 2024-04-03 20:36 | XMS_ITS | Encounter Summary ---
Author Organization [facility] Address [address] [place] [address] Care Team Providers Care Panel Laminator Name Role Phone Unavailable Primary Care Provider Unavailabl e Encounter Details Date Type Department Care Team (Late st Contact Info) Description 09/20/2018 10:48 AM EST - 09/20/2018 11:59 PM EST Hospital Encounter [facility] [address] Mariajose Ozuna CNM 19 [facility], [address] [place] [address] Encounter for supervision of normal first in first trimester (Primary Dx) Discharge Disposition: Home or Self [...] Procedure Name Priority Date/Time Associated Diagnosis Comments SEND OUT REFERENCE LAB TESTING Routine 09/20/2018 11:20 AM EST Encounter for supervision of normal first in first trimester RUBELLA ANTIBODY IGG Routine 09/20/2018 11:20 AM EST Encounter for supervision of normal first in first trimester TREPONEMA PALLIDUM IGC AB Routine 09/20/2018 11:20 AM EST Encounter for supervision of normal first in first trimester VARICELLA ZOSTER IGG Routine 09/20/2018 11:20 AM EST Encounter for supervision of normal first in first trimester CYSTIC FIBROSIS PCR Routine 09/20/2018 1 1:20 AM EST Encounter for supervision of normal first in first trimester CBC NO DIFF WITH PLATELET Routine 09/20/2018 11:20 AM EST Encounter for supervision of normal first in first trimester VENIPUNCTURE ONLY Routine 09/20/2018 10: 52 AM EST Encounter for supervision of normal first in first trimester documented in this encounter Results * Send Out Reference Lab Testing panorama (09/20/2018 11:20 AM EST) Reference Test See Ref 09/24/2018 12:57 PM EST [facility] Comment:A separate report wi ll follow. Test Name 2 panorama 09/20/2018 11:23 AM EST [facility] Specimen Type blood 09/24/2018 12:57 PM [facility] Diagnosis Code Qz9.800 09/24/2018 12:57 PM [facility] Blood (Peripheral) 09/20/2018 11:20 AM EST 09/20/2018 11:23 AM EST Mariajose Ozuna CNM MICROBIOLOGY - GEN ERAL ORDERABLES [facility] [address] [place] [id number] * (ABNORMAL) CBC No Diff (09/20/2018 11:20 AM EST) WBC 10.8 3.5 - 11.0 [id number] 09/20/2018 11:48 AM [facility] RBC 3.48(L) 3.70 - 5.00 [id number] 09/20/2018 11:48 AM [facility] Hemoglobin 11.3 11.0 - 15.0 G/DL 09/20/2018 11:48 AM [facility] Hematocrit 33.1 32.0 - 45.0 % 09/20/2018 11:48 AM [facility] MCV 95.2 80.0 - 98.0 fL 09/20/2018 11:48 AM [facility] MCH 32.4 26.0 - 34.0 PG 09/20/2018 11:48 AM [facility] MCHC 34.0 32.0 - 36.0 G/DL 09/20/2018 11:48 AM [facility] RDW 12.6 11.5 - 14.5 % 09/20/2018 11:48 AM [facility] Platelets 273 150 - 400 [id number] 09/20/2018 11:48 AM [facility] MPV 8.3 7.4 - 10.4 fL 09/20/2018 11:48 AM [facility] Blood 09/20/2018 11:2 0 AM EST 09/20/2018 11:23 AM EST Mariajose Ozuna CN LAB BLOOD ORDERABL ES [facility] [address] [place] [address] * Cystic Fibrosis PCR (09/20/2018 11:20 AM EST) Cystic Fibrosis PCR See Below 09/27 5:59 PM [facility] Comment: See Below NEGATIVE, NONE OF THE MUTATIONS LISTED BELOW WERE DETECTED Cystic Fibrosis Director See Below 09/27/2018 5:59 PM [facility] Comment: See Below Jeanine Chavez, Ph.D.,[facility] Director, Molecular Genetics Health care providers, please contact your local [employer]' genetic counselor or call [employer] ([phone]) for assistance with interpretation of these results. The analytical performance characteristics of this assay have been determined by [employer]. The modifications have not been cleared or approved by the FDA. This assay has been validated pursuant to the CLIA regulations and is used for clinical purposes. For additional information, please refer to http://education.GlobalLab/faq/cfscreen (This link is being provided for informational/ educational purposes only.) Test Performed by [facility], [employer] [facility]ain [facility], [address] [place] [address] Denton Sanders M.D., Ph.D., Director of Laboratories , CLIA [id number] Cystic Fibrosis Interp See Below 09/27/2018 5:59 PM EST [facility] Comment: See Below This result does not rule out the presence of a mutation or a diagnosis of cystic fibrosis disease (CF). The risk for mutations that cause CF other than the ones tested depends greatly on family history, clinical presentation, and ethnicity. ?Chance of Having a CF Mutation Ethnic Group ?Detection ?? Before ?After Negative ? Rate ? Test ? Result Ashkenazi Christianity ?? 94% ?1 in 24 ? 1 in 400 Non- ? 88% ?1 in 25 ? 1 in 208 -[place]ian ??72% ?1 in 46 ? 1 in 164 -[place]ian ?? 65% ?1 in 65 ? 1 in 186 -[place]ian ? 49% ?1 in 94 ? 1 in 184 Other ? insufficient data available Cystic Fibrosis Mthd See Below 09/27/2018 5:59 PM [facility] Comment: See Below The mutations are detected by multiplex-polymerase chain reaction (PCR) amplification of specific CF gene regions, followed by nucleotide sequence analysis on a massively parallel sequencing platform. Although rare, false positive or false negative results may occur. All results should be interpreted in the context of clinical findings, relevant history, and other laboratory data. Cystic Fibrosis Mutation See Below 09/27/2018 5:59 PM [facility] Comment: See Below G85E (c.254G>A) ?R334W (c.1000C>T) 394delTT (c.262delTT) ?R347H (c.1040G>A) R117H (c.350G>A) ?R347P (c.1040G>C) 621+1 G>T (c.489+1G>T) ?A455E (c.1364C>A) 711+1 G>T (c.579+1G>T) ?1507del (c.1519delATC) 1078delT (c.948delT) ? H514cuu (c.1521delCTT) V520F (c.1558G>T) ? R553X (c.1657C>T) 1717-1 G>A (c.1585-1G>A) ? R560T (c.1679G>C) G542X (c.1624G>T) ?1898+1 G>A (c.1766+1G>A) S549N (c.1646G>A) ? 2183AA>G (c.2051delAAinsG) S549R (c.1645A>C or c.1647T>G) ??2184delA (c.2052delA) G551D (c.1652G>A) ?2789+5 G>A (c.2657+5G>A) 3120+1 G>A (c.2988+1G>A) ?C6241N (c.3846G>A) Y8615Z (c.3484C>T) ?E6367H (c.3909C>G) 3659delC (c.3528delC) 3849+10kb C>T (C.3718+54145V>T) 3876delA (c.3744delA) 3905insT (c.3773insT) This assay detects thirty-two mutations, including the twenty-three core mutations recommended by the [place] [employer] (ACMG) and the [place] [employer] of Obstetricians and Gynecologists (ACOG) for population-based CF carrier screening. ??In addition to the ACMG/ACOG panel, this assay detects nine additional mutations. While these mutations are rare in the [place] population, the scientific and medical literature indicates that these mutations are not benign polymorphisms. The status of the intron 9 (formerly intron 8) polyT tract is reported only when the R117H mutation is detected. Blood 09/20/2018 11:2 0 AM EST 09/20/2018 11:23 AM EST Mariajose Ozuna [facility] LAB BLOOD ORDERABL ES [facility] [address] [place] [address] * Varicella zoster Antibody, IgG (09/20/2018 11:20 AM EST) Varicella IgG 2.9 09/20/2018 7:31 PM EST [facility] Varicella IgG Comment Footnote 09/20/2018 7:31 PM EST [facility] Comment: Reference Range ?Antibody Index (AI) Negative: ??< 0.9 ? No Varicella IgG antibodies detected. ? Patient is presumed not to have ? had a previous exposure through ? infection or vaccination. Equivocal: 0.9 - 1.0 ?? Equivocal results: obtain an ? additional sample for re-testing. Positive: ??= or > 1.1 ??IgG antibody to Varicella detected. Blood 09/20/2018 11:2 0 AM EST 09/20/2018 5:00 PM EST Mariajosericardo Ozuna [facility] LAB BLOOD ORDERABL ES Performing Organization Address [facility] de Phone Number [facility] [address] [place] [address] * Treponema pallidum IgG Ab (09/20/2018 11:20 AM EST) Treponema Pallidum IgG Antibody <0.2 0.0 - 0.8 AI 09/20/2018 7:31 PM EST [facility] Treponema IgG Comment Footnote 09/20/2018 7:31 PM EST [facility] Comment: Reference Range ?Antibody Index (AI) Negative: ??< or = 0.8 ??Nonreactive Equivocal: 0.9 - 1.0 ?? Equivocal result: obtain an ? additional sample for re-testing. Positive: ??= or > 1.1 ??Reactive Blood 09/20/2018 11:2 0 AM EST 09/20/2018 5:00 PM EST Mariajoseloren Ozuna [facility] LAB BLOOD ORDERABL ES Performing Organization Address [facility]/ZIP Co de Phone Number [facility] [address] [place] [address] * Rubella Antibody, IgG (09/20/2018 11:20 AM EST) Rubella IgG 2.4 09/20/2018 7:31 PM EST [facility] Rubella IgG Comment Footnote 09/20/2018 7:31 PM EST [facility] Comment: Reference Range ?Antibody Index (AI) Negative: ??< or = 0.7 ??No Rubella IgG antibodies detected. ? Patient is presumed not to have ? had a previous exposure to Rubella ? through infection or vaccination. Equivocal: 0.8 - 0.9 ?? Equivocal results: obtain an ? additional sample for re-testing. Positive: ??= or > 1.0 ??IgG antibody to Rubella detected. ? IgG antibody levels are at a level ? considered to indicate positive ? immunity. 09/20/2018 11:2 0 AM EST 09/20/2018 5:00 PM EST Mariajose Ozuna CNM LAB BLOOD ORDERABL ES Performing Organization Address [facility]/ZIP Co de Phone Number [facility] [address] [place] [address] * Venipuncture Only (09/20/2018 10:52 AM EST) Venipuncture Done 09/20/2018 10:53 AM EST [facility] Blood 09/20/2018 10:5 2 AM EST 09/20/2018 10:52 AM EST Mariajose Ozuna CNM LAB BLOOD ORDERABL ES Performing Organization Address City/State/[facility] Co de Phone Number [facility] [address] [place] [address] documented in this encounter Visit Diagnoses Diagnosis Encounter for supervision of normal first in first trimester- Primary documented in this encounter
--- OUTSIDE RECORDS SUMMARY | 2024-04-03 20:36 | XMS_ITS | Encounter Summary ---
Author Organization [facility] Address [address] [place] [address] Care Team Providers Care Pile Operator Name Role Phone Unavailable Primary Care Provider Unavailabl e Reason for Visit * Reason Comments Routine Visit Encounter Details Date Type Department Care Team (Late st Contact Info) Description 09/30/2018 1:00 PM EST Routine [address], [address] [address] Mariajose Ozuna CNM [address] [place] [address], [facility] [address] [place] [address] GA: [id number] Social History Tobacco Use Types Packs/Day Years [...] Sign Reading Time Taken Comments Blood Pressure 110/58 09/30/2018 1:02 PM EST Pulse - - Temperature - - Respiratory Rate - - Oxygen Saturation - - Inhaled Oxygen Concentration - - Weight 48.1 kg (106 lb) 09/30/2018 1:02 PM EST Height - - Body Mass Index 20.7 11/05/2016 1:08 AM EST documented in this encounter Progress Notes * Mildred Harden - 09/30/2018 1:00 PM EST Patient presents for routine OB visit. Patient c/o daily headaches and nausea * Mariajose Ozuna CNM - 09/30/2018 1:00 PM EST Reviewed blood work with patient, ar low risk, doing a reveal, pt desires delayed cord clamping, no bath for baby, no hepatitis b vaccine, will discuss with HIV NURSE, desires monthly US, explained schedule of US, getting nightly PRITCHETT, enc hydration, snacking every 2 hrs, may take tylenol 2 tabs, states diet good, occ nausea, will put in order for US documented in this encounter Plan of Treatment Not on file documented as of this encounter Results * US OB Minimum 14 Weeks Single 1st Gestation (10/28/2018 10:08 AM EST) Anatomical Region Laterality Modality Ultrasound Impressions 10/28/2018 10:25 AM EST IMPRESSION: ?? 1. Single live intrauterine measuring 18 weeks 2 days estimated gestational age. The sonographic measurements correlate well with the dates by last menstrual period. 2. Normal anatomy survey. RADCAT ??grade: RADCAT1: Normal study. Signing Doctor: Aj Hugo MD ?Date Signed:10/28/2018 10:25 AM Patient ? DOS:10/28/2018 9:15 AM ?Exam:[id number] US OB MIN 14 WEEKS SINGLE OR FIRST GESTATION Narrative 10/28/2018 10:25 AM EST COMPARISON STUDY: 09/24/2018 Technique: A routine obstetrical ultrasound was performed. FINDINGS: The following data was accumulated during examination: NUMBER: ? One. HEART RATE: ?? 140 ??BPM POSITION: ?? Vertex PLACENTAL POSITION: ??Anterior. There is no placenta previa. CERVICAL LENGTH: 3.2 cm AMNIOTIC FLUID: ??Normal for gestational age. ANATOMY: CEREBRAL VENTRICLES: ??NL CERVICAL SPINE: NL THORACIC SPINE: NL LUMBAR SPINE: NL KIDNEYS: NL CORD: NL CORD INSERTION: NL POSTERIOR FOSSA: NL HEART: NL BLADDER: NL STOMACH: ??NL BPD: ?? 4.26 cm ? 19 weeks 0 days HC: ?15.4 cm ? 18 weeks 3 days AC: ?? 11.8 cm ? 17 weeks 4 days FL: ?? 2.61 cm ? 18 weeks 0 days EFW: ?? 210 g +/- 31 g ? LMP percentile: 19 % VERNON ?? 11.4 cm LMP: 06/22/2018 GESTATIONAL AGE BASED ON LMP: 18 weeks 2 days VIOLETTE: ??03/29/2019 GESTATIONAL AGE BASED ON TODAY'S SCAN: ??18 weeks 2 days ??VIOLETTE: ??03/29/2019 Procedure Note Aj Hugo MD - 10/28/2018 COMPARISON STUDY: 09/24/2018 Technique: A routine obstetrical ultrasound was performed. FINDINGS: The following data was accumulated during examination: NUMBER: One. HEART RATE: 140 BPM POSITION: Vertex PLACENTAL POSITION: Anterior. There is no placenta previa. CERVICAL LENGTH: 3.2 cm AMNIOTIC FLUID: Normal for gestational age. ANATOMY: CEREBRAL VENTRICLES: NL CERVICAL SPINE: NL THORACIC SPINE: NL LUMBAR SPINE: NL KIDNEYS: NL CORD: NL CORD INSERTION: NL POSTERIOR FOSSA: NL HEART: NL BLADDER: NL STOMACH: NL BPD: 4.26 cm 19 weeks 0 days HC: 15.4 cm 18 weeks 3 days AC: 11.8 cm 17 weeks 4 days FL: 2.61 cm 18 weeks 0 days EFW: 210 g +/- 31 g LMP percentile: 19 % VERNON 11.4 cm LMP: 06/22/2018 GESTATIONAL AGE BASED ON LMP: 18 weeks 2 days VIOLETTE:03/29/2019 GESTATIONAL AGE BASED ON TODAY'S SCAN: 18 weeks 2 days VIOLETTE: 03/29/2019 IMPRESSION: 1. Single live intrauterine measuring 18 weeks 2 days estimatedgestational age. The sonographic measurements correlate well with thedates by last menstrual period. 2. Normal anatomy survey. RADCAT grade: RADCAT1: Normal study. Signing Doctor: Aj Hugo MD Date Signed:10/28/201810:25 AM Patient DOS:10/28/2018 9:15 AM Exam:[id number] US OB MIN 14 WEEKS SINGLE ORFIRST GESTATION Mariajose Ozuna CNM [facility] US ORDERABLES documented in this encounter Visit Diagnoses Diagnosis care in second trimester- Primary care in second trimester documented in this encounter
--- OUTSIDE RECORDS SUMMARY | 2024-04-03 20:36 | XMS_ITS | Encounter Summary ---
Author Organization [facility] Address [address] [place] [address] Care Team Providers Care Factory Helper Name Role Phone Roderick Mckenzie MD Primary Care Provider + [phone] Encounter Details Date Type Department Care Team (Late st Contact Info) Description 04/01/2021 3:45 PM EDT - 04/01/2021 11:59 PM EDT Hospital Encounter [address] [address] Arleen Brunner [address] [phone] Encounter for supervision of other normal , first trimester (Primary Dx) Discharge Disposition: Home [...] have Coronavirus / COVID-19? No / Unsure 04/01/2021 3:46 PM EDT documented as of this encounter Medications at Time of Discharge Medication Sig Dispensed Refills Start Date End Date PNV,calcium 01-mviu-zqjrs acid 27 mg iron- 1 mg tablet Take 1 tablet by mouth once daily. wheelchair Device 1 Device by Miscellaneous route as needed (use until cleared by homecare PT). 1 Device 11/06/2016 documented as of this encounter Plan of Treatment Not on file documented as of this encounter Procedures Procedure Name Priority Date/Time Associated Diagnosis Comments SEND OUT REFERENCE LAB TESTING Routine 04/01/2021 4:00 PM EDT Encounter for supervision of other normal , first trimester VENIPUNCTURE ONLY Routine 04/01/2021 3:4 7 PM EDT Encounter for supervision of other normal , first trimester documented in this encounter Results * Send Out Reference Lab Testing Panorama (04/01/2021 4:00 PM EDT) Reference Test See Ref 04/02/2021 11:42 AM EDT Comment:A separate report wi ll follow. Test Name 2 Panorama 04/01/2021 4:02 PM EDT Specimen Type Blood 04/02/2021 11:42 AM EDT 04/01/2021 4:00 PM EDT 04/01/2021 4:02 PM EDT Arleen Brunner CNM MICROBIOLOGY - GENER AL ORDERABLES [facility] [address] [place] [address] * Venipuncture Only (04/01/2021 3:47 PM EDT) Venipuncture Done 04/01/2021 3:47 PM EDT Blood 04/01/2021 3:47 PM EDT 04/01/2021 3:47 PM EDT Arleen Brunner CNM LAB BLOOD ORDERABLES [facility] [address] [place] [address] documented in this encounter Visit Diagnoses Diagnosis Encounter for supervision of other normal , first trimester- Primary documented in this encounter Care Teams Factory Helper Relationship Specialty Start Date End Date Roderick Mckenzie MD PCP - General Family Medicine 03/07/21 documented as of this encounter
--- OUTSIDE RECORDS SUMMARY | 2024-04-03 20:36 | XMS_ITS | Encounter Summary ---
Author Organization [facility] Address [address] [place] [address] Care Team Providers Care Recycler Name Role Phone Roderick Mckenzie MD Primary Care Provider + [phone] Encounter Details Date Type Department Care Team (Late st Contact Info) Description 03/08/2021 8:45 AM EDT - 03/08/2021 8:49 AM EDT Hospital Encounter [address] [phone] Arleen Brunner [address] [phone] screening encounter (Primary Dx) Discharge Disposition: Home or [...] Coronavirus / COVID-19? No / Unsure 03/08/2021 7:52 AM EDT documented as of this encounter Medications at Time of Discharge Medication Sig Dispensed Refills Start Date End Date PNV,calcium 37-htbl-tnjom acid 27 mg iron- 1 mg tablet Take 1 tablet by mouth once daily. wheelchair Device 1 Device by Miscellaneous route as needed (use until cleared by homecare PT). 1 Device 11/06/2016 documented as of this encounter Plan of Treatment Not on file documented as of this encounter Procedures Procedure Name Priority Date/Time Associated Diagnosis Comments T4, FREE NH Routine 03/08/2021 9:12 AM EDT VITAMIN D 25 HYDROXY TOTAL D Routine 03/08/2021 9:12 AM EDT screening encounter HEMOGLOBIN, A1C Routine 03/08/2021 9:12 AM EDT screening encounter VENIPUNCTURE ONLY Routine 03/08/2021 8:5 6 AM EDT screening encounter documented in this encounter Results * T4, Free [place] Only (03/08/2021 9:12 AM EDT) T4, Free 1.28 0.58 - 1.64 NG/DL 03/08/2021 10:16 AM EDT 03/08/2021 9:12 AM EDT 03/08/2021 9:26 AM EDT Arleen Brunner [facility] LAB BLOOD ORDERABLES [facility] [address] [place] [address] * Hemoglobin, A1c (03/08/2021 9:12 AM EDT) Hemoglobin A1C 5.5 4.3 - 5.6 % 8:31 PM EDT Blood 03/08/2021 9:12 AM EDT 03/08/2021 4:59 PM EDT Arleen RUBIO LAB BLOOD ORDERABLES [facility] [address] [place] [address] * Vitamin D 25 Hydroxy Total D (03/08/2021 9:12 AM EDT) Vitamin D, 25-Hydroxy 33.8 30.0 - 100.0 NG/ML 03/08/2021 6:15 PM EDT Total 25 OH Vitamin D Interp Footnote 03/08/2021 6:15 PM EDT Comment: Reference Ranges: Deficiency <21.0 ng/mL Insufficiency 21.0-29.9 ng/mL Sufficiency 30.0-100.0 ng/mL Toxicity >100.0 ng/mL Blood 03/08/2021 9:12 AM EDT 03/08/2021 5:00 PM EDT Arleen Brunner [facility] LAB BLOOD ORDERABLES [facility] [address] [place] [address] * Venipuncture Only (03/08/2021 8:56 AM EDT) Venipuncture Done 03/08/2021 8:57 AM EDT Blood 03/08/2021 8:56 AM EDT 03/08/2021 8:56 AM EDT Arleen Brunner [facility] LAB BLOOD ORDERABLES [facility] [address] [place] [address] documented in this encounter Visit Diagnoses Diagnosis screening encounter- Primary documented in this encounter Care Teams Recycler Relationship Specialty Start Date End Date Roderick Mckenzie MD PCP - General Family Medicine 03/07/21 documented as of this encounter
--- OUTSIDE RECORDS SUMMARY | 2024-04-03 20:36 | XMS_ITS | Continuity of Care Document ---
Author Organization [facility] Address [address] [place] [id number] Encounter [facility] FIN NBR [id number] Date(s): 10/06/23 - 10/06/[address] [address]- Encounter Diagnosis Urinary retention(Discharge Diagnosis) - 10/06/23 Discharge Disposition: Home or Self Care Attending Physician: Reese Goldman DO Admitting Physician: Reese Goldman DO Allergies, Adverse Reactions, Alerts Substance Reaction Severity Status clindamycin Rash Moderate Active Assessment and Plan Extracted from: Title:ED Provider Note Author:NEGRO Ann RN Date:10/06/23 Assessment/Plan 1.??Urinary retention??R33.9 Ordered: Pyridium, 400 mg = 4 tab, Oral, Tab, Once, First Dose: 10/06/23 20:00:00 EST, Stop Date: 10/06/23 20:00:00 EST, Physician Stop, Routine ?? Patient Discharge Condition Stable Patient Education Indwelling Urinary Catheter Insertion, Care After Acute Urinary Retention, Female Follow Up With When Contact Information Yessi Farah MD Within 24 Hours [address] [place] [address] ?? Additional Instructions: Medications amoxicillin-clavulanate 875 mg-125 mg oral tablet 1 tab, Oral, every 12 hr, # 14 tab, 0 Refill(s), Pharmacy: [facility] #[id number], 154, cm, 08/02/23 22:36:00 EST, Height, 46, kg, 08/02/23 22:36:00 EST, Weight Dosing Start Date: 08/07/23 Stop Date: 08/14/23 Status: Ordered amoxicillin-clavulanate 875 mg-125 mg oral tablet 1 tab, Oral, every 12 hr, # 20 tab, 0 Refill(s), Pharmacy: [facility] #[id number] Start Date: 05/16/23 Stop Date: 05/26/23 Status: Ordered chlorhexidine 0.12% mucous membrane liquid 0.018 g 15 mL, Oral, BID, # 473 mL, 0 Refill(s), Pharmacy: [facility] #[id number], 154, cm, 08/02/23 22:36:00 EST, Height, 46, kg, 08/02/23 22:36:00 EST, Weight Dosing Start Date: 08/09/23 Status: Ordered Classic oral tablet 0 Refill(s) Start Date: 03/07/23 Status: Ordered clindamycin 300 mg oral capsule 300 mg = 1 cap, Oral, every 8 hr, # 24 cap, 0 Refill(s), Pharmacy: [facility] #[id number], 154.94, cm, 05/28/23 20:02:00 EDT, Height/Length Dosing, 46.72, kg, 05/28/23 20:02:00 EDT, Weight Dosing Start Date: 07/26/23 Status: Ordered ondansetron 4 mg oral tablet, disintegrating 4 mg = 1 tab, Oral, every 8 hr, PRN as needed for nausea/vomiting, # 9 tab, 0 Refill(s), Pharmacy: [facility] #[id number] Start Date: 05/18/23 Stop Date: 05/21/23 Status: Ordered progesterone 100 mg oral capsule 400 mg = 4 cap, Oral, Daily, 0 Refill(s) Start Date: 05/28/23 Status: Ordered Pyridium 200 mg oral tablet 200 mg = 1 tab, Oral, TID(PC), PRN pain, # 16 tab, 0 Refill(s), Pharmacy: [facility] #[id number], 154.94, cm, 07/29/23 20:53:00 EST, Height, 46.72, kg, 07/29/23 20:53:00 EST, Weight Dosing Start Date: 07/30/23 Status: Ordered Mental Status 10/06/23 Eye Opening Response Sydnee Spontaneous ly Best Verbal Response Milfay Oriented Best Motor Response Milfay Obeys comman ds Sydnee Coma Score 15 Problem List Condition Confirmation Course Effective Dates Status Health St atus Informant Urinary retention Confirmed Active Results Laboratory List Name Date Urinalysis with Micro if Indicated and C ulture if Indicated 10/06/23 Most recent to oldest [Reference Range]: 1 UA Color [Yellow] Yellow (10/06/23 6:55 PM) UA Urobilinogen [0.2] 0.2 (10/06/23 6:55 PM) UA Bili [Negative] Negative (10/06/23 6:55 PM) UA Ketones [Negative] Negative (10/06/23 6:55 PM) UA Leuk Est [Negative] Negative (10/06/23 6:55 PM) UA Nitrite [Negative] Negative (10/06/23 6:55 PM) UA Glucose [Negative] Negative (10/06/23 6:55 PM) UA Protein [Negative] Negative (10/06/23 6:55 PM) UA Blood [Negative] Negative (10/06/23 6:55 PM) UA Spec Grav [1.001-1.030] 1.010 (10/06/23 6:55 PM) UA pH [5.00-9.00] 8.00 (10/06/23 6:55 PM) UA Appear [Clear] Clear (10/06/23 6:55 PM) Urine Srce Clean Catch (10/06/23 6:55 PM) Vital Signs Most recent to oldest [Reference Range]: 1 Temperature Temporal Artery [36-38 Deg C ] 37.1 Deg C (10/06/23 6:25 PM) Peripheral Pulse Rate [60-100 bpm] 110 b pm *HI* (10/06/23 6:25 PM) Respiratory Rate [12-24 br/min] 16 br/mi n (10/06/23 6:25 PM) Blood Pressure [90-140/60-90 mmHg] 157/7 2mmHg *HI* (10/06/23 6:25 PM) Mean Arterial Pressure, Cuff [70-110 mmH g] 100 mmHg (10/06/23 6:25 PM) Weight 46 kg (10/06/23 6:25 PM) Weight Dosing 46.000 kg (10/06/23 6:25 PM) Height 157 cm (10/06/23 6:25 PM) Body Mass Index 18.66 kg/m2 (10/06/23 6:25 PM) Social History Social History Type Response Tobacco Never tobacco user T obacco Use:. Sex Hospital Discharge Instructions Patient Education 10/06/2023 18:55:42 Indwelling Urinary Catheter Insertion, Care After Indwelling Urinary Catheter Insertion, Care After This sheet gives you information about how to care for yourself after your procedure. Your health care provider may also give you more specific instructions. If you have problems or questions, contact your health care provider. What can I expect after the procedure? After the procedure, it is common to have: ??? Slight discomfort around your urethra where the catheter enters your body. Follow these instructions at home: General instructions ??? Keep the drainage bag at or below the level of your bladder. By doing this, your urine can onlydrain out instead of going back into your body. ??? Secure the catheter tubing and drainage bag to your leg or thigh to keep it from moving. ??? Check the catheter tubing regularly to make sure there are no kinks or blockages. ??? Take showers daily to keep the catheter clean. Do not take a bath. ??? Do not pull on your catheter. ??? Disconnect the tubing and drainage bag as little as possible. ??? Empty the drainage bag every 2???4 hours, or more often if needed. Do not let the bag get completely full. ??? Wash your hands with soap and water before and after touching the catheter, tubing, or drainagebag. ??? Do not let the drainage bag or catheter tubing touch the floor. ??? Drink enough fluids to keep your urine pale yellow, or as told by your health care provider. How to remove the catheter Remove the catheter only if told by your health care provider. Follow instructions from your healthcare provider about when and how to remove the catheter. For most catheters, you will need to take the following steps: 1. Prepare your supplies. You will need a: ??? Syringe. This would be given to you by your health care provider. ??? Towel. ??? Wastebasket. 2. Empty the drainage bag if needed. 3. Wash your hands with soap and warm water. 4. Remove the tape that secures the catheter to your leg or thigh. 5. Get into a comfortable position, such as: ??? Lying down with your head raised on pillows and your knees pointing to the ceiling. ??? Sitting on a chair or the edge of a bed. 6. Place the towel under you to catch any spilled urine. 7. Put the syringe into the balloon port of the catheter. Use a firm push and twist motion to fit the syringe into the balloon port. 8. The water from the balloon will empty into the syringe. 9. Gently pull out the catheter once the balloon is empty. ??? If the catheter doesn't slide easily, do not use force. Let your health care provider know thatyou are not able to remove the catheter. 10. Throw the used catheter and the syringe in the wastebasket. 11. Wipe any spilled urine or water with the towel. 12. Wash your hands with soap and warm water. Safety Let your health care provider know if: ??? Your bladder is full, but you are not able to urinate. ??? You have removed the catheter, but you are not able to urinate after 8 hours. Contact a health care provider if: ??? Your urine: ??? Looks cloudy. ??? Has a bad smell. ??? Stops flowing into the drainage bag. ??? Your catheter: ??? Gets clogged. ??? Starts to leak. ??? You feel pain or pressure in the bladder area. ??? You have back pain. ??? Your drainage bag or tubing looks dirty. Get help right away if: ??? You have a fever or chills. ??? You have severe pain in your back or your lower abdomen. ??? You have warmth, redness, swelling, or pain in the urethra area. ??? You notice blood in your urine. ??? Your catheter gets pulled out. Summary ??? Wash your hands with soap and water before and after touching the catheter, tubing, or drainagebag. ??? Do not pull on your catheter or try to remove it. ??? Keep the drainage bag at or below the level of your bladder, but do not let the drainage bag orcatheter tubing touch the floor. ??? Get help right away if you have a fever, chills, or any other signs of infection. This information is not intended to replace advice given to you by your health care provider. Make sure you discuss any questions you have with your health care provider. Document Revised: 11/13/2021 Document Reviewed: 08/09/2021 [employer] Patient Education ?? 2021 [employer]. 10/06/2023 18:55:37 Acute Urinary Retention, Female Acute Urinary Retention, [...] these instructions at home: Medicines ??? Take [id number] and prescription medicines only as told by [...] provider. Document Revised: 05/15/2021 Document Reviewed: 05/15/2021 [employer] Patient Education ?? 2022 [employer]. Follow Up Care 10/06/2023 18:25:03 With:Yessi Farah MD Address: [address] [place] [id number] When:24 Hours Physician Emergency department Note * Johana Melton APRN: PERFORM Event Display: ED Note Physician Authored Date: [id number] RIAZ REGALADO :1995 Age:28 years Sex:Female Visit Date:10/06/2023 Basic Information Time Seen: Johana Melton APRN / 10/06/2023 18:34 Chief Complaint Pt c/o bladder pain and frequency that started this morning. Denies fevers. History Of Present Illness: This is a 28-year-old female patient??who reports that she has been having??pain from a right sidedovarian cyst??and??was??seen in her UNITIZER's office today??but??appointment was cut short due to anemergency.?? She was unable to??communicate??that she had been having??symptoms of??urinary retention and frequency as well??and states that??she feels she was confusing the 2 symptoms??and now thinks that??her pain??has been secondary to being unable to void. ??She states she has had a??history ofurinary retention and did have??an indwelling Leger catheter??placed in the past.?? She denies any fevers??nausea or??signs of systemic infection Review of Systems: 10 point review of systems all negative except positives as per HPI Physical Exam Vitals & Measurements T:??37.1?C ??(Temporal Artery)?? HR:??110??(Peripheral)?? RR:??16?? BP:??157/72?? SpO2:??98%?? HT:??157??cm?? WT:??46??kg?? BMI:??18.66?? O2 Therapy:??Room air?? General: Alert and oriented,??thin??frail appearing,?No??acute distress Eye: PERRL, EOMI,?Normal?conjunctiva HENT: Normocephalic, Neck: Supple, non-tender,? Lungs:?? Respiration:??Non-Labored Heart:?Abnormal?? rate,??tachycardic regular??rhythm, Abdomen: Soft, tender, distended,?Normal? bowel sounds Musculoskeletal:?Normal? range of motion and strength,?? Skin: Skin is warm, dry and pink,?No??rashes,?No??lesions Neurologic: Awake, alert and oriented X4, Psychiatric: Cooperative, anxious mood and affect Medical Decision Makin-year-old female previous history of urinary retention presents here with similar symptoms.?? Sheis unable to produce??adequate sample??of urine??postvoid bladder scan does show approximately 700 mL??of fluid.?? Leger catheter is placed and she drained approximately at 1000 mL.?? She is reporting??bladder spasms.?? Urine culture has been obtained and shows no??sign of urinary infection.?? She is to be discharged home with indwelling Leger catheter in place with urology follow-up. ??She will be provided??Pyridium??for her symptoms. Procedure No Qualifying Data Assessment/Plan 1.??Urinary retention??R33.9 Ordered: Pyridium, 400 mg = 4 tab, Oral, Tab, Once, First Dose: 10/06/23 20:00:00 EST, Stop Date: 10/06/23 20:00:00 EST, Physician Stop, Routine ?? Patient Discharge Condition Stable Patient Education Indwelling Urinary Catheter Insertion, Care After Acute Urinary Retention, Female Follow Up With When Contact Information Yessi Farah MD Within 24 Hours [address] [place] [phone] Additional Instructions: Medication Reconciliation Unchanged amoxicillin-clavulanate (amoxicillin-clavulanate [...] Results UA Macroscopic?? LATEST RESULTS?? HISTORICAL RESULTS?? Urine Srce?? 10/06/23 18:55?? Clean Catch?? 07/29/23?? Clean Catch?? UA Color?? 10/06/23 18:55?? Yellow?? 08/02/23?? [place] Abnormal?? UA Appear?? 10/06/23 18:55?? Clear?? 08/02/23?? Clear?? UA Glucose?? 10/06/23 18:55?? Negative?? 08/02/23?? 250 Abnormal?? UA Bili?? 10/06/23 18:55?? Negative?? 08/02/23?? Negative?? UA Ketones?? 10/06/23 18:55?? Negative?? 08/02/23?? Trace Abnormal?? UA Spec Grav?? 10/06/23 18:55?? 1.010?? 08/02/23?? <=1.005?? UA Blood?? 10/06/23 18:55?? Negative?? 08/02/23?? Negative?? UA pH?? 10/06/23 18:55?? 8.00?? 08/02/23?? 6.50?? UA Protein?? 10/06/23 18:55?? Negative?? 08/02/23?? 100 Abnormal?? UA Urobilinogen?? 10/06/23 18:55?? 0.2?? 08/02/23?? >=8.0 Abnormal?? UA Nitrite?? 10/06/23 18:55?? Negative?? 08/02/23?? Positive Abnormal?? UA Leuk Est?? 10/06/23 18:55?? Negative?? 08/02/23?? Trace Abnormal? Electronically Signed on 10/06/23 07:57 PM Johana Melton APRN Emergency department Discharge instructions * Johana Melton APRN: PERFORM Event Display: ED Discharge Information Authored Date: [id number] RIAZ REGALADO :1995 Age:28 years Sex:Female Visit Date:10/06/2023 Discharge Instructions We would like to thank you for allowing us to assist you with your healthcare needs. The following includes patient education materials and information regarding your injury/illness. Diagnosis from Today's Visit Urinary retention Discharge Vitals Temperature??(Temporal Artery) 98.8 ??F (37.1 ??C) Heart Rate??(Peripheral) 110 Respiratory Rate?? 16 Blood Pressure?? 157/72?? Height?? 61.81 in (157 cm) Weight?? 101.43 lb (46 kg) BMI?? 18.66 Allergies clindamycin??(Rash) What to Do Next Instructions from Your Care Team Leger care as directed Use Pyridium if needed for symptoms of bladder spasm You Need to Schedule the Following Appointments Follow Up with??Yessi Farah MD When:??Within 24 Hours Where: [address] [place] [address] You were treated today on [...] Every day Education Materials Indwelling Urinary Catheter Insertion, Care After This sheet gives you information about how to care for yourself after your procedure. Your health care provider may also give you more specific instructions. If you have problems or questions, contact your health care provider. What can I expect after the procedure? After the procedure, it is common to have: ? Slight discomfort around your urethra where the catheter enters your body. Follow these instructions at home: General instructions ? Keep the drainage bag at or below the level of your bladder. By doing this, your urine can only drain out instead of going back into your body. ? Secure the catheter tubing and drainage bag to your leg or thigh to keep it from moving. ? Check the catheter tubing regularly to make sure there are no kinks or blockages. ? Take showers daily to keep the catheter clean. Do not take a bath. ? Do not pull on your catheter. ? Disconnect the tubing and drainage bag as little as possible. ? Empty the drainage bag every 2???4 hours, or more often if needed. Do not let the bag get completely full. ? Wash your hands with soap and water before and after touching the catheter, tubing, or drainage bag. ? Do not let the drainage bag or catheter tubing touch the floor. ? Drink enough fluids to keep your urine pale yellow, or as told by your health care provider. How to remove the catheter Remove the catheter only if told by your health care provider. Follow instructions from your healthcare provider about when and how to remove the catheter. For most catheters, you will need to take the following steps: 1.?? Prepare your supplies. You will need a: ? Syringe. This would be given to you by your health care provider. ? Towel. ? Wastebasket. 2.?? Empty the drainage bag if needed. 3.?? Wash your hands with soap and warm water. 4.?? Remove the tape that secures the catheter to your leg or thigh. 5.?? Get into a comfortable position, such as: ? Lying down with your head raised on pillows and your knees pointing to the ceiling. ? Sitting on a chair or the edge of a bed. 6.?? Place the towel under you to catch any spilled urine. 7.?? Put the syringe into the balloon port of the catheter. Use a firm push and twist motion to fit the syringe into the balloon port. 8.?? The water from the balloon will empty into the syringe. 9.?? Gently pull out the catheter once the balloon is empty. ? If the catheter doesn't slide easily, do not use force. Let your health care provider know that youare not able to remove the catheter. 10.?? Throw the used catheter and the syringe in the wastebasket. 11.?? Wipe any spilled urine or water with the towel. 12.?? Wash your hands with soap and warm water. Safety Let your health care provider know if: ? Your bladder is full, but you are not able to urinate. ? You have removed the catheter, but you are not able to urinate after 8 hours. Contact a health care provider if: ? Your urine: ? Looks cloudy. ? Has a bad smell. ? Stops flowing into the drainage bag. ? Your catheter: ? Gets clogged. ? Starts to leak. ? You feel pain or pressure in the bladder area. ? You have back pain. ? Your drainage bag or tubing looks dirty. Get help right away if: ? You have a fever or chills. ? You have severe pain in your back or your lower abdomen. ? You have warmth, redness, swelling, or pain in the urethra area. ? You notice blood in your urine. ? Your catheter gets pulled out. Summary ? Wash your hands with soap and water before and after touching the catheter, tubing, or drainage bag. ? Do not pull on your catheter or try to remove it. ? Keep the drainage bag at or below the level of your bladder, but do not let the drainage bag or catheter tubing touch the floor. ? Get help right away if you have a fever, chills, or any other signs of infection. This information is not intended to replace advice given to you by your health care provider. Make sure you discuss any questions you have with your health care provider. Document Revised: 11/13/2021 Document Reviewed: 08/09/2021 [employer] Patient Education ?? 2021 [employer] Acute Urinary Retention, Female Acute urinary [...] these instructions at home: Medicines ? Take awny-[id number]-xpqtcym and prescription medicines only as told by [...] provider. Document Revised: 05/15/2021 Document Reviewed: 05/15/2021 [employer] Patient Education ?? 2022 [employer] Tests Performed Lab Test Name Test Result Date/Time Urine Srce Clean Catch 10/06/2023 18:55 EST UA Color YELLOW. 10/06/2023 18:55 EST UA Appear CLEAR. 10/06/2023 18:55 EST UA Glucose NEGATIVE 10/06/2023 18:55 EST UA Bili NEGATIVE 10/06/2023 18:55 EST UA Ketones NEGATIVE 10/06/2023 18:55 EST UA Spec Grav 1.010 10/06/2023 18:55 EST UA Blood NEGATIVE 10/06/2023 18:55 EST UA pH 8.00 10/06/2023 18:55 EST UA Protein NEGATIVE 10/06/2023 18:55 EST UA Urobilinogen 0.2 10/06/2023 18:55 EST UA Nitrite NEGATIVE 10/06/2023 18:55 EST UA Leuk Est NEGATIVE 10/06/2023 18:55 EST Patient/Medical Physiologist Signature Patient Name:RIAZ REGALADO I have received this information and my questions have been answered. Patient/Medical Physiologist Name: Patient/Medical Physiologist Signature: Relationship to Patient: Witness Name/Signature: Date: Electronically Signed on: 10/06/2023 19:57 ESTSigned by:TERRY Patient Care team information Care Team Related Persons Name: CRISTIANA KEARNS
--- OUTSIDE RECORDS SUMMARY | 2024-04-03 20:36 | XMS_ITS | Encounter Summary ---
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 [facility] MPV 8.4 7.4 - 10.4 fL 11/05/2016 6:09 AM [facility] Seg Neutrophils % 64.3 % 11/05/2016 6:09 AM [facility] Lymphocytes % 20.5 % 11/05/2016 6:09 AM [facility] Monocytes % 14.5 % 11/05/2016 6:09 AM [facility] Eosinophils % 0.2 % 11/05/2016 6:09 AM [facility] Basophils % 0.5 % 11/05/2016 6:09 AM [facility] Segs Absolute 4.2 1.5 - 7.5 [id number] 11/05/2016 6:09 AM [facility] Lymphocytes Absolute 1.3 1.0 - 4.0 [id number] 11/05/2016 6:09 AM [facility] Monocytes Absolute 0.9(H) 0.2 - 0.8 K/uL 11/05/2016 6:09 AM [facility] Eosinophils Absolute 0.0 0.0 - 0.5 K/uL 11/05/2016 6:09 AM [facility] Basophils Absolute 0.0 0.0 - 0.2 [id number] 11/05/2016 6:09 AM [facility] Blood 11/05/2016 5:00 AM EST 11/05/2016 5:38 AM EST Brenda Coyle MD LAB BLOOD ORDERABLES [facility] [address] [place] [address] * (ABNORMAL) Comprehensive Metabolic Panel (11/05/2016 5:00 AM EST) Glucose 57(L) 67 - 99 MG/DL 11/05/2016 6:18 AM [facility] BUN 9 6 - 24 MG/DL 11/05/2016 6:18 AM [facility] Creatinine 0.69 0.44 - 1.03 MG/DL 11/05/2016 6:18 AM [facility] Sodium 135 135 - 145 MEQ/L 11/05/2016 6:18 AM [facility] Potassium 3.3(L) 3.6 - 5.1 MEQ/L 11/05/2016 6:18 AM [facility] Chloride 103 98 - 110 MEQ/L 11/05/2016 6:18 AM [facility] CO2 19(L) 22 - 32 MEQ/L 11/05/2016 6:18 AM [facility] Anion Gap 13 3 - 13 11/05/2016 6:18 AM [facility] Albumin 4.3 3.5 - 5.0 G/DL 11/05/2016 6:18 AM [facility] Alkaline Phosphatase 59 34 - 104 IU/L 11/05/2016 6:18 AM [facility] ALT 8 6 - 45 IU/L 11/05/2016 6:18 AM [facility] AST (SGOT) 17 10 - 42 IU/L 11/05/2016 6:18 AM [facility] Bilirubin, Total 0.7 0.2 - 1.3 MG/DL 11/05/2016 6:18 AM EST [facility] Calcium 9.4 8.5 - 10.5 MG/DL 11/05/2016 6:18 AM EST [facility] Protein, Total 7.0 6.0 - 8.0 G/DL 11/05/2016 6:18 AM EST [facility] eGFR >60 Abnormal <60 ML/MIN/1.73M 11/05/2016 6:18 AM EST [facility] Comment:If multiply by 1.21 Blood 11/05/2016 5:00 AM EST 11/05/2016 5:37 AM EST Brenda Coyle MD LAB BLOOD ORDERABLES [facility] [address] [place] [address] * ECG 12 Lead (11/05/2016 4:07 AM EST) RR Interval 600 ms [facility] Atrial Rate 101 ms [facility] P-R Interval 136 ms [facility] P Duration 140 ms [facility] P Horizontal [place] 6 deg [facility] P Front [place] 46 deg [facility] QRS [place] 516 ms [facility] QRSD Interval 68 ms [facility] QT Interval 336 ms [facility] QTcB 434 ms [facility] QTcF 398 ms [facility] QRS Horizontal [place] -5 deg [facility] QRS [place] 76 deg [facility] I-40 Horizontal [place] 27 deg [facility] I-40 Front [place] 25 deg [facility] T-40 Horizontal [place] -12 deg [facility] T-40 Front [place] 80 deg [facility] T Horizontal [place] 6 deg [facility] T Wave [place] 54 deg [facility] S-T Horizontal [place] 18 deg [facility] S-T Front [place] 65 deg [facility] ECG Impression - BORDERLINE ECG - [facility] 11/05/2016 Impressions [facility] - 11/06/2016 11:39 PM EST BORDERLINE SINUS TACHYCARDIA/SINUS ARRHYTHMIA NON-DIAGNOSTIC Q WAVES INFERIORLY REPNS BORDERLINE REPOLARIZATION ABNORMALITIES ST DEP, T NEG, 2-3 LEADS 40 THERE IS NO RECORD FOR COMPARISON. Narrative Procedure Note Malachi Castro MD - 11/06/2016 BORDERLINE SINUS TACHYCARDIA/SINUS ARRHYTHMIA NON-DIAGNOSTIC Q WAVES INFERIORLY REPNS BORDERLINE REPOLARIZATION ABNORMALITIES ST DEP, T NEG, 2-3 LEADS 40 THERE IS NO RECORD FOR COMPARISON. Brenda Coyle MD ECG ORDERABLES [facility] * Outside Study CR Chest (11/04/2016 7:01 PM EST) Sabine Perez - 11/04/2016 7:01 PM EST This is an outside image. Provider Not In System IMG DIAGNOSTIC IM AGING ORDERABLES * Outside Study MRI Brain (11/04/2016 7:01 PM EST) Sabine Perez - 11/04/2016 7:01 PM EST This is an outside image. Provider Not In System IMG MRI ORDERABLE S * Outside Study CT Brain (11/04/2016 7:01 PM EST) Sabine Perez - 11/04/2016 7:01 PM EST This is an outside image. Provider Not In System IMG CT ORDERABLES documented in this encounter Visit Diagnoses Diagnosis Psychogenic nonepileptic seizure- Primary Psychogenic nonepileptic seizure Seizure (CMS/HCC) Other convulsions Weakness Other malaise and fatigue documented in this encounter Administered Medications Inactive Administered Medications - up to 3 most recent administrations Medication Order MAR Action Action Date Dose Rate Site acetaminophen (OFIRMEV) injection 1,000 mg 1,000 mg, Intravenous, at 400 mL/hr, Once, On Thu11/04/16 at 2115, 1 dose, What is the P&T approved indication for use? Use of oral or rectal acetaminophen is contraindicated. New Bag 11/04/2016 9:40 PM EST 1,000 mg 400 mL/hr ALPRAZolam (XANAX) tablet 0.5 mg 0.5 mg, Oral, 2 times daily, First dose on Thu11/04/16 at 2030, Until Discontinued Given 11/06/2016 10:12 AM EST 0.5 mg Given 11/05/2016 8:36 PM EST 0.5 mg Given 11/05/2016 9:09 AM EST 0.5 mg enoxaparin (LOVENOX) syringe 40 mg 40 mg, Subcutaneous, Once Daily, First dose on Thu11/05/16 at 0800, Until Discontinued, enoxaparin for DVT/VTE prophylaxis Given 11/06/2016 10:13 AM EST 40 mg Given 11/05/2016 9:08 AM EST 40 mg hydrOXYzine HCl (ATARAX) tablet 25 mg 25 mg, Oral, Bedtime, First dose on Thu11/04/16 at 2200, Until Discontinued, LOOK-ALIKE/SOUND-ALIKE MEDICATION: Use caution and follow appropriate policies for medication prescribing, dispensing and administration. Given 11/05/2016 8:36 PM EST 25 mg Given 11/04/2016 9:23 PM EST 25 mg hydrOXYzine HCl (ATARAX) tablet 25 mg 25 mg, Oral, 4 times daily PRN, anxiety, Starting on Thu11/06/16 at 0730, Until Thu11/06/16 at 1923, LOOK-ALIKE/SOUND-ALIKE MEDICATION: Use caution and follow appropriate policies for medication prescribing, dispensing and administration. lidocaine (LIDODERM) 5 % 1 patch 1 patch, Transdermal, Administer over 12 Hours, Once Daily, First dose on Thu11/05/16 at 0800, Until Discontinued, Apply to neck. Remove patch after 12 hours and leave off for 12 hours Patch Applied 11/06/2016 10:13 AM EST 1 patch Posterior Neck Patch Applied 11/05/2016 9:10 AM EST 1 patch Posterior Neck LORazepam (ATIVAN) 2 mg/mL injection 1 mg 1 mg, Intravenous, Once, On Thu11/04/16 at 2030, 1 dose Given 11/05/2016 1:15 PM EST 1 mg LORazepam (ATIVAN) 2 mg/mL injection 2 mg 2 mg, Intravenous, Once, On Thu11/05/16 at 0245, 1 dose, Indications: seizure Given 11/05/2016 2:45 AM EST 2 mg naproxen (NAPROSYN) tablet 250 mg 250 mg, Oral, Once, On Thu11/05/16 at 0230, 1 dose Given 11/05/2016 3:05 AM EST 250 mg ondansetron (ZOFRAN) 4 mg/2 mL injection 8 mg 8 mg, Intravenous, Every 8 hours PRN, nausea, vomiting, Starting on Thu11/04/16 at 2100, Until Thu11/05/16 at 0821 Given 11/04/2016 9:20 PM EST 8 mg ondansetron (ZOFRAN) 4 mg/2 mL injection 8 mg 8 mg, Intravenous, Every 6 hours, First dose (after last modification) on Thu11/05/16 at 0830, Until Discontinued Given 11/06/2016 4:26 PM EST 8 mg Given 11/06/2016 10:13 AM EST 8 mg L eft Arm Given 11/05/2016 8:38 PM EST 8 mg potassium chloride (K-DUR,KLOR-CON) CR tablet 40 mEq 40 mEq, Oral, Once, On Thu11/05/16 at 1000, 1 dose Given 11/05/2016 8:59 PM EST 40 mEq ramelteon (ROZEREM) tablet 8 mg 8 mg, Oral, Bedtime, First dose on Thu11/06/16 at 0300, Until Discontinued Given 11/06/2016 3:10 AM EST 8 mg sodium chloride 0.9 % flush 3 mL 3 mL, intra-catheter, As needed, line care, Starting on Thu11/04/16 at 2004, Until Thu11/06/16 at 1923 traZODone (DESYREL) tablet 50 mg 50 mg, Oral, Nightly PRN, insomnia, sleep, Starting on Thu11/06/16 at 0340, Until Thu11/06/16 at 1923 documented in this encounter Active and Recently Administered Medications Times are shown in EST. Scheduled Medication Order 11/04/2016 11/05/2016 11/06/2016 acetaminophen (OFIRMEV) injection 1,000 mg (COMPLETED) 1,000 mg, Intravenous, at 400 mL/hr, Once, On Thu11/04/16 at 2115, 1 dose, What is the P&T approved indication for use? Use of oral or rectal acetaminophen is contraindicated. 2139 (New Bag - Provider: Naomie Morales)2154 (Stopped - Provider: Naomie Morales) ALPRAZolam (XANAX) tablet 0.5 mg 0.5 mg, Oral, 2 times daily, First dose on Thu11/04/16 at 2030, Until Discontinued 2122 (Given - Provider: Naomie Morales) 908 (Given - Provider: Hilary Ross RN)2035 (Given - Provider: Angela Angelo RN) 101 (Given - Provider: Hilary Ross RN) enoxaparin (LOVENOX) syringe 40 mg 40 mg, Subcutaneous, Once Daily, First dose on Thu11/05/16 at 0800, Until Discontinued, enoxaparin for DVT/VTE prophylaxis 907 (Given - Provider: Hilary Ross RN) 101 (Given - Provider: Hilary Ross RN) hydrOXYzine HCl (ATARAX) tablet 25 mg (CANCELED) 25 mg, Oral, Bedtime, First dose on Thu11/04/16 at 2200, Until Discontinued, LOOK-ALIKE/SOUND-ALIKE MEDICATION: Use caution and follow appropriate policies for medication prescribing, dispensing and administration. 2122 (Given - Provider: Naomie Morales) 2035 (Given - Provider: Angela Angelo RN) lidocaine (LIDODERM) 5 % 1 patch 1 patch, Transdermal, Administer over 12 Hours, Once Daily, First dose on Thu11/05/16 at 0800, Until Discontinued, Apply to neck. Remove patch after 12 hours and leave off for 12 hours 909 (Patch Applied - Provider: Hilary Ross RN)2055 (Patch Removed - Provider: Angela Angelo RN - Comment: previous patch not on pt. pt states it fell off while taking a shower.) 101 (Patch Applied - Provider: Hilary Ross RN)2212 (Due: Patch Removed - Provider: Hilary Ross RN) LORazepam (ATIVAN) 2 mg/mL injection 1 mg (COMPLETED) 1 mg, Intravenous, Once, On Thu11/04/16 at 2030, 1 dose 1999 (Not Given - Provider: Naomie Morales - Reason: Other - Comment: pt condition changed.) 131 (Given - Provider: Hilary Ross RN) LORazepam (ATIVAN) 2 mg/mL injection 2 mg (COMPLETED) 2 mg, Intravenous, Once, On Thu11/05/16 at 0245, 1 dose, Indications: seizure 0245 (Given - Provider: Naomie Morales - Comment: Given to break seizure) naproxen (NAPROSYN) tablet 250 mg (COMPLETED) 250 mg, Oral, Once, On Thu11/05/16 at 0230, 1 dose 0305 (Given - Provider: Naomie Morales) ondansetron (ZOFRAN) 4 mg/2 mL injection 8 mg 8 mg, Intravenous, Every 6 hours, First dose (after last modification) on Thu11/05/16 at 0830, Until Discontinued 09 (Given - Provider: Hilary Ross RN)143 (Not Given - Provider: Hilary Ross RN - Reason: Other - Comment: sleeping)2037 (Given - Provider: Angela Angelo RN) 024 (Not Given - Provider: Naomie Morales - Reason: Other - Comment: pt not complaining of nausea at this time.)1013 (Given - Provider: Hilary Ross RN)1626 (Given - Provider: Denton Thornton RN - Comment: last admin late making his admin late) potassium chloride (K-DUR,KLOR-CON) CR tablet 40 mEq (COMPLETED) 40 mEq, Oral, Once, On Thu11/05/16 at 1000, 1 dose 2058 (Given - Provider: Angela Angelo RN) ramelteon (ROZEREM) tablet 8 mg 8 mg, Oral, Bedtime, First dose on Thu11/06/16 at 0300, Until Discontinued 031 (Given - Provider: Naomie Morales) PRN Medication Order 11/04/2016 11/05/2016 11/06/2016 hydrOXYzine HCl (ATARAX) tablet 25 mg 25 mg, Oral, 4 times daily PRN, anxiety, Starting on Thu11/06/16 at 0730, Until Thu11/06/16 at 1923, LOOK-ALIKE/SOUND-ALIKE MEDICATION: Use caution and follow appropriate policies for medication prescribing, dispensing and administration. 1016 (Not Given - Provider: Hilary Ross RN - Reason: Patient/family refused) ondansetron (ZOFRAN) 4 mg/2 mL injection 8 mg (CANCELED) 8 mg, Intravenous, Every 8 hours PRN, nausea, vomiting, Starting on Thu11/04/16 at 2100, Until Thu11/05/16 at 0821 2120 (Given - Provider: Naomie Morales) sodium chloride 0.9 % flush 3 mL(Linked Group 1) 3 mL, intra-catheter, As needed, line care, Starting on Thu11/04/16 at 2003, Until Jackelin 11/06/16 at 1923 traZODone (DESYREL) tablet 50 mg 50 mg, Oral, Nightly PRN, insomnia, sleep, Starting on Thu11/06/16 at 0340, Until Thu11/06/16 at 1923 Linked Groups Order Group 1: Insert peripheral IV (COMPLETED) STAT, Once, On Thu11/04/16 at 2004, For 1 occurrence And Maintain IV access (CANCELED) Routine, Until discontinued, Starting on Thu11/04/16 at 2004, Until Specified And Saline lock IV (CANCELED) Routine, Once, On Thu11/04/16 at 2004, For 1 occurrence And sodium chloride 0.9 % flush 3 mLJump to med 3 mL, intra-catheter, As needed, line care, Starting on Thu11/04/16 at 2003, Until Thu11/06/16 at 1923 documented in this encounter Care Teams Surveying Teacher Relationship Specialty Start Date End Date Srini Martínez MD [address] [place] [id number] PCP - General Family Medicine 06/17/16 12/14/16 documented as of this encounter
--- OUTSIDE RECORDS SUMMARY | 2024-04-03 20:36 | XMS_ITS | Encounter Summary ---
Author Organization [facility] Address [address] [place] [address] Care Team Providers Care Power Press Supervisor Name Role Phone Jose Arenas Primary Care Provider [phone] Encounter Details Date Type Department Care Team (Latest Contact Info) Description 12/31/2016 4:10 PM EDT - 12/31/2016 9:54 PM EDT Hospital Encounter [facility] [address] [place] [address] Jose Arenas PA [address] [facility] [address] [place] [address] Routine general medical examination at a health care facility (Primary Dx); Body mass index less than 19, adult; Immunity status testing; Psychogenic nonepileptic seizure; Weakness Discharge Disposition: Home or Self Care Social [...] Procedure Name Priority Date/Time Associated Diagnosis Comments RUBELLA ANTIBODY IGG Routine 12/31/2016 4:12 PM EDT Routine general medical examination at a health care facility Body mass index less than 19, adult Immunity status testing Psychogenic nonepileptic seizure Weakness VARICELLA ZOSTER IGG Routine 12/31/2016 4:12 PM EDT Routine general medical examination at a health care facility Body mass index less than 19, adult Immunity status testing Psychogenic nonepileptic seizure Weakness MUMPS VIRUS IGG Routine 12/31/2016 4:12 PM EDT Routine general medical examination at a [facility] care facility Body mass index less than 19, adult Immunity status testing Psychogenic nonepileptic seizure Weakness MEASLES VIRUS IGG Routine 12/31/2016 4:1 2 PM EDT Routine general medical examination at a health care facility Body mass index less than 19, adult Immunity status testing Psychogenic nonepileptic seizure Weakness VENIPUNCTURE ONLY Routine 12/31/2016 4:1 2 PM EDT Routine general medical examination at a health care facility Body mass index less than 19, adult Immunity status testing Psychogenic nonepileptic seizure Weakness HEPATITIS B SURFACE ANTIBODY Routine 12/31/2016 4:12 PM EDT Routine general medical examination at a health care facility Body mass index less than 19, adult Immunity status testing Psychogenic nonepileptic seizure Weakness documented in this encounter Results * Venipuncture Only (12/31/2016 4:12 PM EDT) Venipuncture Done 12/31/2016 4:12 PM EDT [facility] Blood 12/31/2016 4:12 PM EDT 12/31/2016 4:12 PM EDT Jose MASON LAB BLOOD ORDERABLES Performing Organization Address [facility] de Phone Number [facility] [address] [place] [address] * Varicella zoster Antibody, IgG (12/31/2016 4:12 PM EDT) Varicella IgG 2.8 12/31/2016 9:27 PM EDT [facility] Varicella IgG Comment Footnote 12/31/2016 9:27 PM EDT [facility] Comment: Reference Range ?Antibody Index (AI) Negative: ??< 0.9 ? No Varicella IgG antibodies detected. ? Patient is presumed not to have ? had a previous exposure through ? infection or vaccination. Equivocal: 0.9 - 1.0 ?? Equivocal results: obtain an ? additional sample for re-testing. Positive: ??= or > 1.1 ??IgG antibody to Varicella detected. Blood 12/31/2016 4:12 PM EDT 12/31/2016 7:27 PM EDT Jose MASON LAB BLOOD ORDERABLES Performing Organization Address [facility] de Phone Number [facility] [address] [place] [address] * Hepatitis B Surface Antibody (12/31/2016 4:12 PM EDT) Pathologist [facility] Hep B S Ab 23.1 MIU/ML 01/01/2017 4:46 PM EDT [facility] Hepatitis B Surface Antibody Comment Footnote 01/01/2017 4:46 PM EDT [facility] Comment: Non Reactive: <12.0 mIU/mL - Patient is considered not to have ?protective immunity to Hepatitis ? B Virus infection. Equivocal: =to or > 8.0 to < 12.0 IU/mL ?? The immune status of ? the individual should ? be further assessed by ? considering other factors, ? such as clinical status, ? follow up testing, ? associated risk factors, ? and the use of additional ? diagnostic information. REACTIVE: 12.0 mIU/mL or greater - Patient considered to have ? protective immunity to ? Hepatitis B Virus infection. Blood 12/31/2016 4:12 PM EDT 12/31/2016 7:27 PM EDT Jose MASON LAB BLOOD ORDERABLES Performing Organization Address [facility] de Phone Number [facility] [address] [place] [address] * Mumps Antibody, IgG (12/31/2016 4:12 PM EDT) Mumps IgG EIA 1.3 12/31/2016 9:27 PM EDT [facility] Mumps IgG Comment Footnote 12/31/2016 9:27 PM EDT [facility] Comment: Reference Range ?Antibody Index (AI) Negative: ??< 0.9 ? No Mumps IgG antibodies detected. ? Patient is presumed not to have ? had a previous exposure through ? infection or vaccination. Equivocal: 0.9 - 1.0 ?? Equivocal results: obtain an ? additional sample for re-testing. Positive: ??= or > 1.1 ??IgG antibody to Mumps detected. Blood 12/31/2016 4:12 PM EDT 12/31/2016 7:27 PM EDT Jose MASON LAB BLOOD ORDERABLES Performing Organization Address [facility] Co de Phone Number [facility] [address] [place] [address] * Rubella Antibody, IgG (12/31/2016 4:12 PM EDT) Rubella IgG 2.3 12/31/2016 9:27 PM EDT [facility] Rubella IgG Comment Footnote 12/31/2016 9:27 PM EDT [facility] Comment: Reference Range ?Antibody Index (AI) [...] ? considered to indicate positive ? immunity. 12/31/2016 4:12 PM EDT 12/31/2016 7:27 PM EDT Jose Arenas PA LAB BLOOD ORDERABLES [facility] [address] [place] [address] * Rubeola Antibody, IgG (12/31/2016 4:12 PM EDT) Rubeola IgG 3.4 12/31/2016 9:27 PM EDT [facility] Rubeola IgG Comment Footnote 12/31/2016 9:27 PM EDT [facility] Comment: Reference Range ?Antibody Index (AI) Negative: ??< 0.9 ? No Measles IgG antibodies detected. ? Patient is presumed not to have ? had a previous exposure through ? infection or vaccination. Equivocal: 0.9 - 1.0 ?? Equivocal results: obtain an ? additional sample for re-testing. Positive: ??= or > 1.1 ??IgG antibody to Measles detected. Blood 12/31/2016 4:12 PM EDT 12/31/2016 7:27 PM EDT Jose MASON LAB BLOOD ORDERABLES [facility] [address] [place] [address] documented in this encounter Visit Diagnoses Diagnosis Routine general medical examination at a health care facility- Primary Body mass index less than 19, adult Body Mass Index less than 19, adult Immunity status testing Antibody response examination Psychogenic nonepileptic seizure Weakness Other malaise and fatigue documented in this encounter Care Teams Power Press Supervisor Relationship Specialty Start Date End Date Jose Arenas PA [address] [place] [address] PCP - General Internal Medicine 12/15/16 07/15/17 documented as of this encounter
--- OUTSIDE RECORDS SUMMARY | 2024-04-03 20:36 | XMS_ITS | Encounter Summary ---
Author Organization [facility] Address [address] [place] [address] Care Team Providers Care Coding Compliance Specialist Name Role Phone Roderick Mckenzie MD Primary Care Provider + [phone] Encounter Details Date Type Department Care Team (Latest Contact Info) Description 03/22/2021 4:53 PM EDT - 03/22/2021 11:59 PM EDT Hospital Encounter [facility] Diagnostic Imaging [address] [place] [address] Mercedes Baker MD [address] [place] [address] Abdominal cramping affecting Discharge Disposition: Home or Self Care Social [...] have Coronavirus / COVID-19? No / Unsure 03/22/2021 4:52 PM EDT documented as of this encounter Medications at Time of Discharge Medication Sig Dispensed Refills Start Date End Date PNV,calcium 42-lsas-tjavx acid 27 mg iron- 1 mg tablet Take 1 tablet by mouth once daily. wheelchair Device 1 Device by Miscellaneous route as needed (use until cleared by homecare PT). 1 Device 11/06/2016 documented as of this encounter Plan of Treatment Not on file documented as of this encounter Procedures Procedure Name Priority Date/Time Associated Diagnosis Comments US OB LESS THAN 14 WEEKS SINGLE OR FIRST GESTATION STAT 03/22/2021 5:15 PM EDT Abdominal cramping affecting documented in this encounter Results * US OB Less than 14 Weeks Single or 1st Gestation (03/22/2021 5:15 PM EDT) Anatomical Region Laterality Modality Ultrasound Impressions 03/22/2021 6:00 PM EDT IMPRESSION: 1. Single live intrauterine gestation at 10 weeks 5 days. 2. Small subchorionic bleed. 3. Normal sonographic appearance to left ovary with nonvisualization of the right ovary. RADCAT Grade: RADCAT2: Routine result. Signing Doctor: Urvashi Peguero MD ?Contributing Doctor: ?Date Signed:03/22/2021 6:00 PM Patient ? DOS:03/22/2021 4:57 PM ?Exam:[id number] US OB LESS THAN 14 WEEKS SINGLE OR FIRST GESTATION Narrative 03/22/2021 6:00 PM EDT FINDINGS: HISTORY: Other specified related conditions, unspecified trimester; cramping COMPARISONS: OB ultrasound 03/08/2021 TECHNIQUE: Transabdominal imaging demonstrates an anteverted uterus with normal ovaries bilaterally. The right ovary was not visualized and the left ovary measures 3.1 x 2.5 x 2.9 cm. A probable corpus luteum cyst is seen within the left ovary measuring 3.1 cm. There is a single live intrauterine gestation with a crown rump length measuring 3.8 cm corresponding to a gestational age of 10 weeks 5 days. This correlates satisfactorily with the menstrual dates of 10 weeks 5 days. The LMP is 01/06/2021. The estimated due date by ultrasound is 10/13/2021. ??The heart rate is 163 beats per minute. A hypoechoic crescentic collection in the subchorionic region measures 2.1 x 0.7 x 0.7 cm. No free fluid is seen within the cul-de-sac. Procedure Note Urvashi Peguero MD - 03/22/2021 FINDINGS: HISTORY: Other specified related conditions, unspecifiedtrimester; cramping COMPARISONS: OB ultrasound 03/08/2021 TECHNIQUE: Transabdominal imaging demonstrates an anteverted uterus with normalovaries bilaterally. The right ovary was not visualized and the left ovarymeasures 3.1 x 2.5 x 2.9 cm. A probable corpus luteum cyst is seen withinthe left ovary measuring 3.1 cm. There is a single live intrauterine gestation with a crown rump lengthmeasuring 3.8 cm corresponding to a gestational age of 10 weeks 5 days.This correlates satisfactorily with the menstrual dates of 10 weeks 5days. The LMP is 01/06/2021. The estimated due date by ultrasound is 10/13/2021. The heart rate is 163 beatsper minute. A hypoechoic crescentic collection in the subchorionic regionmeasures 2.1 x 0.7 x 0.7 cm. No free fluid is seen within [id number]. IMPRESSION: 1. Single live intrauterine gestation at 10 weeks 5 days. 2. Small subchorionic bleed. 3. Normal sonographic appearance to left ovary with nonvisualization ofthe right ovary. RADCAT Grade: RADCAT2: Routine result. Signing Doctor: Urvashi Peguero MD Contributing Doctor:Date Signed:03/22/2021 6:00 PM Patient DOS:03/22/2021 4:57 PM Exam:[id number] US OB LESS THAN 14 WEEKS SINGLEOR FIRST GESTATION Mercedes Baker MD IMG US ORDERABLES documented in this encounter Visit Diagnoses Diagnosis Abdominal cramping affecting documented in this encounter Care Teams Coding Compliance Specialist Relationship Specialty Start Date End Date Roderick Mckenzie MD PCP - General Family Medicine 03/07/21 documented as of this encounter
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
--- OUTSIDE RECORDS SUMMARY | 2024-04-03 20:36 | XMS_ITS | Encounter Summary ---
Author Organization [facility] Address [address] [place] [address] Care Team Providers Care Carpentry Professional Name Role Phone Unavailable Primary Care Provider Unavailabl e Reason for Visit * Reason Comments Routine Visit Encounter Details Date Type Department Care Team (Late st Contact Info) Description 10/28/2018 10:00 AM EST Routine [address], [address] [phone] Mariajose Ozuna CNM [address] [place] [address] [address] [place] [address] GA: 17w5d Social History Tobacco Use Types Packs/Day Years [...] Sign Reading Time Taken Comments Blood Pressure 110/60 10/28/2018 10:26 AM EST Pulse - - Temperature - - Respiratory Rate - - Oxygen Saturation - - Inhaled Oxygen Concentration - - Weight 51.7 kg (114 lb) 10/28/2018 10:26 AM EST Height - - Body Mass Index 22.26 11/05/2016 1:08 AM EST documented in this encounter Progress Notes * Mildred Harden - 10/28/2018 10:00 AM EST Patient presents for routine OB visit. Patient offers no complaints. Patient could not give urine sample as she just had US completed. * Mariajose Ozuna CNM - 10/28/2018 10:00 AM EST Had US today - reviewed feeling movement, AFP today, questions answered, rto 4 wks documented in this encounter Plan of Treatment Not on file documented as of this encounter Visit Diagnoses Diagnosis care in second trimester- Primary documented in this encounter
--- OUTSIDE RECORDS SUMMARY | 2024-04-03 20:36 | XMS_ITS | Encounter Summary ---
Author Organization [facility] Address [address] [place] [address] Care Team Providers Care Farm Operator Name Role Phone Unavailable Primary Care Provider Unavailabl e Encounter Details Date Type Department Care Team (Late st Contact Info) Description 10/28/2018 9:00 AM EST - 10/28/2018 11:59 PM EST Hospital Encounter [facility] Diagnostic Imaging [address] [phone] Mariajose Ozuna CNM [address] [facility], [address] [place] [address] care in second trimester Discharge Disposition: Home or Self Care Social [...] 14 WEEKS SINGLE OR FIRST GESTATION Routine 10/28/2018 10:08 AM EST care in second trimester documented in this encounter Results * US [...] 10:25 AM Patient ? DOS:10/28/2018 9:15 AM ?Exam:[id number] US OB MIN 14 WEEKS SINGLE OR [...] 31 g ? LMP percentile: 19 % VENRON ?? 11.4 cm LMP: 06/22/2018 GESTATIONAL AGE [...] Date Signed:10/28/201810:25 AM Patient DOS:10/28/2018 9:15 AM Exam:[id number] US OB MIN 14 WEEKS SINGLE ORFIRST GESTATION Mariajoseloren Ozuna CNM IM US ORDERABLES documented in this encounter Visit Diagnoses Diagnosis care in second trimester documented in this encounter
--- OUTSIDE RECORDS SUMMARY | 2024-04-03 20:36 | XMS_ITS | Encounter Summary ---
Author Organization [facility] Address [address] [place] [address] Care Team Providers Care Bookseamer Blindstitch Name Role Phone Roderick Mckenzie MD Primary Care Provider + [phone] Encounter Details Date Type Department Care Team (Late st Contact Info) Description 03/08/2021 7:45 AM EDT - 03/08/2021 8:44 AM EDT Hospital Encounter [facility] Diagnostic Imaging [address] [place] [address] Mariajose Ozuna CNM [address] [facility], [address] [place] [address] Unsure of LMP (last menstrual period) as reason for ultrasound scan Discharge Disposition: Home or Self Care Social [...] Dispensed Refills Start Date End Date PNV,calcium 57-qsje-mexps acid 27 mg iron- 1 mg tablet [...] THAN 14 WEEKS SINGLE OR FIRST GESTATION Routine 03/08/2021 9:24 AM EDT Unsure of LMP (last menstrual period) as reason for ultrasound scan documented in this encounter Results * US OB Less than 14 Weeks Single or 1st Gestation (03/08/2021 9:24 AM EDT) Anatomical Region Laterality Modality Ultrasound Impressions 03/08/2021 9:31 AM EDT IMPRESSION: 1. Single live intrauterine gestation at 8 weeks 5 days. 2. There is no sonographic evidence for a subchorionic bleed. 3. Normal sonographic appearance to the ovaries. RADCAT Grade: RADCAT2: Routine result. Signing Doctor: Urvashi Peguero MD ?Contributing Doctor: ?Date Signed:03/08/2021 9:31 AM Patient ? DOS:03/08/2021 7:57 AM ?Exam:[id number] US OB LESS THAN 14 WEEKS SINGLE OR FIRST GESTATION Narrative 03/08/2021 9:31 AM EDT FINDINGS: HISTORY: Encounter for screening for uncertain dates; dating and viability COMPARISONS: No relevant prior exams TECHNIQUE: Transabdominal imaging demonstrates an anteverted uterus with normal ovaries bilaterally The right ovary measures 2.2 x 1.3 x 1.8 cm and the left ovary measures 3.0 x 4.2 x 3.1 cm.. Probable corpus luteum cyst is seen within the left ovary. There is a single live intrauterine gestation with a crown rump length measuring 2.0 cm corresponding to a gestational age of 8 weeks 5 days. This correlates satisfactorily with the menstrual dates of 8 weeks 6 days. The LMP is 01/05/2021. The estimated due date by ultrasound is 10/13/2021. ??The heart rate is 161 beats per minute. There is no sonographic evidence for a subchorionic bleed. ??No free fluid is seen within the cul-de-sac. Procedure Note Urvashi Peguero MD - 03/08/2021 FINDINGS: HISTORY: Encounter for screening for uncertain dates; dating andviability COMPARISONS: No relevant prior exams TECHNIQUE: Transabdominal imaging demonstrates an anteverted uterus with normalovaries bilaterally The right ovary measures 2.2 x 1.3 x 1.8 cm and theleft ovary measures 3.0 x 4.2 x 3.1 cm.. Probable corpus luteum cyst isseen within the left ovary. There is a single live intrauterine gestation with a crown rump length measuring 2.0cm corresponding to a gestational age of 8 weeks 5 days. This correlatessatisfactorily with the menstrual dates of 8 weeks 6 days. The LMP is01/05/2021. The estimated due date by ultrasound is 10/13/2021. The heart rate is 161 beats per minute.There is no sonographic evidence for a subchorionic bleed. No free fluidis seen within the cul-de-sac. IMPRESSION: 1. Single live intrauterine gestation at 8 weeks 5 days. 2. There is no sonographic evidence for a subchorionic bleed. 3. Normal sonographic appearance to the ovaries. RADCAT Grade: RADCAT2: Routine result. Signing Doctor: Urvashi Peguero MD Contributing Doctor:Date Signed:03/08/2021 9:31 AM Patient DOS:03/08/2021 7:57 AM Exam:[id number] US OB LESS THAN 14 WEEKS SINGLEOR FIRST GESTATION Mariajose Ozuna Mor IMG US ORDERABLES documented in this encounter Visit Diagnoses Diagnosis Unsure of LMP (last menstrual period) as reason for ultrasound scan Encounter for routine screening for malformation using ultrasonics documented in this encounter Care Teams Bookseamer Blindstitch Relationship Specialty Start Date End Date Roderick Mckenzie MD PCP - General Family Medicine 03/07/21 documented as of this encounter
--- OUTSIDE RECORDS SUMMARY | 2024-04-03 20:36 | XMS_ITS | Continuity of Care Document ---
Author Organization [facility] Address [address] [place] [phone] Encounter LTTL_DE FIN NBR [id number] Date(s): 08/03/23 - 08/03/23 [facility] [address] [place] [address]- us Discharge Disposition: Home or Self Care Attending Physician: ISABELLA Miner Admitting Physician: ISABELLA Miner Referring Physician: ISABELLA Miner Allergies, Adverse Reactions, Alerts No Known Allergies Medications amoxicillin-clavulanate 875 mg-125 mg oral tablet 1 tab, Oral, every 12 hr, # 20 tab, 0 Refill(s), Pharmacy: [facility] #[id number] Start Date: 05/16/23 Stop Date: 05/26/23 Status: Ordered Classic oral tablet 0 Refill(s) Start Date: 03/07/23 Status: Ordered clindamycin 300 mg oral capsule 300 mg = 1 cap, Oral, every 8 hr, # 24 cap, 0 Refill(s), Pharmacy: [facility] #[id number], 154.94, cm, 05/28/23 20:02:00 EDT, Height/Length Dosing, 46.72, kg, 05/28/23 20:02:00 EDT, Weight Dosing Start Date: 07/26/23 Status: Ordered ondansetron 4 mg oral tablet, disintegrating 4 mg = 1 tab, Oral, every 8 hr, PRN as needed for nausea/vomiting, # 9 tab, 0 Refill(s), Pharmacy: [facility] #[id number] Start Date: 05/18/23 Stop Date: 05/21/23 Status: Ordered progesterone 100 mg oral capsule 400 mg = 4 cap, Oral, Daily, 0 Refill(s) Start Date: 05/28/23 Status: Ordered Pyridium 200 mg oral tablet 200 mg = 1 tab, Oral, TID(PC), PRN pain, # 16 tab, 0 Refill(s), [id number], 154.94, cm, 07/29/23 20:53:00 EST, Height, 46.72, kg, 07/29/23 20:53:00 EST, Weight Dosing Start Date: 07/30/23 Status: Ordered Results Radiology Reports * Exam Date Time Procedure Performing Provider Status 08/03/23 7:43 AM US Transvaginal Non-OB Arleen Brasher; Auth (Verified) Notes: (US Transvaginal Non-OB) Reason For Exam: pelvic pain, ongoing US Transvaginal Non-OB PROCEDURE INFORMATION: Exam: US Pelvis, Transvaginal Exam date and time: 08/03/2023 7:27 AM Age: 28 years old Clinical indication: Pelvic and perineal pain; Additional info: Pelvic pain, ongoing LABS AND CLINICAL REPORTS: Last menstrual period start date: 08/01/2023 TECHNIQUE: Imaging protocol: Real-time transvaginal pelvic ultrasound with image documentation. Transvaginal imaging was used for better evaluation of the endometrium, adnexa, and/or cervix. COMPARISON: CT ABD/PELVIS W CONTRAST 07/29/2023 10:09 PM FINDINGS: Uterus: 8 x 4.3 x 5.5 cm. 7 mm Right ovary/adnexa: 5.8 x 4.7 x 4 cm. Large simple appearing cyst of approximately 4.9 cm in maximal dimension. Color flow within the ovary. Left ovary/adnexa: 2.7 x 2 x 1.4 cm. Color flow. Small follicles. Intraperitoneal space: trace/small amount of fluid within the pelvis. IMPRESSION: Right ovary: Large simple appearing cyst of approximately 4.9 cm in maximal dimension. Follow up ultrasound at a different phase of the cycle recommended. THIS DOCUMENT HAS BEEN ELECTRONICALLY SIGNED BY ALIA MANCILLA MD on 08/03/2023 10:39 AM Final Signed by: Alia Mancilla MD Signed (Electronic Signature): 08/03/2023 10:39 am Social History Social History Type Response Tobacco Never tobacco user T obacco Use:. Sex Patient Care team information Care Team Related Persons Name: CRISTIANA KEARNS
--- OUTSIDE RECORDS SUMMARY | 2024-04-03 20:36 | XMS_ITS | Encounter Summary ---
Author Organization [facility] Address [address] [place] [address] Care Team Providers Care Sail Finisher Hand Name Role Phone Srini Martínez MD Primary Care Provider [phone] Encounter Details Date Type Department Care Team (Latest Contact Info) Description 11/04/2016 6:56 PM EST - 11/04/2016 11:59 PM EST Hospital Encounter [facility] Outside Records Not In System, [place] [address] Discharge Disposition: Home or Self Care Social History Tobacco Use Types Packs/Day Years Used Date Smoking Tobacco: Never Assessed Sex and Gender Information Value Date Recorded [...] hydrOXYzine HCl (ATARAX) 25 MG tablet Take 25 mg by mouth bedtime. 11/06/2016 hydrOXYzine HCl (ATARAX) 25 MG tablet Take 1 tablet (25 mg total) by mouth 4 (four) times a day as needed. 60 tablet 11/06/2016 11/06/2016 hydrOXYzine HCl (ATARAX) 25 MG tablet Take 1 tablet (25 mg total) by mouth 4 (four) times a day as needed (anxiety). 60 tablet 11/06/2016 03/04/2021 documented as of this encounter Plan of Treatment Not on file documented as of this encounter Procedures Procedure Name Priority Date/Time Associated Diagnosis Comments OUTSIDE STUDY CT HEAD Routine 11/04/2016 7:01 PM EST documented in this encounter Results * Outside Study CT Brain (11/04/2016 7:01 PM EST) Narrative Sabine Tucker - 11/04/2016 7:01 PM EST This is an outside image. Provider Not In System IMG CT ORDERABLES documented in this encounter Visit Diagnoses Not on filedocumented in this encounter Care Teams Sail Finisher Hand Relationship Specialty Start Date End Date Srini Martínez MD [address] [place] [id number] PCP - General Family Medicine 06/17/16 12/14/16 documented as of this encounter
--- OUTSIDE RECORDS SUMMARY | 2024-04-03 20:36 | XMS_ITS | Encounter Summary ---
Author Organization [facility] Address [address] [place] [address] Care Team Providers Care Threading Machine Setter Name Role Phone Roderick Mckenzie MD Primary Care Provider + [phone] Encounter Details Date Type Department Care Team (Latest Contact Info) Description 04/14/2022 3:19 PM EDT - 04/14/2022 11:59 PM EDT Hospital Encounter [facility] [address] [place] [address] Roderick House MD [address] [place] [phone] First trimester (Primary Dx) Discharge Disposition: Home or [...] Exposure Response Date Recorded In the last 10 days, have yo u been in contact with someone who was confirmed or suspected to have Coronavirus/COVID-19? No / Unsure 04/14/2022 3:18 PM EDT documented as of this encounter Medications at Time of Discharge Medication Sig Dispensed Refills Start Date End Date PNV,calcium 75-zamz-nybwy acid 27 mg iron- 1 mg tablet Take 1 tablet by mouth once daily. wheelchair Device 1 Device by Miscellaneous route as needed (use until cleared by homecare PT). 1 Device 11/06/2016 documented as of this encounter Plan of Treatment Not on file documented as of this encounter Procedures Procedure Name Priority Date/Time Associated Diagnosis Comments VENIPUNCTURE ONLY Routine 04/14/2022 3:2 0 PM EDT First trimester BHCG, QUANTITATIVE, SERUM Routine 04/14/2022 3:20 PM EDT First trimester documented in this encounter Results * HCG, Quantitative, Serum (04/14/2022 3:20 PM EDT) BHCG Quant <2.0 0.0 - 5.0 MIU/ML 04/14/2022 6:18 PM EDT Comment: Gestational Age ?Expected QBHCG values (MIU/ML) 0.2-1 week ? 5 - 50 1 - 2 weeks ?50 - 500 2 - 3 weeks ?100 - 5,000 3 - 4 weeks ?500 - 10,000 4 - 5 weeks ?1,000 - 50,000 5 - 6 weeks ?10,000 - 100,000 6 - 8 weeks ?15,000 - 200,000 2 - 3 months ? 10,000 - 100,000 Blood 04/14/2022 3:20 PM EDT 04/14/2022 5:56 PM EDT Roderick House MD LAB BLOOD ORDERABLES [facility] [address] [place] [address] * Venipuncture Only (04/14/2022 3:20 PM EDT) Venipuncture Done 04/14/2022 3:21 PM EDT Blood 04/14/2022 3:20 PM EDT 04/14/2022 3:20 PM EDT Roderick House MD LAB BLOOD ORDERABLES [facility] [address] [place] [address] documented in this encounter Visit Diagnoses Diagnosis First trimester - Primary state, incidental documented in this encounter Care Teams Threading Machine Setter Relationship Specialty Start Date End Date Roderick Mckenzie MD PCP - General Family Medicine 03/07/21 documented as of this encounter
--- OUTSIDE RECORDS SUMMARY | 2024-04-03 20:36 | XMS_ITS | Encounter Summary ---
Author Organization [facility] Address [address] [place] [address] Care Team Providers Care Rehab Director Occupational Therapist Name Role Phone Unavailable Primary Care Provider Unavailabl e Reason for Visit * Reason Comments Initial Visit Encounter Details Date Type Department Care Team (Late st Contact Info) Description 03/04/2021 11:00 AM EDT Initial [address] [id number] Arleen Brunner CNM [address] [place] [address] GA: 8w2d Social History Tobacco Use Types Packs/Day Years [...] have Coronavirus / COVID-19? No / Unsure 03/04/2021 11:02 AM EDT documented as of this encounter Last Filed Vital Signs Vital Sign Reading Time Taken Comments Blood Pressure - - Pulse - - Temperature - - Respiratory Rate - - Oxygen Saturation - - Inhaled Oxygen Concentration - - Weight 45.4 kg (100 lb) 03/04/2021 11:13 AM EDT Height 154.9 cm (5' 1) 03/04/2021 11:13 AM EDT Body Mass Index 18.89 03/04/2021 11:13 AM EDT documented in this encounter Progress Notes * Cyndi Veronica RN - 03/04/2021 11:00 AM EDT NEW OB INTAKE Lashonda Cartwright is a 25 y.o. with Estimated Date of Delivery: 10/12/21 at 8w2d by LMP who is being seen today for a new OB intake. Urine test done: No, phone intake, HCG ordered History reviewed together and updated as appropriate: Allergies, current medications, medical history, surgical history, family history, social history, and OB history. History of prior CSection or other uterine surgery: no History of delivery before 36 weeks: no. If YES, is the [facility] pre-authorization form signed by patient: n/a. History of MRSA: no (YES or NO documented in History section) History of HSV (herpes) in pt OR partner: NO (YES or NO documented in History section) History of travel to a Zika infested area since LMP (since 2 weeks before conception): no. If YES, when: n/a and where: n/a. Have you had contact in the last 14 days with someone who has tested positive for Covid-19, being tested, or on home quarantine per [facility]? no Have you or someone who you have been in contact with traveled outside of the [place] and/or [place] in the last 14 days? no Do you have a fever, cough, sore throat, and/or difficulty breathing? no The Genetic History was completed. She reports she is taking vitamins. History of IBS, Crohn's disease, malabsorption issues, Vegan diet, Pernicious anemia, bariatric surgery, PPI use, Celiac Diease: no (If yes, add Vitamin B12 to initial labs) Since conception, she has or is experiencing the following symptoms: Spotting or other bleeding: no Cramping or other pain: Mild cramping Nausea/vomiting: Nausea, discussed increased hydration, kelsey, small frequent bland meals. Fatigue or headaches: no Any nonpregnancy related ailments or rash since your last LMP? no Have you had a flu shot this season? no Have you received both doses of the Covid-19 vaccine? no (Date of 1st) n/a, (Date of 2nd) n/a, Which vaccine did you receive? n/a Do you have a history of anesthesia complications? no Have you been exposed to TB that you are aware of: no Do you snore? no If yes, more than 3x/week? n/a Do you have a diagnosis of sleep apnea? no Do you ever stop breathing, gasp for air or choke during sleep?no Do you often feel so tired that you fall asleep while driving a car or talking to someone? no Other symptoms or complaints: no What town do you live in? [place] stay resident, Pt states [facility] said she is a flight risk so they are having her stay with a friend in [place] right now Is FOB involved? Patient has a fiance, different dad than son. Pt says she did an home insemination with family friends sperm Name/tele #: Stuart David Who do you live with? Stuart Do you have any pets? Dog and cat If yes to cats. Was toxoplasmosis titer ordered? yes Do you feel safe in your home? 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 Unknown, wants to do a home , discussed that our practice will not do a home , pt is aware of this Do you plan to breastfeed? yes. If no, what are the pt's concerns? n/a Benefits of discussed: yes. Benefits of [id number] bonding discussed: yes Discussed risks associated with supplementation? yes If medically necessary would you accept a blood transfusion? Yes The first trimester OB packet was reviewed together. Items covered include, but are not limited to,the items listed in the 'Preg Checklist'. labs ordered. Verbal consent obtained for HIV testing: Yes. Genetic testing options reviewed. First OB visit scheduled with KZ and dating US ordered (if not yet done). care expectations reviewed. Questions answered. Cyndi Veronica RN documented in this encounter Plan of Treatment Not on file documented as of this encounter Results * US OB Less [...] 9:31 AM Patient ? DOS:03/08/2021 7:57 AM ?Exam:[id number] US OB LESS THAN 14 WEEKS SINGLE [...] Signed:03/08/2021 9:31 AM Patient DOS:03/08/2021 7:57 AM Exam:[id number] US OB LESS THAN 14 WEEKS SINGLEOR FIRST GESTATION Mariajose Ozuna [facility] IMG US ORDERABLES * Vitamin D 25 Hydroxy Total D (03/08/2021 9:12 AM EDT) Vitamin D, 25-Hydroxy 33.8 30.0 - 100.0 NG/ML 03/08/2021 6:15 PM EDT Total 25 OH Vitamin D Interp Footnote 03/08/2021 6:15 PM EDT Comment: Reference Ranges: Deficiency <21.0 ng/mL Insufficiency 21.0-29.9 ng/mL Sufficiency 30.0-100.0 ng/mL Toxicity >100.0 ng/mL Blood 03/08/2021 9:12 AM EDT 03/08/2021 5:00 PM EDT Arleen Brunner CNM LAB BLOOD ORDERABLES [facility] [address] [place] [id number] * Hemoglobin, A1c (03/08/2021 9:12 AM EDT) Hemoglobin A1C 5.5 4.3 - 5.6 % 8:31 PM EDT Blood 03/08/2021 9:12 AM EDT 03/08/2021 4:59 PM EDT Arleen Brunner CN LAB BLOOD ORDERABLES Performing Organization Address [facility] de Phone Number [facility] [address] [place] [address] * Toxoplasma gondii IgM (03/08/2021 9:12 AM EDT) Toxoplasma gondii IgM <0.2 0.0 - 0.8 AI 03/08/2021 6:39 PM EDT Toxoplasma IgM Comnt Footnote 03/08/2021 6:39 PM EDT Comment: Reference Range ?Antibody Index (AI) Negative: ??< 0.9 ? No Toxoplasma gondii IgM antibodies ? detected. Equivocal: 0.9 - 1.0 ?? Equivocal results: obtain an ? additional sample for re-testing. Positive: ??= or > 1.1 ??IgM antibody to Toxoplasma gondii ? detected which may indicate current ? or recent infection. Blood 03/08/2021 9:12 AM EDT 03/08/2021 5:00 PM EDT Mariajose Ozuna CNM LAB BLOOD ORDERABL ES Performing Organization Address [facility] de Phone Number [facility] [address] [place] [address] * Toxoplasma Gondii IgG (03/08/2021 9:12 AM EDT) Toxoplasma GONDII Igg <3.0 0.0 - 9.0 IU/mL 03/08/2021 6:38 PM EDT Toxoplasma gondii IgG Comnt Footnote 03/08/2021 6:38 PM EDT Comment: Reference Range: ??IU/mL Negative: < = 9.0 ? No Toxoplasma IgG antibodies ?detected. Patient is presumed not to ?have had a previous T. gondii ?infection. Equivocal: 10.0 - 11.0 ??Equivocal results: obtain an ?additional sample for re-testing. Positive: = or > 12.0 ?? IgG antibody to T. gondii detected ?which may indicate current or past ?T. gondii infection. Blood 03/08/2021 9:12 AM EDT 03/08/2021 5:00 PM EDT Mariajose Ozuna CN LAB BLOOD ORDERABL ES [facility] [address] [place] [address] * (ABNORMAL) BHCG, Quantitative, Serum (03/08/2021 9:12 AM EDT) BHCG Quant >270,000.0 (H) 0.0 - 5.0 MIU/ML 03/08/2021 11:30 AM EDT Comment: Gestational Age ?Expected QBHCG values [...] 3 months ? 10,000 - 100,000 Blood 03/08/2021 9:12 AM EDT 03/08/2021 9:26 AM EDT Mariajose Wongrotta CNM LAB BLOOD ORDERABL ES Performing Organization Address [facility] de Phone Number [facility] [address] [place] [address] * Varicella zoster Antibody, IgG (03/08/2021 9:12 AM EDT) Varicella IgG 2.5 03/08/2021 6:40 PM EDT Varicella IgG Comment Footnote 03/08/2021 6:40 PM EDT Comment: Reference Range ?Antibody Index (AI) Negative: ??< 0.9 ? No Varicella IgG antibodies detected. ? Patient is presumed not to have ? had a previous exposure through ? infection or vaccination. Equivocal: 0.9 - 1.0 ?? Equivocal results: obtain an ? additional sample for re-testing. Positive: ??= or > 1.1 ??IgG antibody to Varicella detected. Blood 03/08/2021 9:12 AM EDT 03/08/2021 5:00 PM EDT Mariajose Sandovalta CNM LAB BLOOD ORDERABL ES Performing Organization Address [facility] de Phone Number [facility] [address] [place] [address] * Type and Screen (03/08/2021 9:12 AM EDT) ABORh Type O POS 03/08/2021 11:03 AM EDT Antibody Screen NEG 11:03 AM EDT Blood 03/08/2021 9:12 AM EDT 03/08/2021 9:26 AM EDT aMriajose Ozuna [facility] BLOOD BANK TEST OR DERABLES Performing Organization Address [facility]/ZIP Co de Phone Number [facility] [address] [place] [address] * Treponema pallidum IgG and IgM Ab (03/08/2021 9:12 AM EDT) Treponema pallidum IgG IgM Ab <0.2 0.0 - 0.8 AI 03/08/2021 6:40 PM EDT Treponema IgG and IgM Comnt Footnote 03/08/2021 6:40 PM EDT Comment: Reference Range ?Antibody Index (AI) Negative: ??< or = 0.8 ??No Syphilis IgG/IgM antibodies ? detected. Patient is presumed not to ? have had syphilis infection. Equivocal: 0.9 - 1.0 ?? Equivocal result: Reflex to RPR test Positive: ??= or > 1.1 ??Reactive: Reflex to RPR test 03/08/2021 9:12 AM EDT 03/08/2021 5:00 PM EDT Mariajose RUBIO LAB BLOOD ORDERABL ES Performing Organization Address [facility] Co de Phone Number [facility] [address] [place] [address] * Rubella Antibody, IgG (03/08/2021 9:12 AM EDT) Rubella IgG 2.0 03/08/2021 6:40 PM EDT Rubella IgG Comment Footnote 03/08/2021 6:40 PM EDT Comment: Reference Range ?Antibody Index (AI) Negative: [...] ? considered to indicate positive ? immunity. 03/08/2021 9:12 AM EDT 03/08/2021 5:00 PM EDT Mariajose Ozuna [facility] LAB BLOOD ORDERABL ES Performing Organization Address [facility] Co de Phone Number [facility] [address] [place] [address] * HIV Ab/Ag combo (03/08/2021 9:12 AM EDT) HIV Ab/Ag Combo Non Reac Non Reactive 03/08/2021 8:10 PM EDT Blood 03/08/2021 9:12 AM EDT 03/08/2021 5:00 PM EDT Mariajoseloren Sandovalta [facility] LAB BLOOD ORDERABL ES Performing Organization Address [facility] Co de Phone Number [facility] [address] [place] [address] * Hepatitis C Antibody (03/08/2021 9:12 AM EDT) HCV Ab Qualitative Non Reac Non Reactive 03/08/2021 7:14 PM EDT Blood 03/08/2021 9:12 AM EDT 03/08/2021 4:59 PM EDT Mariajose Judithrotta CNM LAB BLOOD ORDERABL ES Performing Organization Address [facility] Co de Phone Number [facility] [address] [place] [address] * Hepatitis B Surface Antigen (03/08/2021 9:12 AM EDT) Hep B S Ag Non Reac Non Reactive 03/08/2021 7:14 PM EDT Blood 03/08/2021 9:12 AM EDT 03/08/2021 4:59 PM EDT Mariajose Judithrotta CNM LAB BLOOD ORDERABL ES Performing Organization Address [facility] Co de Phone Number [facility] [address] [place] [address] * Gonorrhoea Probe, Urine (03/08/2021 9:12 AM EDT) Urine Gonorrhoeae Probe negative 03/12/2021 2:07 PM EDT Urine Hector Probe Perf By Footnote 03/12/2021 2:07 PM EDT Comment: Test Performed by: [facility] [address] [place] [address] Urine 03/08/2021 9:12 AM EDT 03/08/2021 3:45 PM EDT Mariajose Zambrotta CNM BODY FLUIDS AND ST OOLS ORDERABLES Performing Organization Address [facility] Co de Phone Number [facility] [address] [place] [address] * Culture, Urine (03/08/2021 9:12 AM EDT) Urine Culture >= 100,000 cfu/mL of growth suggestive of normal urogenital briseida or fecal contamination. ??Recollect specimen for repeat culture if clinically indicated. ??Transport to the microbiology lab should be within 2 hours of collection and refrigeration is necessary if a delay is expected. Urine (Clean Catch) 03/08/2021 9:12 AM EDT 03/08/2021 10:48 AM EDT Comment:CLEAN CATCH Mariajoseloren Ozuna CN MICROBIOLOGY - GEN ERAL ORDERABLES Performing Organization Address City/State/[facility] Co de Phone Number [facility] [address] [place] [address] * CBC No Diff (03/08/2021 9:12 AM EDT) WBC 8.7 3.5 - 11.0 [id number]/L 03/08/2021 9:35 AM EDT RBC 3.93 3.70 - 5.00 [id number]/L 03/08/2021 9:35 AM EDT Hemoglobin 12.8 11.0 - 15.0 G/DL 03/08/2021 9:35 AM EDT Hematocrit 37.3 32.0 - 45.0 % 03/08/2021 9:35 AM EDT MCV 94.8 80.0 - 98.0 fL 03/08/2021 9:35 AM EDT MCH 32.4 26.0 - 34.0 PG 03/08/2021 9:35 AM EDT MCHC 34.2 32.0 - 36.0 G/DL 03/08/2021 9:35 AM EDT RDW 12.2 11.5 - 14.5 % 03/08/2021 9:35 AM EDT Platelets 328 150 - 400 [id number]/L 03/08/2021 9:35 AM EDT MPV 8.1 7.4 - 10.4 fL 03/08/2021 9:35 AM EDT Blood 03/08/2021 9:12 AM EDT 03/08/2021 9:26 AM EDT Mariajose Ozuna CNM LAB BLOOD ORDERABL ES Performing Organization Address City/[facility]/ZIP Co de Phone Number [facility] [address] [place] [address] * Chlamydia trac Probe, Urine (03/08/2021 9:12 AM EDT) Urine Chlamydia Probe negative 03/12/2021 2:07 PM EDT Urine Chlamydia Probe Perf By Footnote 03/12/2021 2:07 PM EDT Comment: Test Performed by: [facility] [address] [place] [address] Urine 03/08/2021 9:12 AM EDT 03/08/2021 3:45 PM EDT Mariajose RUBIOM BODY FLUIDS AND ST OOLS ORDERABLES Performing Organization Address City/[facility]/ZIP Co de Phone Number [facility] [address] [place] [address] documented in this encounter Visit Diagnoses Diagnosis Unsure of LMP (last menstrual period) as reason for ultrasound scan- Primary Encounter for routine screening for malformation using ultrasonics screening encounter Unsure of LMP (last menstrual period) as reason for ultrasound scan Encounter for routine screening for malformation using ultrasonics documented in this encounter
--- OUTSIDE RECORDS SUMMARY | 2024-04-03 20:36 | XMS_ITS | Encounter Summary ---
Author Organization [facility] Address [address] [place] [address] Care Team Providers Care Door Cutter Name Role Phone Roderick Mckenzie MD Primary Care Provider + [phone] Encounter Details Date Type Department Care Team (Late st Contact Info) Description 03/08/2021 8:50 AM EDT - 03/08/2021 11:59 PM EDT Hospital Encounter [facility] [address] [place] [address] Mariajose Ozuna CNM [address] [facility], [address] [place] [address] screening encounter Discharge Disposition: Home or Self Care Social [...] Dispensed Refills Start Date End Date PNV,calcium 95-ahxk-[id number] acid 27 mg iron- 1 mg tablet Take 1 tablet by mouth once daily. wheelchair Device 1 Device by Miscellaneous route as needed (use until cleared by homecare PT). 1 Device 11/06/2016 documented as of this encounter Plan of Treatment Not on file documented as of this encounter Procedures Procedure Name Priority Date/Time Associated Diagnosis Comments RUBELLA ANTIBODY IGG Routine 03/08/2021 9:12 AM EDT screening encounter TOXOPLASMA GONDII IGG Routine 03/08/2021 9:12 AM EDT screening encounter AFD HIV AB/AG COMBO Routine 03/08/2021 9 :12 AM EDT screening encounter VARICELLA ZOSTER IGG Routine 03/08/2021 9:12 AM EDT screening encounter TREPONEMA PALLIDUM IGG AND IGM AB Routine 03/08/2021 9:12 AM EDT screening encounter TOXOPLASMA GONDII IGM Routine 03/08/2021 9:12 AM EDT screening encounter GONORRHOEA PROBE, URINE Routine 03/08/2021 9:12 AM EDT screening encounter CHLAMYDIA TRAC PROBE, URINE Routine 03/08/2021 9:12 AM EDT screening encounter HEPATITIS C ANTIBODY Routine 03/08/2021 9:12 AM EDT screening encounter HEPATITIS B SURFACE ANTIGEN Routine 03/08/2021 9:12 AM EDT screening encounter CBC NO DIFF WITH PLATELET Routine 03/08/2021 9:12 AM EDT screening encounter TYPE AND SCREEN Routine 03/08/2021 9:12 AM EDT screening encounter CULTURE, URINE Routine 03/08/2021 9:12 AM EDT screening encounter BHCG, QUANTITATIVE, SERUM Routine 03/08/2021 9:12 AM EDT screening encounter documented in this encounter Results * Chlamydia trac Probe, Urine (03/08/2021 9:12 AM EDT) Urine Chlamydia Probe negative 03/12/2021 2:07 PM EDT Urine Chlamydia Probe Perf By Footnote 03/12/2021 2:07 PM EDT Comment: Test Performed by: [facility] Maria Alejandra [place] [address] [place] [address] Urine 03/08/2021 9:12 AM EDT 03/08/2021 3:45 PM EDT Mariajose Ozuna CNM BODY FLUIDS AND ST OOLS ORDERABLES [facility] [address] [place] [address] * CBC No Diff (03/08/2021 9:12 AM EDT) WBC 8.7 3.5 - 11.0 [id number] 03/08/2021 9:35 AM EDT RBC 3.93 3.70 - 5.00 [id number]/L 03/08/2021 9:35 AM EDT Hemoglobin 12.8 11.0 [...] AM EDT Platelets 328 150 - 400 [id number]/L 03/08/2021 9:35 AM EDT MPV 8.1 7.4 - 10.4 fL 03/08/2021 9:35 AM EDT Blood 03/08/2021 9:12 AM EDT 03/08/2021 9:26 AM EDT Mariajose Ozuna CNM LAB BLOOD ORDERABL ES [facility] [address] [place] [address] * Culture, Urine (03/08/2021 9:12 AM EDT) [...] EDT 03/08/2021 10:48 AM EDT Comment:CLEAN CATCH Mariajose Ozuna CNM MICROBIOLOGY - GEN ERAL ORDERABLES Performing Organization Address City/[facility] Co de Phone Number [facility] [address] [place], [place] [id number] * Gonorrhoea Probe, Urine (03/08/2021 9:12 AM EDT) Urine Gonorrhoeae Probe negative 03/12/2021 2:07 PM EDT Urine Hector Probe Perf By Footnote 03/12/2021 2:07 PM EDT Comment: Test Performed by: [facility] [address] [address] Urine 03/08/2021 9:12 AM EDT 03/08/2021 3:45 PM EDT Mariajose RUBIO BODY FLUIDS AND ST OOLS ORDERABLES Performing Organization Address City/[facility] Co de Phone Number [facility] [address] [place] [address] * Hepatitis B Surface Antigen (03/08/2021 9:12 AM EDT) Hep B S Ag Non Reac Non Reactive 03/08/2021 7:14 PM EDT Blood 03/08/2021 9:12 AM EDT 03/08/2021 4:59 PM EDT Mariajose Ozuna CNM LAB BLOOD ORDERABL ES Performing Organization Address [facility] Co de Phone Number [facility] [address] [place] [address] * Hepatitis C Antibody (03/08/2021 9:12 AM EDT) HCV Ab Qualitative Non Reac Non Reactive 03/08/2021 7:14 PM EDT Blood 03/08/2021 9:12 AM EDT 03/08/2021 4:59 PM EDT Mariajose Ozuna CNM LAB BLOOD ORDERABL ES Performing Organization Address [facility] de Phone Number [facility] [address] [place] [address] * HIV Ab/Ag combo (03/08/2021 9:12 AM EDT) HIV Ab/Ag Combo Non Reac Non Reactive 03/08/2021 8:10 PM EDT Blood 03/08/2021 9:12 AM EDT 03/08/2021 5:00 PM EDT Mariajose Ozuna CNM LAB BLOOD ORDERABL ES Performing Organization Address [facility] de Phone Number [facility] [address] [place] [address] * Rubella Antibody, IgG (03/08/2021 9:12 AM [...] Ozuna CN LAB BLOOD ORDERABL ES [facility] [address] [place] [address] * Treponema pallidum IgG and IgM Ab [...] AM EDT 03/08/2021 5:00 PM EDT Mariajose Wongabdikristofer [facility] LAB BLOOD ORDERABL ES [facility] [address] [place] [address] * Type and Screen (03/08/2021 9:12 AM EDT) ABORh Type O POS 03/08/2021 11:03 AM EDT Antibody Screen NEG 11:03 AM EDT Blood 03/08/2021 9:12 AM EDT 03/08/2021 9:26 AM EDT Mariajose Wongedin [facility] BLOOD BANK TEST OR DERABLES Performing Organization Address City/[facility] Co de Phone Number [facility] [address] [place] [address] * Varicella zoster Antibody, IgG (03/08/2021 9:12 [...] LAB BLOOD ORDERABL ES Performing Organization Address City/[facility]/ZIP Co de Phone Number [facility] [address] [place] [address] * (ABNORMAL) BHCG, Quantitative, Serum (03/08/2021 9:12 [...] EDT 03/08/2021 9:26 AM EDT Mariajose Ozuna [facility] LAB BLOOD ORDERABL ES [facility] [address] [place] [address] * Toxoplasma Gondii IgG (03/08/2021 9:12 AM [...] Ozuna CNM LAB BLOOD ORDERABL ES [facility] [address] [place] [address] * Toxoplasma gondii IgM (03/08/2021 9:12 AM [...] LAB BLOOD ORDERABL ES Performing Organization Address City/State/[facility] Co de Phone Number [facility] [address] [place] [address] documented in this encounter Visit Diagnoses Diagnosis screening encounter documented in this encounter Care Teams Door Cutter Relationship Specialty Start Date End Date Roderick Mckenzie MD PCP - General Family Medicine 03/07/21 documented as of this encounter
--- OUTSIDE RECORDS SUMMARY | 2024-04-03 20:36 | XMS_ITS | Encounter Summary ---
Author Organization [facility] Address [address] [place] [address] Care Team Providers Care Metal Stamper Name Role Phone Unavailable Primary Care Provider Unavailabl e Encounter Details Date Type Department Care Team (Late st Contact Info) Description 09/16/2018 12:35 PM EST - 09/16/2018 12:46 PM EST Hospital Encounter [facility] [address] Mariajose Ozuna CNM 19 [facility], [address] [place] [address] Encounter for supervision of normal first in [...] Procedure Name Priority Date/Time Associated Diagnosis Comments TYPE AND SCREEN Routine 09/16/2018 1:22 PM EST Encounter for supervision of normal first in first trimester AFD HIV AB/AG COMBO Routine 09/16/2018 1 :19 PM EST Encounter for supervision of normal first in first trimester HEPATITIS C ANTIBODY Routine 09/16/2018 1:19 PM EST Encounter for supervision of normal first in first trimester HEPATITIS B SURFACE ANTIGEN Routine 09/16/2018 1:19 PM EST Encounter for supervision of normal first in first trimester VENIPUNCTURE ONLY Routine 09/16/2018 12: 45 PM EST Encounter for supervision of normal first in first trimester GONORRHOEA PROBE, URINE Routine 09/16/2018 12:00 PM EST CHLAMYDIA TRAC PROBE, URINE Routine 09/16/2018 12:00 PM EST CULTURE, URINE Routine 09/16/2018 12:00 PM EST documented in this encounter Results * (ABNORMAL) CBC No Diff (09/20/2018 11:20 AM EST) WBC 10.8 3.5 - 11.0 [id number] 09/20/2018 11:48 AM [facility] RBC 3.48(L) 3.70 - 5.00 [id number] 09/20/2018 11:48 AM [facility] Hemoglobin 11.3 11.0 - 15.0 G/DL 09/20/2018 11:48 AM [facility] Hematocrit 33.1 32.0 - 45.0 % 09/20/2018 11:48 AM [facility] MCV 95.2 80.0 - 98.0 fL 09/20/2018 11:48 AM [facility] MCH 32.4 26.0 - 34.0 PG 09/20/2018 11:48 AM [facility] MCHC 34.0 32.0 - 36.0 G/DL 09/20/2018 11:48 AM [facility] RDW 12.6 11.5 - 14.5 % 09/20/2018 11:48 AM [facility] Platelets 273 150 - 400 [id number] 09/20/2018 11:48 AM [facility] MPV 8.3 7.4 - 10.4 fL 09/20/2018 11:48 AM [facility] Blood 09/20/2018 11:2 0 AM EST 09/20/2018 11:23 AM EST Mariajoseloren Ozuna CN LAB BLOOD ORDERABL ES [facility] [address] [place] [address] * Cystic Fibrosis PCR (09/20/2018 11:20 AM EST) Cystic Fibrosis PCR See Below 09/27 5:59 PM [facility] Comment: See Below NEGATIVE, NONE OF THE MUTATIONS LISTED BELOW WERE DETECTED Cystic Fibrosis Director See Below 09/27/2018 5:59 PM [facility] Comment: See Below Jeanine Chavez, Ph.D.,[facility] Director, Molecular Genetics Health care providers, please contact your local registracija vozila' genetic counselor or call [employer] ([phone]) for assistance with interpretation of these results. The analytical performance characteristics of this assay have been determined [place] The modifications have not been cleared or approved by the FDA. This assay has been validated pursuant to the CLIA regulations and is used for clinical purposes. For additional information, please refer to http://education.ResearchGate.Data Maid/faq/cfscreen (This link is being provided for informational/ educational purposes only.) Test Performed by [employer], [employer], [address] [place] [address] Denton Sanders M.D., Ph.D., Director of Laboratories , CLIA [id number] Cystic Fibrosis Interp See Below 09/27/2018 5:59 PM [facility] Comment: See Below This result [...] ? Rate ? Test ? Result Ashkenazi Anglican ?? 94% ?1 in 24 ? 1 in 400 Non- ? 88% ?1 in 25 ? 1 in 208 -[place] ??72% ?1 in 46 ? 1 in 164 -[place] ?? 65% ?1 in 65 ? 1 in 186 -[place] ? 49% ?1 in 94 ? 1 in 184 Other ? insufficient data available Cystic Fibrosis Mthd See Below 09/27/2018 5:59 PM [facility] Comment: See Below The mutations [...] Fibrosis Mutation See Below 09/27/2018 5:59 PM [facility] Comment: See Below G85E (c.254G>A) ?R334W (c.1000C>T) 394delTT (c.262delTT) ?R347H (c.1040G>A) R117H (c.350G>A) ?R347P (c.1040G>C) 621+1 G>T (c.489+1G>T) ?A455E (c.1364C>A) 711+1 G>T (c.579+1G>T) ?1507del (c.1519delATC) 1078delT (c.948delT) ? X266xfc (c.1521delCTT) V520F (c.1558G>T) ? R553X (c.1657C>T) 1717-1 G>A (c.1585-1G>A) ? R560T (c.1679G>C) G542X (c.1624G>T) ?1898+1 G>A (c.1766+1G>A) S549N (c.1646G>A) ? 2183AA>G (c.2051delAAinsG) S549R (c.1645A>C or c.1647T>G) ??2184delA (c.2052delA) G551D (c.1652G>A) ?2789+5 G>A (c.2657+5G>A) 3120+1 G>A (c.2988+1G>A) ?G0023O (c.3846G>A) E2758D (c.3484C>T) ?G1870N (c.3909C>G) 3659delC (c.3528delC) 3849+10kb C>T (C.3717+87095Y>T) 3876delA (c.3744delA) 3905insT (c.3773insT) This assay detects thirty-two mutations, including the twenty-three core mutations recommended by the [place] [employer] (ACMG) and the [place] [employer] of Obstetricians and Gynecologists (ACOG) for [...] EST 09/20/2018 11:23 AM EST Mariajose Ozuna [facility] LAB BLOOD ORDERABL ES Performing Organization Address City/State/[facility] Co de Phone Number [facility] [address] [place] [address] * Varicella zoster Antibody, IgG (09/20/2018 11:20 AM EST) Varicella IgG 2.9 09/20/2018 7:31 PM EST [facility] Varicella IgG Comment Footnote 09/20/2018 7:31 PM EST [facility] Comment: Reference Range ?Antibody Index (AI) [...] EST 09/20/2018 5:00 PM EST Mariajose Ozuna [facility] LAB BLOOD ORDERABL ES Performing Organization Address [facility] Co de Phone Number [facility] [address] [place] [address] * Treponema pallidum IgG Ab (09/20/2018 11:20 AM EST) Treponema Pallidum IgG Antibody <0.2 0.0 - 0.8 AI 09/20/2018 7:31 PM EST [facility] Treponema IgG Comment Footnote 09/20/2018 7:31 PM EST [facility] Comment: Reference Range ?Antibody Index (AI) Negative: ??< or = 0.8 ??Nonreactive Equivocal: 0.9 - 1.0 ?? Equivocal result: obtain an ? additional sample for re-testing. Positive: ??= or > 1.1 ??Reactive Blood 09/20/2018 11:2 0 AM EST 09/20/2018 5:00 PM EST Mariajose Ozuna [facility] LAB BLOOD ORDERABL ES Performing Organization Address [facility] Co de Phone Number [facility] [address] [place] [address] * Rubella Antibody, IgG (09/20/2018 11:20 AM EST) Rubella IgG 2.4 09/20/2018 7:31 PM EST [facility] Rubella IgG Comment Footnote 09/20/2018 7:31 PM EST [facility] Comment: Reference Range ?Antibody Index (AI) [...] AM EST 09/20/2018 5:00 PM EST Mariajose Wongabdikristofer [facility] LAB BLOOD ORDERABL ES Performing Organization Address City/[facility] Co de Phone Number [facility] [address] [place] [phone] * Type and Screen (09/16/2018 1:22 PM EST) ABORh Type O POS 09/16/2018 2:43 PM EST [facility] Antibody Screen NEG 09/16/2018 2:44 PM EST [facility] Blood 09/16/2018 1:22 PM EST 09/16/2018 1:22 PM EST Mariajoseloren Sandovalkristofer [facility] BLOOD BANK TEST OR DERABLES Performing Organization Address City/[facility] Co de Phone Number [facility] [address] [place] [address] * HIV Ab/Ag combo (09/16/2018 1:19 PM EST) HIV Ab/Ag Combo Non Reac Non Reactive 09/16/2018 10:31 PM EST [facility] Blood 09/16/2018 1:19 PM EST 09/16/2018 5:02 PM EST Mariajose Wongabdita [facility] LAB BLOOD ORDERABL ES [facility] [address] [place] [address] * Hepatitis C Antibody (09/16/2018 1:19 PM EST) HCV Ab Qualitative Non Reac Non Reactive 09/16/2018 7:23 PM EST [facility] Blood 09/16/2018 1:19 PM EST 09/16/2018 5:02 PM EST Mariajose Zambrotta CNM LAB BLOOD ORDERABL ES Performing Organization Address [facility] Co de Phone Number [facility] [address] [place] [address] * Hepatitis B Surface Antigen (09/16/2018 1:19 PM EST) Hep B S Ag Non Reac Non Reactive 09/16/2018 7:23 PM EST [facility] Blood 09/16/2018 1:19 PM EST 09/16/2018 5:02 PM EST Mariajose Zambrotta CN LAB BLOOD ORDERABL ES Performing Organization Address City/[facility]/ZIP Co de Phone Number [facility] [address] [place] [address] * Venipuncture Only (09/16/2018 12:45 PM EST) Venipuncture Done 09/16/2018 12:45 PM EST [facility] Blood 09/16/2018 12:4 5 PM EST 09/16/2018 12:45 PM EST Mariajoes Zambrotta CN LAB BLOOD ORDERABL ES [facility] [address] [place] [address] * Gonorrhoea Probe, Urine (09/16/2018 12:00 PM EST) Urine Gonorrhoeae Probe negative 09/17/2018 1:23 PM EST [facility] Urine Hector Probe Perf By Footnote 09/17/2018 1:23 PM EST [facility] Comment: Test Performed by: [facility] Microbiology Laboratory [address] [address] Kenney Silva M.D. 09/16/2018 12:0 0 PM EST 09/16/2018 4:09 PM EST Mariajose Sandovalta CNM BODY FLUIDS AND ST OOLS ORDERABLES Performing Organization Address City/[facility] Co de Phone Number [facility] [address] [place] [address] * Chlamydia trac Probe, Urine (09/16/2018 12:00 PM EST) Urine Chlamydia Probe negative 09/17/2018 1:23 PM EST [facility] Urine Chlamydia Probe Perf By Footnote 09/17/2018 1:23 PM EST [facility] Comment: Test Performed by: [facility] [address] [address] Kenney Silva M.D. 09/16/2018 12:0 0 PM EST 09/16/2018 4:09 PM EST Mariajose Sandovalta CNM BODY FLUIDS AND ST OOLS ORDERABLES Performing Organization Address [facility] Co de Phone Number [facility] [address] [place] [phone] * Culture, Urine (09/16/2018 12:00 PM EST) Urine Culture No Growth [facility] Urine 09/16/2018 12:0 0 PM EST 09/16/2018 2:25 PM EST Comment:CLEAN CATCH Mariajose Lorita CNM MICROBIOLOGY - GEN ERAL ORDERABLES Performing Organization Address [facility] Co de Phone Number [facility] [address] [place] [phone] documented in this encounter Visit Diagnoses Diagnosis Encounter for supervision of normal first in first trimester- Primary documented in this encounter
--- OUTSIDE RECORDS SUMMARY | 2024-04-03 20:36 | XMS_ITS | Encounter Summary ---
Author Organization [facility] Address [address] [place] [address] Care Team Providers Care Exam Proctor Name Role Phone Unavailable Primary Care Provider Unavailabl e Encounter Details Date Type Department Care Team (Late st Contact Info) Description 10/29/2018 1:30 PM EST - 10/29/2018 1:49 PM EST Hospital Encounter [facility] [address] Mariajose Ozuna CNM 19 [facility], [address] [place] [address] Encounter for supervision of normal first in second trimester (Primary Dx) Discharge Disposition: Home or [...] as of this encounter Plan of Treatment Pending Results Name Type Priority Associated Diagnoses Date /Time Alpha Fetoprotein, Maternal Lab Routine Encounter for supervision of normal first in second trimester 10/29/2018 1:46 PM EST Scheduled Orders Name Type Priority Associated Diagnoses Orde r Schedule Alpha Fetoprotein, Maternal Lab Routine Encounter for supervision of normal first in second trimester 1 Occurrences starting 10/29/2018 until 10/29/2019 Alpha Fetoprotein, Maternal Lab Timed Encounter for supervision of normal first in second trimester As Needed for 1 Occurrences starting 10/29/2018 until 10/29/2018 documented as of this encounter Procedures Procedure Name Priority Date/Time Associated Diagnosis Comments VENIPUNCTURE ONLY Routine 10/29/2018 1:3 2 PM EST Encounter for supervision of normal first in second trimester documented in this encounter Results * Venipuncture Only (10/29/2018 1:32 PM EST) Venipuncture Done 10/29/2018 1:33 PM EST [facility] Blood 10/29/2018 1:32 PM EST 10/29/2018 1:32 PM EST Mariajose RUBIO LAB BLOOD ORDERABL ES [facility] [address] [place] [phone] documented in this encounter Visit Diagnoses Diagnosis Encounter for supervision of normal first in second trimester- Primary documented in this encounter
--- OUTSIDE RECORDS SUMMARY | 2024-04-03 20:36 | XMS_ITS | Encounter Summary ---
Author Organization [facility] Address [address] [place] [address] Care Team Providers Care Executive Housekeeper Name Role Phone Roderick Mckenzie MD Primary Care Provider + [phone] Reason for Visit * Reason Comments Initial Visit Had emergency US. Wanted to talk about the results. Encounter Details Date Type Department Care Team (Late st Contact Info) Description 04/10/2021 2:00 PM EDT Routine [facility] [address] [phone] Arleen Brunner, [facility] [address] [place], [place] [id number] [place]: [id number] Social History Tobacco Use Types Packs/Day Years [...] have Coronavirus / COVID-19? No / Unsure 04/10/2021 1:18 PM EDT documented as of this encounter Last Filed Vital Signs Vital Sign Reading Time Taken Comments Blood Pressure 120/68 04/10/2021 1:58 PM EDT Pulse - - Temperature - - Respiratory Rate - - Oxygen Saturation - - Inhaled Oxygen Concentration - - Weight 46.4 kg (102 lb 6.4 oz) 04/10/2021 1:58 P M EDT Height - - Body Mass Index 19.35 03/04/2021 11:13 AM EDT documented in this encounter Progress Notes * Lisa Gibbs - 04/10/2021 2:00 PM EDT Patient presents for visit. * Arleen Brunner CNM - 04/10/2021 2:00 PM EDT Eating and sleeping well. She has some cramping but no bleeding now. A bit upset about not having information about the u/s results earlier from Mariajose when she had her bleeding. Pt aware of the subchorionic bleed on u/s from portal and questions answered. She would like her panorama results, envelope to partner- low risk girl documented in this encounter Plan of Treatment Not on file documented as of this encounter Visit Diagnoses Diagnosis Supervision of normal IUP (intrauterine ) in multigravida, second trimester- Primary documented in this encounter Care Teams Executive Housekeeper Relationship Specialty Start Date End Date Roderick Mckenzie MD PCP - General Family Medicine 03/07/21 documented as of this encounter
--- OUTSIDE RECORDS SUMMARY | 2024-04-03 20:37 | XMS_ITS | Encounter Summary ---
Author Organization [facility] Address [address] [place] [address] Care Team Providers Care Dyslexia Teacher Name Role Phone Unavailable Primary Care Provider Unavailabl e Encounter Details Date Type Department Care Team (Late st Contact Info) Description 10/08/2021 Orders Only [facility] [address] [place] [address] Norma Pruitt MD [address] [place] [address] [address] [place] [address] Social History Tobacco Use Types Packs/Day Years Used Date Smoking Tobacco: Never Assessed Intimate Partner Violence Answer Date R ecorded 9. In the last 6 months, hav e you been afraid of someone close to you? (Like a spouse, partner, ex, or family member) Not on file 11/15/2020 10. Do you feel your physica l or emotional safety is at risk because of someone close to you? Not on file 11/15/2020 Social Connections Answer Date Recorded 11. How often do you see or talk to people that you care about and feel close to? (Talking to friends on the phone or virtually, visiting friends/family, samaritan service, clubs) Not on file 11/15/2020 Financial Resource Strain Answer Date R ecorded 5. Do you ever have problems being able to afford everything you need? Not on file 11/15/2020 4. Over the last 6 months, h ave you had trouble paying your heating or electricity bill? Not on file 11/15/2020 Food Insecurity Answer Date Recorded 3. Over the last 6 months, h ave you worried about having enough money for food? Not on file 11/15/2020 Transportation Needs Answer Date Record ed 8. In the last 6 months, hav e you had trouble getting transportation to medical appointments? Not on file 11/15/2020 Housing Stability Answer Date Recorded 1. Over the last 6 months, h ave you worried that you may not have a steady place to live? Not on file 11/15/2020 2. What is your living situation today? Not on f ile 11/15/2020 Activities of Daily Living Answer Date Recorded 6. Over the last 6 months, h ave you needed help from another person or service animal with any daily activites, such as bathing, dressing, eating, or doing wastewater design engineer? Not on file 11/15/2020 7. Do you ever have problems easily and safely moving around your home, or the place you live? Not on file 11/15/2020 Sex and Gender Information Value Date Recorded Sex Assigned at Not on file Gender Identity Not on file Sexual Orientation Not on file documented as of this encounter Plan of Treatment Not on file documented as of this encounter Procedures Procedure Name Priority Date/Time Associated Diagnosis Comments ABO/RH Routine 10/09/2021 6:40 AM EST ANTIBODY SCREEN Routine 10/09/2021 6:40 AM EST TOXICOLOGY SCREEN URINE(/[facility]) STAT 10/08/2021 6:09 PM EST SARS COV-2 TEST CNE STAT 10/08/2021 6 :04 PM EST documented in this encounter Results * Antibody screen (10/09/2021 6:40 AM EST) AB Screen Interp Negative [facility] Blood 10/09/2021 6:40 AM EST 10/09/2021 6:44 AM EST Naomie Diez MD BLOOD BANK TEST [facility] Organization Address City/State/ZIP Co de Phone Number [facility] * ABO/Rh (10/09/2021 6:40 AM EST) ABO/Rh O POS [facility] Blood 10/09/2021 6:40 AM EST 10/09/2021 6:44 AM EST Naomie Diez MD BLOOD BANK TEST [facility]DES Performing Organization Address [facility] Co de Phone Number [facility] * Toxicology Screen Urine ([facility]) (10/08/2021 6:09 PM EST) Amphetamine Screen, Urine Negative Negative [facility] Comment:Amphetamine Cutoff: 1000 ng/mL Barbiturate Screen, Urine Negative Negative [facility] Comment:Barbiturate Cutoff: 200 ng/mL Benzodiazepine Screen, Urine Negative Negative [facility] Comment:Benzodiazepine Cutof f: 200 ng/mL Buprenorphine Screen, Urine Negative Negative [facility] Comment:Buprenorphine metabo lite Cutoff: 5 ng/mL Cocaine Screen, Urine Negative Negative [facility] Comment:Cocaine Cutoff: 150 ng/mL Fentanyl Screen, UR Negative Negative [facility] Comment:Fentanyl Cutoff: 2.0 ng/mL Methadone Screen, Urine Negative Negative [facility] Comment:Methadone Cutoff: 30 0 ng/mL Opiate Screen, Urine Negative Negative [facility] Comment:Opiate Cutoff: 300 n g/mL Cannabinoid Screen, Urine Negative Negative [facility] Comment: Cannabinoid Cutoff: 50 ng/mL Urine Drugs of Abuse Screen: All drug results are unconfirmed screening tests For Diagnostic Purposes Only. For confirmation of any drug, contact the laboratory within 3 days. Urine 10/08/2021 6:09 PM EST 10/09/2021 5:07 AM EST Lisa Freeman MD URINE ORDERABLES Performing Organization Address [facility] Co de Phone Number [facility] * SARS COV-2 Test (10/08/2021 6:04 PM EST) Pathologist [facility] SARS COV-2 DETECTION Not Detected Not Detected [facility] SARS-CoV-2 Interpretation NEGATIVE results do not preclude SARS-CoV-2 infection and should not be used as the sole basis for patient management decisions. Clinical correlation is necessary to determine patient infection status. [facility] SARS-CoV-2 Interpretation [facility] SARS-CoV-2 Interpretation Testing platform: [employer] [facility] SARS-CoV-2 (isothermal nucleic acid amplification)[facility] SARS-CoV-2 Interpretation [facility] SARS-CoV-2 Interpretation This test has been authorized by the FDA under an Emergency Use Authorization (EUA) for use by authorized laboratories and patient care settings. ??Please review the ? ? Fact Sheets? ? for health care providers and patients and the FDA authorized labelling available in the following website: https://wielizabethabor thuy.testWindationalo Room Choice.org. [facility] Nasopharyngeal 10/08/2021 6: 04 PM EST 10/08/2021 6:17 PM EST Norma Pruitt MD PATHOLOGY/CYTOLOGY ORDERABLES [facility] documented in this encounter Visit Diagnoses Not on filedocumented in this encounter
--- OUTSIDE RECORDS SUMMARY | 2024-04-03 20:37 | XMS_ITS | Encounter Summary ---
Author Organization [facility] Address [address] [place] [address] Care Team Providers Care Crisis Mental Health Therapist Name Role Phone Unavailable Primary Care Provider Unavailabl e Encounter Details Date Type Department Care Team (Late st Contact Info) Description 03/02/2015 10:41 AM EDT - 03/02/2015 11:59 PM EDT Hospital Encounter The [address] [phone] Srini Martínez MD [address] [place] [phone] Routine general medical examination at a health care facility (Primary Dx) Discharge Disposition: Home or Self [...] as of this encounter Plan of Treatment Scheduled Orders Name Type Priority Associated Diagnoses Orde r Schedule Venipuncture Only Lab Routine Routine general medical examination at a health care facility 1 Occurrences starting 03/02/2015 until 03/02/2016 Venipuncture Only Lab Timed Routine general medical examination at a health care facility As Needed for 1 Occurrences starting 03/02/2015 until 03/02/2015 documented as of this encounter Procedures Procedure Name Priority Date/Time Associated Diagnosis Comments +MICROSCOPIC ANALYSIS, URINE Routine 03/02/2015 10:45 AM EDT CBC WITH DIFF AND PLATELET Routine 03/02/2015 10:45 AM EDT Routine general medical examination at a health care facility HEPATITIS B SURFACE ANTIBODY Routine 03/02/2015 10:45 AM EDT Routine general medical examination at a health care facility URINALYSIS Routine 03/02/2015 10:45 AM EDT Routine [facility] at [facility] documented in this encounter Results * Microscopic Analysis, Urine (03/02/2015 10:45 AM EDT) RBC, Ur 1 0 - 5 /HPF 03/02/2015 7:50 PM EDT [facility] WBC, Ur 1 0 - 6 /HPF 03/02/2015 7:50 PM EDT [facility] Squam Epithel, Ur few /LPF 03/02/2015 7:50 PM EDT [facility] 03/02/2015 10:4 5 AM EDT 03/02/2015 7:19 PM EDT Srini Martínez MD URINE ORDERABLES [facility] [address] [place] [address] * Hepatitis B Surface Antibody (03/02/2015 10:45 AM EDT) Hep B S Ab 323.9 MIU/ML 03/02/2015 8:13 PM EDT [facility] Hepatitis B Surface Antibody Comment Footnote 03/02/2015 8:13 PM EDT [facility] Comment: Non Reactive: ??<10 mIU/mL - Patient is considered not to have ?protective immunity to Hepatitis ?B Virus infection. Reactive: ?10 mIU/mL or greater - Patient considered to ?have protective immunity to ?Hepatitis B Virus infection. Blood 03/02/2015 10:4 5 AM EDT 03/02/2015 7:17 PM EDT Srini Martínez MD LAB BLOOD ORDERAB LES [facility] [address] [place] [address] * CBC with Diff (03/02/2015 10:45 AM EDT) WBC 5.9 3.5 - 11.0 [id number] 03/02/2015 7:39 PM EDT [facility] RBC 4.02 3.70 - 5.00 [id number] 03/02/2015 7:39 PM EDT [facility] Hemoglobin 12.8 11.0 - 15.0 G/DL 03/02/2015 7:39 PM EDT [facility] Hematocrit 38.4 32.0 - 45.0 % 03/02/2015 7:39 PM EDT [facility] MCV 95.4 80.0 - 98.0 fL 03/02/2015 7:39 PM EDT [facility] MCH 31.8 26.0 - 34.0 PG 03/02/2015 7:39 PM EDT [facility] MCHC 33.4 32.0 - 36.0 G/DL 03/02/2015 7:39 PM EDT [facility] RDW 12.7 11.5 - 14.5 % 03/02/2015 7:39 PM EDT [facility] Platelets 321 150 - 400 [id number] 03/02/2015 7:39 PM EDT [facility] MPV 8.8 7.4 - 10.4 fL 03/02/2015 7:39 PM EDT [facility] Seg Neutrophils % 60.4 % 03/02/2015 7:39 PM EDT [facility] Lymphocytes % 26.3 % 03/02/2015 7:39 PM EDT [facility] Monocytes % 12.0 % 03/02/2015 7:39 PM EDT [facility] Eosinophils % 0.9 % 03/02/2015 7:39 PM EDT [facility] Basophils % 0.4 % 03/02/2015 7:39 PM EDT [facility] Segs Absolute 3.5 1.5 - 7.5 [id number] 03/02/2015 7:39 PM EDT [facility] Lymphocytes Absolute 1.5 1.0 - 4.0 [id number] 03/02/2015 7:39 PM EDT [facility] Monocytes Absolute 0.7 0.2 - 0.8 K/uL 03/02/2015 7:39 PM EDT [facility] Eosinophils Absolute 0.1 0.0 - 0.5 K/uL 03/02/2015 7:39 PM EDT [facility] Basophils Absolute 0.0 0.0 - 0.2 [id number] 03/02/2015 7:39 PM EDT [facility] Blood 03/02/2015 10:4 5 AM EDT 03/02/2015 7:19 PM EDT Srini Martínez MD LAB BLOOD ORDERAB LES [facility] [address] [place] [address] * (ABNORMAL) Urinalysis (03/02/2015 10:45 AM EDT) Color, Ur yellow yellow 03/02/2015 7:40 PM EDT [facility] Appearance, Ur clear slightly cloudy 03/02/2015 7:40 PM EDT [facility] Glucose, Ur negative negative 03/02/2015 7:40 PM EDT [facility] Bilirubin, Ur negative negative 03/02/2015 7:40 PM EDT [facility] Ketones, Ur negative negative 03/02/2015 7:40 PM EDT [facility] Specific [place], Ur 1.017 1.010 - 1.030 03/02/2015 7:40 PM EDT [facility] Blood, Ur 1+(A) negative 03/02/2015 7:40 PM EDT [facility] pH, Ur 7.0 5.0 - 8.0 03/02/2015 7:40 PM EDT [facility] Protein, Ur negative <10 MG/DL 03/02/2015 7:40 PM EDT [facility] Urobilinogen, Ur negative negative 03/02/2015 7:40 PM EDT [facility] Nitrite Level, Ur negative negative 03/02/2015 7:40 PM EDT [facility] Leukocytes Est, Ur negative negative 03/02/2015 7:40 PM EDT [facility] Urine 03/02/2015 10:4 5 AM EDT 03/02/2015 7:19 PM EDT Srini Martínez MD URINE ORDERABLES [facility] [address] [place] [address] documented in this encounter Visit Diagnoses Diagnosis Routine general medical examination at a health care facility- Primary documented in this encounter
--- OUTSIDE RECORDS SUMMARY | 2024-04-03 20:37 | XMS_ITS | Encounter Summary ---
Author Organization [facility] Address [address] [place] [address] Care Team Providers Care Wildlife Refuge Manager Name Role Phone Srini Martínez MD Primary Care Provider [phone] Encounter Details Date Type Department Care Team (Late st Contact Info) Description 06/17/2016 1:20 PM EDT - 06/17/2016 11:59 PM EDT Hospital Encounter The [address] [phone] Srini Martínez MD [address] [place] [phone] STD exposure (Primary Dx) Discharge Disposition: Home or Self [...] Procedure Name Priority Date/Time Associated Diagnosis Comments TREPONEMA PALLIDUM IGC AB Routine 06/17/2016 1:22 PM EDT STD exposure AFD HIV AB/AG COMBO Routine 06/17/2016 1 :22 PM EDT STD exposure GONORRHOEA PROBE, URINE Routine 06/17/2016 1:22 PM EDT STD exposure CHLAMYDIA TRAC PROBE, URINE Routine 06/17/2016 1:22 PM EDT STD exposure VENIPUNCTURE ONLY Routine 06/17/2016 1:2 2 PM EDT STD exposure HEPATITIS B SURFACE ANTIGEN Routine 06/17/2016 1:22 PM EDT STD exposure documented in this encounter Results * Chlamydia trac Probe, Urine (06/17/2016 1:22 PM EDT) Urine Chlamydia Probe negative 06/19/2016 7:27 AM EDT LABORATORY Comment: This specimen source is not FDA approved for this procedure. Source has been validated within laboratory. Urine Chlamydia Probe Perf By Footnote 06/19/2016 7:27 AM EDT LABORATORY Comment: Test Performed by: [facility] [place] [address] Kenney Silva M.D. Urine 06/17/2016 1:22 PM EDT 06/18/2016 7:23 AM EDT Srini Martínez MD BODY FLUIDS AND S TOOLS ORDERABLES LAB[facility]ATORY [address] [place] [address] * Gonorrhoea Probe, Urine (06/17/2016 1:22 PM EDT) Urine Gonorrhoeae Probe negative 06/19/2016 7:27 AM EDT LABORATORY Comment: This specimen source is not FDA approved for this procedure. Source has been validated within laboratory. Urine Hector Probe Perf By Footnote 06/19/2016 7:27 AM EDT LABORATORY Comment: Test Performed by: [facility] [place] [place] [address] Kenney Silva M.D. Urine 06/17/2016 1:22 PM EDT 06/18/2016 7:23 AM EDT Srini Martínez MD BODY FLUIDS AND S TOOLS ORDERABLES Performing Organization Address [facility] Co de Phone Number LABORATORY [address] [place] [address] * Venipuncture Only (06/17/2016 1:22 PM EDT) Venipuncture Done 06/17/2016 1:22 PM EDT [facility] Blood 06/17/2016 1:22 PM EDT 06/17/2016 1:22 PM EDT Srini Martínez MD LAB BLOOD ORDERAB LES Performing Organization Address [facility] Co de Phone Number [facility] [address] [place] [address] * Hepatitis B Surface Antigen (06/17/2016 1:22 PM EDT) Hep B S Ag Non Reac Non Reactive 06/17/2016 9:48 PM EDT [facility] Blood 06/17/2016 1:22 PM EDT 06/17/2016 7:30 PM EDT Srini Martínez MD LAB BLOOD ORDERAB LES Performing Organization Address [facility] Co de Phone Number [facility] [address] [place] [address] * Treponema pallidum IgG Ab (06/17/2016 1:22 PM EDT) Treponema Pallidum IgG Antibody <0.2 0.0 - 0.8 AI 06/17/2016 9:10 PM EDT [facility] Treponema IgG Comment Footnote 06/17/2016 9:10 PM EDT [facility] Comment: Reference Range ?Antibody Index (AI) Negative: ??< or = 0.8 ??Nonreactive Equivocal: 0.9 - 1.0 ?? Equivocal result: obtain an ? additional sample for re-testing. Positive: ??= or > 1.1 ??Reactive Blood 06/17/2016 1:22 PM EDT 06/17/2016 7:30 PM EDT Srini Martínez MD LAB BLOOD ORDERAB LES [facility] [address] [place] [address] * HIV Ab/Ag combo (06/17/2016 1:22 PM EDT) HIV Ab/Ag Combo Non Reac Non Reactive 06/17/2016 11:19 PM EDT [facility] Blood 06/17/2016 1:22 PM EDT 06/17/2016 7:30 PM EDT Srini Martínez MD LAB BLOOD ORDERAB LES Performing Organization Address City/[facility] Co de Phone Number [facility] [address] [place] [address] documented in this encounter Visit Diagnoses Diagnosis STD exposure- Primary documented in this encounter Care Teams Wildlife Refuge Manager Relationship Specialty Start Date End Date Srini Martínez MD [address] [place] [phone] PCP - General Family Medicine 06/17/16 12/14/16 documented as of this encounter
--- OUTSIDE RECORDS SUMMARY | 2024-04-03 20:37 | XMS_ITS | Encounter Summary ---
Author Organization [facility] Address [address] [place] [address] Care Team Providers Care Middle Card Tender Name Role Phone Unavailable Primary Care Provider Unavailabl e Encounter Details Date Type Department Care Team (Late st Contact Info) Description 11/01/2016 Orders Only [facility] Lab Inpatient [address] [place] [address] Unknown, Provider [address] [place] [address] Social History Tobacco Use Types Packs/Day Years Used Date Smoking Tobacco: Never Assessed Sex and Gender Information Value Date Recorded Sex Assigned at Not on file Gender Identity Not on file Sexual Orientation Not on file documented as of this encounter Plan of Treatment Not on file documented as of this encounter Procedures Procedure Name Priority Date/Time Associated Diagnosis Comments LACTIC ACID, VENOUS, WHOLE BLOOD STAT 11/03/2016 11:00 AM EST CK STAT 11/03/2016 11:00 AM EST HCG, SERUM, QUALITATIVE STAT 11/03/2016 2:15 AM EST ESTIMATED GFR STAT 11/02/2016 4:07 PM EST CBC WITH AUTO DIFFERENTIAL STAT 11/02/2016 4:07 PM EST CREATININE CLEARANCE STAT 11/02/2016 4:07 PM EST LACTIC ACID, VENOUS, WHOLE BLOOD STAT 11/02/2016 4:07 PM EST PROLACTIN STAT 11/02/2016 4:07 PM EST XAUTOMATED DIFFERENTIAL STAT 11/02/2016 4:07 PM EST HCG, SERUM, QUALITATIVE STAT 11/02/2016 4:07 PM EST COMPREHENSIVE METABOLIC PANEL STAT 11/02/2016 4:07 PM EST PROLACTIN Routine 11/02/2016 6:45 AM EST TSH Routine 11/02/2016 6:45 AM EST CANNABINOID SCREEN URINE Routine 11/01/2016 7:02 PM EST BARBITURATE SCREEN URINE Routine 11/01/2016 7:02 PM EST PHENCYCLIDINE (PCP), URINE Routine 11/01/2016 7:02 PM EST OPIATE, URINE, QUALITATIVE Routine 11/01/2016 7:02 PM EST COCAINE, URINE, QUALITATIVE Routine 11/01/2016 7:02 PM EST BENZODIAZEPINE, URINE, QUALITATIVE Routine 11/01/2016 7:02 PM EST AMPHETAMINE, URINE, QUALITATIVE Routine 11/01/2016 7:02 PM EST ESTIMATED GFR STAT 11/01/2016 7:01 PM EST CBC WITH AUTO DIFFERENTIAL STAT 11/01/2016 7:01 PM EST CREATININE CLEARANCE STAT 11/01/2016 7:01 PM EST LACTIC ACID, VENOUS, WHOLE BLOOD STAT 11/01/2016 7:01 PM EST XAUTOMATED DIFFERENTIAL STAT 11/01/2016 7:01 PM EST CK STAT 11/01/2016 7:01 PM EST BILIRUBIN, DIRECT STAT 11/01/2016 7:0 1 PM EST ETHANOL STAT 11/01/2016 7:01 PM EST ACETAMINOPHEN LEVEL STAT 11/01/2016 7 :01 PM EST SALICYLATE LEVEL STAT 11/01/2016 7:01 PM EST COMPREHENSIVE METABOLIC PANEL STAT 11/01/2016 7:01 PM EST URINALYSIS W/ UMICRO IF INDICATED STAT 11/01/2016 6:07 PM EST documented in this encounter Results * Lactic acid, venous, whole blood (11/03/2016 11:00 AM EST) Lactic Acid 0.8 0.5 - 2.2 mmol/L [facility] Blood 11/03/2016 11:0 0 AM EST 11/03/2016 11:28 AM EST Ora Mars MD LAB BLOOD ORDERABLES Performing Organization Address [facility] de Phone Number [address] [facility] [address] [place] [address] * CK (11/03/2016 11:00 AM EST) Creatine Kinase 141 30 - 223 Intnl Unit/L [facility] Blood 11/03/2016 11:0 0 AM EST 11/03/2016 11:28 AM EST Ora Mars MD LAB BLOOD ORDERABLES Performing Organization Address [facility] de Phone Number [address] [facility] [address] [place] [address] * hCG, serum, qualitative (11/03/2016 2:15 AM EST) HCG, Serum Negative [facility] Blood 11/03/2016 2:15 AM EST 11/03/2016 2:18 AM EST Marcella MASON LAB BLOOD ORDERABLE S Performing Organization Address [facility] de Phone Number [facility] [address] [facility] [address] [place] [address] * Prolactin (11/02/2016 4:07 PM EST) Prolactin 10.45 ng/mL [facility] Comment: REF RANGE: ?MALE: ??2.6-13.1 ??ng/mL ?FEMALE: ??2.7-26.7 ??ng/mL ?: ??95-473 ?ng/mL Blood 11/02/2016 4:07 PM EST 11/02/2016 4:31 PM EST Connie MASON LAB BLOOD ORDERABLES Performing Organization Address [facility] Phone Number [facility] [address] [facility] [address] [place] [address] * hCG, serum, qualitative (11/02/2016 4:07 PM EST) [facility] HCG, Serum Negative [facility] Blood 11/02/2016 4:07 PM EST 11/02/2016 4:31 PM EST eDbbie White MD LAB BLOOD ORDERABLES Performing Organization Address [facility] de Phone Number [facility] [address] [facility] [address] [place] [address] * Creatinine Clearance (11/02/2016 4:07 PM EST) Pathologist [facility] CrCl for Drug Dosing 97.06 mL/min [facility] Comment:Estimated Creatinine Clearance added by Discern Expert (Based off of [place] Body Weight) Blood 11/02/2016 4:07 PM EST 11/02/2016 4:35 PM EST Narrative CNE - 11/02/2016 4:56 PM EST Estimated Creatinine Clearance added by Discern Expert (calculation based off of [place] Body Weight) Debbie White MD LAB BLOOD ORDERABLES Performing Organization Address [facility] Co de Phone Number [facility] [address] [facility] [address] [place] [address] * Estimated GFR (11/02/2016 4:07 PM EST) Pathologist [facility] eGFR (MDRD) >60.0 >=60.0 mL/min/1.7 3m2 [facility] Comment: eGFR calculation done by Discern Expert GFR Comment For patients, multiply the results by 1.212 Blood 11/02/2016 4:07 PM EST 11/02/2016 4:35 PM EST Narrative CNE - 11/02/2016 4:56 PM EST Ordered by Citlalli Expert Debbie White MD LAB BLOOD ORDERABLES Performing Organization Address [facility] de Phone Number [facility] [address] [facility] [address] [place] [address] * (ABNORMAL) Comprehensive metabolic panel (11/02/2016 4:07 PM EST) Pathologist [facility] Glucose 87 70 - 99 mg/dL [facility] Urea Nitrogen 4(L) 6 - 20 mg/dL [facility] Serum Creatinine 0.68 0.60 - 1.10 mg/dL [facility] Sodium 138 136 - 145 mmol/L [facility] Potassium 4.3 3.5 - 5.1 mmol/L [facility] Chloride 108(H) 98 - 107 mmol/L [facility] Carbon Dioxide 27 21 - 31 mmol/L [facility] Calcium 9.6 8.6 - 10.3 mg/dL [facility] Bilirubin Total 0.5 0.2 - 1.0 mg/dL [facility] Total Protein 6.82 5.80 - 7.70 g/dL [facility] Albumin 4.4 3.2 - 5.5 g/dL [facility] Globulin 2.4 g/dL [facility] Alk Phos 57 34 - 104 Intnl Unit/L [facility] AST 16 13 - 39 Intnl Unit/L [facility] ALT 8 7 - 52 Intnl Unit/L [facility] Anion Gap (AGAP R) 3(L) 5 - 10 [facility] Blood 11/02/2016 4:07 PM EST 11/02/2016 4:31 PM EST Debbie White MD LAB BLOOD ORDERABLES Performing Organization Address [facility] Co de Phone Number [facility] [address] [facility] [address] [place] [address] * (ABNORMAL) Lactic acid, venous, whole blood (11/02/2016 4:07 PM EST) Lactic Acid 0.4(L) 0.5 - 2.2 mmol/L [facility] Blood 11/02/2016 4:07 PM EST 11/02/2016 4:31 PM EST Debbie White MD LAB BLOOD ORDERABLES Performing Organization Address [facility] Co de Phone Number [address] [facility] [address] [place] [address] * (ABNORMAL) Automated Differential (11/02/2016 4:07 PM EST) Neutrophils 73.1(H) 48.0 - 66.0 % [facility] Lymphocytes 18.2(L) 29.0 - 45.0 % [facility] Monocytes 8.1 2.0 - 10.0 % [facility] Eosinophils 0.3(L) 1.5 - 6.0 % [facility] Basophils 0.3 0.0 - 2.2 % [facility] Neutrophil # 5.2 1.5 - 8.0 # [facility] Lymphocyte # 1.3 1.0 - 4.8 # [facility] Monocyte # 0.6 0.0 - 0.9 # [facility] Blood 11/02/2016 4:07 PM EST 11/02/2016 4:31 PM EST Narrative CNE - 11/02/2016 4:36 PM EST added by Discern Expert Debbie White MD LAB BLOOD ORDERABLES Performing Organization Address [facility] Co de Phone Number [facility] [address] [facility] [address] [place] [address] * CBC auto differential (11/02/2016 4:07 PM EST) WBC 7.1 4.5 - 11.0 x10(3)/mcL [facility] RBC 4.03 3.50 - 5.50 x10(6)/mcL [facility] Hemoglobin 12.5 12.0 - 15.0 g/dL [facility] Hematocrit 38.3 36.0 - 48.0 % [facility] MCV 95.2 79.0 - 98.0 fL [facility] MCH 31.1 25.4 - 34.6 pg/dL [facility] MCHC 32.7 32.0 - 36.4 g/dL [facility] RDW 12.4 12.0 - 15.0 % [facility] Platelet 291 140 - 440 x10(3)/mcL [facility] MPV 8.2 6.0 - 11.0 fL [facility] Blood 11/02/2016 4:07 PM EST 11/02/2016 4:31 PM EST Debbie White MD LAB BLOOD ORDERABLES Performing Organization Address [facility] Co de Phone Number [facility] [address] [facility] [address] [place] [address] * (ABNORMAL) TSH (11/02/2016 6:45 AM EST) TSH 0.29(L) 0.30 - 5.00 mcIUnit/mL [facility] Comment:Repeated and confirm ed Blood 11/02/2016 6:45 AM EST 11/02/2016 7:51 AM EST Rashawn Connelly MD LAB BLOOD ORDERABLES Performing Organization Address [facility]/ZIP Co de Phone Number [facility] [address] [facility] [address] [place] [address] * Prolactin (11/02/2016 6:45 AM EST) Prolactin 13.71 ng/mL [facility] Comment: REF RANGE: ?MALE: ??2.6-13.1 ??ng/mL ?FEMALE: ??2.7-26.7 ??ng/mL ?: ??95-473 ?ng/mL Blood 11/02/2016 6:45 AM EST 11/02/2016 7:51 AM EST Rashawn Connelly MD LAB BLOOD ORDERABLES Performing Organization Address [facility] Co de Phone Number [facility] [address] [facility] [address] [place] [address] * Phencyclidine (PCP), urine (11/01/2016 7:02 PM EST) PCP, Urine Negative Negative [facility] Comment:PCP Cutoff: 25 ng/mL Urine 11/01/2016 7:02 PM EST 11/02/2016 2:04 PM EST Orville Horner MD URINE ORDERABLES Performing Organization Address [facility] Co de Phone Number [facility] [address] [facility] [address] [place] [address] * Opiate, urine, qualitative (11/01/2016 7:02 PM EST) Opiate Screen, Urine Negative Negative [facility] Comment:Opiate Cutoff: 300 n g/mL Urine 11/01/2016 7:02 PM EST 11/02/2016 2:04 PM EST Orville Horner MD URINE ORDERABLES Performing Organization Address [facility] Co de Phone Number [address] [facility] [address] [place] [address] * (ABNORMAL) Benzodiazepine, urine, qualitative (11/01/2016 7:02 PM EST) Benzodiazepine Screen, Urine Positive( A) Negative [facility] Comment:Benzodiazepine Cutof f: 200 ng/mL Urine 11/01/2016 7:02 PM EST 11/02/2016 2:04 PM EST Orville Horner MD URINE ORDERABLES Performing Organization Address [facility] [place] [place] [address], [facility] [address] [place] [address] * Barbiturate Screen Urine (11/01/2016 7:02 PM EST) Barbiturate Screen, Urine Negative Negative [facility] Comment:Barbiturate Cutoff: 200 ng/mL Urine 11/01/2016 7:02 PM EST 11/02/2016 2:04 PM EST Orville Horner MD URINE ORDERABLES Performing Organization Address [facility] de Phone Number [address] [facility] [address] [place] [address] * Amphetamine, urine, qualitative (11/01/2016 7:02 PM EST) Amphetamine Screen, Urine Negative Negative [facility] Comment: Amphetamine Cutoff: 1000 ng/mL NOTE: Amphetamine Screen urine test will not detect MDMA (Ecstasy). Should MDMA be suspected, it will need to be ordered separately. Urine 11/01/2016 7:02 PM EST 11/02/2016 2:04 PM EST Orville Horner MD URINE ORDERABLES Performing Organization Address [facility] [place] [address], [facility] [address] [place] [address] * Cocaine, urine, qualitative (11/01/2016 7:02 PM EST) Cocaine Screen, Urine Negative Negative [facility] Comment:Cocaine Cutoff: 300 ng/mL Urine 11/01/2016 7:02 PM EST 11/02/2016 2:04 PM EST Orville Horner MD URINE ORDERABLES Performing Organization Address [facility] Co de Phone Number [address] [facility] [address] [place] [address] * (ABNORMAL) Cannabinoid Screen Urine (11/01/2016 7:02 PM EST) Cannabinoid Screen, Urine Positive( A) Negative [facility] Comment: Cannabinoid Cutoff: 50 ng/mL Urine Drugs of Abuse Screen: All drug results are unconfirmed screening tests For Diagnostic Purposes Only. For confirmation of any drug, contact the laboratory within 3 days. Urine 11/01/2016 7:02 PM EST 11/02/2016 2:04 PM EST Orville Horner MD URINE ORDERABLES Performing Organization Address [facility] Co de Phone Number [address] [facility] [address] [place] [address] * Ethanol (11/01/2016 7:01 PM EST) Pathologist [facility] Ethanol NEG g/dL [facility] Comment: Ethanol Comment FOR DIAGNOSTIC PURPOSES ONLY All result values <0.01 are considered Negative. Blood 11/01/2016 7:01 PM EST 11/01/2016 7:42 PM EST Orville Horner MD LAB BLOOD ORDERABLES Performing Organization Address [facility] Co de Phone Number [address] [facility] [address] [place] [address] * Creatinine Clearance (11/01/2016 7:01 PM EST) CrCl for Drug Dosing 81.59 mL/min [facility] Comment:Estimated Creatinine Clearance added by Discern Expert (Based off of [place] Body Weight) Blood 11/01/2016 7:01 PM EST 11/01/2016 7:42 PM EST Narrative CNE - 11/01/2016 7:56 PM EST Estimated Creatinine Clearance added by Discern Expert (calculation based off of [place] Body Weight) Orville Horner MD LAB BLOOD ORDERABLES Performing Organization Address [facility] de Phone Number [facility] [address] [facility] [address] [place] [address] * Salicylate level (11/01/2016 7:01 PM EST) [facility] Salicylate <2.5 <=29.9 mg/dL [facility] Blood 11/01/2016 7:01 PM EST 11/01/2016 7:42 PM EST Orville Horner MD LAB BLOOD ORDERABLES Performing Organization Address [facility] de Phone Number [facility] [address] [facility] [address] [place] [address] * Acetaminophen level (11/01/2016 7:01 PM EST) [facility] Acetaminophen <10.0 10.0 - 30.0 mcg/mL [facility] Comment: Tylenol: Reference Ranges for serum or plasma: Therapeutic Range: ??10-30 mcg/mL ?Toxic: ??>150 mcg/mL 4 hours post-ingestion ?>75 mcg/mL ??8 hours post-ingestion ?>40 mcg/mL 12 hours post-ingestion Blood 11/01/2016 7:01 PM EST 11/01/2016 7:42 PM EST Orville Horner MD LAB BLOOD ORDERABLES Performing Organization Address [facility] de Phone Number [facility] [address] [place] [address], [place] [address] * Bilirubin, direct (11/01/2016 7:01 PM EST) Bilirubin Direct 0.07 0.00 - 0.20 mg/dL [facility] Blood 11/01/2016 7:01 PM EST 11/01/2016 7:42 PM EST Narrative CNE - 11/01/2016 7:56 PM EST Direct bili added on by Citlalli Expert Orville Horner MD LAB BLOOD ORDERABLES Performing Organization Address [facility] [place] [address] * Estimated GFR (11/01/2016 7:01 PM EST) eGFR (MDRD) >60.0 >=60.0 mL/min/1.7 3m2 [facility] Comment: eGFR calculation done by Discern Expert GFR Comment For patients, multiply the results by 1.212 Blood 11/01/2016 7:01 PM EST 11/01/2016 7:42 PM EST Narrative CNE - 11/01/2016 7:56 PM EST Ordered by Discern Expert Orville Horner MD LAB BLOOD ORDERABLES Performing Organization Address [facility] Co de Phone Number [facility] [address] [facility] [address] [place] [address] * CK (11/01/2016 7:01 PM EST) Creatine Kinase 172 30 - 223 Intnl Unit/L [facility] Blood 11/01/2016 7:01 PM EST 11/01/2016 7:42 PM EST Orville Horner MD LAB BLOOD ORDERABLES Performing Organization Address [facility] de Phone Number [facility] [address] [facility] [address] [place] [address] * Comprehensive metabolic panel (11/01/2016 7:01 PM EST) Glucose 78 70 - 99 mg/dL [facility] Urea Nitrogen 9 6 - 20 mg/dL [facility] Serum Creatinine 0.79 0.60 - 1.10 mg/dL [facility] Sodium 137 136 - 145 mmol/L [facility] Potassium 4.0 3.5 - 5.1 mmol/L [facility] Chloride 104 98 - 107 mmol/L [facility] Carbon Dioxide 27 21 - 31 mmol/L [facility] Calcium 9.6 8.6 - 10.3 mg/dL [facility] Bilirubin Total 0.3 0.2 - 1.0 mg/dL [facility] Total Protein 7.10 5.80 - 7.70 g/dL [facility] Albumin 4.6 3.2 - 5.5 g/dL [facility] Globulin 2.5 g/dL [facility] Alk Phos 62 34 - 104 Intnl Unit/L [facility] AST 19 13 - 39 Intnl Unit/L [facility] ALT 8 7 - 52 Intnl Unit/L [facility] Anion Gap (AGAP R) 6 5 - 10 [facility] Blood 11/01/2016 7:01 PM EST 11/01/2016 7:42 PM EST Orville Horner MD LAB BLOOD ORDERABLES Performing Organization Address [facility] Co de Phone Number [facility] [address] [facility] [address] [place] [address] * Lactic acid, venous, whole blood (11/01/2016 7:01 PM EST) Lactic Acid 0.8 0.5 - 2.2 mmol/L [facility] Blood 11/01/2016 7:01 PM EST 11/01/2016 7:34 PM EST Orville Horner MD LAB BLOOD ORDERABLES Performing Organization Address [facility] de Phone Number [facility] [address] [facility] [address] [place] [address] * (ABNORMAL) Automated Differential (11/01/2016 7:01 PM EST) Pathologist [facility] Neutrophils 56.4 48.0 - 66.0 % [facility] Lymphocytes 31.1 29.0 - 45.0 % [facility] Monocytes 11.5(H) 2.0 - 10.0 % [facility] Eosinophils 0.7(L) 1.5 - 6.0 % [facility] Basophils 0.3 0.0 - 2.2 % [facility] Neutrophil # 4.6 1.5 - 8.0 # [facility] Lymphocyte # 2.5 1.0 - 4.8 # [facility] Monocyte # 0.9 0.0 - 0.9 # [facility] Eosinophil # 0.1(L) 0.2 - 0.9 # [facility] Blood 11/01/2016 7:01 PM EST 11/01/2016 7:34 PM EST Narrative [facility]NE - 11/01/2016 7:38 PM EST added by Discern Expert Orville Horner MD LAB BLOOD ORDERABLES Performing Organization Address [facility] de Phone Number [facility] [address] [facility] [address] [place] [address] * CBC auto differential (11/01/2016 7:01 PM EST) WBC 8.2 4.5 - 11.0 x10(3)/mcL [facility] RBC 3.90 3.50 - 5.50 x10(6)/mcL [facility] Hemoglobin 12.1 12.0 - 15.0 g/dL [facility] Hematocrit 36.5 36.0 - 48.0 % [facility] MCV 93.4 79.0 - 98.0 fL [facility] MCH 31.0 25.4 - 34.6 pg/dL [facility] MCHC 33.1 32.0 - 36.4 g/dL [facility] RDW 12.6 12.0 - 15.0 % [facility] Platelet 288 140 - 440 x10(3)/mcL [facility] MPV 8.8 6.0 - 11.0 fL [facility] Nucleated RBC 0.1 0.0 - 5.0 % [facility] Blood 11/01/2016 7:01 PM EST 11/01/2016 7:34 PM EST Orville Horner MD LAB BLOOD ORDERABLES [facility] [address] [place] [address], [facility] [address] [place] [address] * Urinalysis w/ UMicro if Indicated (11/01/2016 6:07 PM EST) Color Straw Yellow [facility] Appearance Clear Clear [facility] Glucose Negative 30 mg/dL [facility] Bilirubin Negative Negative [facility] Ketones Negative Trace [facility] Specific [place] 1.004 [facility] Blood Negative Negative mg/dL [facility] pH 7.0 7.0 [facility] Protein Negative Negative mg/dL [facility] Urobilinogen Negative Negative [facility] Nitrite Negative Negative [facility] Leukocyte Esterase Negative Negative [facility] Micro? (Y/N) No [facility] Comment:Resulted No by Ace rn Expert Microscopic Not Indicated [facility] Comment:VERIFIED by Discern Expert. Urine 11/01/2016 6:07 PM EST 11/01/2016 6:14 PM EST Provider Unknown URINE ORDERABLES Performing Organization Address City/[facility] Co de Phone Number [facility] [address] [place] [address], [facility] [address] [place] [address] documented in this encounter Visit Diagnoses Not on filedocumented in this encounter
--- OUTSIDE RECORDS SUMMARY | 2024-04-03 20:37 | XMS_ITS | Encounter Summary ---
Author Organization [facility] [place] Address [address] [place] [address] Care Team Providers Care Private Household Worker Name Role Phone Unavailable Primary Care Provider Unavailabl e Encounter Details Date Type Department Care Team (Late st Contact Info) Description 04/10/2015 Orders Only [facility] [address] [place] [address] Unknown, Provider [address] [place] [address] Social History Tobacco Use Types Packs/Day Years Used Date Smoking Tobacco: Never Assessed Sex and Gender Information Value Date Recorded Sex Assigned at Not on file Gender Identity Not on file Sexual Orientation Not on file documented as of this encounter Plan of Treatment Not on file documented as of this encounter Procedures Procedure Name Priority Date/Time Associated Diagnosis Comments URINALYSIS MICROSCOPIC Routine 04/10/2015 1:24 PM EDT CBC WITH AUTO DIFFERENTIAL Routine 04/10/2015 1:24 PM EDT XAUTOMATED DIFFERENTIAL Routine 04/10/2015 1:24 PM EDT URINALYSIS WITH MICROSCOPIC Routine 04/10/2015 1:24 PM EDT documented in this encounter Results * Urinalysis Microscopic (04/10/2015 1:24 PM EDT) RBC 1 0 - 5 /HPF [facility] WBC 1 0 - 5 /HPF [facility] Voided Urine 04/10/2015 1:24 PM EDT 04/10/2015 3:53 PM EDT Narrative CNE - 04/10/2015 6:11 PM EDT added by Discern Expert Provider Unknown URINE ORDERABLES CNE [address] [facility] * (ABNORMAL) Urinalysis with microscopic (04/10/2015 1:24 PM EDT) Color Yellow Yellow [facility] Appearance Clear Clear [facility] Glucose Negative 30 mg/dL [facility] Bilirubin Negative Negative [facility] Ketones Trace Trace [facility] Specific [place] 1.024 [facility] Blood Negative Negative mg/dL [facility] pH 7.0 7.0 [facility] Protein Negative Negative mg/dL [facility] Urobilinogen >4.0(A) Negative [facility] Nitrite Negative Negative [facility] Leukocyte Esterase Negative Negative [facility] Voided Urine 04/10/2015 1:24 PM EDT 04/10/2015 3:53 PM EDT Provider Unknown URINE ORDERABLES Performing Organization Address [facility] de Phone Number CNE [address] [facility] * (ABNORMAL) Automated Differential (04/10/2015 1:24 PM EDT) Neutrophils 63.6 48.0 - 66.0 % [facility] Lymphocytes 23.8(L) 29.0 - 45.0 % [facility] Monocytes 11.9(H) 2.0 - 10.0 % [facility] Eosinophils 0.4(L) 1.5 - 6.0 % [facility] Basophils 0.3 0.0 - 2.2 % [facility] Neutrophil # 3.7 1.5 - 8.0 # [facility] Lymphocyte # 1.4 1.0 - 4.8 # [facility] Monocyte # 0.7 0.0 - 0.9 # [facility] Blood 04/10/2015 1:24 PM EDT 04/10/2015 3:53 PM EDT Narrative CNE - 04/10/2015 3:58 PM EDT added by Discern Expert Provider Unknown LAB BLOOD ORDERABLES Performing Organization Address [facility]/State/ZIP Co de Phone Number CNE [address] [place], [place] [address] * CBC auto differential (04/10/2015 1:24 PM EDT) WBC 5.8 4.5 - 11.0 x10(3)/mcL [facility] RBC 3.85 3.50 - 5.50 x10(6)/mcL [facility] Hemoglobin 12.2 12.0 - 15.0 g/dL [facility] Hematocrit 36.7 36.0 - 48.0 % [facility] MCV 95.2 79.0 - 98.0 fL [facility] MCH 31.6 25.4 - 34.6 pg/dL [facility] MCHC 33.2 32.0 - 36.4 g/dL [facility] RDW 12.5 12.0 - 15.0 % [facility] Platelet 317 140 - 440 x10(3)/mcL [facility] MPV 8.6 6.0 - 11.0 fL [facility] Nucleated RBC 0.1 0.0 - 5.0 % [facility] Blood 04/10/2015 1:24 PM EDT 04/10/2015 3:53 PM EDT Provider Unknown LAB BLOOD ORDERABLES CNE [address] [place], [place] [address] documented in this encounter Visit Diagnoses Not on filedocumented in this encounter
--- OUTSIDE RECORDS SUMMARY | 2024-04-03 20:37 | XMS_ITS | Encounter Summary ---
Author Organization [facility] Address [address] [place] [address] Care Team Providers Care Promotions Executive Producer Name Role Phone Srini Martínez MD Primary Care Provider [phone] [phone] Encounter Details Date Type Department Care Team (Late st Contact Info) Description 07/17/2016 2:11 PM EST - 07/17/2016 11:59 PM EST Hospital Encounter [facility] [address] [place] [address] Syed Liang MD [address] [place] [address] Congenital malformation of breast (Primary Dx) Discharge Disposition: Home or Self [...] Procedure Name Priority Date/Time Associated Diagnosis Comments CALL OR FAX RESULTS Routine 07/17/2016 2 :13 PM EST Congenital malformation of breast CBC WITH DIFF AND PLATELET Routine 07/17/2016 2:13 PM EST Congenital malformation of breast VENIPUNCTURE ONLY Routine 07/17/2016 2:1 3 PM EST Congenital malformation of breast URINALYSIS Routine 07/17/2016 2:13 PM EST Congenital malformation of breast documented in this encounter Results * Call or Fax Results (07/17/2016 2:13 PM EST) Call or Fax Results Done mL 07/17/2016 2:13 PM EST [facility] 07/17/2016 2:13 PM EST 07/17/2016 2:13 PM EST Syed Liang MD LAB BLOOD ORDERAB LES Performing Organization Address City/State/[facility] Co de Phone Number [facility] [address] [place] [address] * Urinalysis (07/17/2016 2:13 PM EST) Color, Ur yellow yellow 07/17/2016 6:26 PM EST [facility] Appearance, Ur clear slightly cloudy 07/17/2016 6:26 PM EST [facility] Glucose, Ur negative negative 07/17/2016 6:26 PM EST [facility] Bilirubin, Ur negative negative 07/17/2016 6:26 PM EST [facility] Ketones, Ur negative negative 07/17/2016 6:26 PM EST [facility] Specific [place], Ur 1.020 1.010 - 1.030 07/17/2016 6:26 PM EST [facility] Blood, Ur negative negative 07/17/2016 6:26 PM EST [facility] pH, Ur 8.0 5.0 - 8.0 07/17/2016 6:26 PM EST [facility] Protein, Ur negative <10 MG/DL 07/17/2016 6:26 PM EST [facility] Urobilinogen, Ur negative negative 07/17/2016 6:26 PM EST [facility] Nitrite Level, Ur negative negative 07/17/2016 6:26 PM EST [facility] Leukocytes Est, Ur negative negative 07/17/2016 6:26 PM EST [facility] Urine 07/17/2016 2:13 PM EST 07/17/2016 6:11 PM EST Syed Liang MD URINE ORDERABLES [facility] [address] [place] [address] * (ABNORMAL) CBC with Diff (07/17/2016 2:13 PM EST) WBC 8.0 3.5 - 11.0 [id number] 07/17/2016 6:28 PM EST [facility] RBC 3.93 3.70 - 5.00 [id number] 07/17/2016 6:28 PM EST [facility] Hemoglobin 12.4 11.0 - 15.0 G/DL 07/17/2016 6:28 PM EST [facility] Hematocrit 37.1 32.0 - 45.0 % 07/17/2016 6:28 PM EST [facility] MCV 94.3 80.0 - 98.0 fL 07/17/2016 6:28 PM EST [facility] MCH 31.5 26.0 - 34.0 PG 07/17/2016 6:28 PM EST [facility] MCHC 33.4 32.0 - 36.0 G/DL 07/17/2016 6:28 PM EST [facility] RDW 12.9 11.5 - 14.5 % 07/17/2016 6:28 PM EST [facility] Platelets 303 150 - 400 [id number] 07/17/2016 6:28 PM EST [facility] MPV 8.2 7.4 - 10.4 fL 07/17/2016 6:28 PM EST [facility] Seg Neutrophils % 79.4 % 07/17/2016 6:28 PM EST [facility] Lymphocytes % 10.9 % 07/17/2016 6:28 PM EST [facility] Monocytes % 9.2 % 07/17/2016 6:28 PM EST [facility] Eosinophils % 0.1 % 07/17/2016 6:28 PM EST [facility] Basophils % 0.4 % 07/17/2016 6:28 PM EST [facility] Segs Absolute 6.4 1.5 - 7.5 [id number] 07/17/2016 6:28 PM EST [facility] Lymphocytes Absolute 0.9(L) 1.0 - 4.0 [id number] 07/17/2016 6:28 PM EST [facility] Monocytes Absolute 0.7 0.2 - 0.8 K/uL 07/17/2016 6:28 PM EST [facility] Eosinophils Absolute 0.0 0.0 - 0.5 K/uL 07/17/2016 6:28 PM EST [facility] Basophils Absolute 0.0 0.0 - 0.2 [id number] 07/17/2016 6:28 PM EST [facility] Blood 07/17/2016 2:13 PM EST 07/17/2016 6:11 PM EST Syed Liang MD LAB BLOOD ORDERAB LES Performing Organization Address [facility] Co de Phone Number [facility] [address] [place] [address] * Venipuncture Only (07/17/2016 2:13 PM EST) Venipuncture Done 07/17/2016 2:13 PM EST [facility] Blood 07/17/2016 2:13 PM EST 07/17/2016 2:13 PM EST Syed Liang MD LAB BLOOD ORDERAB LES Performing Organization Address [facility] Co de Phone Number [facility] [address] [place] [address] documented in this encounter Visit Diagnoses Diagnosis Congenital malformation of breast- Primary Specified congenital anomalies of breast documented in this encounter Care Teams Promotions Executive Producer Relationship Specialty Start Date End Date Srini Martínez MD [address] [place] [id number] PCP - General Family Medicine 06/17/16 12/14/16 documented as of this encounter
--- OUTSIDE RECORDS SUMMARY | 2024-04-03 20:37 | XMS_ITS | Encounter Summary ---
Author Organization [facility] Address [address] [place] [address] Care Team Providers Care Website Developer Name Role Phone Srini Martínez MD Primary Care Provider [phone] [phone] Encounter Details Date Type Department Care Team (Latest Contact Info) Description 11/04/2016 6:55 PM EST Hospital Encounter [facility] Outside Records Not In System, [place] [address] Discharge Disposition: Home or Self Care Social [...] cleared by homecare PT). 1 Device 11/06/2016 hydrOXYzine HCl (ATARAX) 25 MG tablet [...] Priority Date/Time Associated Diagnosis Comments OUTSIDE STUDY X-RAY CHEST Routine 11/04/2016 7:01 PM EST documented in this encounter Results * Outside Study CR Chest (11/04/2016 7:01 PM EST) Narrative Sabine Tucker - 11/04/2016 7:01 PM EST This is an outside image. Provider Not In System IMG DIAGNOSTIC IM AGING ORDERABLES documented in this encounter Visit Diagnoses Not on filedocumented in this encounter Care Teams Website Developer Relationship Specialty Start Date End Date Srini Martínez MD [address] [place] [address] PCP - General Family Medicine 06/17/16 12/14/16 documented as of this encounter
--- OUTSIDE RECORDS SUMMARY | 2024-04-03 20:37 | XMS_ITS | Encounter Summary ---
Author Organization [facility] Address [address] [place] [address] Care Team Providers Care Microchip Specialist Name Role Phone Unavailable Primary Care Provider Unavailabl e Encounter Details Date Type Department Care Team (Latest Contact Info) Description 11/01/2016 11:36 PM EST - 11/04/2016 6:10 PM EST Hospital Encounter [facility] [address] [place] [address] Orville Horner MD [address] [place] [address] Rashawn Connelly MD [address] [place] [address] Lachelle Green MD [address] [place] [address] Convulsions Discharge Disposition: Critical [facility] Social History Tobacco Use Types Packs/Day Years Used Date Smoking Tobacco: Never Assessed Sex and Gender Information Value Date Recorded Sex Assigned at Not on file Gender Identity Not on file Sexual Orientation Not on file documented as of this encounter Plan of Treatment Not on file documented as of this encounter Procedures Procedure Name Priority Date/Time Associated Diagnosis Comments MRI BRAIN W WO CONTRAST Routine 11/04/2016 1:25 AM EST XR CHEST 1 VW Routine 11/03/2016 10:[address] HEAD WO CONTRAST Routine 11/02/2016 9 :16 PM EST documented in this encounter Results * MRI brain with and without contrast (11/04/2016 1:25 AM EST) Anatomical Region Laterality Modality Head Magnetic Resonan ce 11/04/2016 1:25 AM EST Narrative 11/04/2016 9:06 AM EST PROCEDURE: MRI Brain w/ + w/o Contrast INDICATION: seizures TECHNIQUE: Sagittal and axial T1, axial FLAIR, axial T2 weighted REYNOLD sequences were obtained. ??Axial T2* gradient and diffusion weighted imaging were also performed. Following intravenous administration of 10 ml of Dotarem, axial and coronal T1 weighted images were performed. COMPARISON: CT 11/02/16 FINDINGS: ? The brain parenchyma is normal. The ventricles and sulci are normal in size and appearance. The basal cisterns are preserved. The midline structures and major vascular flow voids are normal. There is no abnormal intracranial enhancement after gadolinium or evidence of an acute infarct by diffusion weighted imaging. ??There is no evidence of intracranial hemorrhage, mass, mass effect or extra-axial collection. There is significant left maxillary sinusitis noted. IMPRESSION: Unremarkable cranial MRI with and without intravenous contrast. Final Report Signed: ??Lewis Singh MD Signed on: ??11/04/16 9:05 Procedure Note Lewis Singh - 11/04/2016 PROCEDURE: MRI Brain w/ + w/o Contrast INDICATION: seizures TECHNIQUE: Sagittal and axial T1, axial FLAIR, axial T2 weighted TSEsequences were obtained. Axial T2* gradient and diffusion weightedimaging were also performed. Following intravenous administration of 10 mlof Dotarem, axial and coronal T1 weighted images were performed. COMPARISON: CT 11/02/16 FINDINGS: The brain parenchyma is normal. The ventricles and sulci arenormal in size and appearance. The basal cisterns are preserved. Themidline structures and major vascular flow voids are normal. There is no abnormal intracranial enhancement after gadolinium or evidenceof an acute infarct by diffusion weighted imaging. There is no evidenceof intracranial hemorrhage, mass, mass effect or extra-axial collection. There is significant left maxillary sinusitis noted. IMPRESSION: Unremarkable cranial MRI with and without intravenouscontrast. Final Report Signed: Lewis Singh MD Signed on: 11/04/16 9:05 Lachelle Green MD IMG MRI ORDERABLES * X-ray chest 1 view (11/03/2016 10:36 AM EST) Anatomical Region Laterality Modality Chest Radiographic Luci ging 11/03/2016 10:3 6 AM EST Narrative 11/03/2016 11:58 AM EST PROCEDURE: XR Chest 1 View INDICATION: rule out aspiration COMPARISON: None. FINDINGS: Lines and Tubes: None. Heart and Mediastinum: Allowing for AP technique, the heart and mediastinal contours are unremarkable. Lungs and Pleura: The lungs are clear. ??There are no pleural effusions. Skeletal Structures: The visualized skeletal structures are unremarkable for age. IMPRESSION: No acute infiltrate identified. Final Report Signed: ??Lewis Singh MD Signed on: ??11/03/16 11:56 Procedure Note Lewis Singh - 11/03/2016 PROCEDURE: XR Chest 1 View INDICATION: rule out aspiration COMPARISON: None. FINDINGS: Lines and Tubes: None. Heart and Mediastinum: Allowing for AP technique, the heart andmediastinal contours are unremarkable. Lungs and Pleura: The lungs are clear. There are no pleural effusions. Skeletal Structures: The visualized skeletal structures are unremarkablefor age. IMPRESSION: No acute infiltrate identified. Final Report Signed: Lewis Singh MD Signed on: 11/03/16 11:56 Ora Mars MD IMG DIAGNOSTIC IMAGI NG ORDERABLES * CT head without contrast (11/02/2016 9:16 PM EST) Anatomical Region Laterality Modality Head Computed Tomogra phy 11/02/2016 9:16 PM EST Narrative 11/03/2016 9:46 AM EST PROCEDURE: CT Head or Brain w/o Contrast INDICATION: sz TECHNIQUE: Routine noncontrast brain images were obtained. Coronal reformats were provided. Iterative reconstruction and automated exposure control were utilized. COMPARISON: Recent study dated October 24. FINDINGS: The montanez-white matter differentiation is preserved. ?The sulci and ventricular system are normal in morphology and appropriate for the patient's age. ??There is no extra-axial fluid collection. ??There is no intra-axial bleed, mass, or midline shift. The calvarium remains intact. ??The visualized paranasal sinuses and mastoid air cells are normally pneumatized. There is mild mucosal thickening in the partially visualized exercise. IMPRESSION: No acute intracranial hemorrhage, mass effect or calvarial fracture. Final Report Signed: ??Michael SANCHEZ, ??Remington Barrientos Signed on: ??11/03/16 9:45 Procedure Note Unknown, Provider - 11/03/2016 PROCEDURE: CT Head or Brain w/o Contrast INDICATION: sz TECHNIQUE: Routine noncontrast brain images were obtained. Coronal reformats wereprovided. Iterative reconstruction and automated exposure control were utilized. COMPARISON: Recent study dated October 24. FINDINGS: The montanez-white matter differentiation is preserved. The sulci andventricular system are normal in morphology and appropriate for thepatient's age. There is no extra-axial fluid collection. There is nointra-axial bleed, mass, or midline shift. The calvarium remains intact. The visualized paranasal sinuses andmastoid air cells are normally pneumatized. There is mild mucosalthickening in the partially visualized exercise. IMPRESSION: No acute intracranial hemorrhage, mass effect or calvarial fracture. Final Report Signed: Remington Rodriguez MD Signed on: 11/03/16 9:[address] ORDERABLES documented in this encounter Visit Diagnoses Diagnosis Convulsions Other convulsions documented in this encounter
--- OUTSIDE RECORDS SUMMARY | 2024-04-03 20:37 | XMS_ITS | Encounter Summary ---
Author Organization [facility] Address [address] [place] [address] Care Team Providers Care Gas Welding Machine Operator Name Role Phone Unavailable Primary Care Provider Unavailabl e Encounter Details Date Type Department Care Team (Latest Contact Info) Description 10/26/2016 3:54 AM EST - 10/26/2016 5:45 AM EST Hospital Encounter [facility] Emergency Department [address] [place] [address] Hilton Joshua DO [address] [place] [address] Postconcussional syndrome Discharge Disposition: Home or Self Care Social History Tobacco Use Types Packs/Day Years Used Date Smoking Tobacco: Never Assessed Sex and Gender Information Value Date Recorded Sex Assigned at Not on file Gender Identity Not on file Sexual Orientation Not on file documented as of this encounter Plan of Treatment Not on file documented as of this encounter Visit Diagnoses Diagnosis Postconcussional syndrome Postconcussion syndrome documented in this encounter
--- OUTSIDE RECORDS SUMMARY | 2024-04-03 20:37 | XMS_ITS | Encounter Summary ---
Author Organization [facility] Address [address] [place] [address] Care Team Providers Care Fish Roe Technician Name Role Phone Srini Martínez MD Primary Care Provider +1 [phone] Encounter Details Date Type Department Care Team (Late st Contact Info) Description 08/05/2016 2:35 PM EST - 08/05/2016 11:59 PM EST Hospital Encounter The [address] [address] Srini Martínez MD [address] [place] [phone] Diarrhea of presumed infectious origin (Primary Dx) Discharge Disposition: Home or Self [...] Procedure Name Priority Date/Time Associated Diagnosis Comments CBC WITH DIFF AND PLATELET Routine 08/05/2016 2:36 PM EST Diarrhea of presumed infectious origin VENIPUNCTURE ONLY Routine 08/05/2016 2:3 6 PM EST Diarrhea of presumed infectious origin SED RATE Routine 08/05/2016 2:36 PM EST Diarrhea of presumed infectious origin documented in this encounter Results * Venipuncture Only (08/05/2016 2:36 PM EST) Venipuncture Done 08/05/2016 2:36 PM EST [facility] Blood 08/05/2016 2:36 PM EST 08/05/2016 2:36 PM EST Srini Martínez MD LAB BLOOD ORDERAB LES Performing Organization Address [facility] Co de Phone Number [facility] [address] [place] [address] * Erythrocyte Sedimentation Rate (ESR) (08/05/2016 2:36 PM EST) Sed Rate 9 0 - 20 mm/h 08/05/2016 8:07 PM EST [facility] Blood 08/05/2016 2:36 PM EST 08/05/2016 7:45 PM EST Srini Martínez MD LAB BLOOD ORDERAB LES Performing Organization Address [facility] Co de Phone Number [facility] [address] [place] [address] * (ABNORMAL) CBC with Diff (08/05/2016 2:36 PM EST) WBC 5.8 3.5 - 11.0 [id number] 08/05/2016 8:02 PM EST [facility] RBC 3.94 3.70 - 5.00 [id number] 08/05/2016 8:02 PM EST [facility] Hemoglobin 12.4 11.0 - 15.0 G/DL 08/05/2016 8:02 PM EST [facility] Hematocrit 37.3 32.0 - 45.0 % 08/05/2016 8:02 PM EST [facility] MCV 94.6 80.0 - 98.0 fL 08/05/2016 8:02 PM EST [facility] MCH 31.3 26.0 - 34.0 PG 08/05/2016 8:02 PM EST [facility] MCHC 33.1 32.0 - 36.0 G/DL 08/05/2016 8:02 PM EST [facility] RDW 12.9 11.5 - 14.5 % 08/05/2016 8:02 PM EST [facility] Platelets 344 150 - 400 [id number] 08/05/2016 8:02 PM EST [facility] MPV 8.0 7.4 - 10.4 fL 08/05/2016 8:02 PM EST [facility] Seg Neutrophils % 60.7 % 08/05/2016 8:02 PM EST [facility] Lymphocytes % 22.2 % 08/05/2016 8:02 PM EST [facility] Monocytes % 15.3 % 08/05/2016 8:02 PM EST [facility] Eosinophils % 1.2 % 08/05/2016 8:02 PM EST [facility] Basophils % 0.6 % 08/05/2016 8:02 PM EST [facility] Segs Absolute 3.5 1.5 - 7.5 [id number] 08/05/2016 8:02 PM EST [facility] Lymphocytes Absolute 1.3 1.0 - 4.0 [id number] 08/05/2016 8:02 PM EST [facility] Monocytes Absolute 0.9(H) 0.2 - 0.8 K/uL 08/05/2016 8:02 PM EST [facility] Eosinophils Absolute 0.1 0.0 - 0.5 K/uL 08/05/2016 8:02 PM EST [facility] Basophils Absolute 0.0 0.0 - 0.2 [id number] 08/05/2016 8:02 PM EST [facility] Blood 08/05/2016 2:36 PM EST 08/05/2016 7:45 PM EST Srini Martínez MD LAB BLOOD ORDERAB LES [facility] [address] [place] [address] documented in this encounter Visit Diagnoses Diagnosis Diarrhea of presumed infectious origin- Primary documented in this encounter Care Teams Fish Roe Technician Relationship Specialty Start Date End Date Srini Martínez MD [address] [place] [phone] PCP - General Family Medicine 06/17/16 12/14/16 documented as of this encounter
--- OUTSIDE RECORDS SUMMARY | 2024-04-03 20:37 | XMS_ITS | Encounter Summary ---
Author Organization [facility] Address [address] [place] [address] Care Team Providers Care Self Pay Specialist Name Role Phone Unavailable Primary Care Provider Unavailabl e Encounter Details Date Type Department Care Team (Late st Contact Info) Description 12/06/2014 3:40 PM EDT - 12/06/2014 11:59 PM EDT Hospital Encounter The [address] [id number] Ermias Gilbert MD [address] [place] [address] Abdominal pain, right lower quadrant (Primary Dx) Discharge Disposition: Home or Self [...] Orde r Schedule Venipuncture Only Lab Routine Abdominal pain, right lower quadrant 1 Occurrences starting 12/06/2014 until 12/07/2015 Venipuncture Only Lab Timed Abdominal pain, right lower quadrant As Needed for 1 Occurrences starting 12/06/2014 until 12/06/2014 documented as of this encounter Procedures Procedure Name Priority Date/Time Associated Diagnosis Comments SED RATE Routine 12/06/2014 3:43 PM EDT Abdominal pain, right lower quadrant CBC NO DIFF WITH PLATELET Routine 12/06/2014 3:43 PM EDT Abdominal pain, right lower quadrant documented in this encounter Results * CBC No Diff (12/06/2014 3:43 PM EDT) WBC 8.4 3.5 - 11.0 [id number] 12/06/2014 8:26 PM EDT [facility] RBC 4.03 3.70 - 5.00 [id number] 12/06/2014 8:26 PM EDT [facility] Hemoglobin 12.6 11.0 - 15.0 G/DL 12/06/2014 8:26 PM EDT [facility] Hematocrit 37.3 32.0 - 45.0 % 12/06/2014 8:26 PM EDT [facility] MCV 92.7 80.0 - 98.0 fL 12/06/2014 8:26 PM EDT [facility] MCH 31.2 26.0 - 34.0 PG 12/06/2014 8:26 PM EDT [facility] MCHC 33.7 32.0 - 36.0 G/DL 12/06/2014 8:26 PM EDT [facility] RDW 12.5 11.5 - 14.5 % 12/06/2014 8:26 PM EDT [facility] Platelets 342 150 - 400 [id number] 12/06/2014 8:26 PM EDT [facility] MPV 8.1 7.4 - 10.4 fL 12/06/2014 8:26 PM EDT [facility] Blood 12/06/2014 3:43 PM EDT 12/06/2014 7:42 PM EDT Ermias Gilbert MD LAB BLOOD ORDERABLES [facility] [address] [place] [address] * Erythrocyte Sedimentation Rate (ESR) (12/06/2014 3:43 PM EDT) Sed Rate 11 0 - 20 mm/h 12/06/2014 10:48 PM EDT [facility] Blood 12/06/2014 3:43 PM EDT 12/06/2014 7:42 PM EDT Ermias Gilbert MD LAB BLOOD ORDERABLES [facility] [address] [place] [address] documented in this encounter Visit Diagnoses Diagnosis Abdominal pain, right lower quadrant- Primary documented in this encounter
--- OUTSIDE RECORDS SUMMARY | 2024-04-03 20:37 | XMS_ITS | Encounter Summary ---
Author Organization [facility] Address [address] [place] [address] Care Team Providers Care Compensation Director Name Role Phone Unavailable Primary Care Provider Unavailabl e Encounter Details Date Type Department Care Team (Latest Contact Info) Description 07/10/2016 3:03 PM EDT - 07/10/2016 4:15 PM EDT Hospital Encounter [facility] Emergency Department [address] [place] [address] Soo Gonzalez MD Price, Leigh, ISABELLA [address] [place] [address] Discharge Disposition: Left Without Being Seen Social History Tobacco Use Types Packs/Day Years [...]
--- OUTSIDE RECORDS SUMMARY | 2024-04-03 20:37 | XMS_ITS | Encounter Summary ---
Author Organization [facility] Address [address] [place] [address] Care Team Providers Care Equipment Service Technician Name Role Phone Unavailable Primary Care Provider Unavailabl e Encounter Details Date Type Department Care Team (Latest Contact Info) Description 10/24/2016 2:04 PM EST - 10/24/2016 7:47 PM EST Hospital Encounter [facility] Emergency Department [address] [place] [address] Alfredo Garcia MD Price, Leigh, ISABELLA [address] [place] [address] Postconcussional syndrome Discharge Disposition: Home or Self [...] Procedure Name Priority Date/Time Associated Diagnosis Comments CT CERVICAL SPINE WO CONTRAST Routine 10/24/2016 6:[address] HEAD WO CONTRAST Routine 10/24/2016 6 :15 PM EST documented in this encounter Results * CT head without contrast (10/24/2016 6:15 PM EST) Anatomical Region Laterality Modality Head Computed Tomogra phy 10/24/2016 6:15 PM EST Narrative 10/24/2016 6:40 PM EST PROCEDURE: CT Head or Brain w/o Contrast INDICATION: trauma TECHNIQUE: The examination was performed at 5.0 mm thick images from the skull base to the vertex. Iterative reconstruction was used. COMPARISON: None. FINDINGS: ? The brain parenchyma is normal in appearance. ??The cortical sulci and ventricles are proportionate in size and not enlarged. There is no evidence for an acute territorial infarct. ??There is no intra-axial edema, hemorrhage, mass effect, or extra-axial fluid collection. The remainder of the examination is unremarkable. IMPRESSION: Normal examination. Final Report Signed: ??Mikey Walls MD Signed on: ??10/24/16 6:39 Procedure Note Mikey Walls MD - 10/24/2016 PROCEDURE: CT Head or Brain w/o Contrast INDICATION: trauma TECHNIQUE: The examination was performed at 5.0 mm thick images from theskull base to the vertex. Iterative reconstruction was used. COMPARISON: None. FINDINGS: The brain parenchyma is normal in appearance. The corticalsulci and ventricles are proportionate in size and not enlarged. There isno evidence for an acute territorial infarct. There is no intra-axialedema, hemorrhage, mass effect, or extra-axial fluid collection. The remainder of the examination is unremarkable. IMPRESSION: Normal examination. Final Report Signed: Mikey Walls MD Signed on: 10/24/16 6:[address] [facility] [address] ORDERABLES * CT cervical spine without contrast (10/24/2016 6:15 PM EST) Anatomical Region Laterality Modality C-spine, T-spine, Neck Computed Tomography 10/24/2016 6:15 PM EST Narrative 10/24/2016 6:40 PM EST PROCEDURE: CT Spine Cervical w/o Contrast INDICATION: head trauma TECHNIQUE: 2.0 mm axial images were acquired through the cervical spine. ??Sagittal and coronal 2D reconstructions were obtained. Iterative reconstruction was used. COMPARISON: None. FINDINGS: ?There is normal curvature of the cervical spine without fracture, anterolisthesis, or prevertebral soft tissue swelling. The intervertebral disc spaces are well-maintained. No canal stenosis. The remainder of the examination is unremarkable. IMPRESSION: ??Normal cervical spine CT. ??No fracture. Final Report Signed: ??Mikey Walls MD Signed on: ??10/24/16 6:38 Procedure Note Mikey Walls MD - 10/24/2016 PROCEDURE: CT Spine Cervical w/o Contrast INDICATION: head trauma TECHNIQUE: 2.0 mm axial images were acquired through the cervical spine.Sagittal and coronal 2D reconstructions were obtained. Iterativereconstruction was used. COMPARISON: None. FINDINGS: There is normal curvature of the cervical spine withoutfracture, anterolisthesis, or prevertebral soft tissue swelling. Theintervertebral disc spaces are well-maintained. No canal stenosis. The remainder of the examination is unremarkable. IMPRESSION: Normal cervical spine CT. No fracture. Final Report Signed: Mikey Walls MD Signed on: 10/24/16 6:[address] ORDERABLES documented in this encounter Visit Diagnoses Diagnosis Postconcussional syndrome Postconcussion syndrome documented in this encounter
--- OUTSIDE RECORDS SUMMARY | 2024-04-03 20:37 | XMS_ITS | Encounter Summary ---
Author Organization [facility] Address [address] [place] [address] Care Team Providers Care Economic Analysis Director Name Role Phone Unavailable Primary Care Provider Unavailabl e Encounter Details Date Type Department Care Team (Late st Contact Info) Description 03/14/2021 Orders Only [facility] Inpatient [address] [place] [address] Eun Martinez NP [address] [place] [address] Social History Tobacco Use Types Packs/Day Years [...] on the phone or virtually, visiting friends/family, latter-day service, clubs) Not on file 11/15/2020 Financial [...] such as bathing, dressing, eating, or doing level vial setter? Not on file 11/15/2020 7. Do you [...] Procedure Name Priority Date/Time Associated Diagnosis Comments TOXICOLOGY SCREEN URINE(KH/WIH) STAT 03/14/2021 7:17 PM EDT documented in this encounter Results * (ABNORMAL) Toxicology Screen Urine (KH/WIH) (03/14/2021 7:17 PM EDT) Pathologist [facility] Amphetamine Screen, Urine Negative Negative [facility] Comment:Amphetamine Cutoff: 1000 ng/mL Barbiturate Screen, Urine Negative Negative [facility] Comment:Barbiturate Cutoff: 200 ng/mL Benzodiazepine Screen, Urine Negative Negative [facility] Comment:Benzodiazepine Cutof f: 200 ng/mL Buprenorphine Screen, Urine Negative Negative [facility] Comment:Buprenorphine metabo lite Cutoff: 5 ng/mL Cocaine Screen, Urine Negative Negative [facility] Comment:Cocaine Cutoff: 300 ng/mL Fentanyl Screen, UR Negative Negative [facility] Comment:Fentanyl Cutoff: 2.0 ng/mL Methadone Screen, Urine Negative Negative [facility] Comment:Methadone Cutoff: 30 0 ng/mL Opiate Screen, Urine Negative Negative [facility] Comment:Opiate Cutoff: 300 n g/mL Cannabinoid Screen, Urine Positive(A) Negative [facility] Comment: Cannabinoid Cutoff: 50 ng/mL Urine Drugs of Abuse Screen: All drug results are unconfirmed screening tests For Diagnostic Purposes Only. For confirmation of any drug, contact the laboratory within 3 days. Urine 03/14/2021 7:17 PM EDT 03/14/2021 7:49 PM EDT Eun Martinez CONFERENCE SERVICES MANAGER URINE ORDERABLES Performing Organization Address City/State/[facility] Co de Phone Number [facility] [address] [place] [address] documented in this encounter Visit Diagnoses Not on filedocumented in this encounter
--- OUTSIDE RECORDS SUMMARY | 2024-04-03 20:37 | XMS_ITS | Encounter Summary ---
Author Organization [facility] Address [address] [place] [address] Care Team Providers Care Sprinkling System Installer Name Role Phone Unavailable Primary Care Provider Unavailabl e Encounter Details Date Type Department Care Team (Late st Contact Info) Description 10/29/2018 11:12 AM EST - 10/29/2018 11:59 PM EST Hospital [facility] [address] [place] [address] Mariajose Ozuna CNM [address] [facility] [address] [place] [address] Discharge Disposition: Home or Self Care Social [...]
--- OUTSIDE RECORDS SUMMARY | 2024-04-03 20:37 | XMS_ITS | Encounter Summary ---
Author Organization [facility] Address [address] [place] [address] Care Team Providers Care Rougher For Cement Name Role Phone Unavailable Primary Care Provider Unavailabl e Encounter Details Date Type Department Care Team (Late st Contact Info) Description 10/29/2018 Orders Only [facility] [address] [place] [address] Mariajose Ozuna CNM [address] [facility] [address] [place] [address] Social History Tobacco Use Types Packs/Day Years Used Date Smoking Tobacco: Never Assessed Sex and Gender Information Value Date Recorded Sex Assigned at Not on file Gender Identity Not on file Sexual Orientation Not on file documented as of this encounter Plan of Treatment Not on file documented as of this encounter Procedures Procedure Name Priority Date/Time Associated Diagnosis Comments SCREENING REPORT Routine 10/29/2018 1:23 PM EST PATHOLOGY REQUEST Routine 10/29/2018 1:23 PM EST documented in this encounter Results * SCREENING REPORT (10/29/2018 1:23 PM EST) Ab Screen Comment See Below CNE Comment: . ? Patient Name: Lashonda Cartwright V ? Chart Request: [id number] ? Fin #: [id number] ? . . . ? Screening Report . ? Collected: ?? 10/29/2018 ? Specimen # ? [id number] ? Received: ?11/03/2018 1:23:00 PM ?EST . . ? Interpretation ? The entire report generated by the [facility] is ? viewable in [employer] from Power Chart under the Pathology Report heading ? Down's syndrome/NTD. ??A copy of the ? report will be mailed from the [facility]. . ? Preliminary: Gurpreet Luciano ? Linda. Luciano ? Electronically signed: 11/05/18 10/29/2018 1:23 PM EST Narrative [facility]NE - 11/05/2018 7:39 AM EST Collection Date/Time: 10/29/2018 13:23 Mariajose Ozuna CNM LAB BLOOD ORDERABL ES Performing Organization Address [facility] de Phone Number [facility] [address] * Pathology Request (10/29/2018 1:23 PM EST) Tissue 10/29/2018 1:23 PM EST Mariajose Ozuna CNM PATHOLOGY/CYTOLOGY ORDERABLES Performing Organization Address [facility] de Phone Number [facility] [address] documented in this encounter Visit Diagnoses Not on filedocumented in this encounter
--- OUTSIDE RECORDS SUMMARY | 2024-04-03 20:37 | XMS_ITS | Encounter Summary ---
Author Organization [facility] Address [address] [place] [address] Care Team Providers Care Data Storage Specialist Name Role Phone Unavailable Primary Care Provider Unavailabl e Encounter Details Date Type Department Care Team (Late st Contact Info) Description 10/24/2016 Orders Only [facility] Inpatient [address] [place] [address] Sandi Schuster PA [address] [place] [address] Social History Tobacco Use Types Packs/Day Years Used Date Smoking Tobacco: Never Assessed Sex and Gender Information Value Date Recorded Sex Assigned at Not on file Gender Identity Not on file Sexual Orientation Not on file documented as of this encounter Plan of Treatment Not on file documented as of this encounter Procedures Procedure Name Priority Date/Time Associated Diagnosis Comments ESTIMATED GFR STAT 10/24/2016 4:15 PM EST URINALYSIS W/ UMICRO IF INDICATED STAT 10/24/2016 4:15 PM EST CBC WITH AUTO DIFFERENTIAL STAT 10/24/2016 4:15 PM EST CREATININE CLEARANCE STAT 10/24/2016 4:15 PM EST XAUTOMATED DIFFERENTIAL STAT 10/24/2016 4:15 PM EST BASIC METABOLIC PANEL STAT 10/24/2016 4:15 PM EST documented in this encounter Results * Creatinine Clearance (10/24/2016 4:15 PM EST) CrCl for Drug Dosing 98.06 mL/min [facility] Comment:Estimated Creatinine Clearance added by Discern Expert (Based off of [place] Body Weight) Blood 10/24/2016 4:15 PM EST 10/24/2016 4:40 PM EST Narrative [facility] - 10/24/2016 5:00 PM EST Estimated Creatinine Clearance added by Discern Expert (calculation based off of [place] Body Weight) [facility] LAB BLOOD ORDERABLES Performing Organization Address [facility] Co de Phone Number [address] [facility] [address] [place] [address] * Estimated GFR (10/24/2016 4:15 PM EST) Pathologist [facility] eGFR (MDRD) >60.0 >=60.0 mL/min/1.7 3m2 [facility] Comment: eGFR calculation done by Citlalli Expert GFR Comment For patients, multiply the results by 1.212 Blood 10/24/2016 4:15 PM EST 10/24/2016 4:40 PM EST Narrative [facility] - 10/24/2016 5:00 PM EST Ordered by Citlalli Expert [facility] LAB BLOOD ORDERABLES Performing Organization Address [facility] Co de Phone Number [address] [facility] [address] [place] [address] * Basic metabolic panel (10/24/2016 4:15 PM EST) [facility] Glucose 74 70 - 99 mg/dL [facility] Urea Nitrogen 8 6 - 20 mg/dL [facility] Serum Creatinine 0.69 0.60 - 1.10 mg/dL [facility] Calcium 9.7 8.6 - 10.3 mg/dL [facility] Sodium 137 136 - 145 mmol/L [facility] Potassium 3.8 3.5 - 5.1 mmol/L [facility] Chloride 102 98 - 107 mmol/L [facility] Carbon Dioxide 27 21 - 31 mmol/L [facility] Anion Gap (AGAP R) 8 5 - 10 [facility] Blood 10/24/2016 4:15 PM EST 10/24/2016 4:39 PM EST [facility] LAB BLOOD ORDERABLES Performing Organization Address [facility] de Phone Number [facility] [address] [facility] [address] [place] [address] * (ABNORMAL) Urinalysis w/ UMicro if Indicated (10/24/2016 4:15 PM EST) Color Straw Yellow [facility] Appearance Clear Clear [facility] Glucose Negative 30 mg/dL [facility] Bilirubin Negative Negative [facility] Ketones Trace Trace [facility] Specific [place] 1.009 [facility] Blood Negative Negative mg/dL [facility] pH 8.0(A) 7.0 [facility] Protein Negative Negative mg/dL [facility] Urobilinogen Negative Negative [facility] Nitrite Negative Negative [facility] Leukocyte Esterase Negative Negative [facility] Micro? (Y/N) No [facility] Comment:Resulted No by Daniellae rn Expert Microscopic Not Indicated [facility] Comment:VERIFIED by Discern Expert. Urine 10/24/2016 4:15 PM EST 10/24/2016 4:39 PM EST Sandi MASON URINE ORDERABLES Performing Organization Address [facility] de Phone Number [address] [facility] [address] [place] [address] * (ABNORMAL) Automated Differential (10/24/2016 4:15 PM EST) Neutrophils 69.0(H) 48.0 - 66.0 % [facility] Lymphocytes 15.8(L) 29.0 - 45.0 % [facility] Monocytes 14.7(H) 2.0 - 10.0 % [facility] Eosinophils 0.2(L) 1.5 - 6.0 % [facility] Basophils 0.3 0.0 - 2.2 % [facility] Neutrophil # 4.6 1.5 - 8.0 # [facility] Lymphocyte # 1.1 1.0 - 4.8 # [facility] Monocyte # 1.0(H) 0.0 - 0.9 # [facility] Blood 10/24/2016 4:15 PM EST 10/24/2016 4:39 PM EST Narrative [facility] - 10/24/2016 4:42 PM EST added by Discern Expert Sandi MASON LAB BLOOD ORDERABLES Performing Organization Address [facility] Co de Phone Number [facility] [address] [facility] [address] [place] [address] * CBC auto differential (10/24/2016 4:15 PM EST) Pathologist [facility] WBC 6.7 4.5 - 11.0 x10(3)/mcL [facility] RBC 4.09 3.50 - 5.50 x10(6)/mcL [facility] Hemoglobin 13.0 12.0 - 15.0 g/dL [facility] Hematocrit 38.4 36.0 - 48.0 % [facility] MCV 93.8 79.0 - 98.0 fL [facility] MCH 31.7 25.4 - 34.6 pg/dL [facility] MCHC 33.8 32.0 - 36.4 g/dL [facility] RDW 12.8 12.0 - 15.0 % [facility] Platelet 263 140 - 440 x10(3)/mcL [facility] MPV 8.1 6.0 - 11.0 fL [facility] Blood 10/24/2016 4:15 PM EST 10/24/2016 4:39 PM EST Sandi MASON LAB BLOOD ORDERABLES Performing Organization Address City/[facility] Co de Phone Number [facility] [address] [place] [address], [facility] [address] [place] [address] documented in this encounter Visit Diagnoses Not on filedocumented in this encounter
--- OUTSIDE RECORDS SUMMARY | 2024-04-03 20:37 | XMS_ITS | Encounter Summary ---
Author Organization [facility] Address [address] [place] [address] Care Team Providers Care Immigration Case Worker Name Role Phone Unknown, Soft Primary Care Provider Unavailabl e Encounter Details Date Type Department Care Team (Late st Contact Info) Description 11/07/2015 3:20 PM EST - 11/07/2015 11:59 PM EST Hospital Encounter [facility] [address] [facility], [address] [place] [address] Srini Martínez MD [address] [place] [id number] Screen for STD (sexually transmitted disease) (Primary Dx) Discharge Disposition: Home or Self [...] Procedure Name Priority Date/Time Associated Diagnosis Comments TRICH VAGINALIS PROBE, URINE Routine 11/07/2015 3:20 PM EST Screen for STD (sexually transmitted disease) GONORRHOEA PROBE, URINE Routine 11/07/2015 3:20 PM EST Screen for STD (sexually transmitted disease) CHLAMYDIA TRAC PROBE, URINE Routine 11/07/2015 3:20 PM EST Screen for STD (sexually transmitted disease) documented in this encounter Results * Chlamydia trac Probe, Urine (11/07/2015 3:20 PM EST) Urine Chlamydia Probe negative 11/08/2015 2:32 PM EST [facility] Urine Chlamydia Probe Perf By Footnote 11/08/2015 2:42 PM EST [facility] Comment: Test Performed by: [facility] [place] [address] Kenney Silva M.D. Urine 11/07/2015 3:20 PM EST 11/08/2015 7:18 AM EST Srini Martínez MD BODY FLUIDS AND S TOOLS ORDERABLES [facility] [address] [place] [address] * Gonorrhoea Probe, Urine (11/07/2015 3:20 PM EST) Urine Gonorrhoeae Probe negative 11/08/2015 2:32 PM EST [facility] Urine Hector Probe Perf By Footnote 11/08/2015 2:42 PM EST [facility] Comment: Test Performed by: [facility] [place] [address] Kenney Silva M.D. Urine 11/07/2015 3:20 PM EST 11/08/2015 7:18 AM EST Srini Martínez MD BODY FLUIDS AND S TOOLS ORDERABLES [facility] [address] [place] [address] * Trich vaginalis Probe, Urine (11/07/2015 3:20 PM EST) Urine Trichomonas Probe negative 11/08/2015 1:09 PM [facility] Urine Trich vag Perf By Footnote 11/08/2015 1:19 PM EST [facility] Comment: Test Performed by: [facility] [place] [address] Kenney Silva M.D. Urine 11/07/2015 3:20 PM EST 11/08/2015 7:18 AM EST Srini Martínez MD BODY FLUIDS AND S TOOLS ORDERABLES [facility] [address] [place] [address] documented in this encounter Visit Diagnoses Diagnosis Screen for STD (sexually transmitted disease)- Primary Screening examination for venereal disease documented in this encounter Care Teams Immigration Case Worker Relationship Specialty Start Date End Date Unknown, Soft [id number] PCP - General 11/07/15 06/16/16 documented as of this encounter
--- OUTSIDE RECORDS SUMMARY | 2024-04-03 20:37 | XMS_ITS | Encounter Summary ---
Author Organization [facility] Address [address] [place] [address] Care Team Providers Care Clinical Documentation Nurse Name Role Phone Unavailable Primary Care Provider Unavailabl e Encounter Details Date Type Department Care Team (Latest Contact Info) Description 03/14/2021 7:00 PM EDT - 03/14/2021 9:08 PM EDT Hospital Encounter [facility] Emergency Department [address] [place] [address] Hilton Joshua, DO [address] [place] [address] Discharge Disposition: Home or Self Care Social [...] on the phone or virtually, visiting friends/family, confucianism service, clubs) Not on file 11/15/2020 Financial [...] such as bathing, dressing, eating, or doing montessori teacher? Not on file 11/15/2020 7. Do you [...]
--- OUTSIDE RECORDS SUMMARY | 2024-04-03 20:37 | XMS_ITS | Clinical Summary ---
Author Organization [facility] Address [address] [place] [address] Care Team Providers Care Sales Force Developer Name Role Phone Unavailable Primary Care Provider Unavailabl e Social History Tobacco Use Types Packs/Day Years [...] on the phone or virtually, visiting friends/family, sabianism service, clubs) Not on file 11/15/2020 Financial [...] such as bathing, dressing, eating, or doing car cleaning supervisor? Not on file 11/15/2020 7. Do you ever have problems easily and safely moving around your home, or the place you live? Not on file 11/15/2020 Sex and Gender Information Value Date Recorded Sex Assigned at Not on file Gender Identity Not on file Sexual Orientation Not on file Plan of Treatment Health Maintenance Due Date Last Done Comments Hepatitis C Screening 1996 PAP Smear 1996 SDOH Screening 1996 HIV Screening 2011 Diphtheria,Tetanus,and Pertu ssis (1 - Tdap) 2015 Hepatitis B (1 of 3 - 19+ 3- dose series) 2015 Covid-19 Vaccine (2022-2 4 season) 2023 Annual Screening: Depression (PHQ-2/9) 09/07/2023 Influenza (#1) 2024 HPV Aged Out No longer eligi ble based on patient's age to complete this topic Pneumococcal (Age 0-64) Aged Out No l onger eligible based on patient's age to complete this topic Jayy Cartwrightlla Leatha Workers Comp Self 1995 [address] [place] [address]
--- OUTSIDE RECORDS SUMMARY | 2024-04-03 20:37 | XMS_ITS | Encounter Summary ---
Author Organization [facility] Address [address] [place] [address] Care Team Providers Care Air Brush Artist Name Role Phone Unavailable Primary Care Provider Unavailabl e Encounter Details Date Type Department Care Team (Late st Contact Info) Description 12/04/2014 Orders Only [facility] [address] [place] [address] Yessy Pan MD [address] [place] [address] Social History Tobacco Use Types Packs/Day Years Used Date Smoking Tobacco: Never Assessed Sex and Gender Information Value Date Recorded Sex Assigned at Not on file Gender Identity Not on file Sexual Orientation Not on file documented as of this encounter Plan of Treatment Not on file documented as of this encounter Procedures Procedure Name Priority Date/Time Associated Diagnosis Comments URINALYSIS W/ UMICRO IF INDICATED STAT 12/04/2014 4:08 PM EDT documented in this encounter Results * (ABNORMAL) Urinalysis w/ UMicro if Indicated (12/04/2014 4:08 PM EDT) Color Yellow [facility] Appearance Clear Clear [facility] Glucose Negative mg/dL [facility] Bilirubin Negative Negative [facility] Ketones Negative Negative [facility] Specific [place] 1.018 [facility] Blood Negative Negative [facility] pH 7.0 7.0 [facility] Protein Negative Negative [facility] Urobilinogen Negative Negative mg/dL [facility] Nitrite Negative Negative [facility] Leukocyte Esterase Negative Negative [facility] Micro? (Y/N) No [facility] Microscopic Not Indicated [facility] Urine 12/04/2014 4:08 PM EDT 12/04/2014 4:13 PM EDT Yessy Pan MD URINE ORDERABLES Performing Organization Address City/State/[facility] Co de Phone Number C[facility] [address] [facility] documented in this encounter Visit Diagnoses Not on filedocumented in this encounter
--- OUTSIDE RECORDS SUMMARY | 2024-04-03 20:37 | XMS_ITS | Encounter Summary ---
Author Organization [facility] Address [address] [place] [address] Care Team Providers Care Backfiller Name Role Phone Unknown, Soft Primary Care Provider Unavailabl e Encounter Details Date Type Department Care Team (Late st Contact Info) Description 01/10/2016 1:15 PM EDT - 01/10/2016 11:59 PM EDT Hospital Encounter [address] [id number] Srini Martínez MD [address] [place] [id number] Diarrhea (Primary Dx) Discharge Disposition: Home or Self [...] Procedure Name Priority Date/Time Associated Diagnosis Comments GARVEY STAIN, FECAL Routine 01/10/2016 1 :16 PM EDT Diarrhea CLOSTRIDIOIDES DIFFICILE (C. DIFF) TOXIN PCR, STOOL Routine 01/10/2016 1:16 PM EDT Diarrhea CULTURE, STOOL SALM OSMAN CAMPY Routine 01/10/2016 1:16 PM EDT Diarrhea documented in this encounter Results * Clostridium difficile Toxin (01/10/2016 1:16 PM EDT) C Difficile Toxin PCR NOT_PERFO RMED 01/11/2016 7:49 AM EDT [facility] Comment: Formed stool specimens not appropriate for testing Called to and readback by: gunjan Haynes 01/11/2016 ??07:49 Stool (Per Rectum) 01/10/2016 1:16 PM EDT 01/10/2016 8:26 PM EDT Srini Martínez MD MICROBIOLOGY - GE NERAL ORDERABLES Performing Organization Address City/[facility]/ZIP Co de Phone Number [facility] [address] [place] [address] * Culture, Stool (01/10/2016 1:16 PM EDT) Stool Cult Salm Shig Campy 1+ Mixed Fecal Cheri No Salmonella or Shigella isolated No Campylobacter species Isolated [facility] Stool (Stool) 01/10/2016 1:1 6 PM EDT 01/10/2016 8:26 PM EDT Comment:STOOL Srini Martínez MD MICROBIOLOGY - GE NERAL ORDERABLES Performing Organization Address [facility] Co de Phone Number [facility] [address] [place] [address] * Garvey Stain, Fecal (01/10/2016 1:16 PM EDT) Garvey Stain Fecal no wbc no wbc 01/10/2016 9:08 PM EDT [facility] Stool 01/10/2016 1:16 PM EDT 01/10/2016 6:53 PM EDT Srini Martínez MD BODY FLUIDS AND S TOOLS ORDERABLES Performing Organization Address [facility] Co de Phone Number [facility] [address] [place] [address] documented in this encounter Visit Diagnoses Diagnosis Diarrhea- Primary documented in this encounter Care Teams Backfiller Relationship Specialty Start Date End Date Unknown, [place] [id number] PCP - General 11/07/15 06/16/16 documented as of this encounter
--- OUTSIDE RECORDS SUMMARY | 2024-04-03 20:37 | XMS_ITS | Encounter Summary ---
Author Organization [facility] Address [address] [place] [address] Care Team Providers Care Night Club Manager Name Role Phone Unavailable Primary Care Provider Unavailabl e Encounter Details Date Type Department Care Team (Late st Contact Info) Description 10/26/2016 Orders Only [facility] Inpatient [address] [address] Demian Vanegas DO [address] [place] [address] Social History Tobacco Use Types Packs/Day Years Used Date Smoking Tobacco: Never Assessed Sex and Gender Information Value Date Recorded Sex Assigned at Not on file Gender Identity Not on file Sexual Orientation Not on file documented as of this encounter Plan of Treatment Not on file documented as of this encounter Procedures Procedure Name Priority Date/Time Associated Diagnosis Comments ESTIMATED GFR STAT 10/26/2016 4:24 AM EST CBC WITH AUTO DIFFERENTIAL STAT 10/26/2016 4:24 AM EST CREATININE CLEARANCE STAT 10/26/2016 4:24 AM EST XAUTOMATED DIFFERENTIAL STAT 10/26/2016 4:24 AM EST HCG, SERUM, QUALITATIVE STAT 10/26/2016 4:24 AM EST BASIC METABOLIC PANEL STAT 10/26/2016 4:24 AM EST documented in this encounter Results * hCG, serum, qualitative (10/26/2016 4:24 AM EST) HCG, Serum Negative [facility] Blood 10/26/2016 4:24 AM EST 10/26/2016 4:46 AM EST Demian Vanegas DO LAB BLOOD ORDERABLES Performing Organization Address [facility] de Phone Number [address] [facility] [address] [place] [address] * Creatinine Clearance (10/26/2016 4:24 AM EST) Pathologist [facility] for Drug Dosing 84.81 mL/min [facility] Comment:Estimated Creatinine Clearance added by Discern Expert (Based off of [place] Body Weight) Blood 10/26/2016 4:24 AM EST 10/26/2016 4:48 AM EST Narrative E - 10/26/2016 5:24 AM EST Estimated Creatinine Clearance added by Discern Expert (calculation based off of [place] Body Weight) Demian [employer] [facility] BLOOD ORDERABLES Performing Organization Address [facility] de Phone Number [address] [facility] [address] [place] [address] * Estimated GFR (10/26/2016 4:24 AM EST) [facility] eGFR (MDRD) >60.0 >=60.0 mL/min/1.7 3m2 [facility] Comment: eGFR calculation done by Discern Expert GFR Comment For patients, multiply the results by 1.212 Blood 10/26/2016 4:24 AM EST 10/26/2016 4:48 AM EST Narrative E - 10/26/2016 5:24 AM EST Ordered by Discern Expert Demian [employer] [facility] BLOOD ORDERABLES Performing Organization Address [facility] [place] [facility] de Phone Number [address] [facility] [address] [place] [address] * (ABNORMAL) Basic metabolic panel (10/26/2016 4:24 AM EST) [facility] Glucose 105(H) 70 - 99 mg/dL [facility] Urea Nitrogen 14 6 - 20 mg/dL [facility] Serum Creatinine 0.76 0.60 - 1.10 mg/dL [facility] Calcium 9.7 8.6 - 10.3 mg/dL [facility] Sodium 136 136 - 145 mmol/L [facility] Potassium 3.7 3.5 - 5.1 mmol/L [facility] Chloride 102 98 - 107 mmol/L [facility] Carbon Dioxide 26 21 - 31 mmol/L [facility] Anion Gap (AGAP R) 8 5 - 10 [facility] Blood 10/26/2016 4:24 AM EST 10/26/2016 4:46 AM EST Demian [facility] [employer] [facility] BLOOD ORDERABLES Performing Organization Address City/[facility] Co de Phone Number [facility] [address] [facility] [address] [place] [address] * (ABNORMAL) Automated Differential (10/26/2016 4:24 AM EST) Neutrophils 51.6 48.0 - 66.0 % [facility] Lymphocytes 32.1 29.0 - 45.0 % [facility] Monocytes 15.3(H) 2.0 - 10.0 % [facility] Eosinophils 0.8(L) 1.5 - 6.0 % [facility] Basophils 0.2 0.0 - 2.2 % [facility] Neutrophil # 2.5 1.5 - 8.0 # [facility] Lymphocyte # 1.6 1.0 - 4.8 # [facility] Monocyte # 0.8 0.0 - 0.9 # [facility] Blood 10/26/2016 4:24 AM EST 10/26/2016 4:46 AM EST Narrative [facility] - 10/26/2016 4:49 AM EST added by Discern Expert Demian [employer] [facility] BLOOD ORDERABLES Performing Organization Address City/[facility]/ZIP Co de Phone Number [facility] [address] [facility] [address] [place] [address] * CBC auto differential (10/26/2016 4:24 AM EST) WBC 4.9 4.5 - 11.0 x10(3)/mcL [facility] RBC 4.08 3.50 - 5.50 x10(6)/mcL [facility] Hemoglobin 13.4 12.0 - 15.0 g/dL [facility] Hematocrit 39.1 36.0 - 48.0 % [facility] MCV 95.7 79.0 - 98.0 fL [facility] MCH 32.9 25.4 - 34.6 pg/dL [facility] MCHC 34.4 32.0 - 36.4 g/dL [facility] RDW 12.9 12.0 - 15.0 % [facility] Platelet 231 140 - 440 x10(3)/mcL [facility] MPV 8.2 6.0 - 11.0 fL [facility] Nucleated RBC 0.1 0.0 - 5.0 % [facility] Blood 10/26/2016 4:24 AM EST 10/26/2016 4:46 AM EST Demian Vanegas DO LAB BLOOD ORDERABLES [facility] [address] [place] [address], [facility] [address] [place] [address] documented in this encounter Visit Diagnoses Not on filedocumented in this encounter
--- OUTSIDE RECORDS SUMMARY | 2024-04-03 20:37 | XMS_ITS | Encounter Summary ---
Author Organization [facility] Address [address] [place] [address] Care Team Providers Care Chain Maker Name Role Phone Srini Martínez MD Primary Care Provider [phone] Encounter Details Date Type Department Care Team (Latest Contact Info) Description 11/04/2016 6:55 PM EST Hospital Encounter [facility] Outside Records Not In System, [place] [address] Discharge Disposition: Home or Self Care Social [...] Priority Date/Time Associated Diagnosis Comments OUTSIDE STUDY MRI HEAD Routine 11/04/2016 7:01 PM EST documented in this encounter Results * Outside Study MRI Brain (11/04/2016 7:01 PM EST) Narrative Sabine Tucker - 11/04/2016 7:01 PM EST This is an outside image. Provider Not In System IMG MRI ORDERABLE S documented in this encounter Visit Diagnoses Not on filedocumented in this encounter Care Teams Chain Maker Relationship Specialty Start Date End Date Srini Martínez MD [address] [place] [address] PCP - General Family Medicine 06/17/16 12/14/16 documented as of this encounter
--- OUTSIDE RECORDS SUMMARY | 2024-04-03 20:37 | XMS_ITS | Encounter Summary ---
Author Organization [facility] Address [address] [place] [address] Care Team Providers Care Photographic Printer Name Role Phone Unavailable Primary Care Provider Unavailabl e Encounter Details Date Type Department Care Team (Latest Contact Info) Description 10/19/2016 3:22 PM EST - 10/19/2016 6:09 PM EST Hospital Encounter [facility] Emergency Department [address] [place] [address] Val Hannah MD [address] [place] [address] Soo Gonzalez MD Postconcussional syndrome Discharge Disposition: Home or Self [...] Procedure Name Priority Date/Time Associated Diagnosis Comments XR SPINE THORACIC 2 VW Routine 10/19/2016 6:09 PM EST documented in this encounter Results * X-ray thoracic spine 2 views (10/19/2016 6:09 PM EST) Anatomical Region Laterality Modality C-spine, T-spine, L-spine, Chest Radiographic Imaging 10/19/2016 6:09 PM EST Narrative 10/20/2016 9:34 AM EST PROCEDURE: XR Spine Thoracic 2 Views INDICATION: fall COMPARISON: None. FINDINGS: AP and lateral ??views of the thoracic spine were obtained. Vertebral body height and alignment is maintained. ??There is no evidence of bone destruction or fracture. ??The intervertebral disc heights are preserved. IMPRESSION: Normal examination. Final Report Signed: ??Martinez Zavala MD Signed on: ??10/20/16 9:33 Procedure Note Martinez Zavala MD - 10/20/2016 PROCEDURE: XR Spine Thoracic 2 Views INDICATION: fall COMPARISON: None. FINDINGS: AP and lateral views of the thoracic spine were obtained. Vertebral body height and alignment is maintained. There is no evidenceof bone destruction or fracture. The intervertebral disc heights arepreserved. IMPRESSION: Normal examination. Final Report Signed: Martinez Zavala MD Signed on: 10/20/16 9:33 Mona B[facility]O DI[facility]NO[facility] IMAGI NG ORDERABLES documented in this encounter Visit Diagnoses Diagnosis Postconcussional syndrome Postconcussion syndrome documented in this encounter
--- OUTSIDE RECORDS SUMMARY | 2024-04-03 20:37 | XMS_ITS | Encounter Summary ---
Author Organization [facility] Address [address] [place] [address] Care Team Providers Care Senior Systems Programmer Name Role Phone Unavailable Primary Care Provider Unavailabl e Encounter Details Date Type Department Care Team (Latest Contact Info) Description 10/08/2021 4:38 PM EST - 10/10/2021 10:10 AM EST [facility] [address] [place] [address] Lynsey [place] MD [address] [place] [address] Adrienne Orellana MD [address] [place] [address] Discharge Disposition: Home or Self Care Social [...] on the phone or virtually, visiting friends/family, advent service, clubs) Not on file 11/15/2020 Financial [...] such as bathing, dressing, eating, or doing tangled yarn spool straightener? Not on file 11/15/2020 7. Do you [...]
--- OUTSIDE RECORDS SUMMARY | 2024-04-03 20:37 | XMS_ITS | Encounter Summary ---
Author Organization [facility] Address [address] [place] [address] Care Team Providers Care Metal Tank Erector Name Role Phone Unavailable Primary Care Provider Unavailabl e Encounter Details Date Type Department Care Team (Latest Contact Info) Description 04/30/2021 10:28 AM EDT - 04/30/2021 11:19 AM EDT Hospital Encounter [facility] Emergency Department [address] [place] [address] Karen Galindo, BEBE [address] [place] [address] Discharge Disposition: Left Without Being Seen Social [...] on the phone or virtually, visiting friends/family, gnosticism service, clubs) Not on file 11/15/2020 Financial [...] such as bathing, dressing, eating, or doing planning division superintendent? Not on file 11/15/2020 7. Do you [...]
--- OUTSIDE RECORDS SUMMARY | 2024-04-03 20:37 | XMS_ITS | Encounter Summary ---
Author Organization [facility] Address [address] [place] [address] Care Team Providers Care Workers Compensation Specialist Name Role Phone Unavailable Primary Care Provider Unavailabl e Encounter Details Date Type Department Care Team (Late st Contact Info) Description 09/02/2015 Orders Only [facility] Radiology [address] [place] [address] Mehul Mukherjee MD [address] [place] [address] Social History Tobacco Use Types Packs/Day Years Used Date Smoking Tobacco: Never Assessed Sex and Gender Information Value Date Recorded Sex Assigned at Not on file Gender Identity Not on file Sexual Orientation Not on file documented as of this encounter Plan of Treatment Not on file documented as of this encounter Procedures Procedure Name Priority Date/Time Associated Diagnosis Comments XR FINGER THUMB LEFT Routine 09/02/2015 7:24 PM EST documented in this encounter Results * X-ray finger thumb left (09/02/2015 7:24 PM EST) Anatomical Region Laterality Modality Hand, Wrist Radiographic Luci ging 09/02/2015 7:24 PM EST Narrative 09/03/2015 9:12 AM EST PROCEDURE: XR Finger Thumb Left INDICATION: eval for foreign body COMPARISON: None. FINDINGS: There is no fracture or evidence of bone destruction. ??Bone alignment and mineralization are normal. ??The joint spaces are preserved. ?? The visualized soft tissues are unremarkable. No radiopaque foreign body. IMPRESSION: Normal examination. Final Report Signed: ??Evangelina SANCHEZ, Donovan Galarza Signed on: ??09/03/15 9:11 Procedure Note Donovan Hutchinson MD - 09/03/2015 PROCEDURE: XR Finger Thumb Left INDICATION: eval for foreign body COMPARISON: None. FINDINGS: There is no fracture or evidence of bone destruction. Bonealignment and mineralization are normal. The joint spaces are preserved.The visualized soft tissues are unremarkable. No radiopaque foreignbody. IMPRESSION: Normal examination. Final Report Signed: Evangelina SANCHEZ, Donovan Galarza Signed on: 09/03/15 9:11 Mehul Mukherjee MD IMG DIAGNOSTIC IMAGI NG ORDERABLES documented in this encounter Visit Diagnoses Not on filedocumented in this encounter
--- OUTSIDE RECORDS SUMMARY | 2024-04-03 20:37 | XMS_ITS | Encounter Summary ---
Author Organization [facility] Address [address] [place] [address] Care Team Providers Care Handkerchief Cutter Name Role Phone Unavailable Primary Care Provider Unavailabl e Encounter Details Date Type Department Care Team (Late st Contact Info) Description 05/13/2014 Orders Only [facility] [address] [place] [address] Unknown, Provider [address] [place] [address] Social History Tobacco Use Types Packs/Day Years Used Date Smoking Tobacco: Never Assessed Sex and Gender Information Value Date Recorded Sex Assigned at Not on file Gender Identity Not on file Sexual Orientation Not on file documented as of this encounter Plan of Treatment Not on file documented as of this encounter Procedures Procedure Name Priority Date/Time Associated Diagnosis Comments URINALYSIS MICROSCOPIC Routine 05/13/2014 8:15 AM EDT CBC WITH AUTO DIFFERENTIAL Routine 05/13/2014 8:15 AM EDT XAUTOMATED DIFFERENTIAL Routine 05/13/2014 8:15 AM EDT URINALYSIS WITH MICROSCOPIC Routine 05/13/2014 8:15 AM EDT documented in this encounter Results * (ABNORMAL) Urinalysis Microscopic (05/13/2014 8:15 AM EDT) WBC <1 0 - 5 /HPF [facility] Squamous Epi Cells <1 /HPF [facility] Voided Urine 05/13/2014 8:15 AM EDT 05/13/2014 1:58 PM EDT Narrative [facility] - 05/13/2014 2:17 PM EDT added by Discern Expert Provider Unknown URINE ORDERABLES [facility] [address] [facility] * Urinalysis with microscopic (05/13/2014 8:15 AM EDT) Color Straw [facility] Appearance Clear Clear [facility] Glucose Negative 30 [facility] Bilirubin Negative Negative [facility] Ketones Negative Trace [facility] Specific [place] 1.003 [facility] Blood Negative C[facility] pH 6.0 [facility] Protein Negative Negative [facility] Urobilinogen Negative Negative [facility] Nitrite Negative Negative [facility] Leukocyte Esterase Negative Negative [facility] Voided Urine 05/13/2014 8:15 AM EDT 05/13/2014 1:58 PM EDT Provider Unknown URINE ORDERABLES Performing Organization Address [facility] de Phone Number [facility] Renteria[address] [facility] * (ABNORMAL) Automated Differential (05/13/2014 8:15 AM EDT) Neutrophils 54.7 48.0 - 66.0 % [facility] Lymphocytes 30.9 29.0 - 45.0 % [facility] Monocytes 13.5(H) 2.0 - 10.0 % [facility] Eosinophils 0.5(L) 1.5 - 6.0 % [facility] Basophils 0.4 0.0 - 2.2 % [facility] Neutrophil # 2.6 1.5 - 8.0 # [facility] Lymphocyte # 1.4 1.0 - 4.8 # [facility] Monocyte # 0.6 0.0 - 0.9 # [facility] Blood 05/13/2014 8:15 AM EDT 05/13/2014 1:50 PM EDT Narrative [facility] - 05/13/2014 1:56 PM EDT added by Discern Expert Provider Unknown LAB BLOOD ORDERABLES Performing Organization Address [facility] de Phone Number [facility] [address] [facility] * CBC auto differential (05/13/2014 8:15 AM EDT) WBC 4.7 4.5 - 11.0 x10(3)/mcL [facility] RBC 3.94 3.50 - 5.50 x10(6)/mcL [facility] Hemoglobin 12.3 12.0 - 15.0 g/dL [facility] Hematocrit 36.6 36.0 - 48.0 % [facility] MCV 92.8 79.0 - 98.0 fL [facility] MCH 31.2 25.4 - 34.6 pg/dL [facility] MCHC 33.6 32.0 - 36.4 g/dL [facility] RDW 12.6 12.0 - 15.0 % [facility] Platelet 287 140 - 440 x10(3)/mcL [facility] MPV 8.6 6.0 - 11.0 fL [facility] Blood 05/13/2014 8:15 AM EDT 05/13/2014 1:50 PM EDT Provider Unknown LAB BLOOD ORDERABLES Performing Organization Address City/State/[facility] Co de Phone Number [facility] Renteria[address] [facility] JEFFERSON documented in this encounter Visit Diagnoses Not on filedocumented in this encounter
--- OUTSIDE RECORDS SUMMARY | 2024-04-03 20:37 | XMS_ITS | Referral Summary ---
Author Organization [facility] Address [address] [place] [address] Care Team Providers Care Forensic Scientist Name Role Phone Unavailable Primary Care Provider [...] on the phone or virtually, visiting friends/family, rastafari service, clubs) Not on file 11/15/2020 Financial [...] such as bathing, dressing, eating, or doing finisher operator? Not on file 11/15/2020 7. Do you ever have problems easily and safely moving around your home, or the place you live? Not on file 11/15/2020 Sex and Gender Information Value Date Recorded Sex Assigned at Not on file Gender Identity Not on file Sexual Orientation Not on file Plan of Treatment Not on file [employer] Workers Comp Self 1995 [address] [place] [address]
[2024-04-03 20:39] VITALS: BP 133/87; PULSE 103; RESP 16; TEMP 36.8; O2SAT 98
[2024-04-03 20:51] LABS: Bilirubin Negative (Negative); Blood Negative (Negative); Clarity Clear (Clear); Glucose Negative (Negative); Ketones Negative (Negative); Leukocyte Esterase Negative (Negative); Nitrite Negative (Negative); Specific Gravity 1.025 (1.005-1.025); Urobilinogen 0.2 mg/dL (Up to 0.2)
[2024-04-03 20:54] VITALS: BP 133/87; PULSE 103; RESP 16; TEMP 36.8; O2SAT 98
--- NOTE | 2024-04-03 22:42 | W.ED.GENAD ---
Discharge Plan Disposition Patient Disposition: Home Condition: Good Discharge Details Clinical Impression: Encounter for medical assessment Primary Care Provider: Unknown,Unknown ED Provider: Terrell Tabares Home Meds and New Rx's Prescriptions: No Action hjpugyoc-tpp-Yj-FA 1 mg Tablet 1 tab PO DAILY lorazepam 0.5 mg tablet 0.5 mg PO Q6H Patient Comments: TAKE 1 TABLET BY MOUTH EVERY 6 HOURS NEEDED FOR ANXIETY FOR UP TO 10 DAYS amoxicillin-pot clavulanate 400-57 mg/5 mL suspension for reconstitution 5 ml PO BID Patient Comments: has not started due to feeling like she might be . Discharge Instructions Additional Instructions: At this time as we discussed together your test has come back negative. On the limited bedside ultrasound I do not see any evidence of current active . The previous positive test may be secondary to the last remnant of the beta-hCG present from your previous /recent miscarriage. 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 Please take your home lorazepam only as needed. If you notice any worsening of your symptoms, or any new symptoms such as vomiting, diarrhea, fever, chills, shortness of breath, chest pain, numbness, weakness, or fainting , please return immediately to the emergency department for reevaluation. Please follow up with your primary care provider as soon as possible for reassessment and reevaluation. As always, it was a pleasure participating in your medical care today. HPI General Date/Time Provider Initiated Documentation: 04/03/24 21:31. HPI Narrative: 28-year-old female who is a who just underwent a miscarriage 2 weeks ago and is currently staying obstetrics in [place] as well as a urologist for suspected chronic bladder pain, presents today for evaluation of test. Patient states that she felt little funny today, and decided to take a test on which she felt there was a very thin line. She has been prescribed Augmentin for potential urinary tract infection by her home practitioner, and she was wondering if she should take that, if she is , and if she should also take the recommended lorazepam which was prescribed to her by her primary care provider. She denies any vaginal bleeding or discharge, she denies any nausea vomiting or diarrhea, breast tenderness, nipple enlargement, new or acute pelvic pain, hematuria, or other complaints. She denies any homicidal or suicidal ideations. No other modifying factors. Related Data Home Medications ?Medication ?Instructions ?Recorded ?Confirmed ixjqwobt-rmw-Mi-FA 1 mg 1 tab PO DAILY 05/01/23 04/03/24 tablet amoxicillin 400 mg-potassium 5 ml PO BID 04/03/24 04/03/24 clavulanate 57 mg/5 mL oral suspension lorazepam 0.5 mg tablet 0.5 mg PO Q6H 04/03/24 04/03/24 Allergies Allergy/AdvReac Type Severity Reaction Status Date / Time clindamycin Allergy Mild Skin Rash Verified 04/03/24 22:12 General Stated Complaint: Urinary KAPIL: 4 Review of Systems All systems reviewed & are unremarkable except as noted in HPI and below Exam Narrative Exam Narrative: 1.Const: Well-nourished, Well-developed, appearing stated age 2.Eyes: PERRL, no conjunctival injection, and symmetrical lids. 3.ENT: Atraumatic external nose and ears. Moist MM. Neck: Symmetric, trachea midline, No thyromegaly. 4.CVS: +S1/S2, No murmurs or gallops. Peripheral pulses 2+ and equal in all extremities. Brisk capillary refill in all extremities. 5.RESP: Unlabored respiratory effort. Clear to auscultation bilaterally. No wheezes rales or rhonchi 6.GI: Soft, Nontender/Nondistended, No hepatosplenomegaly. No guarding or rebound. No suprapubic tenderness. No guarding or rebound. 7.MSK: Normocephalic/Atraumatic, Extremities w/o deformity or ttp No cyanosis or clubbing, Normal movement of all extremities 8.Skin: Warm, Dry. No rashes or lesions. 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 Sensation grossly intact, no focal neurologic deficits. 10.Psych: (AAO) x3. Appropriate mood and affect Course Vital Signs Vital signs: Vital Signs Temperature 36.8 C 04/03/24 20:39 Pulse 103 H 04/03/24 20:39 Respiratory Rate 16 04/03/24 20:39 Blood Pressure 133/87 04/03/24 20:39 Pulse Oximetry 98 04/03/24 20:39 Temperature 36.8 C 04/03/24 20:54 Temperature Source Temporal Artery Scan 04/03/24 20:54 Pulse 103 H 04/03/24 20:54 Respiratory Rate 16 04/03/24 20:54 Respiratory Effort Normal, Non-Labored 04/03/24 20:45 Blood Pressure 133/87 04/03/24 20:54 Blood Pressure Position Sitting 04/03/24 20:54 Pulse Oximetry 98 04/03/24 20:54 Oxygen Delivery Method Room Air 04/03/24 20:54 Oxygen Flow Rate 0 04/03/24 20:39 Pain Level 6 04/03/24 20:58 Lab/Test Results Lab/Test Results: Laboratory Tests Range/Units 04/03/24 20:35 Urine Color (Yellow) Yellow Urine Clarity (Clear) Clear Urine pH (5-8) 7.0 Ur Specific [place] (1.005-1.025) 1.025 Urine Protein (Neg-Trace) mg/dL Negative Urine Ketones (Negative) mg/dL Negative Urine Blood (Negative) Negative Urine Nitrite (Negative) Negative Urine Bilirubin (Negative) Negative Urine Urobilinogen (Up to 0.2) mg/dL 0.2 Ur Leukocyte Esterase (Negative) Negative Urine Glucose (Negative) mg/dL Negative POC- Test(urine) Negative Medical Decision Making 28-year-old female who is a who just underwent a miscarriage 2 weeks ago and is currently staying obstetrics in [place] as well as a urologist for suspected chronic bladder pain, presents today for evaluation of test. Patient states that she felt little funny today, and decided to take a test on which she felt there was a very thin line. She has been prescribed Augmentin for potential urinary tract infection by her home practitioner, and she was wondering if she should take that, if she is , and if she should also take the recommended lorazepam which was prescribed to her by her primary care provider. She denies any vaginal bleeding or discharge, she denies any nausea vomiting or diarrhea, breast tenderness, nipple enlargement, new or acute pelvic pain, hematuria, or other complaints. She denies any homicidal or suicidal ideations. No other modifying factors. Exam demonstrates a well-appearing female, vital signs stable, no hypotension or tachycardia. test is negative, urinalysis is negative for infection. Limited bedside ultrasound via transabdominal view shows no evidence of current intrauterine . I did discuss the limitations of the study with the patient and she understands, I did discuss how we could do a blood test as well, but with a negative urine test the likelihood is low that there is an active . Highest likelihood would be that there is leftover hCG from previous recent miscarriage. However these options still are available to the patient, but she has declined at this time for any additional testing. No formal ultrasonography available at this time. Patient is very satisfied with current results. She feels well and would like to go home. No other abnormalities on exam otherwise requiring emergent management. Discussed red flags for which to return. I have extensively reviewed the treatment plan and discharge instructions with the patient. I have addressed all patient concerns at this time. The patient was made aware of what symptoms to monitor for that would warrant a return to the emergency department. Discussed the plan with the patient, they demonstrate verbal understanding and agreement with our assessment and plan at this time. The documentation in this chart was dictated using [employer] dictation software. Please excuse any dictation errors. Quality:SDOH Health Related Social Needs: No Data to Display PFSH All Active Problems Encounter for medical assessment (Acute) Social History Smoking/Tobacco Use Status: Never Smoking risk assessment performed?: Yes Alcohol Intake: never Drug use: Occasionally Substance use type: marijuana Details: Not on in at the moment, trying to get Housing: apartment Do you feel safe at home: Yes Do you feel safe in your relationship?: Yes POCUS Exam (ED) Limited OB Exam DATE OF EXAM:: 04/03/24 TIME OF EXAM:: 23:04 PROVIDER THAT PERFORMED THE STUDY: Terrell Tabares IS THIS A REPEAT EXAM DURING THIS ENCOUNTER: No Type of Exam: Pelvic OB Trans Abdominal REASON FOR EXAM: other indication: eval VISUALIZED STRUCTURES: Cervix and Uterus (empty appearing) PERTINENT FINDINGS/IMPRESSION: No apparent abnormalities; No cardiac activity and No poll Exam Complete.
[2024-04-03 22:43] VITALS: BP 106/54; PULSE 80; RESP 18; TEMP 37.1; O2SAT 98
[2024-04-03] MEDS: LORazepam 1 MG TAB PO (22:51)
== END | disposition home or self-care (01) ==
LOC: ER 22:43 → RED 22:57
PROVIDERS: Emergency Provider Student in an Organized Health Care Education/Training Program
DX: Z71.1 Person with feared health complaint in whom no diagnosis is made (principal); Z87.59 Personal history of other complications of pregnancy, childbirth and the puerperium
CPT/HCPCS: 76815; 81025; 99282; 81003

== ENCOUNTER 2024-04-13 12:35 | Emergency (ER) | payer OTHER, SELFPAY ==
[2024-04-13 12:41] VITALS: BP 162/77; PULSE 119; RESP 16; TEMP 36.9; O2SAT 99
[2024-04-13 13:09] LABS: Bilirubin Negative (Negative); Blood Negative (Negative); Clarity Sl Cloudy (Clear); Glucose Negative (Negative); Ketones Negative (Negative); Leukocyte Esterase Negative (Negative); Nitrite Negative (Negative); Urobilinogen 0.2 mg/dL (Up to 0.2); pH 8.5 (5-8)
[2024-04-13 13:10] VITALS: BP 162/77; PULSE 119; RESP 16; TEMP 36.9; O2SAT 99
--- NOTE | 2024-04-13 13:12 | ED.GENADUL_ITS ---
Discharge Plan Disposition Patient Disposition: Home Condition: Stable Discharge Details Clinical Impression: Abdominal pain Primary Care Provider: Unknown,Unknown ED Provider: Natalya Loco Home Meds and New Rx's Prescriptions: Continued zteimwwx-tey-[id number]-FA 1 mg Tablet 1 tab PO DAILY lorazepam 0.5 mg tablet 0.5 mg PO Q6H Patient Comments: TAKE 1 TABLET BY MOUTH EVERY 6 HOURS NEEDED FOR ANXIETY FOR UP TO 10 DAYS Discharge Instructions Instructions: Abdominal Pain, Adult ED, Flank Pain ED Additional Instructions: No evidence for kidney stones, urinary tract infection or any abnormalities on your labs. Your potassium was slightly low. Please increase foods with high potassium content such as bananas. Increase oral fluids. Follow up with primary care provider in 3-5 days. Return to ED sooner if any worsening or concerns. Increase oral fluids. Please take Tylenol or Ibuprofen with food every 4-6 hours as needed for pain and swelling. Referrals: [facility] [Provider Group] Primary Care Provider [Outside] HPI General Mode of arrival: ambulatory . Date/Time Provider Initiated Documentation: 04/13/24 12:46 . Limitations to Documentation: no limitations . Information obtained by: patient, RN notes reviewed and old records reviewed . HPI Narrative: 29-year-old female presents to the ER with a chief complaint of right lower quadrant abdominal pain and bilateral flank pain worse on the right which has been increasing over the last 4 days. Associated with nausea., Denies any diarrhea but feels like she may have diarrhea soon. 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 She has not taken any Tylenol ibuprofen today. She does have have scheduled in [place] a cystoscopy for May 13. Denies any vaginal discharge or bleeding. She has been undergoing fertility treatment for recent negative test, she did have a miscarriage in February which she was seen here in the emergency department for. Denies any fever or chills. No other associated symptoms. Related Data Home Medications ?Medication ?Instructions ?Recorded ?Confirmed lredrtlb-eyo-Dy-FA 1 mg 1 tab PO DAILY 05/01/23 04/13/24 tablet lorazepam 0.5 mg tablet 0.5 mg PO Q6H 04/03/24 04/13/24 Allergies Allergy/AdvReac Type Severity Reaction Status Date / Time clindamycin Allergy Mild Skin Rash Verified 04/13/24 12:45 General Stated Complaint: FlankPain KAPIL: 3 Review of Systems All systems reviewed & are unremarkable except as noted in HPI and below Gastrointestinal Gastrointestinal: Reports abdominal pain, Reports nausea and Denies vomiting Genitourinary Genitourinary: Reports as per HPI, Reports flank pain and Reports urinary hesitancy Musculoskeletal Musculoskeletal: Reports back pain Exam Const General: cooperative, well developed, well groomed and anxious Nutritional Appearance: thin Orientation: alert, awake and oriented x3 Resp Effort & Inspection: normal respiratory effort and able to speak in complete sentences Auscultation: clear to auscultation bilaterally Cardio Rate: tachycardic Rhythm: regular rhythm Heart Sounds: S1 normal and S2 normal GI Inspection: normal to inspection Palpation: soft, no guarding, no masses and tender in the LLQ and in the RLQ Auscultation: normal bowel sounds Course Vital Signs Vital signs: Vital Signs Temperature 36.9 C 04/13/24 12:41 Pulse 119 H 04/13/24 12:41 Respiratory Rate 16 04/13/24 12:41 Blood Pressure 162/77 H 04/13/24 12:41 Pulse Oximetry 99 04/13/24 12:41 Temperature 36.9 C 04/13/24 13:10 Pulse 119 H 04/13/24 13:10 Respiratory Rate 16 04/13/24 13:10 Respiratory Effort Normal 04/13/24 13:09 Blood Pressure 162/77 H 04/13/24 13:10 Blood Pressure Position Sitting 04/13/24 13:10 Pulse Oximetry 99 04/13/24 13:10 Oxygen Delivery Method Room Air 04/13/24 13:10 Oxygen Flow Rate 0 04/13/24 13:10 Pain Level 6 04/13/24 13:10 Lab/Test Results Lab/Test Results: Laboratory Tests Range/Units 04/13/24 12:45 Urine Color (Yellow) Yellow Urine Clarity (Clear) Sl Cloudy Urine pH (5-8) 8.5 H Ur Specific [place] (1.005-1.025) 1.020 Urine Protein (Neg-Trace) mg/dL Trace Urine Ketones (Negative) mg/dL Negative Urine Blood (Negative) Negative Urine Nitrite (Negative) Negative Urine Bilirubin (Negative) Negative Urine Urobilinogen (Up to 0.2) mg/dL 0.2 Ur Leukocyte Esterase (Negative) Negative Urine Glucose (Negative) mg/dL Negative POC- Test(urine) Negative Medical Decision Making 29-year-old female presents to the ER with a chief complaint of right lower quadrant abdominal pain and bilateral flank pain worse on the right which has been increasing over the last 4 days. Associated with nausea., Denies any diarrhea but feels like she may have diarrhea soon. 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 She has not taken any Tylenol ibuprofen today. She does have have scheduled in [place] a cystoscopy for May 13. Denies any vaginal discharge or bleeding. She has been undergoing fertility treatment for recent negative test, she did have a miscarriage in February which she was seen here in the emergency department for. Denies any fever or chills. No other associated symptoms. CBC CMP IV Toradol Zofran CT abdomen pelvis without contrast ordered. Urinalysis and UDS. Urinalysis is negative for leukocytes or nitrites. Urine POC negative. Labs are largely unremarkable, no evidence of urinary tract infection UDS is positive for THC, no leukocytosis. CT abdomen pelvis without contrast shows no evidence for nephrolithiasis, no acute abnormality at this time. Please see official report. Discussed CT results and lab results with patient she is expressing multiple frustrations and she is convinced that there is something wrong with her kidneys and bladder. I did discuss that there is no evidence of kidney stone or bladder infection at this time. She does have some chronic appearing spondylolisthesis at L5-S1 and she is requesting lorazepam before she is discharged. She does seem quite upset. All her questions and concerns were answered to the best my ability. 0.5 mg lorazepam p.o. ordered. This text was generated using [employer]ation system, please disregard any oddities of phrase or misspellings. Medical Records Medical records reviewed: Yes I reviewed the patient's medical records. Imaging Data Radiologic Study: Imaging: CT Scan Radiologist's impression: FINDINGS: ABDOMEN: Lung Bases: Normal where visualized. Liver: Normal attenuation. No measurable mass. Gallbladder and biliary tract: No radiodense calculus or dilation. Pancreas: Normal density, no calcifications or inflammatory process. Spleen: Normal. Kidneys: Normal size, contour and axis. No radiodense stones or obstructive uropathy. No masses seen. Adrenal glands: No masses seen. Abdominal Aorta: Abdominal portion non-dilated. Soft tissues: Tiny fat containing umbilical hernia. PELVIS: Bladder: Nearly empty. No gross wall thickening. No evidence of stones.No visible mass. Bowel: No obstruction or bowel wall thickening. Moderate quantity of stool. Appendix appears normal. Reproductive: Unremarkable. Peritoneal cavity: No ascites, collection or mesenteric inflammatory response. Bones: Chronic appearing L5 spondylolysis and grade 1 spondylolisthesis. Mild bulging of the L5-S1 disc. IMPRESSION: Unremarkable noncontrast CT scan of the abdomen and pelvis. No evidence urinary tract calculi or hydronephrosis. Lab Data Lab results reviewed: Yes I reviewed the patient's lab results. Labs: Laboratory Tests Range/Units 04/13/24 04/13/24 12:45 13:20 WBC (4.4-10.8) 10^3/uL 5.60 RBC (3.93-5.22) 10^6/uL 4.09 Hgb (11.2-15.7) g/dL 13.1 Hct (36.0-46.0) % 39.5 MCV (80-95) fL 97 H MCH (27.0-33.0) pg 32.0 MCHC (32.0-36.0) % 33.2 RDW (11.7-14.6) % 12.0 Plt Count (130-400) 10^3/uL 311 MPV (8.0-11.0) fL 9.6 Immature Gran % % 0.2 Neutrophils % % 56.4 Lymphocytes % % 32.5 Monocytes % % 9.8 Eosinophils % % 0.7 Basophils % % 0.4 Nucleated RBC % (0.0-0.3) % 0.0 Absolute Neutrophils (1.2-6.7) 10^3/uL 3.16 Absolute Lymphocytes (1.2-3.4) 10^3/uL 1.82 Absolute Monocytes (0.1-0.8) 10^3/uL 0.55 Absolute Eosinophils (0.0-0.7) 10^3/uL 0.04 Absolute Basophils (0.0-0.2) 10^3/uL 0.02 Sodium (136-145) mmol/L 141 Potassium (3.5-5.1) mmol/L 3.3 L Chloride (98-107) mmol/L 103 Carbon Dioxide (21.0-32.0) mmol/L 30.2 Anion Gap (3-11) mmol/L 7.8 BUN (7-18) mg/dL 9 Creatinine (0.55-1.02) mg/dL 0.8 Est GFR (CKD-EPI 2020) (mL/min/1.73m2) 102.86 Glucose (74-106) mg/dL 104 Calcium (8.5-10.1) mg/dL 9.3 Total Bilirubin (0.2-1.0) mg/dL 0.81 AST (15-37) U/L 9 L ALT (14-59) U/L 18 Alkaline Phosphatase (46-116) U/L 62 Total Protein (6.4-8.2) g/dL 8.5 H Albumin (3.4-5.0) g/dL 4.9 Urine Color (Yellow) Yellow Urine Clarity (Clear) Sl Cloudy Urine pH (5-8) 8.5 H Ur Specific [place] (1.005-1.025) 1.020 Urine Protein (Neg-Trace) mg/dL Trace Urine Ketones (Negative) mg/dL Negative Urine Blood (Negative) Negative Urine Nitrite (Negative) Negative Urine Bilirubin (Negative) Negative Urine Urobilinogen (Up to 0.2) mg/dL 0.2 Ur Leukocyte Esterase (Negative) Negative Urine Glucose (Negative) mg/dL Negative Urine Opiates Screen (Negative) Negative Ur Barbiturates Screen (Negative) Negative Ur Tricyclics Screen (Negative) Negative Ur Amphetamines Screen (Negative) Negative U Benzodiazepines Scrn (Negative) Negative Urine Cocaine Screen (Negative) Negative Ur THC Screen (Negative) Positive A Quality:SDOH Health Related Social Needs: No Data to Display PFSH All Active Problems (Updated 04/13/24 @ 14:30 by Natalya Loco NP) Abdominal pain (Acute) Encounter for medical assessment (Acute) Social History Smoking/Tobacco Use Status: Never Smoking risk assessment performed?: Yes Alcohol Intake: never Drug use: Occasionally Substance use type: marijuana Details: Not on in at the moment, trying to get Housing: apartment Do you feel safe at home: Yes Do you feel safe in your relationship?: Yes
[2024-04-13 13:28] LABS: Abs Immature Grans 0.01 10^3/uL (0.0-0.06); Absolute Basophil Count 0.02 10^3/uL (0.0-0.2); Absolute Eosinophil Count 0.04 10^3/uL (0.0-0.7); Absolute Lymphocyte Count 1.82 10^3/uL (1.2-3.4); Absolute Monocyte Count 0.55 10^3/uL (0.1-0.8); Absolute Neutrophil Count 3.16 10^3/uL (1.2-6.7); Basophils % 0.4 %; Eosinophils % 0.7 %; HCT 39.5 % (36.0-46.0); HGB 13.1 g/dL (11.2-15.7); Immature Grans % 0.2 %; Lymphocytes % 32.5 %; MCHC 33.2 % (32.0-36.0); MCV 97 fL (80-95); MPV 9.6 fL (8.0-11.0); Monocytes % 9.8 %; Neutrophils % 56.4 %; Platelet Count 311 10^3/uL (130-400); RBC 4.09 10^6/uL (3.93-5.22); RDW-SD 42.7 fL
[2024-04-13] MEDS: Ketorolac 15 MG/ML VIAL IVP (13:33)
[2024-04-13] MEDS: Normal Saline 500 ML IV (13:33)
[2024-04-13] MEDS: Ondansetron 4 MG/2 ML VIAL IVP (13:33)
[2024-04-13 13:46] LABS: *AMPHETAMINES SCREEN URINE Negative (Negative); *BARBITURATES SCREEN URINE Negative (Negative); *BENZODIAZEPINES SCREEN URINE Negative (Negative); Cannabinoids THC Positive (Negative); Cocaine Screen,Urine Negative (Negative); OPIATES URINE SCREEN Negative (Negative); Tricyclic Antidepressants Negative (Negative)
[2024-04-13 13:54] LABS: ALT 18 U/L (14-59); AST 9 U/L (15-37); Albumin 4.9 g/dL (3.4-5.0); Alkaline Phosphatase 62 U/L (46-116); Anion Gap 7.8 mmol/L (3-11); BUN 9 mg/dL (7-18); Bilirubin, Total 0.81 mg/dL (0.2-1.0); CO2 30.2 mmol/L (21.0-32.0); CREATININE 0.8 mg/dL (0.55-1.02); Calcium 9.3 mg/dL (8.5-10.1); Chloride 103 mmol/L (98-107); Estimated GFR 102.86 (mL/min/1.73m2); Glucose 104 mg/dL (74-106); Potassium 3.3 mmol/L (3.5-5.1); Sodium 141 mmol/L (136-145); Total Protein 8.5 g/dL (6.4-8.2)
--- NOTE | 2024-04-13 14:05 | DI.CT_ITS ---
Exam(s) CT RENAL COLIC WO EXAM: CT RENAL COLIC WO CLINICAL HISTORY: Right Flank and RLQ abd pain. TECHNIQUE: Imaging Protocol: Axial computed tomography images with coronal and sagittal reformatted images were created and reviewed. CONTRAST MATERIAL: Noncontrast COMPARISON: No exams were available for comparison FINDINGS: ABDOMEN: Lung Bases: Normal where visualized. Liver: Normal attenuation. No measurable mass. Gallbladder and biliary tract: No radiodense calculus or dilation. Pancreas: Normal density, no calcifications or inflammatory process. Spleen: Normal. Kidneys: Normal size, contour and axis. No radiodense stones or obstructive uropathy. No masses seen. Adrenal glands: No masses seen. Abdominal Aorta: Abdominal portion non-dilated. Soft tissues: Tiny fat containing umbilical hernia. PELVIS: Bladder: Nearly empty. No gross wall thickening. No evidence of stones.No visible mass. Bowel: No obstruction or bowel wall thickening. Moderate quantity of stool. Appendix appears holly l. Reproductive: Unremarkable. Peritoneal cavity: No ascites, collection or mesenteric inflammatory response. Bones: Chronic appearing L5 spondylolysis and grade 1 spondylolisthesis. Mild bulging of the L5-S1 d isc. IMPRESSION: Unremarkable noncontrast CT scan of the abdomen and pelvis. No evidence urinary tract calculi or hydronephrosis. RADIATION DOSE DELIVERED: Total DLP DATA REPOSITORY: All CT scans at this facility are submitted to the National Radiology Data Registry (NRDR) Dose Index Registry (DIR) with the [employer] (A[employer]). RADIATION OPTIMIZATION: All CT scans at this facility use at least one of these dose optimization te chniques: automated exposure control; mA and/or kV adjustment per patient size (includes targeted exa ms where dose is matched to clinical indication); or iterative reconstruction.
[2024-04-13] MEDS: LORazepam 0.5 MG TAB PO (15:00)
== END 2024-04-13 14:40 | disposition home or self-care (01) ==
PROVIDERS: Emergency Provider Registered Nurse Emergency
DX: R10.31 Right lower quadrant pain (principal); R10.32 Left lower quadrant pain; Z87.448 Personal history of other diseases of urinary system
CPT/HCPCS: 36415; 80053; 80307; 81025; 96361; 96374; 96375; 99284; 74176; 81003; 85025; 99283; J1885; J2405